=== PATIENT | female | born 1955 | race Caucasian/White ===

== ENCOUNTER 2020-08-26 09:50 | Outpatient (REF) | payer OTHER, SELFPAY ==
--- NOTE | 2020-08-26 | MM_ITS ---
EXAMINATION: BONE DENSITOMETRY CLINICAL INDICATION: Osteoporosis. COMPARISON: Previous BD dated 02/16/2018 and baseline BD dated 03/26/2010. TECHNIQUE: Using a [employer] mobile DXA System (software version: 13.1) manufactured by [employer], dual-energy x-ray absorptiometry was performed of the lumbar spine and left hip. The images are of good technical quality. Summary results are attached. FINDINGS: AP SPINE L1-L4: Current: BMD 0.904 g/cm2, Z-score -1.0, T-score -2.3, osteopenia, 0.9% increase from previous, 1.8% increase from baseline (<5% change is not significant). Prior: BMD 0.896 g/cm2. Baseline: BMD 0.888 g/cm2. LEFT FEMUR, NECK: Current: BMD 0.739 g/cm2, Z-score -0.8, T-score -2.1, osteopenia. Prior: BMD 0.643 g/cm2. Baseline: BMD 0.819 g/cm2. LEFT FEMUR, TOTAL: Current: BMD 0.932 g/cm2, Z-score 0.5, T-score -0.6, normal, 15.1% increase from previous, 1.5% decrease from baseline (<5% change is not significant). Prior: BMD 0.810 g/cm2. Baseline: BMD 0.946 g/cm2. IDENTIFIED RISK FACTORS: Menopause, rheumatoid arthritis, height loss, osteoporosis. HISTORY OF FRACTURE: None listed. MEDICATIONS: Calcium or multivitamin. Vitamin D. MM/XR DEXA axial skeleton IMPRESSION: 1. DIAGNOSIS: Osteopenia based on the lowest T-score value of -2.3 in the lumbar spine applying World Health Organization criteria. 2. 10-YEAR FRACTURE RISK PREDICTION, FRAX: Major osteoporotic fracture (clinical spine, forearm, hip or shoulder) 11.4%. Hip fracture 2.0%. 3. Treatment Recommendations: NOF guidelines recommend consideration for treatment in postmenopausal women and men age 50 and older presenting with the following: -A hip or vertebral (clinical or morphometric) fracture. -T-score less than or equal to -2.5 at the femoral neck or spine after appropriate evaluation to exclude secondary causes. -Low bone mass at the hip or spine and a 10-year fracture probability by FRAX of greater than or equal to 3% for hip fracture or greater than or equal to 20% for major osteoporotic fracture based on the [place] adapted WHO algorithm. 4. Other Recommendations: All treatment decisions require clinical judgment and consideration of individual patient factors, including patient preferences, comorbidities, previous drug use, risk factors not captured in the FRAX model (e.g. frailty, falls, vitamin D deficiency, increased bone turnover, interval significant decline in bone density) and possible under or overestimation of fracture risk by FRAX. Additional medical evaluation for secondary cause of low bone mineral density may be appropriate. FUTURE SCAN RECOMMENDATION: People with diagnosed cases of osteoporosis or at high risk for fracture should have regular bone mineral density tests. For patients eligible for Medicare, routine testing is allowed once every 2 years. The testing frequency can be increased to one year for patients who have rapidly progressing disease, those who are receiving or discontinuing medical therapy to restore bone mass, or have additional risk factors.
--- NOTE | 2020-08-26 | MM_ITS ---
EXAMINATION: MM SCREENING DIGITAL BREAST TOMOSYNTHESIS, BILATERAL CLINICAL INFORMATION: Screening. Asymptomatic. The lifetime risk of breast cancer based on the Tyrer-Cuzick Model is 9%. COMPARISON: Mammography: 08/23/2019, 07/18/2018, 07/11/2017, 06/25/2016 TECHNIQUE: Digital breast tomosynthesis is performed in both the craniocaudal and mediolateral oblique views along with computer-aided detection (CAD). Synthesized 2D images are generated from the tomosynthesis. FINDINGS: There are scattered areas of fibroglandular density (ACR BI-RADS breast composition Category b). Parenchymal pattern is similar to prior studies. There is no interval mass or architectural abnormality. No abnormal calcifications. Intramammary node again seen right breast mid upper outer quadrant. No significant changes. MM/MM tomosynthesis screening BI IMPRESSION: No mammographic evidence of malignancy. ASSESSMENT: BI-RADS 1: Negative RECOMMENDATION: Routine annual mammography screening. This patient's information was entered into a reminder system with a target due date for their next mammogram.
== END 2020-08-26 09:51 | disposition home or self-care (01) ==
LOC: HO.MAMMO 09:50
PROVIDERS: PCP Internal Medicine; Visit Provider Internal Medicine
DX: M81.0 Age-related osteoporosis without current pathological fracture (principal); Z12.31 Encounter for screening mammogram for malignant neoplasm of breast
CPT/HCPCS: 77063; 77067; 77080

== ENCOUNTER 2020-09-12 09:11 | Outpatient (REF) | payer OTHER, SELFPAY ==
[2020-09-12 11:58] LABS: Alanine Aminotransferase 16 U/L (0-31); Anion Gap 12 (12-20); Aspartate Amino Transferase 16 U/L (5-31); Blood Urea Nitrogen 17 mg/dL (9-16); Calcium 8.3 mg/dL (8.4-10.2); Carbon Dioxide 28 mmol/L (22-29); Chloride 106 mmol/L (96-108); Cholesterol 191 mg/dL; Estimated Glomerular Filt Rate > 60; Glucose Fasting 91 mg/dL (60-99); HDL Cholesterol 62 mg/dL; LDL Cholesterol Calculated 102 mg/dl; Potassium 4.1 mmol/l (3.3-5.1); Sodium 142 mmol/L (135-145); Triglycerides 136 mg/dL
[2020-09-12 12:05] LABS: Vitamin D 25-OH Total 51.9 ng/mL (>30)
== END 2020-09-12 09:12 | disposition home or self-care (01) ==
LOC: HO.HMGCLDS 09:11
PROVIDERS: PCP Internal Medicine; Visit Provider Internal Medicine
DX: E78.5 Hyperlipidemia, unspecified (principal); I10 Essential (primary) hypertension; I48.0 Paroxysmal atrial fibrillation; Z78.0 Asymptomatic menopausal state
CPT/HCPCS: 80048; 80061; 82306; 84450; 84460

== ENCOUNTER → 2020-12-12 08:41 | Outpatient (REF) | payer OTHER, SELFPAY ==
--- NOTE | 2020-12-12 08:30 | CA_ITS ---
Transthoracic Echocardiogram Patient (Last, First, Middle): Brooklyn Hawkins L Gender: Female Date of : 1955 Age: 65 Procedure Date: 12/12/2020 Procedure Type: Transthoracic Echocardiogram Location: OP Height: 154.94 cm Weight: 74.84 kg BSA: 1.74 m2 Heart Rate: bpm BP: 140 / 85 mmHg [employer] Driver: SMITHA Referring MD: Juan Laughlin MD Symptoms: I48.0 PAF I10 HTN Study Quality: Fair ECG Rhythm: Sinus Conclusions: - The left ventricular systolic function is normal. The visually estimated ejection fraction is between 55-60%. - There is mild mitral valve regurgitation. Findings Left Ventricle Normal left ventricular cavity size. There is mildly increased left ventricular wall thickness. The left ventricular systolic function is normal. The visually estimated ejection fraction is between 55-60%. There is no evidence of regional wall motion abnormalities. Diastolic function is normal for age. Right Ventricle Normal right ventricular cavity size and systolic function. Atria The left atrium is normal in size. The right atrium is normal in size. Aortic Valve There is a normal trileaflet aortic valve. There is no aortic valve stenosis. There is no aortic valve regurgitation. Mitral Valve The mitral valve appears normal. There is mild mitral valve regurgitation. There is no mitral valve stenosis. Pulmonic Valve The pulmonic valve was not well visualized. Tricuspid Valve Normal tricuspid valve structure. There is trace tricuspid valve regurgitation. The pulmonary artery systolic pressure is normal. Great Vessels The aortic annulus, sinuses of valsalva, and asc aorta are normal in size. Venous The inferior vena cava is normal in size and collapses greater than 50% with inspiration. Pericardium/Pleural There is no evidence of pericardial effusion. Prior Study Comparison No significant change compared to prior study dated: 12/24/2019. Measurements 2D Linear Measurements IVSd: 1.23 0.6-0.9/0.6-1.0 cm LVIDd: 4.82 3.9-5.3/4.2-5.9 cm LVIDd Index: 2.77 2.4-3.2/2.2-3.1 cm/m2 LVIDs: 3.69 2.0-3.6 cm LVPWd: 1.07 0.7-1.1 cm Ao Root: 2.60 2.1-3.5 cm LA Diam: 3.40 2.7-3.8/3.0-4.0 cm LAIDs Index: 1.95 1.5-2.3 cm/m2 LV Mass: 258.92 67-162/88-224 g LV Mass Index: 148.81 43-95/49-115 g/m2 LVOT Diam: 2.10 3.0+(-)1.3 cm 2D Systolic Function EF 4C: 55.20 >55% EF 2C: 62.20 >55% EF BiP: 59.60 >55% Mitral Valve MV Pk E: 0.92 MV PK A: 0.78 MV Decel Time: 127.00 E/A: 1.20 E'Lateral: 10.40 E'Medial: 7.72 E/E' Med: 11.90 E/E' Lat: 8.80 PHT: 37.00 MVA PHT: 5.95 Decel Richardson: 7.23 Aortic Valve AoV Pk Jeovanny: 1.38 AoV Pk Grad: 8.00 LVOT LVOT Pk Jeovanny: 0.81 LVOT Mn Jeovanny: 0.52 LVOT VTI: 0.19 LVOT Pk Grad: 3.00 LVOT Mn Grad: 1.00 LVOT Diam: 2.10 LVOT Area: 3.46 Diastolic Function MV Pk E: 0.92 MV Pk A: 0.78 E/A: 1.20 E'Medial: 7.72 E/E' Med: 11.90 E' Laterial: 10.40 E/E' Lat: 8.80 Tricuspid Valve TR Pk Jeovanny: 2.20 TR Pk Grad: 19.00 RA Press: 3.00 RVSP: 20.00 Great Vessels Aorta Ao Root-2D: 2.60 2.0-3.7 cm Ao Asc: 3.10 2.1-3.4 cm Updated in Other Vendor System with Status of Final Pankaj Nuñez MD electronically signed on 12/13/2020 1:09:32 PM with status of Final
== END ==
LOC: HO.CARD 08:41
PROVIDERS: Visit Provider Internal Medicine Cardiovascular Disease
DX: I48.0 Paroxysmal atrial fibrillation (principal); I10 Essential (primary) hypertension
CPT/HCPCS: 93306

== ENCOUNTER → 2020-12-30 08:30 | Outpatient (BNVA) | payer OTHER, MEDICARE, SELFPAY | PROVIDERS: PCP Internal Medicine; Visit Provider Internal Medicine Cardiovascular Disease | DX: I48.0 Paroxysmal atrial fibrillation (principal); I10 Essential (primary) hypertension | CPT/HCPCS: 93005 ==

== ENCOUNTER 2021-01-12 09:22 | Outpatient (REF) | payer OTHER, MEDICARE, SELFPAY ==
[2021-01-12 12:01] LABS: Alanine Aminotransferase 24 U/L (0-31); Anion Gap 13 (12-20); Aspartate Amino Transferase 24 U/L (5-31); Blood Urea Nitrogen 13 mg/dL (9-16); Calcium 8.4 mg/dL (8.4-10.2); Carbon Dioxide 28 mmol/L (22-29); Chloride 104 mmol/L (96-108); Cholesterol 168 mg/dL; Estimated Glomerular Filt Rate > 60; Glucose Fasting 97 mg/dL (60-99); HDL Cholesterol 48 mg/dL; LDL Cholesterol Calculated 96 mg/dl; Potassium 4.1 mmol/L (3.3-5.1); Sodium 141 mmol/L (135-145); Triglycerides 120 mg/dL
[2021-01-12 12:24] LABS: Vitamin D 25-OH Total 67.5 ng/mL (>30)
== END 2021-01-12 09:23 | disposition home or self-care (01) ==
LOC: HO.HMGCLDS 09:22
PROVIDERS: PCP Internal Medicine; Visit Provider Internal Medicine
DX: E78.5 Hyperlipidemia, unspecified (principal); I10 Essential (primary) hypertension; K58.0 Irritable bowel syndrome with diarrhea; M85.89 Other specified disorders of bone density and structure, multiple sites; Z78.0 Asymptomatic menopausal state
CPT/HCPCS: 36415; 80048; 80061; 82306; 84450; 84460

== ENCOUNTER 2021-03-16 11:07 | Emergency (ER) | payer OTHER, MEDICARE, SELFPAY ==
--- NOTE | ~2021-03-16 | XR_ITS ---
EXAMINATION: XR CHEST CLINICAL INFORMATION: Dyspnea. COMPARISON: None TECHNIQUE: Frontal view of the chest was obtained. FINDINGS: No significant abnormality is noted involving the heart, lungs, mediastinum, bony thorax or soft tissues. XR/XR chest 1V IMPRESSION: Unremarkable chest exam.
[2021-03-16 11:25] VITALS: BP 127/83; PULSE 100; RESP 16; TEMP 38; O2SAT 98; BMI 30.2
--- NOTE | 2021-03-16 11:55 | ED_ITS ---
HPI - URI/Sore Throat General Chief Complaint: Dyspnea <BHARAT Curry Last Filed: 03/16/21 16:52> Stated Complaint: DIFF BREATHING,100% DUONEB <BHARAT Curry Last Filed: 03/16/21 16:52> Time Seen by Provider: 03/16/21 11:32 <BHARAT Curry Last Filed: 03/16/21 16:52> Source: patient <BHARAT Curry Last Filed: 03/16/21 16:52> Mode of arrival: ambulatory <BHARAT Curry Last Filed: 03/16/21 16:52> Limitations: no limitations <BHARAT Curry Last Filed: 03/16/21 16:52> History of Present Illness HPI Narrative: 65 y/o female with history of COVID in December 2020, paroxysmal AFib on anticoaluation, HTN who presents to the ER from home via EMS with sore throat that started this morning. She reports a dry cough as well and some mild SOB. She relates her SOB to her throat pain and mask wearing. No chest pain. She states her throat is very painful and she is having difficulty eating and drinking. She tried warm salt water gargle without improvement. She denies any difficulty handling her own secretions. Her voice is hoarse. She denies fevers but reports chills. No sick contacts. She has not gotten her COVID vaccines yet in the setting of recent COVID. <BHARAT Curry Last Filed: 03/16/21 16:52> MD elicited complaint: sore throat <BHARAT Curry Last Filed: 03/16/21 16:52> Onset (ago): hour(s) (4) <BHARAT Curry Last Filed: 03/16/21 16:52> Consistency: constant <BHARAT Curry Last Filed: 03/16/21 16:52> Severity: severe <BHARAT Curry Last Filed: 03/16/21 16:52> Able to tolerate fluids by mouth: Yes <BHARAT Curry Last Filed: 03/16/21 16:52> Exacerbating factors: swallowing and speaking <BHARAT Curry - Last Filed: 03/16/21 16:52> Relieving factors: nothing <BHARAT Curry - Last Filed: 03/16/21 16:52> Associated symptoms: chills, voice changes, sore throat and cough <BHARAT Curry - Last Filed: 03/16/21 16:52> Treatments prior to arrival: none <BHARAT Curry - Last Filed: 03/16/21 16:52> Related Data Home Medications: Home Medications Medication Instructions Recorded Confirmed acetaminophen 650 mg 650 mg PO Q8H PRN 09/18/20 03/25/21 tablet,extended release cholecalciferol (vitamin D3) 50 50 mcg PO DAILY 09/18/20 03/25/21 mcg (2,000 unit) capsule flu vacc [id number](65yr up)-PF 240 ml IM 09/18/20 03/25/21 mcg/0.7 mL intramuscular syringe Previous Rx's Medication Instructions Recorded lisinopril 20 mg tablet 20 mg PO DAILY 90 Days #90 tab 09/10/20 metoprolol succinate 50 mg 50 mg PO DAILY 90 Days #90 tab 09/10/20 tablet,extended release 24 hr rivaroxaban 20 mg tablet 20 mg PO DAILY #30 tab 11/11/20 albuterol sulfate 90 mcg/actuation 2 puff PO Q6H PRN #8.5 g 02/27/21 aerosol inhaler flecainide 100 mg tablet 100 mg PO Q12H #180 tab 03/02/21 simvastatin 20 mg tablet 20 mg PO BEDTIME #90 tab 03/02/21 albuterol sulfate 1 inh INHALATION QID PRN #6.7 g 03/16/21 budesonide-formoterol HFA 160 2 puff INHALATION Q12H #10.2 g 03/25/21 mcg-4.5 mcg/actuation aerosol inhaler doxycycline hyclate 100 mg capsule 100 mg PO BID 10 Days #20 cap 03/25/21 inhalational spacing device #1 ea 03/25/21 ipratropium 0.5 mg-albuterol 3 mg 3 ml INHALATION Q6H PRN #90 ml 03/25/21 (2.5 mg base)/3 mL nebulization soln nebulizers #1 ea 03/25/21 raloxifene 60 mg tablet 60 mg PO DAILY #90 tab 04/22/21 <BHARAT Curry Last Filed: 03/16/21 16:52> Allergies/Adverse Reactions: Allergies Allergy/AdvReac Type Severity Reaction Status Date / Time Sulfa (Sulfonamide Allergy Intermediate FACIAL Verified 01/19/21 09:00 Antibiotics) SWELLING, [SULFA(SULFONAMIDE REDNESS, ANTIBIOTICS)] rash, face edema levofloxacin [From LEVAQUIN] Allergy Unknown itchy Verified 01/19/21 09:00 tongue penicillin V Allergy Unknown rash Verified 01/19/21 09:00 Penicillins [PENICILLINS] Allergy Unknown RASH Verified 01/19/21 09:00 Quinolones [QUINOLONES] Allergy Unknown MOUTH Verified 01/19/21 09:00 ITCHING <BHARAT Curry Last Filed: 03/16/21 16:52> Review of Systems Review of Systems: Constitutional: No Fever, + Chills ENT/Mouth: + sore throat, No Rhinorrhea, + Swallowing Difficulty Eyes: No Eye Pain, No Swelling, No Redness Cardiovascular: No Chest Pain, + SOB Respiratory: + Cough, No Sputum, + Wheezing, No dyspnea Gastrointestinal: No Nausea, No Vomiting, No Diarrhea, No abdominal Pain Genitourinary: No Dysuria, No Urinary Frequency, No Hematuria Musculoskeletal: No joint pain, No Myalgias Skin: No Skin Lesions, No rash Neuro: No Weakness, No Numbness, No Dizziness, + Headache Heme/Lymph: No Lymphadenopathy <BHARAT Curry Last Filed: 03/16/21 16:52> [facility] Past Medical History Attestation statement: The following information was validated with the patient. <BHARAT Curry Last Filed: 03/16/21 16:52> Medical History: Medical History Chronic anticoagulation Dyslipidemia Essential hypertension Hemochromatosis carrier Irritable bowel syndrome with diarrhea Mild intermittent asthma with (acute) exacerbation Osteopenia of multiple sites Paroxysmal atrial fibrillation <BHARAT Curry Last Filed: 03/16/21 16:52> Surgical History: Surgical History History of laparoscopic cholecystectomy <BHARAT Curry - Last Filed: 03/16/21 16:52> Family History Family History: Family History (Updated 03/25/21 @ 10:39 by Noemy Bryant [facility]) Father Emphysema, unspecified Mother Heart disease CVD (cardiovascular disease) Stroke Maternal Aunt Breast cancer Ovarian cancer Brother No problems noted. Brother No problems noted. Brother No problems noted. Sister No problems noted. Sister Mental health disorder Sister Mental health disorder Daughter No problems noted. Daughter No problems noted. Daughter No problems noted. <BHARAT Curry - Last Filed: 03/16/21 16:52> Social History Social History: Social History (Updated 03/25/21 @ 10:40 by Noemy Bryant [facility]) Housing: House Alcohol intake: former Patient Tobacco Use Status: Former Tobacco user Years Smoked: 40 yrs service: No Current occupational status: retired <BHARAT Curry - Last Filed: 03/16/21 16:52> Physical Exam Vital Signs: Vital Signs: Last Vital Signs Temp 100.5 F H 03/16/21 12:58 Pulse 98 03/16/21 14:06 Resp 20 03/16/21 12:58 BP 136/63 03/16/21 12:58 Pulse Ox 92 03/16/21 15:58 Body Mass Index 30.2 Appearance: Alert. Oriented X3. No acute distress. Eyes: Pupils equal, round and reactive to light. ENT: Pharynx with moderate generalized erythema, no tonsillar swelling or exudates, no visible peritonsillar mass Neck: Normal inspection. Neck supple. No LAD CVS: Normal heart rate and rhythm. Pulses normal. Respiratory: No respiratory distress. Breath sounds with mild end expiratory wheeze throughout. Abdomen: Soft and nontender. +BS x4 Skin: Skin warm and dry. Normal skin color. Normal skin turgor. No rashes. Extremities: No lower extremity edema. Negative Sumi's sign Neuro: Oriented X 3. No motor deficit. No sensory deficit. <BHARAT Curry - Last Filed: 03/16/21 16:52> Vital Signs: Last Vital Signs Temp 100.5 F H 03/16/21 12:58 Pulse 98 03/16/21 14:06 Resp 20 03/16/21 12:58 BP 136/63 03/16/21 12:58 Pulse Ox 92 03/16/21 15:58 Body Mass Index 30.2 <Christiano White MD - Last Filed: 04/23/21 13:27> Course Course Course Narrative: 65 y/o female presenting with sore throat and dry cough. Non-toxic appearing without any respiratory distress. No hypoxia. Will get CXR, COVID and Viral PCR. Will give dose of IV solumedrol and a neb and reassess. Anticipate d/c home. <BHARAT Curry - Last Filed: 03/16/21 16:52> I have reviewed the chart <Christiano White MD - Last Filed: 04/23/21 13:27> Reevaluation(s) Reevaluation #1: Troponin is negative. Viral PCR and Strep are negative. CXR is clear. Upon re-evaluation her SpO2 was 92%. She was ambulated on room air and her SpO2 remained 92%, did not drop. No respiratory distress. Breath sounds improved. She does not meet inpatient criteria. Will d/c home with abx and steroids for asthma and pharyngitis. She will follow up with her doctor this week. She is agreeable with plan and was given warning signs/symptoms to return to the ER. <BHARAT Curry - Last Filed: 03/16/21 16:52> MDM - URI/Sore Throat Lab Data Result diagrams: : 03/16/21 13:26 03/16/21 13:26 <BHARAT Curry - Last Filed: 03/16/21 16:52> Labs: Lab Results 03/16/21 03/16/21 03/16/21 Range/Units 11:47 11:47 13:26 WBC 11.9 H (4.8-10.8) X10*3/uL RBC 3.92 L (4.20-5.50) X10*6/uL Hgb 11.1 L (12.0-16.0) g/dl Hct 34.7 L (37-47) % MCV 88.5 (80-98) fL MCH 28.3 (27.0-33.0) pg MCHC 32.0 (31.0-35.0) g/dl RDW 12.9 (11.0-16.0) % Plt Count 228 (160-400) X10*3/uL MPV 11.0 (9.4-12.3) fL Immature Gran % (Auto) 0.4 (0.0-0.4) % Neut % (Auto) 89.5 H (45-73) % Lymph % (Auto) 4.7 L (20-40) % Peach % (Auto) 4.9 (2-11) % Eos % (Auto) 0.3 (0-4) % Baso % (Auto) 0.2 (0-2) % Lymph # (Auto) 0.6 L (1.2-4.9) X10*3/uL Peach # (Auto) 0.6 (0.1-1.2) X10*3/uL Eos # (Auto) 0.0 (0.0-0.4) X10*3/uL Baso # (Auto) 0.0 (0.0-0.2) X10*3/uL Abs Immat Gran (auto) 0.05 H (0.00-0.03) X10*3/uL Absolute Neuts (auto) 10.7 H (2.0-8.3) X10*3/uL Absolute Nucleated RBC 0.000 (0.0-0.012) X10*3/uL Nucleated RBC % (auto) 0.0 (0.0-0.2) /100WBC Sodium (135-145) mmol/L Potassium (3.3-5.1) mmol/L Chloride (96-108) mmol/L Carbon Dioxide (22-29) mmol/L Anion Gap (12-20) BUN (9-16) mg/dL Creatinine (0.5-1.4) mg/dL Estim Creat Clear Calc Estimated GFR Random Glucose (60-115) mg/dL Calcium (8.4-10.2) mg/dL Magnesium (1.6-2.6) mg/dL Troponin I High Sens (<3.5-17.0) ng/L Coronavirus (PCR) NEGATIVE (Negative) Influenza Type A (PCR) NEGATIVE (Negative) Influenza Type B (PCR) NEGATIVE (Negative) RSV RNA Qual (PCR) NEGATIVE (Negative) S. pyogenes GrpA RAYA Negative (Negative) 03/16/21 03/16/21 03/16/21 Range/Units 13:26 13:26 13:26 WBC (4.8-10.8) X10*3/uL RBC (4.20-5.50) X10*6/uL Hgb (12.0-16.0) g/dl Hct (37-47) % MCV (80-98) fL MCH (27.0-33.0) pg MCHC (31.0-35.0) g/dl RDW (11.0-16.0) % Plt Count (160-400) X10*3/uL MPV (9.4-12.3) fL Immature Gran % (Auto) (0.0-0.4) % Neut % (Auto) (45-73) % Lymph % (Auto) (20-40) % Peach % (Auto) (2-11) % Eos % (Auto) (0-4) % Baso % (Auto) (0-2) % Lymph # (Auto) (1.2-4.9) X10*3/uL Peach # (Auto) (0.1-1.2) X10*3/uL Eos # (Auto) (0.0-0.4) X10*3/uL Baso # (Auto) (0.0-0.2) X10*3/uL Abs Immat Gran (auto) (0.00-0.03) X10*3/uL Absolute Neuts (auto) (2.0-8.3) X10*3/uL Absolute Nucleated RBC (0.0-0.012) X10*3/uL Nucleated RBC % (auto) (0.0-0.2) /100WBC Sodium 140 (135-145) mmol/L Potassium 3.8 (3.3-5.1) mmol/L Chloride 108 (96-108) mmol/L Carbon Dioxide 25 (22-29) mmol/L Anion Gap 11 L (12-20) BUN 14 (9-16) mg/dL Creatinine 0.67 (0.5-1.4) mg/dL Estim Creat Clear Calc 74.2 Estimated GFR > 60 Random Glucose 90 (60-115) mg/dL Calcium 8.5 (8.4-10.2) mg/dL Magnesium 2.0 Cancelled (1.6-2.6) mg/dL Troponin I High Sens < 3.5 (<3.5-17.0) ng/L Coronavirus (PCR) (Negative) Influenza Type A (PCR) (Negative) Influenza Type B (PCR) (Negative) RSV RNA Qual (PCR) (Negative) S. pyogenes GrpA RAYA (Negative) <BHARAT Curry - Last Filed: 03/16/21 16:52> Lab Results 03/16/21 03/16/21 03/16/21 Range/Units 11:47 11:47 13:26 WBC 11.9 H (4.8-10.8) X10*3/uL RBC 3.92 L (4.20-5.50) X10*6/uL Hgb 11.1 L (12.0-16.0) g/dl Hct 34.7 L (37-47) % MCV 88.5 (80-98) fL MCH 28.3 (27.0-33.0) pg MCHC 32.0 (31.0-35.0) g/dl RDW 12.9 (11.0-16.0) % Plt Count 228 (160-400) X10*3/uL MPV 11.0 (9.4-12.3) fL Immature Gran % (Auto) 0.4 (0.0-0.4) % Neut % (Auto) 89.5 H (45-73) % Lymph % (Auto) 4.7 L (20-40) % Peach % (Auto) 4.9 (2-11) % Eos % (Auto) 0.3 (0-4) % Baso % (Auto) 0.2 (0-2) % Lymph # (Auto) 0.6 L (1.2-4.9) X10*3/uL Peach # (Auto) 0.6 (0.1-1.2) X10*3/uL Eos # (Auto) 0.0 (0.0-0.4) X10*3/uL Baso # (Auto) 0.0 (0.0-0.2) X10*3/uL Abs Immat Gran (auto) 0.05 H (0.00-0.03) X10*3/uL Absolute Neuts (auto) 10.7 H (2.0-8.3) X10*3/uL Absolute Nucleated RBC 0.000 (0.0-0.012) X10*3/uL Nucleated RBC % (auto) 0.0 (0.0-0.2) /100WBC Sodium (135-145) mmol/L Potassium (3.3-5.1) mmol/L Chloride (96-108) mmol/L Carbon Dioxide (22-29) mmol/L Anion Gap (12-20) BUN (9-16) mg/dL Creatinine (0.5-1.4) mg/dL Estim Creat Clear Calc Estimated GFR Random Glucose (60-115) mg/dL Calcium (8.4-10.2) mg/dL Magnesium (1.6-2.6) mg/dL Troponin I High Sens (<3.5-17.0) ng/L Coronavirus (PCR) NEGATIVE (Negative) Influenza Type A (PCR) NEGATIVE (Negative) Influenza Type B (PCR) NEGATIVE (Negative) RSV RNA Qual (PCR) NEGATIVE (Negative) S. pyogenes GrpA RAYA Negative (Negative) 03/16/21 03/16/21 03/16/21 Range/Units 13:26 13:26 13:26 WBC (4.8-10.8) X10*3/uL RBC (4.20-5.50) X10*6/uL Hgb (12.0-16.0) g/dl Hct (37-47) % MCV (80-98) fL MCH (27.0-33.0) pg MCHC (31.0-35.0) g/dl RDW (11.0-16.0) % Plt Count (160-400) X10*3/uL MPV (9.4-12.3) fL Immature Gran % (Auto) (0.0-0.4) % Neut % (Auto) (45-73) % Lymph % (Auto) (20-40) % Peach % (Auto) (2-11) % Eos % (Auto) (0-4) % Baso % (Auto) (0-2) % Lymph # (Auto) (1.2-4.9) X10*3/uL Peach # (Auto) (0.1-1.2) X10*3/uL Eos # (Auto) (0.0-0.4) X10*3/uL Baso # (Auto) (0.0-0.2) X10*3/uL Abs Immat Gran (auto) (0.00-0.03) X10*3/uL Absolute Neuts (auto) (2.0-8.3) X10*3/uL Absolute Nucleated RBC (0.0-0.012) X10*3/uL Nucleated RBC % (auto) (0.0-0.2) /100WBC Sodium 140 (135-145) mmol/L Potassium 3.8 (3.3-5.1) mmol/L Chloride 108 (96-108) mmol/L Carbon Dioxide 25 (22-29) mmol/L Anion Gap 11 L (12-20) BUN 14 (9-16) mg/dL Creatinine 0.67 (0.5-1.4) mg/dL Estim Creat Clear Calc 74.2 Estimated GFR > 60 Random Glucose 90 (60-115) mg/dL Calcium 8.5 (8.4-10.2) mg/dL Magnesium 2.0 Cancelled (1.6-2.6) mg/dL Troponin I High Sens < 3.5 (<3.5-17.0) ng/L Coronavirus (PCR) (Negative) Influenza Type A (PCR) (Negative) Influenza Type B (PCR) (Negative) RSV RNA Qual (PCR) (Negative) S. pyogenes GrpA RAYA (Negative) <Christiano White MD - Last Filed: 04/23/21 13:27> Discharge Plan Discharge Clinical Impression: Pharyngitis, Asthma exacerbation <BHARAT Curry - Last Filed: 03/16/21 16:52> Patient Disposition: Home, Self-Care <BHARAT Curry - Last Filed: 03/16/21 16:52> Instructions: Asthma (ED), Pharyngitis (ED) <BHARAT Curry - Last Filed: 03/16/21 16:52> Additional Instructions: Your lab workup was unremarkable. Your chest x-ray was normal. You were negative for Strep, COVID, the Flu and RSV. Take the prescribed medications as directed. Take Tylenol as needed for sore throat and headache. Use warm salt water gargles several times per day. Follow up with your doctor this week. If you have worsening symptoms come back to the ER for furhter evaluation. <BHARAT Curry - Last Filed: 03/16/21 16:52> Prescriptions: New albuterol sulfate 90 mcg/actuation HFA aerosol inhaler 1 inh inhalation QID PRN (Reason: shortness of breath or wheezing) Qty: 6.7 RF: 0 No Action metoprolol succinate 50 mg tablet extended release 24 hr 50 mg PO DAILY 90 Days Qty: 90 RF: 3 lisinopril 20 mg tablet 20 mg PO DAILY 90 Days Qty: 90 RF: 3 rivaroxaban [Xarelto] 20 mg tablet 20 mg PO DAILY Qty: 30 RF: 6 albuterol sulfate 90 mcg/actuation HFA aerosol inhaler 2 puff PO Q6H PRN (Reason: for wheezing) Qty: 8.5 RF: 0 flecainide 100 mg tablet 100 mg PO Q12H Qty: 180 RF: 1 simvastatin 20 mg tablet 20 mg PO BEDTIME Qty: 90 RF: 1 raloxifene 60 mg tablet 60 mg PO DAILY Qty: 90 RF: 1 Fluzone HighDose Quad 20-21 PF 240 mcg/0.7 mL syringe IM RF: 0 acetaminophen 650 mg tablet extended release 650 mg PO Q8H PRN (Reason: pain) RF: 0 cholecalciferol (vitamin D3) 50 mcg (2,000 unit) capsule 50 mcg PO DAILY RF: 0 ipratropium-albuterol 0.5 mg-3 mg(2.5 mg base)/3 mL solution for nebulization 3 ml inhalation ONCE Qty: 3 RF: 0 doxycycline hyclate 100 mg capsule 100 mg PO BID 10 Days Qty: 20 RF: 0 (DME) Aerochamber MV Spacer See Rx Instructions .ROUTE .MEDSUPPLY Qty: 1 RF: 0 budesonide-formoterol [Symbicort] 160-4.5 mcg/actuation HFA aerosol inhaler 2 puff inhalation Q12H Qty: 10.2 RF: 0 (DME) nebulizers Misc See Rx Instructions .ROUTE .MEDSUPPLY Qty: 1 RF: 0 ipratropium-albuterol 0.5 mg-3 mg(2.5 mg base)/3 mL solution for nebulization 3 ml inhalation Q6H PRN (Reason: wheezing) Qty: 90 RF: 0 <BHARAT Curry - Last Filed: 03/16/21 16:52> Referrals: Flores Osullivan MD [Primary Care Provider] - 2 days <BHARAT Curry - Last Filed: 03/16/21 16:52> Interventions: ED Discharge Assessment Last Done: 03/16/21 16:41 <BHARAT Curry - Last Filed: 03/16/21 16:52> Discharge Date/Time: 03/16/21 16:42 <BHARAT Curry - Last Filed: 03/16/21 16:52>
[2021-03-16 12:06] LABS: IDNOW Serial# 9DD0AD1C; Strep A Nucleic Acid Negative (Negative)
[2021-03-16] MEDS: Acetaminophen 325 MG TABLET 975 MG PO (12:09)
[2021-03-16 12:34] LABS: Influenza A PCR NEGATIVE (Negative); Influenza B PCR NEGATIVE (Negative); Resp Syncy Virus RNA Qual PCR NEGATIVE (Negative); SARS COV2 PCR INHOUSE NEGATIVE (Negative)
[2021-03-16 12:58] VITALS: BP 136/63; PULSE 92; RESP 20; TEMP 38.1; O2SAT 92
--- NOTE | 2021-03-16 13:11 | ECG_ITS ---
Test Reason : CHEST TIGHTNESS Blood Pressure : / mmHG Vent. Rate : 097 BPM Atrial Rate : 097 BPM P-R Int : 200 ms QRS Dur : 088 ms QT Int : 368 ms P-R-T Axes : 049 029 028 degrees QTc Int : 467 ms Normal sinus rhythm Nonspecific T wave abnormality Abnormal ECG When compared with ECG of 10-JUN-2020 14:07, Vent. rate has increased BY 36 BPM Nonspecific T wave abnormality now evident in Inferior leads Nonspecific T wave abnormality, worse in Anterolateral leads Referred By: Ronda Landon Electronically Signed By:TY MORENO MD
[2021-03-16 13:32] LABS: Basophils Percent Auto 0.2 % (0-2); Eosinophils Percent Auto 0.3 % (0-4); Hematocrit 34.7 % (37-47); Hemoglobin 11.1 g/dl (12.0-16.0); Imm Gran Abs Auto 0.05 X10*3/uL (0.00-0.03); Imm Gran Pct Auto 0.4 % (0.0-0.4); Lymphocytes Absolute Auto 0.6 X10*3/uL (1.2-4.9); Lymphocytes Percent Auto 4.7 % (20-40); MANUAL DIFF FLAG NO; Mean Corpuscular Hemoglobin 28.3 pg (27.0-33.0); Mean Corpuscular Volume 88.5 fL (80-98); Monocytes Absolute Auto 0.6 X10*3/uL (0.1-1.2); Monocytes Percent Auto 4.9 % (2-11); Neutrophils Absolute Auto 10.7 X10*3/uL (2.0-8.3); Neutrophils Percent Auto 89.5 % (45-73); Platelet Count 228 X10*3/uL (160-400); Red Blood Count 3.92 X10*6/uL (4.20-5.50); Red Cell Distribution Width 12.9 % (11.0-16.0); SCAN SMEAR FLAG 1; White Blood Count 11.9 X10*3/uL (4.8-10.8)
[2021-03-16] MEDS: methylPREDNISolone Sod Succ 125 MG/2 ML VIAL IVPUSH (13:39)
[2021-03-16 14:02] LABS: Troponin-I High Sensitivity < 3.5 ng/L (<3.5-17.0)
[2021-03-16] MEDS: Albuterol Sulfate (0.083%) 2.5 MG/3 ML VIAL.NEB 5 MG INHALE (14:05)
[2021-03-16 14:06] VITALS: PULSE 98; O2SAT 95
[2021-03-16 14:16] LABS: Anion Gap 11 (12-20); Blood Urea Nitrogen 14 mg/dL (9-16); Calcium 8.5 mg/dL (8.4-10.2); Carbon Dioxide 25 mmol/L (22-29); Chloride 108 mmol/L (96-108); Creatinine Clr Calc Pharmacy 74.2; Estimated Glomerular Filt Rate > 60; Glucose Random 90 mg/dL (60-115); Potassium 3.8 mmol/L (3.3-5.1); Sodium 140 mmol/L (135-145)
[2021-03-16 15:58] VITALS: O2SAT 92
--- NOTE | 2021-03-16 15:58 | PC.NURSE ---
Pt ambulated to bathroom with SPO2 monitoring, pt stayed steadily at 92% on room air for duration of ambulation.
== END 2021-03-16 16:42 | disposition home or self-care (01) ==
PROVIDERS: Physician Assistant; Emergency Provider Emergency Medicine; PCP Internal Medicine
DX: J45.21 Mild intermittent asthma with (acute) exacerbation (principal); J02.9 Acute pharyngitis, unspecified; I10 Essential (primary) hypertension; I48.0 Paroxysmal atrial fibrillation; Z79.01 Long term (current) use of anticoagulants; Z79.899 Other long term (current) drug therapy; Z20.822 Contact with and (suspected) exposure to COVID-19; Z86.16 Personal history of COVID-19
CPT/HCPCS: 0241U; 36415; 71045; 80048; 83735; 84484; 85025; 87651; 93005; 94640; 96374; 99285; J2930

== ENCOUNTER 2021-06-20 11:25 | Outpatient (REF) | payer MEDICARE, SELFPAY | END 2021-06-20 11:26 | disposition home or self-care (01) | LOC: HO.LNP 11:25 | PROVIDERS: Visit Provider Internal Medicine | DX: J06.9 Acute upper respiratory infection, unspecified (principal); Z20.822 Contact with and (suspected) exposure to COVID-19 | CPT/HCPCS: U0003; U0005 ==

== ENCOUNTER → 2021-07-07 08:14 | Outpatient (BNVA) | payer MEDICARE, SELFPAY | PROVIDERS: PCP Internal Medicine; Referring Provider Internal Medicine; Visit Provider Internal Medicine Cardiovascular Disease | DX: I48.0 Paroxysmal atrial fibrillation (principal); I10 Essential (primary) hypertension | CPT/HCPCS: 93005; 99212 ==

== ENCOUNTER 2021-08-24 08:44 | Outpatient (REF) | payer MEDICARE, SELFPAY ==
[2021-08-24 12:29] LABS: Alanine Aminotransferase 16 U/L (0-31); Anion Gap 11 (12-20); Aspartate Amino Transferase 15 U/L (5-31); Blood Urea Nitrogen 21 mg/dL (9-16); Calcium 8.6 mg/dL (8.4-10.2); Carbon Dioxide 26 mmol/L (22-29); Chloride 106 mmol/L (96-108); Cholesterol 200 mg/dL; Estimated Glomerular Filt Rate > 60; Glucose Fasting 93 mg/dL (60-99); HDL Cholesterol 62 mg/dL; LDL Cholesterol Calculated 108 mg/dl; Potassium 4.4 mmol/L (3.3-5.1); Sodium 139 mmol/L (135-145); Triglycerides 153 mg/dL
[2021-08-24 12:32] LABS: Vitamin D 25-OH Total 50.5 ng/mL (>30)
== END 2021-08-24 08:45 | disposition home or self-care (01) ==
LOC: HO.HMGCLDS 08:44
PROVIDERS: PCP Internal Medicine; Visit Provider Internal Medicine
DX: E78.5 Hyperlipidemia, unspecified (principal); I10 Essential (primary) hypertension; M85.89 Other specified disorders of bone density and structure, multiple sites; Z78.0 Asymptomatic menopausal state
CPT/HCPCS: 36415; 80048; 80061; 82306; 84450; 84460

== ENCOUNTER 2021-09-10 16:09 | Outpatient (REF) | payer MEDICARE, SELFPAY ==
--- NOTE | ~2021-09-10 | US_ITS ---
EXAMINATION: ULTRASOUND EXTREMITY NONVASCULAR CLINICAL INFORMATION: Swelling, mass and lump left anterior thigh. Positive tenderness. COMPARISON: None. TECHNIQUE: Limited imaging to the left anterior thigh is performed. FINDINGS: There is a well-defined superficial oval subcutaneous slightly hyperechoic area with thin-walled capsulation where patient points to tenderness and palpable area. It measures 3.2 x 3.2 x 1.0 cm. The central area is echogenic with the surrounding area slightly hypoechoic similar to surrounding fat. This may represent a lipoma. US/US extremity nonvascular IMPRESSION: Most likely well-defined lipoma left anterior thigh in the subcutaneous soft tissues. There is a central echogenic area which may represent a scar or granulation tissue. If clinically indicated, MRI with fat sequences would be a better test to confirm a lipoma.
== END 2021-09-10 16:10 | disposition home or self-care (01) ==
LOC: HO.US 16:09
PROVIDERS: PCP Internal Medicine; Visit Provider Internal Medicine
DX: R22.9 Localized swelling, mass and lump, unspecified (principal)
CPT/HCPCS: 76882

== ENCOUNTER 2021-09-28 08:34 | Outpatient (REF) | payer MEDICARE, SELFPAY ==
--- NOTE | ~2021-09-28 | MM_ITS ---
EXAMINATION: MM SCREENING DIGITAL BREAST TOMOSYNTHESIS, BILATERAL CLINICAL INFORMATION: Screening. Asymptomatic. The lifetime risk of breast cancer based on the Tyrer-Cuzick Model is 5%. COMPARISON: Mammography: 08/26/2020, 08/23/2019, 07/18/2018 TECHNIQUE: Digital breast tomosynthesis is performed in both the craniocaudal and mediolateral oblique views along with computer-aided detection (CAD). Synthesized 2D images are generated from the tomosynthesis. FINDINGS: There are scattered areas of fibroglandular density (ACR BI-RADS breast composition Category b). There are no significant masses, abnormal calcifications, or other abnormalities. Parenchymal pattern is similar to prior exams. No architectural abnormality. The axilla and skin contours are unremarkable. No significant changes. MM/MM tomosynthesis screening BI IMPRESSION: No mammographic evidence of malignancy. ASSESSMENT: BI-RADS 1: Negative RECOMMENDATION: Routine annual mammography screening. This patient's information was entered into a reminder system with a target due date for their next mammogram.
== END 2021-09-28 08:35 | disposition home or self-care (01) ==
LOC: HO.MAMMO 08:34
PROVIDERS: Visit Provider Internal Medicine
DX: Z12.31 Encounter for screening mammogram for malignant neoplasm of breast (principal)
CPT/HCPCS: 77063; 77067

== ENCOUNTER → 2021-12-01 14:43 | Outpatient (REF) | payer MEDICARE, SELFPAY ==
--- NOTE | 2021-12-01 14:47 | CA_ITS ---
Transthoracic Echocardiogram Patient (Last, First, Middle): Brooklyn Hawkins L Gender: Female Date of : 1955 Age: 66 Procedure Date: 12/01/2021 Procedure Type: Transthoracic Echocardiogram Location: OP Height: 154.94 cm Weight: 73.94 kg BSA: 1.73 m2 Heart Rate: bpm BP: 132 / 84 mmHg Gear Room Keeper: ALEXANDRA Referring MD: Juan Laughlin MD Symptoms: I48.0 - Paroxysmal atrial fibrillation Study Quality: Fair ECG Rhythm: Sinus Conclusions: - The left ventricular systolic function is normal. The calculated ejection fraction is 61% by biplane method. - There is mild mitral valve regurgitation. Findings Left Ventricle Normal left ventricular cavity size. There is mildly increased left ventricular wall thickness. The left ventricular systolic function is normal. The calculated ejection fraction is 61% by biplane method. There is no evidence of regional wall motion abnormalities. Diastolic function is normal for age. Right Ventricle Normal right ventricular cavity size and systolic function. Atria Both atria are normal in size. Aortic Valve There is a normal trileaflet aortic valve. There is no aortic valve stenosis. There is no aortic valve regurgitation. Mitral Valve The mitral valve appears normal. There is mild mitral valve regurgitation. There is no mitral valve stenosis. Pulmonic Valve The pulmonic valve was not well visualized. Tricuspid Valve Normal tricuspid valve structure. There is trace tricuspid valve regurgitation. There is no evidence of pulmonary hypertension. Great Vessels The aortic annulus, sinuses of valsalva, and asc aorta are normal in size. Venous The inferior vena cava is normal in size and collapses greater than 50% with inspiration. Pericardium/Pleural There is no evidence of pericardial effusion. Prior Study Comparison No significant change compared to prior study dated: 12/12/2020. Measurements 2D Linear Measurements IVSd: 1.21 0.6-0.9/0.6-1.0 cm LVIDd: 4.66 3.9-5.3/4.2-5.9 cm LVIDd Index: 2.69 2.4-3.2/2.2-3.1 cm/m2 LVIDs: 2.72 2.0-3.6 cm LVPWd: 1.08 0.7-1.1 cm Ao Root: 2.80 2.1-3.5 cm LA Diam: 3.50 2.7-3.8/3.0-4.0 cm LAIDs Index: 2.02 1.5-2.3 cm/m2 LV Mass: 243.89 67-162/88-224 g LV Mass Index: 140.98 43-95/49-115 g/m2 LVOT Diam: 2.10 3.0+(-)1.3 cm 2D Systolic Function EF 4C: 58.50 >55% EF 2C: 61.60 >55% EF BiP: 60.80 >55% Mitral Valve MV Pk E: 0.91 MV PK A: 0.89 MV Decel Time: 191.00 E/A: 1.00 E'Lateral: 10.80 E'Medial: 8.38 E/E' Med: 10.90 E/E' Lat: 8.50 PHT: 56.00 MVA PHT: 3.93 Decel Ada: 4.78 Aortic Valve AoV Pk Jeovanny: 1.46 AoV Mn Jeovanny: 1.06 AoV VTI: 0.31 AoV Pk Grad: 9.00 Aov Mn Grad: 5.00 BERNARDINO Cont.VTI: 2.80 LVOT LVOT Pk Jeovanny: 1.17 LVOT Mn Jeovanny: 0.82 LVOT VTI: 0.25 LVOT Pk Grad: 5.00 LVOT Mn Grad: 3.00 LVOT Diam: 2.10 LVOT Area: 3.46 Diastolic Function MV Pk E: 0.91 MV Pk A: 0.89 E/A: 1.00 E'Medial: 8.38 E/E' Med: 10.90 E' Laterial: 10.80 E/E' Lat: 8.50 Right Ventricle TAPSE (mm): 23.60 TVS' Jeovanny: 11.00 Tricuspid Valve TR Pk Jeovanny: 2.08 TR Pk Grad: 17.00 RA Press: 3.00 RVSP: 20.00 Great Vessels Aorta Ao Root-2D: 2.80 2.0-3.7 cm Ao Asc: 2.80 2.1-3.4 cm Ao Arch: 3.20 Updated in Other Vendor System with Status of Final Pankaj Nuñez MD electronically signed on 12/02/2021 11:07:01 AM with status of Final
== END ==
LOC: HO.CARD 14:43
PROVIDERS: PCP Internal Medicine; Visit Provider Internal Medicine Cardiovascular Disease
DX: I48.0 Paroxysmal atrial fibrillation (principal)
CPT/HCPCS: 93306

== ENCOUNTER → 2021-12-14 14:17 | Outpatient (BNVA) | payer MEDICARE, SELFPAY | PROVIDERS: PCP Internal Medicine; Referring Provider Internal Medicine; Visit Provider Surgery | DX: D17.9 Benign lipomatous neoplasm, unspecified (principal) | CPT/HCPCS: 99202 ==

== ENCOUNTER 2022-01-27 14:40 | Outpatient (REF) | payer MEDICARE, SELFPAY ==
[2022-01-27 15:40] LABS: MANUAL DIFF FLAG NO
[2022-01-27 15:59] LABS: Basophils Percent Auto 0.4 % (0-2); Eosinophils Absolute Auto 0.3 X10*3/uL (0.0-0.4); Eosinophils Percent Auto 3.4 % (0-4); Hematocrit 37.5 % (37.0-47.0); Hemoglobin 11.9 g/dl (12.0-16.0); Imm Gran Abs Auto 0.02 X10*3/uL (0.00-0.03); Imm Gran Pct Auto 0.3 % (0.0-0.4); Lymphocytes Absolute Auto 1.6 X10*3/uL (1.2-4.9); Lymphocytes Percent Auto 20.1 % (20-40); Mean Corpuscular HGB Conc 31.7 g/dl (31.0-35.0); Mean Corpuscular Hemoglobin 28.3 pg (27.0-33.0); Mean Corpuscular Volume 89.3 fL (80.0-98.0); Mean Platelet Volume 10.6 fL (9.4-12.3); Monocytes Absolute Auto 0.7 X10*3/uL (0.1-1.2); Monocytes Percent Auto 8.2 % (2-11); Neutrophils Absolute Auto 5.4 x10*3/uL (2.0-8.3); Neutrophils Percent Auto 67.6 % (45-73); Platelet Count 296 X10*3/uL (160-400); Red Cell Distribution Width 12.6 % (11.0-16.0); White Blood Count 7.9 X10*3/uL (4.8-10.8)
[2022-01-27 16:15] LABS: Alanine Aminotransferase 13 U/L (0-31); Anion Gap 11 (12-20); Aspartate Amino Transferase 17 U/L (5-31); Blood Urea Nitrogen 23 mg/dL (9-16); Carbon Dioxide 30 mmol/L (22-29); Chloride 104 mmol/L (96-108); Cholesterol 195 mg/dL; Estimated Glomerular Filt Rate > 60; Glucose Fasting 101 mg/dL (60-99); HDL Cholesterol 60 mg/dL; Iron 57 mcg/dL (30-160); LDL Cholesterol Calculated 89 mg/dl; Percent Iron Saturation 18 % (15-50); Potassium 4.4 mmol/L (3.3-5.1); Sodium 141 mmol/L (135-145); Total Iron Binding Capacity 309 mcg/dL (228-428); Triglycerides 232 mg/dL; Unsaturated Iron Binding 252 ug/dL
[2022-01-27 16:34] LABS: Vitamin D 25-OH Total 55.5 ng/mL (>30)
== END 2022-01-27 14:41 | disposition home or self-care (01) ==
LOC: HO.LAB 14:40
PROVIDERS: PCP Internal Medicine; Referring Provider Internal Medicine; Visit Provider Internal Medicine Cardiovascular Disease
DX: I48.0 Paroxysmal atrial fibrillation (principal); I10 Essential (primary) hypertension; R42 Dizziness and giddiness; E78.5 Hyperlipidemia, unspecified; M85.89 Other specified disorders of bone density and structure, multiple sites
CPT/HCPCS: 36415; 80048; 80061; 82306; 83540; 84450; 84460; 85025; 93005; 99212

== ENCOUNTER → 2022-07-09 08:50 | Outpatient (BNVA) | payer MEDICARE, SELFPAY | PROVIDERS: PCP Internal Medicine; Referring Provider Internal Medicine; Visit Provider Internal Medicine Cardiovascular Disease | DX: I48.0 Paroxysmal atrial fibrillation (principal); I10 Essential (primary) hypertension | CPT/HCPCS: 93005; 99212 ==

== ENCOUNTER 2022-09-30 14:54 | Outpatient (REF) | payer MEDICARE, SELFPAY | END 2022-09-30 14:55 | disposition home or self-care (01) | LOC: HO.MAMMO 14:54 | PROVIDERS: PCP Internal Medicine; Visit Provider Internal Medicine | DX: Z12.31 Encounter for screening mammogram for malignant neoplasm of breast (principal) | CPT/HCPCS: 77063; 77067 ==

== ENCOUNTER 2022-10-08 07:28 | Outpatient (REF) | payer MEDICARE, SELFPAY ==
[2022-10-08 11:12] LABS: MANUAL DIFF FLAG NO
[2022-10-08 11:25] LABS: Basophils Percent Auto 0.6 % (0-2); Eosinophils Absolute Auto 0.3 X10*3/uL (0.0-0.4); Eosinophils Percent Auto 4.1 % (0-4); Hematocrit 38.3 % (37.0-47.0); Imm Gran Abs Auto 0.02 X10*3/uL (0.00-0.03); Imm Gran Pct Auto 0.3 % (0.0-0.4); Lymphocytes Absolute Auto 1.9 X10*3/uL (1.2-4.9); Lymphocytes Percent Auto 29.6 % (20-40); Mean Corpuscular HGB Conc 31.3 g/dl (31.0-35.0); Mean Corpuscular Hemoglobin 28.2 pg (27.0-33.0); Mean Corpuscular Volume 90.1 fL (80.0-98.0); Monocytes Absolute Auto 0.5 X10*3/uL (0.1-1.2); Monocytes Percent Auto 7.6 % (2-11); Neutrophils Absolute Auto 3.8 x10*3/uL (2.0-8.3); Neutrophils Percent Auto 57.8 % (45-73); Platelet Count 277 X10*3/uL (160-400); Red Blood Count 4.25 X10*6/uL (4.20-5.50); Red Cell Distribution Width 12.6 % (11.0-16.0); White Blood Count 6.6 X10*3/uL (4.8-10.8)
[2022-10-08 12:25] LABS: Alanine Aminotransferase 19 U/L (0-31); Anion Gap 10 (12-20); Aspartate Amino Transferase 17 U/L (5-31); Blood Urea Nitrogen 14 mg/dL (9-16); Calcium 8.5 mg/dL (8.4-10.2); Carbon Dioxide 28 mmol/L (22-29); Chloride 108 mmol/L (96-108); Cholesterol 164 mg/dL; Estimated Glomerular Filt Rate > 60; Glucose Fasting 98 mg/dL (60-99); HDL Cholesterol 56 mg/dL; LDL Cholesterol Calculated 88 mg/dl; Sodium 142 mmol/L (135-145); Triglycerides 100 mg/dL
== END 2022-10-08 07:29 | disposition home or self-care (01) ==
LOC: HO.HMGCLDS 07:28
PROVIDERS: PCP Internal Medicine; Visit Provider Internal Medicine
DX: E78.5 Hyperlipidemia, unspecified (principal); I10 Essential (primary) hypertension; I48.0 Paroxysmal atrial fibrillation; M85.89 Other specified disorders of bone density and structure, multiple sites; Z14.8 Genetic carrier of other disease; Z78.0 Asymptomatic menopausal state
CPT/HCPCS: 36415; 80048; 80061; 82306; 84450; 84460; 85025

== ENCOUNTER 2022-10-19 16:58 | Outpatient (REF) | payer MEDICARE, SELFPAY ==
[2022-10-20 09:32] LABS: CT PCR NOT DETECTED (Not Detect.); NG PCR NOT DETECTED (Not Detect.)
[2022-10-20 10:01] LABS: BV Int Neg Control Negative (Negative); BV Int Pos Control Positive (Positive)
[2022-10-26 16:30] LABS: HPV mRNA E6/E7 Not Detected (Not Detected)
== END 2022-10-19 16:59 | disposition home or self-care (01) ==
LOC: HO.LNP 16:58
PROVIDERS: Visit Provider Internal Medicine
DX: Z12.4 Encounter for screening for malignant neoplasm of cervix (principal); Z11.3 Encounter for screening for infections with a predominantly sexual mode of transmission
CPT/HCPCS: 0353U; 87480; 87510; 87624; 87660; 88142

== ENCOUNTER → 2022-12-17 14:52 | Outpatient (REF) | payer MEDICARE, SELFPAY ==
--- NOTE | 2022-12-17 14:55 | CA_ITS ---
Transthoracic Echocardiogram Patient (Last, First, Middle): Brooklyn Hawkins L Gender: Female Date of : 1955 Age: 67 Procedure Date: 12/17/2022 Procedure Type: Transthoracic Echocardiogram Location: OP Height: 154.94 cm Weight: 70.31 kg BSA: 1.70 m2 Heart Rate: bpm BP: 132 / 80 mmHg Scrapper: TO Referring MD: Juan Laughlin MD Symptoms: I48.0 - Paroxysmal atrial fibrillation Study Quality: Fair ECG Rhythm: Sinus Conclusions: - The left ventricular systolic function is normal. The calculated ejection fraction is 57% by biplane method. - There is mild to moderate mitral valve regurgitation. Findings Left Ventricle Normal left ventricular cavity size. There is mildly increased left ventricular wall thickness. The left ventricular systolic function is normal. The calculated ejection fraction is 57% by biplane method. There is no evidence of regional wall motion abnormalities. Diastolic function is normal for age. There is moderate septal and moderate basal asymmetric hypertrophy. LV peak GLS -19.4%. Right Ventricle Normal right ventricular cavity size and systolic function. Atria Both atria are normal in size. Aortic Valve There is a normal trileaflet aortic valve. There is no aortic valve stenosis. There is no aortic valve regurgitation. Mitral Valve There is mild anterior mitral leaflet thickening. There is mild mitral annular calcification. There is mild to moderate mitral valve regurgitation. There is no mitral valve stenosis. Pulmonic Valve The pulmonic valve is likely normal. Tricuspid Valve Normal tricuspid valve structure. There is mild tricuspid valve regurgitation. There is no evidence of pulmonary hypertension. Great Vessels The asc aorta is normal in size. Venous The inferior vena cava is mildly dilated and collapses greater than 50% with inspiration. Pericardium/Pleural There is no evidence of pericardial effusion. Prior Study Comparison Changes noted compared to prior study dated: 12/01/2021. Slight progression of mitral regurgitation. Measurements 2D Linear Measurements IVSd: 1.30 0.6-0.9/0.6-1.0 cm LVIDd: 4.51 3.9-5.3/4.2-5.9 cm LVIDd Index: 2.65 2.4-3.2/2.2-3.1 cm/m2 LVIDs: 3.29 2.0-3.6 cm LVPWd: 1.08 0.7-1.1 cm LA Diam: 3.40 2.7-3.8/3.0-4.0 cm LAIDs Index: 2.00 1.5-2.3 cm/m2 LV Mass: 244.76 67-162/88-224 g LV Mass Index: 143.98 43-95/49-115 g/m2 LVOT Diam: 2.00 3.0+(-)1.3 cm 2D Systolic Function EF 4C: 56.50 >55% EF 2C: 58.10 >55% EF BiP: 56.50 >55% Mitral Valve MV Pk E: 0.87 MV PK A: 0.85 MV Decel Time: 172.00 E/A: 1.00 E'Lateral: 9.14 E'Medial: 8.70 E/E' Med: 10.00 E/E' Lat: 9.60 PHT: 50.00 MVA PHT: 4.40 Decel Webb: 5.10 MR Vol - PW Dopp: 36.80 MR VTI: 2.30 MR ERO: 16.00 MR Alias Jeovanny: 0.40 MR RAD: 0.60 Aortic Valve AoV Pk Jeovanny: 1.53 AoV Mn Jeovanny: 1.03 AoV VTI: 0.35 AoV Pk Grad: 9.00 Aov Mn Grad: 5.00 BERNARDINO Cont.VTI: 1.81 LVOT LVOT Pk Jeovanny: 0.93 LVOT Mn Jeovanny: 0.56 LVOT VTI: 0.20 LVOT Pk Grad: 3.00 LVOT Mn Grad: 2.00 LVOT Diam: 2.00 LVOT Area: 3.14 Diastolic Function MV Pk E: 0.87 MV Pk A: 0.85 E/A: 1.00 E'Medial: 8.70 E/E' Med: 10.00 E' Laterial: 9.14 E/E' Lat: 9.60 Right Ventricle TAPSE (mm): 25.40 TVS' Jeovanny: 11.20 Tricuspid Valve TR Pk Jeovanny: 2.37 TR Pk Grad: 22.00 RA Press: 8.00 RVSP: 30.00 Great Vessels Aorta Sinus of Valsalva: 2.86 2.0-3.[address] Ridge: 2.24 1.7-3.4 cm Ao Asc: 3.10 2.1-3.4 cm Updated in Other Vendor System with Status of Final Pankaj Nuñez MD electronically signed on 12/18/2022 12:54:06 PM with status of Final
== END ==
LOC: HO.CARD 14:52
PROVIDERS: PCP Internal Medicine; Visit Provider Internal Medicine Cardiovascular Disease
DX: I48.0 Paroxysmal atrial fibrillation (principal)
CPT/HCPCS: 93306; 93356

== ENCOUNTER → 2022-12-23 14:38 | Outpatient (BNVA) | payer MEDICARE, SELFPAY | PROVIDERS: PCP Internal Medicine; Referring Provider Internal Medicine; Visit Provider Internal Medicine Cardiovascular Disease | DX: R42 Dizziness and giddiness (principal); I48.0 Paroxysmal atrial fibrillation; Z79.01 Long term (current) use of anticoagulants; Z79.899 Other long term (current) drug therapy | CPT/HCPCS: 93005; 99212 ==

== ENCOUNTER → 2023-01-06 09:48 | Outpatient (BNVA) | payer MEDICARE, SELFPAY | PROVIDERS: PCP Internal Medicine; Visit Provider Internal Medicine Cardiovascular Disease | DX: Z01.30 Encounter for examination of blood pressure without abnormal findings (principal) | CPT/HCPCS: 99211 ==

== ENCOUNTER → 2023-03-10 14:38 | Outpatient (BNVA) | payer MEDICARE, SELFPAY | PROVIDERS: PCP Internal Medicine; Referring Provider Internal Medicine; Visit Provider Internal Medicine Cardiovascular Disease | DX: I48.0 Paroxysmal atrial fibrillation (principal); I10 Essential (primary) hypertension; R60.0 Localized edema | CPT/HCPCS: 93005; 99212 ==

== ENCOUNTER 2023-03-30 11:06 | Day surgery (SDC) | payer MEDICARE, SELFPAY ==
--- NOTE | 2023-03-29 12:16 | P.CONAN_ITS ---
HPI - Anesthesia Eval Consult details Narrative: 67yo F for Upper Endoscopy with Balloon Dilitation Xarelto for afib Cardiac eval 03/2023 - afib and htn stable and well controlled. Bilat LE edema with referral to vascular [facility] Active Problems Active Problems: All Active Problems (Updated 03/29/23 @ 12:03 by Pattie Fried RN) Vaginal discharge (Acute) Difficulty swallowing liquids (Acute) Multiple lipomas (Acute) Lipoma of left thigh (Acute) Mixed urinary incontinence due to female genital prolapse (Acute) Subcutaneous nodules (Acute) Mild intermittent asthma with (acute) exacerbation (Acute) Hemochromatosis carrier (Acute) Essential hypertension (Acute) Irritable bowel syndrome with diarrhea (Acute) Osteopenia of multiple sites (Acute) Paroxysmal atrial fibrillation (Acute) Dyslipidemia (Acute) Past Medical History Medical History (Updated 03/29/23 @ 12:03 by Pattie Fried RN) Arthritis Atrial fibrillation Chronic anticoagulation COVID-19 virus infection Difficulty swallowing liquids Dyslipidemia Essential hypertension GERD (gastroesophageal reflux disease) Hemochromatosis carrier Hepatic hemangioma Hyperlipidemia Irritable bowel syndrome with diarrhea Lipoma of left thigh Mild intermittent asthma with (acute) exacerbation Mixed urinary incontinence due to female genital prolapse Multiple lipomas Osteopenia Osteopenia of multiple sites Pancreatitis Paroxysmal atrial fibrillation Subcutaneous nodules Vaginal discharge Family History Family History Father Emphysema, unspecified Mother Heart disease CVD (cardiovascular disease) Stroke Maternal Aunt Breast cancer Ovarian cancer Brother No problems noted. Brother No problems noted. Brother No problems noted. Sister No problems noted. Sister Mental health disorder Sister Mental health disorder Daughter No problems noted. Daughter No problems noted. Daughter No problems noted. Surgical History Surgical History (Updated 03/29/23 @ 12:03 by Pattie Fried RN) H/O esophagogastroduodenoscopy History of laparoscopic cholecystectomy History of lumpectomy of left breast Social History Social History Housing: House Alcohol intake: former Patient Tobacco Use Status: Former Tobacco user Years Smoked: 40 yrs e-Cigarette/Vaping Use: Never Used Use of substances other than those prescribed or required for medical reasons: No Are you DNR?: No Advance Directives: No Advance Directives Information Provided: Yes service: No Current occupational status: retired Cognitive needs: No Hearing needs: No Vision needs: Yes Meds Allergies Allergy/AdvReac Type Severity Reaction Status Date / Time Sulfa (Sulfonamide Allergy Intermediate FACIAL Verified 10/19/22 12:36 Antibiotics) SWELLING, [SULFA(SULFONAMIDE REDNESS, ANTIBIOTICS)] rash, face edema levofloxacin [From LEVAQUIN] Allergy Unknown itchy Verified 10/19/22 12:36 tongue Penicillins [PENICILLINS] Allergy Unknown RASH Verified 10/19/22 12:36 Quinolones [QUINOLONES] Allergy Unknown MOUTH Verified 10/19/22 12:36 ITCHING cefuroxime Allergy Unknown Verified 03/29/23 12:04 doxycycline Allergy Unknown Verified 03/29/23 12:04 Home Medications Medication Instructions Recorded Confirmed Last Taken Type acetaminophen 650 mg 650 mg PO Q8H PRN pain 09/18/20 03/30/23 Unknown History tablet,extended release cholecalciferol (vitamin D3) 50 50 mcg PO DAILY 09/18/20 03/30/23 Unknown History mcg (2,000 unit) capsule Exam Exam Date and Time: March 29, 2023 1216 Pertinent Lab Results Pertinent Lab Results: Laboratory Tests 10/08/22 10/08/22 07:35 07:35 WBC 6.6 Hgb 12.0 Hct 38.3 Plt Count 277 Sodium 142 Potassium 4.0 Chloride 108 Carbon Dioxide 28 BUN 14 Creatinine 0.68 Narrative Narrative: EKG 03/2023 normal sinus rhythm with first-degree AV block otherwise normal EKG Assessment and Plan Assessment Anesthesia Assessment: Chart Reviewed
[2023-03-30 11:28] VITALS: BP 183/100; PULSE 63; RESP 18; TEMP 36.5; O2SAT 97
[2023-03-30 11:36] VITALS: BMI 31.2
[2023-03-30] MEDS: Lactated Ringers 1,000 ML 100 ML IVCONT (11:46)
[2023-03-30 12:16] VITALS: BP 94/49; PULSE 65; RESP 16; TEMP 36.1; O2SAT 99
--- NOTE | 2023-03-30 12:21 | PM.OP ---
Brief Operative Note Date of Service: 03/30/23 Pre-op diagnosis: Dysphagia Post-op diagnosis: other (GERD, Hiatal hernia) Procedure: EGD with Balloon dilation of EG Junction with 18 to 19mm balloon, and biopsies Surgeon: Mariano Landaverde Anesthesia: MAC Was an Storage Battery Inspector used for this Procedure?: No Estimated blood loss (mL): 2.0 Pathology: other (A. EG Junction at 35cm B. Esophagus at 20cm) Condition: stable Disposition: PACU
[2023-03-30 12:31] VITALS: BP 102/61; PULSE 65; RESP 16; O2SAT 97
[2023-03-30 12:46] VITALS: BP 131/75; PULSE 62; RESP 16; TEMP 36.2; O2SAT 97
--- NOTE | 2023-03-30 14:35 | OP_ITS ---
DATE OF SERVICE: 03/30/2023 SURGEON: Mariano Landaverde MD INDICATIONS: The patient presents for evaluation of dysphagia. Full consent has been obtained from her for this, including risks of bleeding and perforation. PREOPERATIVE DIAGNOSIS: POSTOPERATIVE DIAGNOSIS: PROCEDURE PERFORMED: Esophagogastroduodenoscopy with balloon dilation of gastroesophageal junction and biopsies. ESTIMATED BLOOD LOSS: COMPLICATIONS: ANESTHESIA: Monitored anesthesia care. ASSISTANTS: SPECIMENS: PREOPERATIVE DIAGNOSES: Dysphagia. POSTOPERATIVE DIAGNOSES: Dysphagia, hiatal hernia, gastroesophageal reflux, rule out eosinophilic esophagitis. DESCRIPTION OF PROCEDURE: The patient was placed in the left lateral decubitus position. The Olympus video gastroscope was passed in the posterior oropharynx and upper esophagus under direct vision. The scope was passed slowly into the distal esophagus. The gastroesophageal junction appeared at 35 cm. There was some slight irregularity consistent with reflux and perhaps small, less than 1 cm, areas of Castellano mucosa. There was no esophagitis. There was no evidence of any esophageal ring nor stricture. The scope entered the stomach easily. There was a small hiatal hernia. The scope was advanced to the pylorus and the duodenum was cannulated to the descending portion. The duodenum including the bulb appeared normal without mass or ulceration. The scope was withdrawn back in the stomach. The gastric antrum and body appeared normal with good peristalsis. The scope was retroflexed visualizing the proximal stomach carefully, which appeared normal, without any sign of mass or ulceration. The scope was straightened and withdrawn back to the esophagus. Given her symptomatology I did use a [employer] incremental balloon to dilate the gastroesophageal junction from 18 mm to 19 mm at the recommended pressure for between 30 and 60 seconds each. Post dilation there was some heme noted. I then obtained biopsies at the EG junction at 35 cm. Proximal to this, the esophageal mucosa appeared normal. I did not visualize any proximal esophageal rings nor webs. Biopsies were obtained in the esophagus at 20 cm. The scope was withdrawn from the patient. Of note, the upper esophageal sphincter appeared normal as did my inspection of the vocal cords. The scope was withdrawn from the patient, and she tolerated the procedure well. She was returned to the recovery area in stable condition. IMPRESSION: 1. Hiatal hernia, gastroesophageal reflux, status post balloon dilation. 2. Rule out eosinophilic esophagitis. PLAN: The results of biopsies will be checked. I shall start her on omeprazole 20 mg daily to see if acid suppression and today's dilation will give her some clinical relief of her symptoms. She was advised to resume her Xarelto in 48 hours. She was advised not to use any aspirin nor NSAIDs for least 1 week, but to stay off that long-term given that she is on Xarelto. If the omeprazole helps after a month or 2, she can stay on that long-term, but if there is no change on the omeprazole, she can then stop it. She will be scheduled for an outpatient screening colonoscopy as well. She was advised to call sooner as needed. MD SHAHEEN Sheth/JOHN / [phone]
== END 2023-03-30 13:52 | disposition home or self-care (01) ==
PROVIDERS: PCP Internal Medicine; Visit Provider Internal Medicine
PROC: (CPT 43249; principal; 2023-03-30 11:20)
DX: R13.14 Dysphagia, pharyngoesophageal phase (principal); K21.9 Gastro-esophageal reflux disease without esophagitis; K44.9 Diaphragmatic hernia without obstruction or gangrene; I10 Essential (primary) hypertension; I48.91 Unspecified atrial fibrillation; M85.879 Other specified disorders of bone density and structure, unspecified ankle and foot; M19.90 Unspecified osteoarthritis, unspecified site; Z14.8 Genetic carrier of other disease; Z79.01 Long term (current) use of anticoagulants; Z79.810 Long term (current) use of selective estrogen receptor modulators (SERMs); Z88.0 Allergy status to penicillin; Z88.1 Allergy status to other antibiotic agents; Z88.2 Allergy status to sulfonamides; Z87.891 Personal history of nicotine dependence; Z79.899 Other long term (current) drug therapy; E78.5 Hyperlipidemia, unspecified; Z90.49 Acquired absence of other specified parts of digestive tract
CPT/HCPCS: 43249; 43239; 88305; C1726; J2250

== ENCOUNTER 2023-04-19 14:08 | Outpatient (AMB) | payer MEDICARE, SELFPAY ==
--- NOTE | 2023-04-19 14:10 | A.OFFVIS_ITS ---
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 Patient has tried compression stalking and elevating, patient is not diabetic, patient is former smoker 13+ years, no hx blood clots Allergies Sulfa (Sulfonamide Antibiotics) [SULFA(SULFONAMIDE ANTIBIOTICS)] Allergy (Intermediate, Verified 04/19/23 14:14) FACIAL SWELLING, REDNESS, rash, face edema levofloxacin [From LEVAQUIN] Allergy (Unknown, Verified 04/19/23 14:14) itchy tongue Penicillins [PENICILLINS] Allergy (Unknown, Verified 04/19/23 14:14) RASH Quinolones [QUINOLONES] Allergy (Unknown, Verified 04/19/23 14:14) MOUTH ITCHING cefuroxime Allergy (Verified 04/19/23 14:14) Unknown doxycycline Allergy (Verified 04/19/23 14:14) Unknown HPI 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 Complaints include swelling of lower extremities, cramping, fatigue, and heaviness of the lower extremities. 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 It is noted more so in left leg. Also of note she quit smoking 13 years prior and at that time she was smoking nearly 2 packs per day. Patient denies any previous venous surgery or injections. Patient denies any history of DVT/ PE. Patient denies any history of phlebitis. Trial of compression includes - [id number] They now present for vascular evaluation regarding their varicose veins. [facility] Medical History Arthritis Atrial fibrillation Chronic anticoagulation COVID-19 virus infection Difficulty swallowing liquids Dyslipidemia Essential hypertension GERD (gastroesophageal reflux disease) Hemochromatosis carrier Hepatic hemangioma Hyperlipidemia Irritable bowel syndrome with diarrhea Lipoma of left thigh Mild intermittent asthma with (acute) exacerbation Mixed urinary incontinence due to female genital prolapse Multiple lipomas Osteopenia Osteopenia of multiple sites Pancreatitis Paroxysmal atrial fibrillation Subcutaneous nodules Vaginal discharge Surgical History H/O esophagogastroduodenoscopy History of laparoscopic cholecystectomy History of lumpectomy of left breast Family History Father Emphysema, unspecified Mother Heart disease CVD (cardiovascular disease) Stroke Maternal Aunt Breast cancer Ovarian cancer Brother No problems noted. Brother No problems noted. Brother No problems noted. Sister No problems noted. Sister Mental health disorder Sister Mental health disorder Daughter No problems noted. Daughter No problems noted. Daughter No problems noted. Social History Housing: House Alcohol intake: former Patient Tobacco Use Status: Former Tobacco user Years Smoked: 40 yrs e-Cigarette/Vaping Use: Never Used service: No Current occupational status: retired Cognitive needs: No Hearing needs: No Vision needs: Yes Review of Systems Const Reports as per HPI ENT Reports no additional complaints Card Denies chest pain, Denies chest pain at rest and Denies chest pain with activity Resp Denies chest congestion and Denies cough GI Reports no additional complaints Musc Details: pain over varicosities, aching of lower extremities, swelling, cramping, heaviness and tiredness, itching Denies abnormal gait Skin/Breast Reports pruritus and Denies wounds Neuro Reports no additional complaints and Denies abnormal gait Psych Denies no additional complaints Physical Exam Const General: cooperative, healthy appearing and comfortable Orientation/consciousness: oriented to person, oriented to place and oriented to time Neck Carotids: no bruits Chest Chest palpation & inspection: normal inspection of the chest and normal palpation of entire chest wall Resp Effort & Inspection: normal respiratory effort and able to speak in complete sentences Cardio Rate: regular rate Heart sounds: S1 normal heart sound present and S2 normal heart sound present Peripheral pulses: Peripheral pulses 2+ throughout GI Inspection: Yes normal to inspection Skin Other: +2 edema, posterior calf varicosities and spider telangiectasias CEAP Classification C4 - skin color changes Ep - Etiology Primary As - superficial veins P - reflux General skin exam: dry skin Neuro General: oriented to person, oriented to place and oriented to time Extrem Right lower extremity: full ROM, normal capillary refill and edema Left lower extremity: full ROM, normal capillary refill and edema Psych Mental Status: mental status grossly normal Assessment & Plan Assessment & Plan (1) Varicose veins of left lower extremity with inflammation: Code(s): I83.12 - Varicose veins of left lower extremity with inflammation Plan: In short, the patient has evidence of venous insufficiency. I have discussed the pathophysiology with the patient. In addition I have provided informational material regarding venous disease to the patient. We have discussed conservative measures including compression, elevation, and exercise. I have also provided a handout regarding appropriate use of compression stockings and where to purchase good compression stockings as well. I have taken the liberty of ordering venous insufficiency testing with the patient. They will follow up with me after testing. The patient had an opportunity to ask questions regarding the treatment plan. All questions were answered. Imaging studies, laboratory studies and physical exam results were discussed and reviewed in detail. No major barriers to understanding were identified. The patient expressed understanding and agreement with the above treatment plan. The patient is aware they should contact our office by phone for worsening of the current condition or the appearance of new symptoms. Thank you for allowing me to participate in the vascular care of this patient. If you have any questions or concerns regarding the treatment for the above condition please do not hesitate to contact me. The office telephone contact is [phone]. This note is constructed using voice recognition software. While every effort has been made to ensure accuracy, tellers supervisor errors may have been included. Thank you for allowing me to participate in the care of your patient. Yours sincerely, Abdifatah Cash MD, FACS, R.P.V.I. (2) Lymphedema: Code(s): I89.0 - Lymphedema, not elsewhere classified Plan: In addition clinically she appears to have an element of lymphedema. We will workup her venous disease 1st. Should that prove to be negative will discuss treatment options of lymphedema with her. Thank you for allowing us to assist in her care. Orders: Orders US venous duplex LE BI 1 Week I83.12 - Varicose veins of left lower extremity with inflammation Coding Level of Care Code Est Pt Level 4 (77685) Diagnoses Varicose veins of left lower extremity with inflammation I83.12 Lymphedema I89.0
== END 2023-04-19 14:32 | disposition home or self-care (01) ==
LOC: HO.HVS 14:08
PROVIDERS: PCP Internal Medicine; Visit Provider Surgery Vascular Surgery
DX: I83.12 Varicose veins of left lower extremity with inflammation (principal); I89.0 Lymphedema, not elsewhere classified
CPT/HCPCS: 99213

== ENCOUNTER → 2023-04-19 14:08 | Outpatient (BNVA) | payer MEDICARE, SELFPAY | PROVIDERS: PCP Internal Medicine; Visit Provider Surgery Vascular Surgery | DX: I83.12 Varicose veins of left lower extremity with inflammation (principal); I89.0 Lymphedema, not elsewhere classified | CPT/HCPCS: 99212 ==

== ENCOUNTER 2023-04-29 12:33 | Outpatient (REF) | payer MEDICARE, SELFPAY ==
--- NOTE | ~2023-04-29 | US_ITS ---
EXAMINATION: US LOWER EXTREMITY VENOUS (REFLUX EXAM), BILATERAL CLINICAL INDICATION: Chronic venous insufficiency with lower extremity varicose veins with inflammation COMPARISON: None. TECHNIQUE: Color flow triplex imaging and compression Doppler was performed to evaluate both the deep and the superficial systems bilaterally. To evaluate the superficial system, the examination was performed in the upright position. Color-flow Doppler ultrasound and compression ultrasound were utilized. In addition, maneuvers were utilized to demonstrate reflux. FINDINGS: 1. DEEP VENOUS ULTRASOUND OF THE RIGHT LOWER EXTREMITY: Common Femoral Vein: Compressible, normal respiratory variation and augmented flow. Femoral Vein: Compressible, normal color flow and augmentation. Popliteal Vein: Compressible, normal augmentation. Deep Reflux: There is no evidence of reflux in the deep system in either the common femoral vein or the popliteal vein. There is no evidence of a Keller's cyst. 2. SUPERFICIAL ULTRASOUND WITH DOPPLER OF RIGHT LOWER EXTREMITY: GREAT SAPHENOUS VEIN: Saphenofemoral Junction: 0.4 cm; Reflux: 0 ms Proximal Thigh: 0.4 cm; Reflux: 0 ms Mid Thigh: 0.4 cm; Reflux: 0 ms Above Knee: 0.4 cm; Reflux: 0 ms At Knee: 0.3 cm; Reflux: 0 ms Below Knee: 0.4 cm; Reflux: 0 ms Mid Calf: 0.2 cm; Reflux: 0 ms Ankle: 0.3 cm; Reflux: 0 ms DUPLICATED MEDIAL GREAT SAPHENOUS VEIN: Diameter: None imaged Reflux: NA DUPLICATED LATERAL GREAT SAPHENOUS VEIN: Diameter: None imaged Reflux: NA SMALL SAPHENOUS VEIN: Proximal: 0.4 cm; Reflux: 0 ms Distal: 0.2 cm; Reflux: 0 ms VEIN OF GIACOMINI: Size: NA Reflux: NA PERFORATORS: Location: None significant Size: NA Reflux: NA VARICOSITIES: Location: Knee Size: 0.3 cm Reflux: None 3. DEEP VENOUS ULTRASOUND OF THE LEFT LOWER EXTREMITY: Common Femoral Vein: Compressible, normal respiratory variation and augmented flow. Femoral Vein: Compressible, normal color flow and augmentation. Popliteal Vein: Compressible, normal augmentation. Deep Reflux: There is no evidence of reflux in the deep system in either the common femoral vein or the popliteal vein. There is no evidence of a Keller's cyst. 4. SUPERFICIAL ULTRASOUND WITH DOPPLER OF LEFT LOWER EXTREMITY: GREAT SAPHENOUS VEIN: Saphenofemoral Junction: 0.3 cm; Reflux: 0 ms Proximal Thigh: 0.5 cm; Reflux: 0 ms Mid Thigh: 0.4 cm; Reflux: 0 ms, superficial outside the fascia Above Knee: 0.4 cm; Reflux: 0 ms, superficial outside the fascia At Knee: 0.4 cm; Reflux: 0 ms, superficial outside the fascia Below Knee: 0.2 cm; Reflux: 904 ms, superficial outside the fascia Mid Calf: 0.3 cm; Reflux: 2084 ms, superficial outside the fascia Ankle: 0.2 cm; Reflux: 0 ms, superficial outside the fascia DUPLICATED MEDIAL GREAT SAPHENOUS VEIN: Diameter: None imaged Reflux: NA DUPLICATED LATERAL GREAT SAPHENOUS VEIN: Diameter: 0.3 cm Reflux: None SMALL SAPHENOUS VEIN: Proximal: 0.3 cm; Reflux: 0 ms Distal: 0.3 cm; Reflux: 2660 ms VEIN OF GIACOMINI: Size: 0.3 cm Reflux: None PERFORATORS: Location: None imaged Size: NA Reflux: NA VARICOSITIES: Location: Knee Size: 0.4 cm Reflux: 1312 ms US/US venous duplex LE BI IMPRESSION: Right: No significant reflux in the right great saphenous vein or small saphenous vein Left: Segmental areas of reflux in the left great saphenous vein within the calf as described above. The great saphenous vein from the mid to thigh to the ankle is very superficial. There is severe reflux in the distal small saphenous vein. Enlarged varicose veins seen at the knee with reflux as described above
== END 2023-04-29 12:34 | disposition home or self-care (01) ==
LOC: HO.US 12:33
PROVIDERS: Visit Provider Surgery Vascular Surgery
DX: I83.12 Varicose veins of left lower extremity with inflammation (principal)
CPT/HCPCS: 93970

== ENCOUNTER 2023-05-17 07:19 | Outpatient (REF) | payer MEDICARE, SELFPAY ==
[2023-05-17 11:47] LABS: Hematocrit 39.6 % (37.0-47.0); Hemoglobin 12.4 g/dl (12.0-16.0)
[2023-05-17 12:38] LABS: Alanine Aminotransferase 16 U/L (0-31); Anion Gap 11 (12-20); Aspartate Amino Transferase 16 U/L (5-31); Blood Urea Nitrogen 17 mg/dL (9-16); Carbon Dioxide 27 mmol/L (22-29); Chloride 108 mmol/L (96-108); Cholesterol 201 mg/dL; Estimated Glomerular Filt Rate > 60; Glucose Fasting 98 mg/dL (60-99); HDL Cholesterol 74 mg/dL; LDL Cholesterol Calculated 106 mg/dl; Potassium 3.8 mmol/L (3.3-5.1); Sodium 142 mmol/L (135-145); Triglycerides 108 mg/dL; Vitamin D 25-OH Total 63.5 ng/mL (>30)
== END 2023-05-17 07:20 | disposition home or self-care (01) ==
LOC: HO.HMGCLDS 07:19
PROVIDERS: PCP Internal Medicine; Visit Provider Internal Medicine
DX: E78.5 Hyperlipidemia, unspecified (principal); I10 Essential (primary) hypertension; M85.89 Other specified disorders of bone density and structure, multiple sites; I48.0 Paroxysmal atrial fibrillation; N95.1 Menopausal and female climacteric states; Z79.01 Long term (current) use of anticoagulants
CPT/HCPCS: 36415; 80048; 80061; 82306; 84450; 84460; 85014; 85018

== ENCOUNTER 2023-05-19 14:14 | Outpatient (AMB) | payer MEDICARE, SELFPAY ==
[2023-05-19 14:22] VITALS: BP 138/80; PULSE 69; O2SAT 97; BMI 31.2
--- NOTE | 2023-05-19 14:22 | A.OFFPC_ITS ---
Vital Signs 05/19/23 14:22 Height 5 ft Weight 160 lb BMI 31.2 BP 138/80 Blood Pressure Location Lt brachial Position Sitting Pulse 69 Pulse Source Pulse Oximeter Pulse Oximetry (%) 97 Oxygen Delivery Method Room Air Intake Visit Reasons: ffup lipids, htn Intake Note: Pt is here today to f/u lipids and HTN Allergies Sulfa (Sulfonamide Antibiotics) [SULFA(SULFONAMIDE ANTIBIOTICS)] Allergy (Intermediate, Verified 05/19/23 14:57) FACIAL SWELLING, REDNESS, rash, face edema levofloxacin [From LEVAQUIN] Allergy (Unknown, Verified 05/19/23 14:57) itchy tongue Penicillins [PENICILLINS] Allergy (Unknown, Verified 05/19/23 14:57) RASH Quinolones [QUINOLONES] Allergy (Unknown, Verified 05/19/23 14:57) MOUTH ITCHING cefuroxime Allergy (Verified 05/19/23 14:57) Unknown doxycycline Allergy (Verified 05/19/23 14:57) Unknown ketorolac Adverse Reaction (Uncoded 05/19/23 14:57) Facial Swelling latex Adverse Reaction (Uncoded 05/19/23 14:57) Facial Swelling Medication List - Last Reconciled 05/19/23 by Flores Osullivan MD acetaminophen ER 650 mg PO Q8H PRN albuterol sulfate 90 mcg/actuation 1 inh inhalation QID PRN bromfenac 0.07% (Prolensa) 1 drp ophthalmic (eye) DAILY budesonide-formoterol 160-4.5 mcg/actuation (Symbicort) 2 puffs inhalation Q12H cholecalciferol (vitamin D3) 50 mcg PO DAILY flecainide 100 mg PO Q12H inhalational spacing device (Aerochamber MV spacer) As directed lisinopril 20 mg PO DAILY 90 days metoprolol succinate ER 50 mg PO DAILY nebulizers As directed omeprazole 20 mg PO QAM raloxifene 60 mg PO DAILY rivaroxaban (Xarelto) 20 mg PO DAILY simvastatin 20 mg PO BEDTIME Tobacco use date assessed: 05/19/23 Fall risk assessment: No Falls in past year Last assessed Fall Risk: 05/19/23 Dental Screening Dental Screen Date: 05/19/23 Did you have a dental visit in the last 12 months?: No Was dental information given to patient?: Patient declined HPI ffup lipids, htn HPI Details 67-year-old lady with mild intermittent asthma, hypertension, paroxysmal atrial fibrillation dyslipidemia, here today for follow-up. She has been feeling well, with no complaints at present time. [facility] Medical History Arthritis Atrial fibrillation Chronic anticoagulation COVID-19 virus infection Difficulty swallowing liquids Dyslipidemia Essential hypertension GERD (gastroesophageal reflux disease) Hemochromatosis carrier Hepatic hemangioma Hiatal hernia with gastroesophageal reflux Hyperlipidemia Irritable bowel syndrome with diarrhea Lipoma of left thigh Mild intermittent asthma with (acute) exacerbation Mixed urinary incontinence due to female genital prolapse Multiple lipomas Osteopenia Osteopenia of multiple sites Pancreatitis Paroxysmal atrial fibrillation Subcutaneous nodules Vaginal discharge Surgical History H/O esophagogastroduodenoscopy History of laparoscopic cholecystectomy History of lumpectomy of left breast Family History Father Emphysema, unspecified Mother Heart disease CVD (cardiovascular disease) Stroke Maternal Aunt Breast cancer Ovarian cancer Brother No problems noted. Brother No problems noted. Brother No problems noted. Sister No problems noted. Sister Mental health disorder Sister Mental health disorder Daughter No problems noted. Daughter No problems noted. Daughter No problems noted. Social History Housing: House Alcohol intake: former Patient Tobacco Use Status: Former Tobacco user Years Smoked: 40 yrs e-Cigarette/Vaping Use: Never Used service: No Current occupational status: retired Cognitive needs: No Hearing needs: No Vision needs: Yes Questionnaire PHQ-9 Over the last 2 weeks, how often have you been bothered by any of the following problems? Depression Screening Interpretation: Negative Source: Developed by Drs. Mariano Wheeler, Emilee Avila, Serafin Rothman and colleagues, with an educational marco from [employer]. Thrive Questionnaire Date Thrive assessed: 10/19/22 RODY-7 AMB Questionnaire RODY-7 Date RODY - 7 assessed: 10/19/22 Source: Developed by Drs. Mariano Wheeler, Emilee Avila, Serafin Rothman and colleagues, with an educational marco from [employer]. Review of Systems Const Reports no additional complaints ENT Reports no additional complaints Card Denies chest pain, Denies chest pain at rest and Denies chest pain with activity Resp Denies chest congestion and Denies cough GI Reports no additional complaints Reports no additional complaints Musc Denies abnormal gait Neuro Reports no additional complaints and Denies abnormal gait Psych Denies no additional complaints Endo Reports no additional complaints Michael/Lymph Reports no additional complaints Physical exam (Primary Care) Vital Signs: Last Vital Signs Pulse 69 05/19/23 14:22 BP 138/80 05/19/23 14:22 Pulse Ox 97 05/19/23 14:22 Oxygen Delivery Method Room Air 05/19/23 14:22 BMI result Body Mass Index 31.2 Tobacco/Smoking Status: Tobacco use Status Tobacco use date assessed 05/19/23 05/19/23 14:23 Patient Tobacco Use Status Former Tobacco user 05/19/23 14:23 e-Cigarette/Vaping Use Never Used 05/19/23 14:23 Depression Screening Interpretation: Negative Thrive Assessment: Date of Thrive Assessment Date Thrive assessed 10/19/22 05/19/23 14:23 Const General: cooperative, comfortable and no acute distress Orientation/consciousness: patient oriented x3 HENMT General nose exam: Normal external nose present and No nasal discharge present Mouth: Normal oral and palatal mucosa present, oropharynx normal and moist mucous membranes Eyes General: appearance normal, both eyes and all related structures Conjunctivae: conjunctivae normal Pupils: Equal, round and reactive pupils present EOM: EOMs intact bilaterally Neck Neck: Yes full ROM, Yes no lymphadenopathy and Yes supple Resp Effort & Inspection: normal respiratory effort and able to speak in complete sentences Auscultation: clear to auscultation bilaterally Cardio Rate: regular rate Rhythm: regular rhythm Heart sounds: S1 normal heart sound present and S2 normal heart sound present GI Inspection: Yes normal to inspection Palpation (GI): Soft to palpation, nontender and no masses Auscultation: normal bowel sounds Neuro General: patient oriented x3, gait normal, tone normal, moves all extremities, Normal light touch and pain sensation and no focal motor deficits Cranial nerves: Yes Equal, round and reactive pupils present Cognition (Neuro): normal cognition Gait exam (Neuro): Normal gait present Motor exam (neuro): 5/5 motor strength present throughout Extrem General: Yes full ROM, Yes no joint enlargement, Yes no clubbing, cyanosis or edema, Yes no pedal edema, Yes no calf tenderness and Yes normal gait Results Reviewed Results Reviewed: ENTERED: 05/17/23 ISABELLA MEDINA: ORDERED: Met Prof Fast, AST, ALT, Lipid Panel, Vitamin D 25-OH Test Result Flag Reference Site Sodium 142 135-145 mmol/L Potassium 3.8 3.3-5.1 mmol/L CL 108 96-108 mmol/L CO2 27 22-29 mmol/L Gap 11 L 12-20 BUN 17 H 9-16 mg/dL Creat 0.67 0.5-1.4 mg/dL EGFR > 60 NOTE: For -[place] individuals, multiply the result by 1.210. Chronic Kidney Disease: Estimated GFR < 60 mL/min/1.73m2 Severe Kidney Disease: Estimated GFR < 15 mL/min/1.73m2 FBS 98 60-99 mg/dL CA 9.0 8.4-10.2 mg/dL AST (GOT) 16 5-31 U/L ALT (GPT) 16 0-31 U/L Triglyceride 108 mg/dL Desirable Triglyceride: less than 150 mg/dL Borderline High Triglyceride 150-199 mg/dL High Triglyceride: 200-499 mg/dL Very High Triglyceride: greater than or equal to 5OO mg/dL Chol 201 mg/dL Desirable Cholesterol: less than 200 mg/dL Borderline High Cholesterol: 200-239 mg/dL High Cholesterol: greater than 239 mg/dL LDL Calculated 106 mg/dl Desirable LDL: less than 100 mg/dL Near Optimal/Above Optimal LDL: 110-129 mg/dL Borderline High LDL: 130-159 mg/dL High LDL: 160-189 mg/dL Very High LDL: greater than or equal to 190 mg/dL HDL 74 mg/dL Desirable HDL: greater than 40 mg/dL Note: This HDL assay may give artificially low results in patients with liver disease. Vit D 25-OH Tot 63.5 >30 ng/mL Health Based Reference Values* < 20 ng/mL Deficient 20-30 ng/mL Insufficient > 30 ng/mL Sufficient Laboratory Tests 05/17/23 07:28 Hgb 12.4 Hct 39.6 Assessment and Plan Assessment & Plan (1) Essential hypertension: Code(s): I10 - Essential (primary) hypertension Plan: Blood pressure at goal of less than 130/80. Continue with current medication. Reinforced importance of following a low sodium diet, getting regular exercise, and lowering stress levels. (2) Dyslipidemia: Code(s): E78.5 - Hyperlipidemia, unspecified Plan: Reviewed recent fasting lipid profile with patient with levels with . Continue with simvastatin 20 mg at bedtime , in addition to adherence to low- cholesterol diet and regular exercise, at least 30 minutes 3 to 4 times a week. Advised patient to make healthy food choices, eat more fruits, vegetables, whole grains, wild caught fish and low-fat dairy. Limit amount of meat and fried or fatty food products, as well as processed foods and fast foods. Coding Level of Care Code Est Pt Level 3 (62145) Diagnoses Essential hypertension I10 Dyslipidemia E78.5
== END 2023-05-19 15:11 | disposition home or self-care (01) ==
PROVIDERS: PCP Internal Medicine; Visit Provider Internal Medicine
DX: I10 Essential (primary) hypertension (principal); E78.5 Hyperlipidemia, unspecified
CPT/HCPCS: 99213

== ENCOUNTER 2023-06-23 15:25 | Outpatient (AMB) | payer MEDICARE, SELFPAY ==
[2023-06-23 15:29] VITALS: BMI 31.2
--- NOTE | 2023-06-23 15:29 | MHC.OFFVIS ---
Intake Vital Signs 06/23/23 15:29 Height 5 ft Weight 160 lb BMI 31.2 Intake Visit Reasons: Follow Up 04/29 US Intake Note: follow up US bilateral LE 04/29/23, for le swelling. Pt states that over the past week she has developed a stabbing sensation in her feet. Accompanied by: Self / Same As Patient Allergies Sulfa (Sulfonamide Antibiotics) [SULFA(SULFONAMIDE ANTIBIOTICS)] Allergy (Intermediate, Verified 06/23/23 15:32) FACIAL SWELLING, REDNESS, rash, face edema levofloxacin [From LEVAQUIN] Allergy (Unknown, Verified 06/23/23 15:32) itchy tongue Penicillins [PENICILLINS] Allergy (Unknown, Verified 06/23/23 15:32) RASH Quinolones [QUINOLONES] Allergy (Unknown, Verified 06/23/23 15:32) MOUTH ITCHING cefuroxime Allergy (Verified 06/23/23 15:32) Unknown doxycycline Allergy (Verified 06/23/23 15:32) Unknown ketorolac Adverse Reaction (Uncoded 06/23/23 15:32) Facial Swelling latex Adverse Reaction (Uncoded 06/23/23 15:32) Facial Swelling HPI Follow Up 04/29 US HPI Details Very pleasant 67-year-old female presents for follow-up regarding venous insufficiency. She has complaints of swelling and discomfort on the left lower extremity. 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 She notes some superficial varicosities in particular the left leg. In addition she has had a trial of compression stockings that have provided minimal relief. [facility] Medical History Hiatal hernia with gastroesophageal reflux Atrial fibrillation Pancreatitis Hyperlipidemia Hepatic hemangioma Arthritis Osteopenia GERD (gastroesophageal reflux disease) Vaginal discharge Difficulty swallowing liquids Multiple lipomas Lipoma of left thigh Mixed urinary incontinence due to female genital prolapse Subcutaneous nodules Mild intermittent asthma with (acute) exacerbation COVID-19 virus infection Hemochromatosis carrier Essential hypertension Irritable bowel syndrome with diarrhea Osteopenia of multiple sites Chronic anticoagulation Paroxysmal atrial fibrillation Dyslipidemia Surgical History H/O esophagogastroduodenoscopy History of lumpectomy of left breast History of laparoscopic cholecystectomy Family History Father Emphysema, unspecified Mother Heart disease CVD (cardiovascular disease) Stroke Maternal Aunt Breast cancer Ovarian cancer Brother No problems noted. Brother No problems noted. Brother No problems noted. Sister No problems noted. Sister Mental health disorder Sister Mental health disorder Daughter No problems noted. Daughter No problems noted. Daughter No problems noted. Social History Housing: House Alcohol intake: former Patient Tobacco Use Status: Former Tobacco user Years Smoked: 40 yrs e-Cigarette/Vaping Use: Never Used service: No Current occupational status: retired Cognitive needs: No Hearing needs: No Vision needs: Yes Review of Systems Const Reports as per HPI ENT Reports no additional complaints Card Denies chest pain, Denies chest pain at rest and Denies chest pain with activity Resp Denies chest congestion and Denies cough GI Reports no additional complaints Musc Details: pain over varicosities, aching of lower extremities, swelling, cramping, heaviness and tiredness, itching Denies abnormal gait Skin/Breast Reports pruritus and Denies wounds Neuro Reports no additional complaints and Denies abnormal gait Psych Denies no additional complaints Physical Exam Vital Signs: BMI result Body Mass Index 31.2 Const General: cooperative, healthy appearing and comfortable Orientation/consciousness: oriented to person, oriented to place and oriented to time Neck Carotids: no bruits Chest Chest palpation & inspection: normal inspection of the chest and normal palpation of entire chest wall Resp Effort & Inspection: normal respiratory effort and able to speak in complete sentences Cardio Rate: regular rate Heart sounds: S1 normal heart sound present and S2 normal heart sound present Peripheral pulses: Peripheral pulses 2+ throughout GI Inspection: Yes normal to inspection Skin Other: +2 edema, large rope-like varicosities greater than 4 mm left thigh and calf CEAP Classification C4 - skin color changes Ep - Etiology Primary As - superficial veins P - reflux General skin exam: dry skin Neuro General: oriented to person, oriented to place and oriented to time Extrem Right lower extremity: full ROM, normal capillary refill and edema Left lower extremity: full ROM, normal capillary refill and edema Psych Mental Status: mental status grossly normal Results Reviewed Results Reviewed: Brief summary of venous insufficiency testing is as follows: right great saphenous vein: negative right small saphenous vein: negative right accessory vein: none present left great saphenous vein: Positive left small saphenous vein: negative left accessory vein: none present Please note there is no evidence of any venous aneurysms or significant tortuosity Assessment & Plan Assessment & Plan (1) Varicose veins of left lower extremity with inflammation: Code(s): I83.12 - Varicose veins of left lower extremity with inflammation Plan: This patient has varicose veins with inflammation. They continue to be a source of discomfort for the patient. The patient has tried conservative treatment with compression, leg elevation and exercise program for over 3 months time. They have been compliant with all treatment. This has provided minimal relief for the patient. I do not anticipate this course of treatment will alter the underlying etiology. The patient has been scheduled for lower extremity venous treatment inclusive of --- left great saphenous vein Cyanoacralate ablation. Risks, benefits, and complications of this procedure has been discussed in detail with the patient including but not limited to bleeding, infection, and the development of a DVT. The patient has demonstrated a clear understanding and has consented. We will schedule the patient as soon as possible. Thank you for allowing us to participate in this patient's care. If there are any questions or concerns please do not hesitate to contact us. Coding Level of Care Code Est Pt Level 4 (33505) Diagnoses Varicose veins of left lower extremity with inflammation I83.12
== END 2023-06-24 12:57 | disposition home or self-care (01) ==
PROVIDERS: PCP Internal Medicine; Visit Provider Surgery Vascular Surgery
DX: I83.12 Varicose veins of left lower extremity with inflammation (principal)
CPT/HCPCS: 99214

== ENCOUNTER → 2023-06-23 15:25 | Outpatient (BNVA) | payer MEDICARE, SELFPAY | PROVIDERS: PCP Internal Medicine; Visit Provider Surgery Vascular Surgery | DX: I83.12 Varicose veins of left lower extremity with inflammation (principal) | CPT/HCPCS: 99212 ==

== ENCOUNTER 2023-07-04 13:34 | Outpatient (AMB) | payer MEDICARE, SELFPAY ==
[2023-07-04 14:18] VITALS: BP 156/80; PULSE 77; TEMP 36.7; O2SAT 95; BMI 32.4
--- NOTE | 2023-07-04 14:18 | MHC.OFFWIV ---
Intake Vital Signs 07/04/23 14:18 Height 5 ft Weight 166 lb BMI 32.4 BP 156/80 H Blood Pressure Location Rt brachial Position Sitting Pulse 77 Pulse Source Pulse Oximeter Temp 98.0 F Temp Source Temporal Artery Scan Pulse Oximetry (%) 95 Intake Visit Reasons: EP Swollen Tonsils/Difficulty Breathing Intake Note: pt is here for c/o swollen tonsils, difficulty breathing, sore throat Patient Tobacco Use Status: Former Tobacco user Allergies Sulfa (Sulfonamide Antibiotics) [SULFA(SULFONAMIDE ANTIBIOTICS)] Allergy (Intermediate, Verified 07/04/23 14:42) FACIAL SWELLING, REDNESS, rash, face edema levofloxacin [From LEVAQUIN] Allergy (Unknown, Verified 07/04/23 14:42) itchy tongue Penicillins [PENICILLINS] Allergy (Unknown, Verified 07/04/23 14:42) RASH Quinolones [QUINOLONES] Allergy (Unknown, Verified 07/04/23 14:42) MOUTH ITCHING cefuroxime Allergy (Verified 07/04/23 14:42) Unknown doxycycline Allergy (Verified 07/04/23 14:42) Unknown ketorolac Adverse Reaction (Uncoded 07/04/23 14:42) Facial Swelling latex Adverse Reaction (Uncoded 07/04/23 14:42) Facial Swelling Medication List - Last Reconciled 07/04/23 by Joao Villatoro MD acetaminophen ER 650 mg PO Q8H PRN albuterol sulfate 90 mcg/actuation 1 inh inhalation QID PRN bromfenac 0.07% (Prolensa) 1 drp ophthalmic (eye) DAILY budesonide-formoterol 160-4.5 mcg/actuation (Symbicort) 2 puffs inhalation Q12H cholecalciferol (vitamin D3) 50 mcg PO DAILY flecainide 100 mg PO Q12H inhalational spacing device (Aerochamber MV spacer) As directed lisinopril 20 mg PO DAILY 90 days metoprolol succinate ER 50 mg PO DAILY nebulizers As directed omeprazole 20 mg PO QAM raloxifene 60 mg PO DAILY rivaroxaban (Xarelto) 20 mg PO DAILY simvastatin 20 mg PO BEDTIME Do you need a note to return to daycare/school/sports/work: Yes HPI EP Swollen Tonsils/Difficulty Breathing HPI Details Patient presents for a sick visit. Reporting symptoms of sinus congestion, sore throat and difficulty swallowing. Low-grade fever. No family member is sick. No recent travel. Patient reports symptoms of malaise and fatigue. [facility] Medical History Hiatal hernia with gastroesophageal reflux Atrial fibrillation Pancreatitis Hyperlipidemia Hepatic hemangioma Arthritis Osteopenia GERD (gastroesophageal reflux disease) Vaginal discharge Difficulty swallowing liquids Multiple lipomas Lipoma of left thigh Mixed urinary incontinence due to female genital prolapse Subcutaneous nodules Mild intermittent asthma with (acute) exacerbation COVID-19 virus infection Hemochromatosis carrier Essential hypertension Irritable bowel syndrome with diarrhea Osteopenia of multiple sites Chronic anticoagulation Paroxysmal atrial fibrillation Dyslipidemia Surgical History H/O esophagogastroduodenoscopy History of lumpectomy of left breast History of laparoscopic cholecystectomy Family History Father Emphysema, unspecified Mother Heart disease CVD (cardiovascular disease) Stroke Maternal Aunt Breast cancer Ovarian cancer Brother No problems noted. Brother No problems noted. Brother No problems noted. Sister No problems noted. Sister Mental health disorder Sister Mental health disorder Daughter No problems noted. Daughter No problems noted. Daughter No problems noted. Social History Housing: House Alcohol intake: former Patient Tobacco Use Status: Former Tobacco user Years Smoked: 40 yrs e-Cigarette/Vaping Use: Never Used service: No Current occupational status: retired Cognitive needs: No Hearing needs: No Vision needs: Yes Physical Exam Vital Signs: Last Vital Signs Temp 98.0 F 07/04/23 14:18 Pulse 77 07/04/23 14:18 BP 156/80 H 07/04/23 14:18 Pulse Ox 95 07/04/23 14:18 BMI result Body Mass Index 32.4 Const General: cooperative and healthy appearing Nutritional Appearance: well nourished Orientation/consciousness: patient oriented x3 Limitations: no limitations HEENT Head: Yes normal to inspection Eyes General: appearance normal, both eyes and all related structures Neck Neck: Yes normal visual inspection Chest Chest palpation & inspection: normal palpation of entire chest wall Resp Effort & Inspection: normal respiratory effort Neuro General: patient oriented x3 Results AMB Rapid Strep AMB Rapid Strep Negative Last Edit by Markus Lawson CMA on 07/04/23 14:41 Assessment & Plan Assessment & Plan (1) Upper respiratory tract infection: Code(s): J06.9 - Acute upper respiratory infection, unspecified Qualifiers: URI type: unspecified viral URI Qualified Code(s): J06.9 - Acute upper respiratory infection, unspecified Plan: Antibiotics ordered. Increase fluid intake. Tylenol for aches and pains. If symptoms worsen, follow-up here for a recheck. Orders: Orders AMB Rapid Strep Screen Today Z13.9 - Encounter for screening, unspecified Coding Level of Care Code Est Pt Level 3 (65039) Diagnoses Viral upper respiratory tract infection J06.9 URI type: unspecified viral URI
== END 2023-07-04 15:09 | disposition home or self-care (01) ==
PROVIDERS: PCP Internal Medicine; Visit Provider Internal Medicine
DX: J06.9 Acute upper respiratory infection, unspecified (principal); J02.9 Acute pharyngitis, unspecified
CPT/HCPCS: 87880; 99213

== ENCOUNTER 2023-07-13 07:22 | Day surgery (SDC) | payer MEDICARE, SELFPAY ==
--- NOTE | 2023-07-12 08:42 | HO.ANESPROP2 ---
Documented by User: Brianna Garcia NP 07/12/23 08:45 HPI - Anesthesia Eval Consult details Narrative: 67yo F for Colonoscopy Xarelto for afib Follows [facility] [place] cardiology. 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) Essential hypertension (Acute) Irritable bowel syndrome with diarrhea (Acute) Osteopenia of multiple sites (Acute) Paroxysmal atrial fibrillation (Acute) Dyslipidemia (Acute) Past Medical History Medical History Hiatal hernia with gastroesophageal reflux Atrial fibrillation Pancreatitis Hyperlipidemia Hepatic hemangioma Arthritis Osteopenia GERD (gastroesophageal reflux disease) Vaginal discharge Difficulty swallowing liquids Multiple lipomas Lipoma of left thigh Mixed urinary incontinence due to female genital prolapse Subcutaneous nodules Mild intermittent asthma with (acute) exacerbation COVID-19 virus infection Hemochromatosis carrier Essential hypertension Irritable bowel syndrome with diarrhea Osteopenia of multiple sites Chronic anticoagulation Paroxysmal atrial fibrillation Dyslipidemia Family History Family History Father Emphysema, unspecified Mother Heart disease CVD (cardiovascular disease) Stroke Maternal Aunt Breast cancer Ovarian cancer Brother No problems noted. Brother No problems noted. Brother No problems noted. Sister No problems noted. Sister Mental health disorder Sister Mental health disorder Daughter No problems noted. Daughter No problems noted. Daughter No problems noted. Surgical History Surgical History Hx of colonoscopy H/O esophagogastroduodenoscopy History of lumpectomy of left breast History of laparoscopic cholecystectomy Social History Social History Housing: House Alcohol intake: former Patient Tobacco Use Status: Former Tobacco user Years Smoked: 40 yrs e-Cigarette/Vaping Use: Never Used service: No Current occupational status: retired Cognitive needs: No Hearing needs: No Vision needs: Yes Meds Allergies Allergy/AdvReac Type Severity Reaction Status Date / Time Sulfa (Sulfonamide Allergy Intermediate FACIAL Verified 07/04/23 14:42 Antibiotics) SWELLING, [SULFA(SULFONAMIDE REDNESS, ANTIBIOTICS)] rash, face edema levofloxacin [From LEVAQUIN] Allergy Unknown itchy Verified 07/04/23 14:42 tongue Penicillins [PENICILLINS] Allergy Unknown RASH Verified 07/04/23 14:42 Quinolones [QUINOLONES] Allergy Unknown MOUTH Verified 07/04/23 14:42 ITCHING cefuroxime Allergy Unknown Verified 07/04/23 14:42 doxycycline Allergy Unknown Verified 07/04/23 14:42 ketorolac AdvReac Facial Uncoded 07/04/23 14:42 Swelling latex AdvReac Facial Uncoded 07/04/23 14:42 Swelling Home Medications Medication Instructions Recorded Confirmed Last Taken Type acetaminophen 650 mg 650 mg PO Q8H PRN pain 09/18/20 03/30/23 Unknown History tablet,extended release cholecalciferol (vitamin D3) 50 50 mcg PO DAILY 09/18/20 03/30/23 Unknown History mcg (2,000 unit) capsule bromfenac 0.07 % eye drops 1 drp ophthalmic (eye) DAILY 05/19/23 05/19/23 Unknown History (Prolensa) omeprazole 20 mg capsule,delayed 20 mg PO QAM 05/19/23 05/19/23 Unknown History release Exam Exam Date and Time: July 12, 2023 0842 Pertinent Lab Results Pertinent Lab Results: Laboratory Tests 10/08/22 10/08/22 05/17/23 07:35 07:35 07:28 WBC 6.6 Hgb Hct Plt Count 277 Sodium 142 Potassium 3.8 Chloride 108 Carbon Dioxide 27 BUN 17 H Creatinine 0.67 05/17/23 07:28 WBC Hgb 12.4 Hct 39.6 Plt Count Sodium Potassium Chloride Carbon Dioxide BUN Creatinine Narrative Narrative: EKG 03/2023 normal sinus rhythm with first-degree AV block otherwise normal EKG ECHO 12/2022 Conclusions: - The left ventricular systolic function is normal. The calculated ejection fraction is 57% by biplane method. - There is mild to moderate mitral valve regurgitation. Assessment and Plan Assessment Anesthesia Assessment: Chart Reviewed Documented by User: Hetal Mason MD 07/13/23 08:51 [facility] Past Medical History Medical History Hiatal hernia with gastroesophageal reflux Atrial fibrillation Pancreatitis Hyperlipidemia Hepatic hemangioma Arthritis Osteopenia GERD (gastroesophageal reflux disease) Vaginal discharge Difficulty swallowing liquids Multiple lipomas Lipoma of left thigh Mixed urinary incontinence due to female genital prolapse Subcutaneous nodules Mild intermittent asthma with (acute) exacerbation COVID-19 virus infection Hemochromatosis carrier Essential hypertension Irritable bowel syndrome with diarrhea Osteopenia of multiple sites Chronic anticoagulation Paroxysmal atrial fibrillation Dyslipidemia Family History Family History Father Emphysema, unspecified Mother Heart disease CVD (cardiovascular disease) Stroke Maternal Aunt Breast cancer Ovarian cancer Brother No problems noted. Brother No problems noted. Brother No problems noted. Sister No problems noted. Sister Mental health disorder Sister Mental health disorder Daughter No problems noted. Daughter No problems noted. Daughter No problems noted. Surgical History Surgical History Hx of colonoscopy H/O esophagogastroduodenoscopy History of lumpectomy of left breast History of laparoscopic cholecystectomy History of Problems with Anesthesia: No Social History Social History Housing: House Alcohol intake: former Patient Tobacco Use Status: Former Tobacco user Years Smoked: 40 yrs e-Cigarette/Vaping Use: Never Used service: No Current occupational status: retired Cognitive needs: No Hearing needs: No Vision needs: Yes Meds Allergies Allergy/AdvReac Type Severity Reaction Status Date / Time Sulfa (Sulfonamide Allergy Intermediate FACIAL Verified 07/04/23 14:42 Antibiotics) SWELLING, [SULFA(SULFONAMIDE REDNESS, ANTIBIOTICS)] rash, face edema levofloxacin [From LEVAQUIN] Allergy Unknown itchy Verified 07/04/23 14:42 tongue Penicillins [PENICILLINS] Allergy Unknown RASH Verified 07/04/23 14:42 Quinolones [QUINOLONES] Allergy Unknown MOUTH Verified 07/04/23 14:42 ITCHING cefuroxime Allergy Unknown Verified 07/04/23 14:42 doxycycline Allergy Unknown Verified 07/04/23 14:42 ketorolac AdvReac Facial Uncoded 07/04/23 14:42 Swelling latex AdvReac Facial Uncoded 07/04/23 14:42 Swelling Home Medications Medication Instructions Recorded Confirmed Last Taken Type acetaminophen 650 mg 650 mg PO Q8H PRN pain 09/18/20 03/30/23 Unknown History tablet,extended release cholecalciferol (vitamin D3) 50 50 mcg PO DAILY 09/18/20 03/30/23 Unknown History mcg (2,000 unit) capsule bromfenac 0.07 % eye drops 1 drp ophthalmic (eye) DAILY 05/19/23 05/19/23 Unknown History (Prolensa) omeprazole 20 mg capsule,delayed 20 mg PO QAM 05/19/23 05/19/23 Unknown History release Exam Airway Mallampati Class: II TM Dist: >3cm Neck ROM: Full Partial: Upper Loose/Missing/Broken Teeth: Yes and Upper Heart: RRR Lungs: CTA Assessment and Plan Assessment Anesthesia Assessment: Anesthesia Plan Discussed Final Anesthetic Review History of Problems with Anesthesia: No NPO: Yes ASA Class: III Final Preanesthetic Review: Meds/Allgs Chart Reviewed, Consent Obtained/Reviewed and Anes Risks/Benef Reviewed Patient Risk: Intermediate Procedure Risk: Low Anesthetic Plan Anesthetic Plan: MAC: Disposition: Standard PACU
[2023-07-13 06:22] VITALS: BMI 29.2
[2023-07-13 07:41] VITALS: BP 142/92; PULSE 74; RESP 20; TEMP 36.3; O2SAT 97
[2023-07-13] MEDS: Lactated Ringers 1,000 ML 100 ML IVCONT (08:05)
[2023-07-13 09:20] VITALS: BP 89/55; PULSE 63; RESP 18; TEMP 36.3; O2SAT 99
--- NOTE | 2023-07-13 09:22 | PM.OP ---
Brief Operative Note Date of Service: 07/13/23 Pre-op diagnosis: Screening Post-op diagnosis: other (Diverticulosis) Procedure: Colonoscopy to the cecum and TI Surgeon: Mariano Landaverde Anesthesia: MAC Was an Supervisor Data Processing used for this Procedure?: No Estimated blood loss (mL): 0 Pathology: none sent Condition: stable Disposition: PACU
--- NOTE | 2023-07-13 09:33 | OP_ITS ---
DATE OF SERVICE: 07/13/2023 SURGEON: Mariano Landaverde MD INDICATIONS: The patient presents for evaluation of colorectal cancer screening. Full consent obtained from her for this, including risks of bleeding and perforation. PREOPERATIVE DIAGNOSIS: Colorectal cancer screening. POSTOPERATIVE DIAGNOSIS: Colorectal cancer screening, sigmoid diverticulosis and internal hemorrhoids. PROCEDURE PERFORMED: Colonoscopy to the cecum and terminal ileum. ESTIMATED BLOOD LOSS: COMPLICATIONS: ANESTHESIA: Monitored anesthesia care. ASSISTANTS: SPECIMENS: DESCRIPTION OF PROCEDURE: The patient was placed in the left lateral decubitus position. The digital rectal exam revealed no abnormalities. The Olympus video pediatric colonoscope was entered into the rectum and advanced easily to the cecum. Once in the cecum, I did identify normal-appearing cecal pouch with appendiceal orifice and a normal-appearing ileocecal valve. The terminal ileum was cannulated and appeared normal. Scope was withdrawn back in the colon. The entire cecum and ileocecal valve appeared normal. The scope was slowly withdrawn assessing all mucosal surfaces carefully. Preparation was excellent. I did not visualize any sign of polyps, colitis, nor angiodysplasia. There was a mild amount of sigmoid diverticulosis. In the rectum, scope was retroflexed visualizing internal hemorrhoids, but no other pathology. The rectal mucosa appeared normal. The scope was straightened and withdrawn from the patient. She tolerated the procedure well and was returned to recovery area in stable condition. IMPRESSION: 1. Diverticulosis. 2. Internal hemorrhoids. PLAN: Given her age and today's negative colonoscopy, I do not think she would need any further screening colonoscopies given that she would be just about 78 years old at the 10-year rashida from today's colonoscopy. She does report that her swallowing has remained stable on omeprazole and I did advise her to continue that. She will see me as needed. She was advised to resume her Xarelto today. MD SHAHEEN Sheth/JOHN / [id number] MTDFrances
[2023-07-13 09:40] VITALS: BP 119/71; PULSE 61; RESP 18; TEMP 36.1; O2SAT 95
== END 2023-07-13 10:17 | disposition home or self-care (01) ==
PROVIDERS: PCP Internal Medicine; Visit Provider Internal Medicine
PROC: 0DJD8ZZ Inspection of Lower Intestinal Tract, Via Natural or Artificial Opening Endoscopic (ICD-10-PCS; CPT 45378; principal; 2023-07-13 08:30)
DX: Z12.11 Encounter for screening for malignant neoplasm of colon (principal); K57.30 Diverticulosis of large intestine without perforation or abscess without bleeding; K64.8 Other hemorrhoids; I10 Essential (primary) hypertension; E78.5 Hyperlipidemia, unspecified; I48.91 Unspecified atrial fibrillation; K21.9 Gastro-esophageal reflux disease without esophagitis; Z79.899 Other long term (current) drug therapy; Z79.01 Long term (current) use of anticoagulants
CPT/HCPCS: G0121

== ENCOUNTER 2023-09-12 12:26 | Outpatient (AMB) | payer MEDICARE, SELFPAY ==
--- NOTE | 2023-09-12 12:30 | A.OFFVIS_ITS ---
Intake Vital Signs 09/12/23 12:32 Height 5 ft 1.5 in Weight 158 lb 11.725 oz BMI 29.5 BP 130/82 Blood Pressure Location Lt brachial Position Sitting Pulse 81 Intake Visit Reasons: 6 mth f/up Intake Note: 6 month follow-up with ekg feeling good Headlight Adjuster Required: No Allergies Sulfa (Sulfonamide Antibiotics) [SULFA(SULFONAMIDE ANTIBIOTICS)] Allergy (Intermediate, Verified 07/04/23 14:42) FACIAL SWELLING, REDNESS, rash, face edema levofloxacin [From LEVAQUIN] Allergy (Unknown, Verified 07/04/23 14:42) itchy tongue Penicillins [PENICILLINS] Allergy (Unknown, Verified 07/04/23 14:42) RASH Quinolones [QUINOLONES] Allergy (Unknown, Verified 07/04/23 14:42) MOUTH ITCHING cefuroxime Allergy (Verified 07/04/23 14:42) Unknown doxycycline Allergy (Verified 07/04/23 14:42) Unknown ketorolac Adverse Reaction (Uncoded 07/04/23 14:42) Facial Swelling latex Adverse Reaction (Uncoded 07/04/23 14:42) Facial Swelling Medication List - Last Reconciled 09/12/23 by Juan Laughlin MD acetaminophen ER 650 mg PO Q8H PRN albuterol sulfate 90 mcg/actuation 1 inh inhalation QID PRN budesonide-formoterol 160-4.5 mcg/actuation (Symbicort) 2 puffs inhalation Q12H cholecalciferol (vitamin D3) 50 mcg PO DAILY flecainide 100 mg PO Q12H inhalational spacing device (Aerochamber MV spacer) As directed lisinopril 20 mg PO DAILY 90 days metoprolol succinate ER 50 mg PO DAILY nebulizers As directed omeprazole 20 mg PO QAM raloxifene 60 mg PO DAILY rivaroxaban (Xarelto) 20 mg PO DAILY simvastatin 20 mg PO BEDTIME HPI HPI Comments History of Present Illness Details For Jessenia comes for follow-up. Overall she has been doing well from cardiac perspective. Denies any prolonged palpitation irregular heartbeat. She says she has gained some weight in a result noticing some increased shortness of breath when she climbs a flight of stairs. No orthopnea, PND, leg edema. No exertional chest pain. Takes all her medications regularly. No bleeding issues or neurologic events PFSH Medical History Hiatal hernia with gastroesophageal reflux Atrial fibrillation Pancreatitis Hyperlipidemia Hepatic hemangioma Arthritis Osteopenia GERD (gastroesophageal reflux disease) Vaginal discharge Difficulty swallowing liquids Multiple lipomas Lipoma of left thigh Mixed urinary incontinence due to female genital prolapse Subcutaneous nodules Mild intermittent asthma with (acute) exacerbation COVID-19 virus infection Hemochromatosis carrier Essential hypertension Irritable bowel syndrome with diarrhea Osteopenia of multiple sites Chronic anticoagulation Paroxysmal atrial fibrillation Dyslipidemia Surgical History Hx of colonoscopy H/O esophagogastroduodenoscopy History of lumpectomy of left breast History of laparoscopic cholecystectomy Family History Father Emphysema, unspecified Mother Heart disease CVD (cardiovascular disease) Stroke Maternal Aunt Breast cancer Ovarian cancer Brother No problems noted. Brother No problems noted. Brother No problems noted. Sister No problems noted. Sister Mental health disorder Sister Mental health disorder Daughter No problems noted. Daughter No problems noted. Daughter No problems noted. Social History Housing: House Alcohol intake: former Patient Tobacco Use Status: Former Tobacco user Years Smoked: 40 yrs e-Cigarette/Vaping Use: Never Used service: No Current occupational status: retired Cognitive needs: No Hearing needs: No Vision needs: Yes Review of Systems Const Denies chills, Denies fatigue, Denies fever(s), Denies frequent falls, Denies weakness, Denies weight gain and Denies weight loss ENT Denies dizziness Card Denies chest pain, Denies leg edema, Denies lightheadedness, Denies palpitations, Denies dyspnea, Denies dyspnea on exertion, Denies orthopnea and Denies other (loss of consciousness) Resp Denies cough, Denies dyspnea and Denies dyspnea on exertion GI Denies hematochezia and Denies change in stool character Musc Denies abnormal gait, Denies muscle weakness, Denies numbness, Denies radiating pain into limb and Denies tingling Neuro Denies abnormal gait, Denies dizziness, Denies frequent falls, Denies numbness, Denies tingling and Denies weakness Endo Denies fatigue and Denies palpitations Physical Exam Vital Signs: Last Vital Signs Pulse 81 09/12/23 12:32 BP 130/82 09/12/23 12:32 BMI result Body Mass Index 29.5 Const General: cooperative, comfortable, no acute distress, alert and awake Nutritional Appearance: overweight Orientation/consciousness: patient oriented x3 Limitations: no limitations Neck Neck: Yes trachea midline, Yes supple and Yes no JVD Resp Effort & Inspection: normal respiratory effort Auscultation: clear to auscultation bilaterally Cardio Jugular venous distension: no JVD Palpation: normal PMI Rate: regular rate Rhythm: regular rhythm Heart sounds: S1 normal heart sound present and S2 normal heart sound present GI Auscultation: normal bowel sounds Skin General skin exam: no rashes or lesions noted Neuro General: patient oriented x3 and no focal motor deficits Extrem General: No clubbing, No cyanosis, Yes edema and Yes other (Bilateral varicose veins) Psych Appearance: grossly normal Office Procedures EKG Details: EKG shows normal sinus rhythm with first-degree AV block otherwise normal EKG [id number], Complete Assessment & Plan Assessment & Plan (1) Paroxysmal atrial fibrillation: Code(s): I48.0 - Paroxysmal atrial fibrillation Plan: Paroxysmal atrial fibrillation which has done well with rhythm control approach. She has derived significant benefit from them. Has tolerated medication flecainide. Continue concomitant metoprolol therapy. Continue full oral anticoagulation, currently on Xarelto 20 mg daily. Semi annual renal function test should be pursued. Avoidance of stimulants was discussed advised to call me with worsening symptoms. (2) Essential hypertension: Code(s): I10 - Essential (primary) hypertension Plan: Hypertension which is currently well optimized advised to monitor blood pressure at home maintain a log. Goal blood pressure less than 130/84. Importance of good blood pressure control was discussed low-salt diet was discussed. Continue participate in heart healthy lifestyle with participation weight loss program. Regular physical activity also recommended. (3) Mitral regurgitation: Code(s): I34.0 - Nonrheumatic mitral (valve) insufficiency Plan: Mitral regurgitation which is [id number]. No interventions required. Will continue monitor by echocardiogram in 6 months time. Symptoms associated severe mitral regurgitation with discussed Will follow up in the clinic in 6 months time, sooner p.r.n.. Thank you for allowing me to partake in her care Coding Level of Care Code Est Pt Level 4 (52968) Diagnoses Paroxysmal atrial fibrillation I48.0 Essential hypertension I10 Mitral regurgitation I34.0 CPT Codes EKG - CPT: 68302-[id number], Complete ([id number])
[2023-09-12 12:32] VITALS: BP 130/82; PULSE 81; BMI 29.5
== END 2023-09-12 12:55 | disposition home or self-care (01) ==
PROVIDERS: PCP Internal Medicine; Visit Provider Internal Medicine Cardiovascular Disease
DX: I48.0 Paroxysmal atrial fibrillation (principal); I10 Essential (primary) hypertension; I34.0 Nonrheumatic mitral (valve) insufficiency
CPT/HCPCS: 93010; 99214

== ENCOUNTER → 2023-09-12 12:26 | Outpatient (BNVA) | payer MEDICARE, SELFPAY | PROVIDERS: PCP Internal Medicine; Visit Provider Internal Medicine Cardiovascular Disease | DX: I48.0 Paroxysmal atrial fibrillation (principal); I34.0 Nonrheumatic mitral (valve) insufficiency; I10 Essential (primary) hypertension | CPT/HCPCS: 93005; 99212 ==

== ENCOUNTER 2023-09-21 22:51 | Emergency (ER) | payer MEDICARE, SELFPAY ==
--- NOTE | 2023-09-21 | ECG_ITS ---
Test Reason : CP Blood Pressure : / mmHG Vent. Rate : 063 BPM Atrial Rate : 063 BPM P-R Int : 248 ms QRS Dur : 086 ms QT Int : 440 ms P-R-T Axes : 042 -11 019 degrees QTc Int : 450 ms Sinus rhythm with 1st degree A-V block Low voltage QRS Borderline ECG When compared with ECG of 16-MAR-2021 13:34, [place] interval has increased Vent. rate has decreased BY 34 BPM Nonspecific T wave abnormality no longer evident in Anterolateral leads Referred By: Generic ED Physician Electronically Signed By:Epifanio Oconnor
--- NOTE | ~2023-09-21 | XR_ITS ---
EXAMINATION: XR CHEST CLINICAL INFORMATION: Shortness of breath and right chest pain COMPARISON: 03/16/2021 TECHNIQUE: Frontal view of the chest was obtained. FINDINGS: No significant abnormality is noted involving the heart, lungs, mediastinum, bony thorax or soft tissues. XR/XR chest 1V IMPRESSION: Unremarkable examination.
[2023-09-21 22:54] VITALS: BP 89/55; PULSE 66; RESP 18; TEMP 36.4; O2SAT 99; BMI 28.0
[2023-09-21 23:16] VITALS: BP 109/62; PULSE 68; RESP 20; TEMP 36.7; O2SAT 100
--- NOTE | 2023-09-21 23:17 | MHC.EDTECH ---
This pct just assumed care of patient ,Patient was change into hospital attire ,Patient was hooked up to micro lab analyst ,vitals taken ,Pt at bedside .
[2023-09-21 23:19] LABS: MANUAL DIFF FLAG NO
[2023-09-21 23:20] LABS: Basophils Percent Auto 0.5 % (0-2); Eosinophils Absolute Auto 0.2 X10*3/uL (0.0-0.4); Eosinophils Percent Auto 2.6 % (0-4); Hematocrit 37.4 % (37.0-47.0); Imm Gran Abs Auto 0.02 X10*3/uL (0.00-0.03); Imm Gran Pct Auto 0.3 % (0.0-0.4); Lymphocytes Absolute Auto 2.5 X10*3/uL (1.2-4.9); Mean Corpuscular HGB Conc 32.1 g/dl (31.0-35.0); Mean Corpuscular Hemoglobin 28.4 pg (27.0-33.0); Mean Corpuscular Volume 88.4 fL (80.0-98.0); Monocytes Absolute Auto 0.7 X10*3/uL (0.1-1.2); Monocytes Percent Auto 8.3 % (2-11); Neutrophils Absolute Auto 4.4 x10*3/uL (2.0-8.3); Neutrophils Percent Auto 56.3 % (45-73); Platelet Count 284 X10*3/uL (160-400); Red Blood Count 4.23 X10*6/uL (4.20-5.50); Red Cell Distribution Width 11.9 % (11.0-16.0); White Blood Count 7.8 X10*3/uL (4.8-10.8)
--- NOTE | 2023-09-21 23:25 | ED_ITS ---
HPI - Chest Pain General Chief Complaint: Chest Pain Stated Complaint: chest pain Time Seen by Provider: 09/21/23 23:24 Source: patient History of Present Illness HPI narrative: 67-year-old female with history of atrial fibrillation, pancreatitis, hyperlipidemia, GERD, hypertension, IBS, who presents emergency department for evaluation of right-sided chest pain. The patient went bowling earlier in the evening. When she left the bowling alley it was very cold outside and this caused her to have a exacerbation of her asthma and shortness of breath. She used her inhaler with some relief of her symptoms. When she got home she still felt short of breath and had to use her inhaler again. She states that she was drinking beer this evening and had at least 6 beers to drink. She states that at 22:30 hours she was sitting at the kitchen table listening to [employer] music when she had a sudden onset of right-sided chest pain. She points to her right anterior chest. She describes the pain is a sharp pain which is worse with breathing worse with movement. The pain lasted approximately 15 minutes and at the time of evaluation she states the pain is completely resolved. She states she has had similar pain in the past. She denied associated neck, jaw or arm pain. She denies any pain in her back. She denied diaphoresis. She states that she has had a nonproductive cough for 1 month. She denied fever, chills, rhinorrhea, nausea, vomiting or diarrhea. Related Data Home Medications Medication Instructions Recorded Confirmed acetaminophen 650 mg 650 mg PO Q8H PRN pain 09/18/20 09/12/23 tablet,extended release cholecalciferol (vitamin D3) 50 50 mcg PO DAILY 09/18/20 09/12/23 mcg (2,000 unit) capsule omeprazole 20 mg capsule,delayed 20 mg PO QAM 05/19/23 09/12/23 release Previous Rx's Medication Instructions Recorded albuterol sulfate 90 mcg/actuation 1 inh inhalation QID PRN shortness 03/16/21 aerosol inhaler of breath or wheezing #6.7 grams nebulizers #1 ea 03/25/21 budesonide-formoterol HFA 160 2 puff inhalation Q12H #10.2 grams 07/01/21 mcg-4.5 mcg/actuation aerosol inhaler (Symbicort) inhalational spacing device #1 ea 07/01/21 (Aerochamber MV spacer) lisinopril 20 mg tablet 20 mg PO DAILY 90 days #90 tabs 03/10/23 flecainide 100 mg tablet 100 mg PO Q12H #60 tabs 03/16/23 metoprolol succinate 50 mg 50 mg PO DAILY #90 tabs 04/15/23 tablet,extended release 24 hr rivaroxaban 20 mg tablet (Xarelto) 20 mg PO DAILY #90 tabs 05/16/23 raloxifene 60 mg tablet 60 mg PO DAILY #90 tabs 06/17/23 simvastatin 20 mg tablet 20 mg PO BEDTIME #90 tabs 09/14/23 Allergies Allergy/AdvReac Type Severity Reaction Status Date / Time Sulfa (Sulfonamide Allergy Intermediate FACIAL Verified 07/04/23 14:42 Antibiotics) SWELLING, [SULFA(SULFONAMIDE REDNESS, ANTIBIOTICS)] rash, face edema levofloxacin [From LEVAQUIN] Allergy Unknown itchy Verified 07/04/23 14:42 tongue Penicillins [PENICILLINS] Allergy Unknown RASH Verified 07/04/23 14:42 Quinolones [QUINOLONES] Allergy Unknown MOUTH Verified 07/04/23 14:42 ITCHING cefuroxime Allergy Unknown Verified 07/04/23 14:42 doxycycline Allergy Unknown Verified 07/04/23 14:42 ketorolac AdvReac Facial Uncoded 07/04/23 14:42 Swelling latex AdvReac Facial Uncoded 07/04/23 14:42 Swelling Review of Systems 2 Review of Systems: Yes all other systems are reviewed and are negative [facility] Past Medical History [facility] Narrative: Social history: The patient stop smoking 13 years ago. She has a greater than 40 pack-year history of smoking. She drinks alcohol daily and she does admit to drinking 6 beers this evening. She denies drug use. Medical History Hiatal hernia with gastroesophageal reflux Atrial fibrillation Pancreatitis Hyperlipidemia Hepatic hemangioma Arthritis Osteopenia GERD (gastroesophageal reflux disease) Vaginal discharge Difficulty swallowing liquids Multiple lipomas Lipoma of left thigh Mixed urinary incontinence due to female genital prolapse Subcutaneous nodules Mild intermittent asthma with (acute) exacerbation COVID-19 virus infection Hemochromatosis carrier Essential hypertension Irritable bowel syndrome with diarrhea Osteopenia of multiple sites Chronic anticoagulation Paroxysmal atrial fibrillation Dyslipidemia Surgical History Hx of colonoscopy H/O esophagogastroduodenoscopy History of lumpectomy of left breast History of laparoscopic cholecystectomy Family History Family History Father Emphysema, unspecified Mother Heart disease CVD (cardiovascular disease) Stroke Maternal Aunt Breast cancer Ovarian cancer Brother No problems noted. Brother No problems noted. Brother No problems noted. Sister No problems noted. Sister Mental health disorder Sister Mental health disorder Daughter No problems noted. Daughter No problems noted. Daughter No problems noted. Social History Social History Housing: House Alcohol intake: current Alcohol intake frequency: a few times a week Patient Tobacco Use Status: Former Tobacco user Years Smoked: 40 yrs Smoked in Last 30 Days: No e-Cigarette/Vaping Use: Never Used Use of substances other than those prescribed or required for medical reasons: No Advance Directives: No Advance Directives Information Provided: No service: No Current occupational status: retired Cognitive needs: No Hearing needs: No Vision needs: Yes Physical Exam 2 Vital Signs: Vital Signs: Last Vital Signs Temp 98.0 F 09/21/23 23:16 Pulse 68 09/21/23 23:16 Resp 20 09/21/23 23:16 BP 109/62 09/21/23 23:16 Pulse Ox 100 09/21/23 23:16 O2 Del Method Room Air 09/21/23 23:16 BMI result Body Mass Index 28.0 Vital signs were normal Exam: General: Awake, alert in no distress Head: Normocephalic, atraumatic EENT: PERRL, Lids normal, sclera normal, conjunctiva normal, nose normal , ears normal, throat without erythema or exudates Neck: Supple, no adenopathy, no trachea midline or C-spine tenderness Lung: breath sounds symmetric, no wheezing, rales or rhonchi Chest: symmetric movement, mild to moderate right and chest wall tenderness Heart: regular rate and rhythm, normal S1, S2 no murmurs or rubs Abdomen: soft, non-tender, nondistended, normal bowel sounds Back: no vertebral tenderness, no CVAT Extremities: no deformities, moves all extremities symmetrically Neuro: Awake, alert, oriented, normal speech, moves all extremities symmetrically Psych: Pleasant, cooperative Medical Decision Making Medical Decision Making MDM Narrative: 67-year-old female with history of atrial fibrillation, pancreatitis, hyperlipidemia, GERD, hypertension, IBS, who presents emergency department for evaluation of right-sided chest pain, started at 22:30 hours while she was sitting at the kitchen table, pain lasts approximately 15 minutes and is now resolved. Pain was worse with breathing and worse with movement. She has had similar pain in the past. Vital signs were normal. Exam did reveal tenderness palpation of her right anterior chest wall otherwise was unremarkable Following evaluation was ordered: CBC, CMP, PT/INR, troponin, ethanol, 12 EKG, chest x-ray one view 00:51 My interpretation patient's laboratory evaluation is as follows: CBC was normal. CMP was normal. Ethanol level was elevated to C7 consistent with acute intoxication. Patient's high sensitive troponin I was below detectable limits. Patient's EKG revealed no evidence for ischemia or infarction. At this time I believe the patient's pain is related to musculoskeletal pain may also be related to her alcohol consumption. Patient did have 1 episode of vomiting here in the emergency department she was treated with Zofran 4 mg IV. She was also given Tylenol 975 mg orally for her pain. Patient was discharged home in care of her given printed and verbal instructions. Differential Diagnosis Differential Diagnoses: The differential diagnosis associated with the presentation includes Differential diagnosis includes was not limited to myocardial ischemia, myocardial infarction, musculoskeletal pain, pneumonia, pneumothorax, pleurisy, anemia, electrolyte abnormality, alcohol intoxication Admission/Observation Consideration of admission/observation: Escalation of care including admission/observation considered Lab Data [facility] Lab Attestation statement: I reviewed the patient's lab results. 09/21/23 Unknown 09/21/23 Unknown Labs: Lab Results 09/21/23 Range/Units Unknown WBC 7.8 (4.8-10.8) X10*3/uL RBC 4.23 (4.20-5.50) X10*6/uL Hgb 12.0 (12.0-16.0) g/dl Hct 37.4 (37.0-47.0) % MCV 88.4 (80.0-98.0) fL MCH 28.4 (27.0-33.0) pg MCHC 32.1 (31.0-35.0) g/dl RDW 11.9 (11.0-16.0) % Plt Count 284 (160-400) X10*3/uL MPV 10.0 (9.4-12.3) fL Immature Gran % (Auto) 0.3 (0.0-0.4) % Neut % (Auto) 56.3 (45-73) % Lymph % (Auto) 32.0 (20-40) % [place] % (Auto) 8.3 (2-11) % Eos % (Auto) 2.6 (0-4) % Baso % (Auto) 0.5 (0-2) % Lymph # (Auto) 2.5 (1.2-4.9) X10*3/uL [place] # (Auto) 0.7 (0.1-1.2) X10*3/uL Eos # (Auto) 0.2 (0.0-0.4) X10*3/uL Baso # (Auto) 0.0 (0.0-0.2) X10*3/uL Abs Immat Gran (auto) 0.02 (0.00-0.03) X10*3/uL Absolute Neuts (auto) 4.4 (2.0-8.3) x10*3/uL Absolute Nucleated RBC 0.000 (0.0-0.012) X10*3/uL Nucleated RBC % (auto) 0.0 (0.0-0.2) /100WBC Sodium 139 (135-145) mmol/L Potassium 3.3 (3.3-5.1) mmol/L Chloride 105 (96-108) mmol/L Carbon Dioxide 24 (22-29) mmol/L Anion Gap 13 (12-20) BUN 18 H (9-16) mg/dL Creatinine 0.71 (0.5-1.4) mg/dL Estim Creat Clear Calc 73.6 Estimated GFR > 60 Random Glucose 116 H (60-115) mg/dL Calcium 8.7 (8.4-10.2) mg/dL Total Bilirubin 0.5 (0.0-1.0) mg/dL AST 21 (5-31) U/L ALT 14 (0-31) U/L Alkaline Phosphatase 62 (39-117) U/L Troponin I High Sens < 2.7 (<3.5-17.0) ng/L Total Protein 6.8 (6.5-8.0) g/dL Albumin 3.8 (3.5-5.0) g/dL Ethyl Alcohol 267 mg/dL Independent Interpretation I performed an independent interpretation of an: Plain X-Ray Interpretation: My interpretation patient's one-view chest x-ray is as follows: No pneumothorax, no pneumonia My independent interpretation patient's 12 EKG done at 22:58 hours is as follows: Sinus rhythm with a rate of 63, first-degree AV block with a WA interval 248 milliseconds, normal QRS duration, normal QTC duration, no ST segment elevation, no ST segment depression, no PACs, no PVCs, nonspecific T- wave flattening. Radiology Impression Discussion of test interpretation with radiology: I have reviewed the radiologist's reading. Radiologist Impression: XR chest 1V IMPRESSION: Unremarkable examination. Dictated By: Madhav Thomas MD Independent Historian Clinical information obtained from an independent historian. History obtained from or confirmed by: Spouse (Pepe) Chronic Conditions Patient?s care impacted by: Hypertension and Other (Hyperlipidemia, atrial fibrillation) Discharge Plan Discharge Clinical Impression: Acute chest wall pain Alcohol intoxication Qualifiers: Complication of substance-induced condition: uncomplicated Qualified Code(s): F 10.920 - Alcohol use, unspecified with intoxication, uncomplicated Vomiting Qualifiers: Migraine intractability: nonintractable Patient Disposition: Home, Self-Care Instructions: Chest Wall Pain (ED), Alcohol Intoxication (ED) Additional Instructions: Your blood work was normal. Your troponin (marker of heart damage) was below detectable limits which is reassuring suggesting that your pain was not secondary to heart injury/heart attack. Your chest x-ray was normal. Your blood alcohol level was elevated at 267. A blood alcohol level of greater than 80 is consistent with alcohol intoxication. Continue taking medications as prescribed by your providers. Follow-up with your doctor in 2 days. Please return to the emergency department if your symptoms get worse or if you develop any symptoms that are concerning to you. Prescriptions: No Action budesonide-formoterol [Symbicort] 160-4.5 mcg/actuation HFA aerosol inhaler 2 puff inhalation Q12H Qty: 10.2 1RF (DME) Aerochamber MV Spacer See Rx Instructions .ROUTE .MEDSUPPLY Qty: 1 0RF Rx Instructions: As directed flecainide 100 mg tablet 100 mg PO Q12H Qty: 60 10RF metoprolol succinate 50 mg tablet extended release 24 hr 50 mg PO DAILY Qty: 90 3RF Xarelto 20 mg tablet 20 mg PO DAILY Qty: 90 3RF raloxifene 60 mg tablet 60 mg PO DAILY Qty: 90 1RF simvastatin 20 mg tablet 20 mg PO BEDTIME Qty: 90 1RF albuterol sulfate 90 mcg/actuation HFA aerosol inhaler 1 inh inhalation QID PRN (Reason: shortness of breath or wheezing) Qty: 6.7 0RF acetaminophen 650 mg tablet extended release 650 mg PO Q8H PRN (Reason: pain) cholecalciferol (vitamin D3) 50 mcg (2,000 unit) capsule 50 mcg PO DAILY (DME) nebulizers Misc See Rx Instructions .ROUTE .MEDSUPPLY Qty: 1 0RF Rx Instructions: As directed omeprazole 20 mg capsule,delayed release(DR/EC) 20 mg PO QAM lisinopril 20 mg tablet 20 mg PO DAILY 90 Days Qty: 90 3RF
[2023-09-21 23:45] LABS: Alanine Aminotransferase 14 U/L (0-31); Albumin Level 3.8 g/dL (3.5-5.0); Alkaline Phosphatase 62 U/L (39-117); Anion Gap 13 (12-20); Aspartate Amino Transferase 21 U/L (5-31); Bilirubin Total 0.5 mg/dL (0.0-1.0); Blood Urea Nitrogen 18 mg/dL (9-16); Calcium 8.7 mg/dL (8.4-10.2); Carbon Dioxide 24 mmol/L (22-29); Chloride 105 mmol/L (96-108); Creatinine Clr Calc Pharmacy 73.6; Estimated Glomerular Filt Rate > 60; Ethanol 267 mg/dL; Glucose Random 116 mg/dL (60-115); Potassium 3.3 mmol/L (3.3-5.1); Sodium 139 mmol/L (135-145); Total Protein 6.8 g/dL (6.5-8.0)
--- NOTE | 2023-09-21 23:50 | PC.NURSE ---
pt from home reporting an episode of right sided chest pain after having a few alcoholic beverages. pt reports the chest pain was in the upper right side of the chest. pt reports upon arrival to the ED the chest pain subsided. pt reports se had nausea at the time of chest pain but that has now subsided. pt lung sounds clear bilaterally. pt normal sinus on tele [id number].
[2023-09-21 23:58] LABS: Troponin-I High Sensitivity < 2.7 ng/L (<3.5-17.0)
[2023-09-22 01:01] VITALS: BP 117/64; PULSE 73; RESP 16; TEMP 36.6; O2SAT 97
[2023-09-22] MEDS: ondansetron HCL 4 MG/2 ML VIAL IVPUSH (01:06)
[2023-09-22] MEDS: Acetaminophen 325 MG TABLET 975 MG PO (01:06)
== END 2023-09-22 01:11 | disposition home or self-care (01) ==
PROVIDERS: Emergency Provider Emergency Medicine Emergency Medical Services; PCP Internal Medicine
DX: R07.89 Other chest pain (principal); F10.920 Alcohol use, unspecified with intoxication, uncomplicated; Y90.8 Blood alcohol level of 240 mg/100 ml or more; G43.909 Migraine, unspecified, not intractable, without status migrainosus; R06.02 Shortness of breath; I10 Essential (primary) hypertension; E78.5 Hyperlipidemia, unspecified; I48.0 Paroxysmal atrial fibrillation; D17.9 Benign lipomatous neoplasm, unspecified; Z87.891 Personal history of nicotine dependence; Z79.01 Long term (current) use of anticoagulants; Z79.02 Long term (current) use of antithrombotics/antiplatelets; Z79.899 Other long term (current) drug therapy
CPT/HCPCS: 36415; 71045; 80053; 80307; 84484; 85025; 93005; 96374; 99284; 99285; J2405

== ENCOUNTER → 2023-09-21 22:58 | Outpatient (BNV) | payer MEDICARE, SELFPAY | PROVIDERS: Emergency Provider Emergency Medicine Emergency Medical Services; PCP Internal Medicine; Visit Provider Internal Medicine Cardiovascular Disease | DX: I44.0 Atrioventricular block, first degree (principal) | CPT/HCPCS: 93010 ==

== ENCOUNTER 2023-10-25 14:21 | Outpatient (REF) | payer MEDICARE, SELFPAY | END 2023-10-25 14:22 | disposition home or self-care (01) | LOC: HO.MAMMO 14:21 | PROVIDERS: PCP Internal Medicine; Visit Provider Internal Medicine | DX: Z12.31 Encounter for screening mammogram for malignant neoplasm of breast (principal) | CPT/HCPCS: 77063; 77067 ==

== ENCOUNTER → 2023-10-25 14:45 | Outpatient (BNV) | payer MEDICARE, SELFPAY | PROVIDERS: PCP Internal Medicine; Visit Provider Radiology Diagnostic Radiology | DX: Z12.31 Encounter for screening mammogram for malignant neoplasm of breast (principal) | CPT/HCPCS: 77063; 77067 ==

== ENCOUNTER 2023-12-21 20:51 | Emergency (ER) | payer MEDICARE, SELFPAY ==
--- NOTE | ~2023-12-21 | CT_ITS ---
EXAMINATION: CT head/brain wo IV con CLINICAL INFORMATION: Reason for Exam weakness, headache COMPARISON: CT head without contrast 10/29/2017 TECHNIQUE: Contiguous axial imaging was performed from the skull base to vertex without intravenous contrast. Sagittal and coronal reformatted images were obtained. This CT examination was performed using dose optimization techniques as appropriate, variously including the following: * Automated exposure control * Adjustment of mA and/or kV according to patient size (this includes techniques or standardized protocols for targeted exams where dose is matched to indication/reason for exam; i.e. extremities or head) Use of iterative reconstruction technique DLP: 586 mGy-cm FINDINGS: No acute osseous or soft tissue abnormality. The mastoid air cells and visualized portions of the paranasal sinuses are well aerated. There is no evidence of acute intracranial hemorrhage or territorial infarction. No abnormal mass effect or midline shift is seen. [place] to white matter differentiation is well preserved. No extra-axial fluid collections are identified. No hydrocephalus. No significant volume loss. Patchy periventricular and deep white matter hypoattenuation is consistent with mild small vessel ischemic changes. CT/CT head/brain wo IV con IMPRESSION: No acute intracranial abnormality including hemorrhage, mass effect, hydrocephalus, or acute territorial edematous infarction.
--- NOTE | ~2023-12-21 | XR_ITS ---
EXAMINATION: XR CHEST CLINICAL INFORMATION: Weakness. COMPARISON: Most recent chest radiograph dated 09/21/2023. TECHNIQUE: 2 views of the chest were obtained. FINDINGS: Minimal linear atelectasis within the left lung base. No large, confluent airspace consolidation. No pleural effusion or pneumothorax. Stable cardiomediastinal silhouette. Right upper quadrant surgical clips. XR/XR chest 2V IMPRESSION: Minimal linear atelectasis within the left lung base.
[2023-12-21 21:04] VITALS: BP 193/95; PULSE 81; TEMP 37.2; O2SAT 98; BMI 30.6
--- NOTE | 2023-12-21 21:05 | ECG_ITS ---
Test Reason : HEADACE Blood Pressure : / mmHG Vent. Rate : 078 BPM Atrial Rate : 078 BPM P-R Int : 186 ms QRS Dur : 092 ms QT Int : 396 ms P-R-T Axes : 046 027 043 degrees QTc Int : 451 ms Normal sinus rhythm Normal ECG When compared with ECG of 21-SEP-2023 22:58, [place] interval has decreased Referred By: Brielle Taveras Electronically Signed By:TY MORENO MD
--- NOTE | 2023-12-21 21:05 | ED.GENADULT ---
HPI - General Adult General Chief complaint: Headache Stated complaint: High BP and headache, referred by PCP Time Seen by Provider: 12/22/23 00:33 Source: patient Mode of arrival: ambulatory Limitations: no limitations History of Present Illness HPI narrative: Patient's history of hypertension dismal AFib on flecainide and Xarelto been coughing for last few days seen at urgent care prescribed doxycycline and Salmetrol comes here with headache coughing and wheezing for last 2 days no chest pain no nausea no vomiting Related Data Home Medications Medication Instructions Recorded Confirmed acetaminophen 650 mg 650 mg PO Q8H PRN pain 09/18/20 09/12/23 tablet,extended release cholecalciferol (vitamin D3) 50 50 mcg PO DAILY 09/18/20 09/12/23 mcg (2,000 unit) capsule omeprazole 20 mg capsule,delayed 20 mg PO QAM 05/19/23 09/12/23 release Previous Rx's Medication Instructions Recorded albuterol sulfate 90 mcg/actuation 1 inh inhalation QID PRN shortness 03/16/21 aerosol inhaler of breath or wheezing #6.7 grams nebulizers #1 ea 03/25/21 budesonide-formoterol HFA 160 2 puff inhalation Q12H #10.2 grams 07/01/21 mcg-4.5 mcg/actuation aerosol inhaler (Symbicort) inhalational spacing device #1 ea 07/01/21 (Aerochamber MV spacer) lisinopril 20 mg tablet 20 mg PO DAILY 90 days #90 tabs 03/10/23 flecainide 100 mg tablet 100 mg PO Q12H #60 tabs 03/16/23 metoprolol succinate 50 mg 50 mg PO DAILY #90 tabs 04/15/23 tablet,extended release 24 hr rivaroxaban 20 mg tablet (Xarelto) 20 mg PO DAILY #90 tabs 05/16/23 simvastatin 20 mg tablet 20 mg PO BEDTIME #90 tabs 09/14/23 raloxifene 60 mg tablet 60 mg PO DAILY #90 tabs 12/12/23 albuterol sulfate 90 mcg/actuation 2 puff inhalation Q4-6H PRN 12/22/23 aerosol inhaler (ProAir HFA) shortness of breath or wheezing #8.5 grams codeine 10 mg-guaifenesin 100 mg/5 10 ml PO Q6H PRN cough #237 mL 12/22/23 mL oral liquid prednisone 20 mg tablet 40 mg (2 x 20 mg) PO DAILY #10 tabs 12/22/23 Allergies Allergy/AdvReac Type Severity Reaction Status Date / Time Sulfa (Sulfonamide Allergy Intermediate FACIAL Verified 07/04/23 14:42 Antibiotics) SWELLING, [SULFA(SULFONAMIDE REDNESS, ANTIBIOTICS)] rash, face edema levofloxacin [From LEVAQUIN] Allergy Unknown itchy Verified 07/04/23 14:42 tongue Penicillins [PENICILLINS] Allergy Unknown RASH Verified 07/04/23 14:42 Quinolones [QUINOLONES] Allergy Unknown MOUTH Verified 07/04/23 14:42 ITCHING cefuroxime Allergy Unknown Verified 07/04/23 14:42 doxycycline Allergy Unknown Verified 07/04/23 14:42 ketorolac AdvReac Facial Uncoded 07/04/23 14:42 Swelling latex AdvReac Facial Uncoded 07/04/23 14:42 Swelling Review of Systems Review of Systems: Yes all other systems are reviewed and are negative PMFSH Past Medical History Medical History Hiatal hernia with gastroesophageal reflux Atrial fibrillation Pancreatitis Hyperlipidemia Hepatic hemangioma Arthritis Osteopenia GERD (gastroesophageal reflux disease) Vaginal discharge Difficulty swallowing liquids Multiple lipomas Lipoma of left thigh Mixed urinary incontinence due to female genital prolapse Subcutaneous nodules Mild intermittent asthma with (acute) exacerbation COVID-19 virus infection Hemochromatosis carrier Essential hypertension Irritable bowel syndrome with diarrhea Osteopenia of multiple sites Chronic anticoagulation Paroxysmal atrial fibrillation Dyslipidemia Surgical History Hx of colonoscopy H/O esophagogastroduodenoscopy History of lumpectomy of left breast History of laparoscopic cholecystectomy Family History Family History Father Emphysema, unspecified Mother Heart disease CVD (cardiovascular disease) Stroke Maternal Aunt Breast cancer Ovarian cancer Brother No problems noted. Brother No problems noted. Brother No problems noted. Sister No problems noted. Sister Mental health disorder Sister Mental health disorder Daughter No problems noted. Daughter No problems noted. Daughter No problems noted. Social History Social History Housing: House Alcohol intake: current Alcohol intake frequency: a few times a week Patient Tobacco Use Status: Former Tobacco user Years Smoked: 40 yrs e-Cigarette/Vaping Use: Never Used Advance Directives: No Advance Directives Information Provided: Yes service: No Current occupational status: retired Cognitive needs: No Hearing needs: No Vision needs: Yes Physical Exam ED Vital Signs: Vital Signs - 24 hr 12/21/23 21:04 12/22/23 00:48 12/22/23 00:49 Temperature 98.9 F Pulse Rate 81 79 80 Respiratory Rate 20 18 Blood Pressure 193/95 H 178/89 H Pulse Oximetry 98 95 Oxygen Delivery Method Room Air Room Air 12/22/23 02:04 12/22/23 04:08 12/22/23 06:07 Temperature 97.7 F Pulse Rate 75 95 100 Respiratory Rate 18 16 18 Blood Pressure 119/62 Pulse Oximetry 95 Oxygen Delivery Method Room Air 12/22/23 06:12 Temperature Pulse Rate 98 Respiratory Rate 18 Blood Pressure Pulse Oximetry Oxygen Delivery Method BMI result Body Mass Index 30.6 Appearance: Alert. Oriented X3. No acute distress. Eyes: No pallor or icterus ENT: Pharynx normal. Oral Mucosa moist Neck: Normal inspection. Neck supple. CVS: Normal heart rate and rhythm. Pulses normal. Respiratory: No respiratory distress. Equal air entry bilateral, bilateral wheezing no crackles Abdomen: Soft and nontender. Bowel sounds are present, no mass palpable, no CVA tenderness Skin: Skin warm and dry. Normal skin color. Normal skin turgor. Extremities: No lower extremity edema. No calf tenderness Neuro: Oriented X 3. No focal deficit Course Course Course Narrative: RME performed by Brielle Taveras PA-C. Patient is a 68 year old assigned female at presenting to the emergency department with a headache and high blood pressure. Patient on lisinopril. Detailed physical exam and review of systems are deferred to the director family. Labs, imaging, swabs ordered. Patient placed back in the waiting room pending room availability and results. Medications Administered Discontinued Medications Generic Name Dose Route Start Last Admin Trade Name Freq PRN Reason Stop Dose Admin Albuterol Sulfate 2.5 mg 12/22/23 04:05 12/22/23 04:08 Albuterol Sulfate (0.083%) 2.5 Mg/3 Ml Vial.Neb INHALE 12/22/23 04:06 2.5 mg ONCE ONE Administration Albuterol Sulfate 2.5 mg/ 0 mg 12/22/23 00:42 12/22/23 00:47 Albuterol/Ipratropium 3 ml INHALE 12/22/23 00:43 2.5 dose ONCE ONE Administration Albuterol Sulfate 5 mg/ 0 mg 12/22/23 01:59 12/22/23 02:02 Albuterol/Ipratropium 3 ml INHALE 12/22/23 02:00 2.5 each ONCE ONE Administration Dexamethasone 10 mg 12/22/23 00:42 12/22/23 00:50 Dexamethasone 2 Mg Tablet PO 12/22/23 00:43 10 mg ONCE ONE Administration Guaifenesin/Codeine Phosphate 10 ml 12/22/23 00:42 12/22/23 00:49 Guaifen/Codeine Sf 200/20/10ml 10 Ml Liquid PO 12/22/23 00:43 10 ml ONCE ONE Administration Levalbuterol HCl 2.5 mg 12/22/23 06:06 12/22/23 06:11 Levalbuterol Hcl 1.25 Mg/3 Ml Vial.Neb INHALE 12/22/23 06:07 2.5 mg ONCE ONE Administration Medical Decision Making Medical Decision Making [facility] Narrative: Patient with acute bronchitis responded to nebulizing treatment multiple times COVID flu RSV negative chest x-ray negative for infiltrate patient feeling much better now will discharge patient home on prednisone and albuterol inhaler saturating 95% at room air Differential Diagnosis Differential Diagnoses: The differential diagnosis associated with the presentation includes Acute bronchitis/bacteria pneumonia/viral pneumonia Admission/Observation Consideration of admission/observation: Escalation of care including admission/observation considered Lab Data [facility] Lab Attestation statement: I reviewed the patient's lab results. 12/21/23 21:43 12/21/23 21:43 Labs: Lab Results 12/21/23 12/22/23 Range/Units 21:43 00:56 WBC 7.9 (4.8-10.8) X10*3/uL RBC 3.97 L (4.20-5.50) X10*6/uL Hgb 11.2 L (12.0-16.0) g/dl Hct 33.9 L (37.0-47.0) % MCV 85.4 (80.0-98.0) fL MCH 28.2 (27.0-33.0) pg MCHC 33.0 (31.0-35.0) g/dl RDW 12.3 (11.0-16.0) % Plt Count 322 (160-400) X10*3/uL MPV 9.9 (9.4-12.3) fL Immature Gran % (Auto) 0.3 (0.0-0.4) % Neut % (Auto) 63.5 (45-73) % Lymph % (Auto) 23.8 (20-40) % [place] % (Auto) 9.2 (2-11) % Eos % (Auto) 2.9 (0-4) % Baso % (Auto) 0.3 (0-2) % Lymph # (Auto) 1.9 (1.2-4.9) X10*3/uL [place] # (Auto) 0.7 (0.1-1.2) X10*3/uL Eos # (Auto) 0.2 (0.0-0.4) X10*3/uL Baso # (Auto) 0.0 (0.0-0.2) X10*3/uL Abs Immat Gran (auto) 0.02 (0.00-0.03) X10*3/uL Absolute Neuts (auto) 5.0 (2.0-8.3) x10*3/uL Absolute Nucleated RBC 0.000 (0.0-0.012) X10*3/uL Nucleated RBC % (auto) 0.0 (0.0-0.2) /100WBC Sodium 145 (135-145) mmol/L Potassium 3.2 L (3.3-5.1) mmol/L Chloride 110 H (96-108) mmol/L Carbon Dioxide 27 (22-29) mmol/L Anion Gap 11 L (12-20) BUN 15 (9-16) mg/dL Creatinine 0.67 (0.5-1.4) mg/dL Estim Creat Clear Calc 71.6 Estimated GFR > 60 Random Glucose 97 (60-115) mg/dL Calcium 8.8 (8.4-10.2) mg/dL Magnesium 1.5 L (1.6-2.6) mg/dL Total Bilirubin 0.4 (0.0-1.0) mg/dL AST 15 (5-31) U/L ALT 14 (0-31) U/L Alkaline Phosphatase 69 (39-117) U/L Troponin I High Sens < 2.7 (<3.5-17.0) ng/L B-Natriuretic Peptide 142 H (<100) pg/mL Total Protein 6.6 (6.5-8.0) g/dL Albumin 3.7 (3.5-5.0) g/dL Influenza Type A (PCR) NEGATIVE (Negative) Influenza Type B (PCR) NEGATIVE (Negative) RSV RNA Qual (PCR) NEGATIVE (Negative) SARS-CoV-2 RNA (RT-PCR) NEGATIVE (Negative) Independent Interpretation I performed an independent interpretation of an: EKG and Plain X-Ray Interpretation: Normal sinus rhythm with heart rate 78 beats per minute normal interval normal axis no acute ST T wave changes impression normal EKG Radiology Impression Discussion of test interpretation with radiology: I have reviewed the radiologist's reading. Critical Care Time Critical Care Time Critical Care Time: Yes Total Critical Care Time: 55 Attestation: The patient was critically ill with a high probability of imminent or life threatening deterioration. I spent greater than ?60??minutes of discontinuous time evaluating the patient,delivering critical care at the bedside, discussing and evaluating pertinent data with consultants. Critical care time does not include time spent performing separately billable procedures or teaching. Total time spent performing critical care was 55???minutes. Discharge Plan Discharge Clinical Impression: Acute bronchitis Patient Disposition: Home, Self-Care Instructions: Acute Bronchitis (ED) Additional Instructions: Take albuterol inhaler 2 puffs every 4-6 hours as needed Prednisone as prescribed Cough drops as prescribed Continue your antibiotic as given by the prescriber Report to the ER if increased shortness of breath Prescriptions: New albuterol sulfate [ProAir HFA] 90 mcg/actuation HFA aerosol inhaler 2 puff inhalation Q4-6H PRN (Reason: shortness of breath or wheezing) Qty: 8.5 0RF prednisone 20 mg tablet 40 mg PO DAILY Qty: 10 0RF codeine-guaifenesin 10-100 mg/5 mL liquid 10 ml PO Q6H PRN (Reason: cough) Qty: 237 0RF No Action budesonide-formoterol [Symbicort] 160-4.5 mcg/actuation HFA aerosol inhaler 2 puff inhalation Q12H Qty: 10.2 1RF (DME) Aerochamber MV Spacer See Rx Instructions .ROUTE .MEDSUPPLY Qty: 1 0RF Rx Instructions: As directed flecainide 100 mg tablet 100 mg PO Q12H Qty: 60 10RF metoprolol succinate 50 mg tablet extended release 24 hr 50 mg PO DAILY Qty: 90 3RF Xarelto 20 mg tablet 20 mg PO DAILY Qty: 90 3RF simvastatin 20 mg tablet 20 mg PO BEDTIME Qty: 90 1RF raloxifene 60 mg tablet 60 mg PO DAILY Qty: 90 1RF albuterol sulfate 90 mcg/actuation HFA aerosol inhaler 1 inh inhalation QID PRN (Reason: shortness of breath or wheezing) Qty: 6.7 0RF acetaminophen 650 mg tablet extended release 650 mg PO Q8H PRN (Reason: pain) cholecalciferol (vitamin D3) 50 mcg (2,000 unit) capsule 50 mcg PO DAILY (DME) nebulizers Misc See Rx Instructions .ROUTE .MEDSUPPLY Qty: 1 0RF Rx Instructions: As directed omeprazole 20 mg capsule,delayed release(DR/EC) 20 mg PO QAM lisinopril 20 mg tablet 20 mg PO DAILY 90 Days Qty: 90 3RF
[2023-12-21 21:49] LABS: MANUAL DIFF FLAG NO
[2023-12-21 21:51] LABS: Basophils Percent Auto 0.3 % (0-2); Eosinophils Absolute Auto 0.2 X10*3/uL (0.0-0.4); Eosinophils Percent Auto 2.9 % (0-4); Hematocrit 33.9 % (37.0-47.0); Hemoglobin 11.2 g/dl (12.0-16.0); Imm Gran Abs Auto 0.02 X10*3/uL (0.00-0.03); Imm Gran Pct Auto 0.3 % (0.0-0.4); Lymphocytes Absolute Auto 1.9 X10*3/uL (1.2-4.9); Lymphocytes Percent Auto 23.8 % (20-40); Mean Corpuscular Hemoglobin 28.2 pg (27.0-33.0); Mean Corpuscular Volume 85.4 fL (80.0-98.0); Mean Platelet Volume 9.9 fL (9.4-12.3); Monocytes Absolute Auto 0.7 X10*3/uL (0.1-1.2); Monocytes Percent Auto 9.2 % (2-11); Neutrophils Percent Auto 63.5 % (45-73); Platelet Count 322 X10*3/uL (160-400); Red Blood Count 3.97 X10*6/uL (4.20-5.50); Red Cell Distribution Width 12.3 % (11.0-16.0); White Blood Count 7.9 X10*3/uL (4.8-10.8)
[2023-12-21 22:05] LABS: Alanine Aminotransferase 14 U/L (0-31); Albumin Level 3.7 g/dL (3.5-5.0); Alkaline Phosphatase 69 U/L (39-117); Anion Gap 11 (12-20); Aspartate Amino Transferase 15 U/L (5-31); Bilirubin Total 0.4 mg/dL (0.0-1.0); Blood Urea Nitrogen 15 mg/dL (9-16); Calcium 8.8 mg/dL (8.4-10.2); Carbon Dioxide 27 mmol/L (22-29); Chloride 110 mmol/L (96-108); Creatinine Clr Calc Pharmacy 71.6; Estimated Glomerular Filt Rate > 60; Glucose Random 97 mg/dL (60-115); Magnesium 1.5 mg/dL (1.6-2.6); Potassium 3.2 mmol/L (3.3-5.1); Sodium 145 mmol/L (135-145); Total Protein 6.6 g/dL (6.5-8.0)
[2023-12-21 22:16] LABS: Troponin-I High Sensitivity < 2.7 ng/L (<3.5-17.0)
[2023-12-21 22:35] LABS: Influenza A PCR NEGATIVE (Negative); Influenza B PCR NEGATIVE (Negative); Resp Syncy Virus RNA Qual PCR NEGATIVE (Negative); SARS COV2 PCR INHOUSE NEGATIVE (Negative)
[2023-12-22] MEDS: Albuterol Sulfate 2.5 MG, Albuterol/Iprat 2.5/0.5MG 3 ML 3 ML INHALE (00:47)
[2023-12-22 00:48] VITALS: PULSE 79; RESP 20; O2SAT 94
[2023-12-22 00:49] VITALS: BP 178/89; PULSE 80; RESP 18; O2SAT 95
[2023-12-22] MEDS: guaiFEN/Codeine SF 200/20/10ML 10 ML LIQUID PO (00:49)
[2023-12-22] MEDS: dexAMETHasone 2 MG TABLET 10 MG PO (00:50)
[2023-12-22 01:19] LABS: B Type Natriuretic Peptide 142 pg/mL (<100)
[2023-12-22] MEDS: Albuterol Sulfate 5 MG, Albuterol/Iprat 2.5/0.5MG 3 ML 3 ML INHALE (02:02)
[2023-12-22 02:04] VITALS: PULSE 75; RESP 18; O2SAT 97
[2023-12-22 04:08] VITALS: PULSE 95; RESP 16; O2SAT 95
[2023-12-22] MEDS: Albuterol Sulfate (0.083%) 2.5 MG/3 ML VIAL.NEB INHALE (04:08)
[2023-12-22 06:07] VITALS: BP 119/62; PULSE 100; RESP 18; TEMP 36.5; O2SAT 95
[2023-12-22] MEDS: levalbuterol HCL 1.25 MG/3 ML VIAL.NEB 2.5 MG INHALE (06:11)
[2023-12-22 06:12] VITALS: PULSE 98; RESP 18; O2SAT 94
== END 2023-12-22 08:03 | disposition home or self-care (01) ==
PROVIDERS: Physician Assistant Medical; Emergency Provider Internal Medicine; PCP Internal Medicine
DX: J40 Bronchitis, not specified as acute or chronic (principal); R51.9 Headache, unspecified; I48.91 Unspecified atrial fibrillation; R06.02 Shortness of breath; Z11.52 Encounter for screening for COVID-19; Z20.822 Contact with and (suspected) exposure to COVID-19; Z79.01 Long term (current) use of anticoagulants; Z79.899 Other long term (current) drug therapy
CPT/HCPCS: 0241U; 36415; 70450; 71046; 80053; 83735; 83880; 84484; 85025; 93005; 94640; 99285; J8540

== ENCOUNTER → 2023-12-21 21:05 | Outpatient (BNV) | payer MEDICARE, SELFPAY | PROVIDERS: Emergency Provider Internal Medicine; PCP Internal Medicine; Visit Provider Internal Medicine Cardiovascular Disease | DX: R51.9 Headache, unspecified (principal) | CPT/HCPCS: 93010 ==

== ENCOUNTER 2023-12-26 13:19 | Emergency (ER) | payer MEDICARE, SELFPAY ==
--- NOTE | ~2023-12-26 | XR_ITS ---
EXAMINATION: XR CHEST CLINICAL INFORMATION: Chest pain COMPARISON: Chest radiograph 12/21/2023, CTA chest 10/29/2017 TECHNIQUE: 2 views of the chest were obtained. FINDINGS: No significant abnormality is noted involving the heart, lungs, mediastinum, bony thorax or soft tissues. XR/XR chest 2V IMPRESSION: Unremarkable examination.
--- NOTE | 2023-12-26 13:20 | ECG_ITS ---
Test Reason : CHEST PAIN Blood Pressure : / mmHG Vent. Rate : 068 BPM Atrial Rate : 068 BPM P-R Int : 190 ms QRS Dur : 090 ms QT Int : 424 ms P-R-T Axes : -13 010 023 degrees QTc Int : 450 ms Normal sinus rhythm Nonspecific ST and T wave abnormality Borderline ECG When compared with ECG of 21-DEC-2023 21:54, No significant changes seen Referred By: Brielle Taveras Electronically Signed By:LIZA MARK
[2023-12-26 13:49] LABS: MANUAL DIFF FLAG NO
[2023-12-26 14:00] LABS: Basophils Percent Auto 0.2 % (0-2); Hematocrit 34.8 % (37.0-47.0); Hemoglobin 11.6 g/dl (12.0-16.0); Imm Gran Abs Auto 0.21 X10*3/uL (0.00-0.03); Imm Gran Pct Auto 1.6 % (0.0-0.4); Lymphocytes Absolute Auto 0.9 X10*3/uL (1.2-4.9); Lymphocytes Percent Auto 7.2 % (20-40); Mean Corpuscular HGB Conc 33.3 g/dl (31.0-35.0); Mean Corpuscular Hemoglobin 28.7 pg (27.0-33.0); Mean Corpuscular Volume 86.1 fL (80.0-98.0); Mean Platelet Volume 10.5 fL (9.4-12.3); Monocytes Absolute Auto 0.7 X10*3/uL (0.1-1.2); Monocytes Percent Auto 5.3 % (2-11); Neutrophils Absolute Auto 11.2 x10*3/uL (2.0-8.3); Neutrophils Percent Auto 85.7 % (45-73); Platelet Count 373 X10*3/uL (160-400); Red Blood Count 4.04 X10*6/uL (4.20-5.50); Red Cell Distribution Width 12.4 % (11.0-16.0); White Blood Count 13.1 X10*3/uL (4.8-10.8)
[2023-12-26 14:03] LABS: Alanine Aminotransferase 16 U/L (0-31); Albumin Level 3.8 g/dL (3.5-5.0); Alkaline Phosphatase 60 U/L (39-117); Anion Gap 13 (12-20); Aspartate Amino Transferase 11 U/L (5-31); Bilirubin Total 0.4 mg/dL (0.0-1.0); Blood Urea Nitrogen 21 mg/dL (9-16); Calcium 8.1 mg/dL (8.4-10.2); Carbon Dioxide 26 mmol/L (22-29); Chloride 104 mmol/L (96-108); Estimated Glomerular Filt Rate > 60; Glucose Random 112 mg/dL (60-115); Potassium 3.5 mmol/L (3.3-5.1); Sodium 139 mmol/L (135-145); Total Protein 6.4 g/dL (6.5-8.0)
[2023-12-26 14:11] LABS: Troponin-I High Sensitivity < 2.7 ng/L (<3.5-17.0)
[2023-12-26 14:18] VITALS: BP 203/105; PULSE 65; RESP 18; TEMP 36.4; O2SAT 96; BMI 30.2
--- NOTE | 2023-12-26 14:21 | ED_ITS ---
HPI - General Adult General Chief complaint: Chest Pain Stated complaint: chest pain Source: patient Mode of arrival: ambulatory Limitations: no limitations History of Present Illness HPI narrative: Patient is a 68 year old assigned female at with a history of asthma and HTN presenting to the emergency department today with chest pain. Patient states that at 1300 she was lyng down when she had a sharp episode of chest pain. Patient denies any dizziness, lightheadedness, abdominal pain, nausea, vomiting, fever, chills, blurry vision, double vision, loss of vision, difficulty breathing, shortness of breath, back pain, night sweats, pain with urination, increased urinary frequency, increased urinary urgency, blood in her urine or stool, syncope or a near syncopal episode, recent trauma or falls, bowel incontinence, bladder incontinence, bowel retention, bladder retention, or any other complaints at this time. Onset (ago): hour(s) Location: chest Relieving factors: none Exacerbating factors: none Associated symptoms: denies other symptoms Treatments prior to arrival: none Related Data Home Medications Medication Instructions Recorded Confirmed acetaminophen 650 mg 650 mg PO Q8H PRN pain 09/18/20 09/12/23 tablet,extended release cholecalciferol (vitamin D3) 50 50 mcg PO DAILY 09/18/20 09/12/23 mcg (2,000 unit) capsule omeprazole 20 mg capsule,delayed 20 mg PO QAM 05/19/23 09/12/23 release Previous Rx's Medication Instructions Recorded albuterol sulfate 90 mcg/actuation 1 inh inhalation QID PRN shortness 03/16/21 aerosol inhaler of breath or wheezing #6.7 grams nebulizers #1 ea 03/25/21 budesonide-formoterol HFA 160 2 puff inhalation Q12H #10.2 grams 07/01/21 mcg-4.5 mcg/actuation aerosol inhaler (Symbicort) inhalational spacing device #1 ea 07/01/21 (Aerochamber MV spacer) lisinopril 20 mg tablet 20 mg PO DAILY 90 days #90 tabs 03/10/23 flecainide 100 mg tablet 100 mg PO Q12H #60 tabs 03/16/23 metoprolol succinate 50 mg 50 mg PO DAILY #90 tabs 04/15/23 tablet,extended release 24 hr rivaroxaban 20 mg tablet (Xarelto) 20 mg PO DAILY #90 tabs 05/16/23 simvastatin 20 mg tablet 20 mg PO BEDTIME #90 tabs 09/14/23 raloxifene 60 mg tablet 60 mg PO DAILY #90 tabs 12/12/23 albuterol sulfate 2.5 mg/3 mL 2.5 mg (3 mL) inhalation Q4-6H PRN 12/22/23 (0.083 %) solution for nebulization shortness of breath or wheezing #90 mL albuterol sulfate 90 mcg/actuation 2 puff inhalation Q4-6H PRN 12/22/23 aerosol inhaler (ProAir HFA) shortness of breath or wheezing #8.5 grams nitrofurantoin macrocrystal 100 mg 100 mg PO BID #10 caps 12/27/23 capsule phenazopyridine 200 mg tablet 200 mg PO TID #6 tabs 12/27/23 Allergies Allergy/AdvReac Type Severity Reaction Status Date / Time Sulfa (Sulfonamide Allergy Intermediate FACIAL Verified 12/27/23 10:40 Antibiotics) SWELLING, [SULFA(SULFONAMIDE REDNESS, ANTIBIOTICS)] rash, face edema levofloxacin [From LEVAQUIN] Allergy Unknown itchy Verified 12/27/23 10:40 tongue Penicillins [PENICILLINS] Allergy Unknown RASH Verified 12/27/23 10:40 Quinolones [QUINOLONES] Allergy Unknown MOUTH Verified 12/27/23 10:40 ITCHING cefuroxime Allergy Unknown Verified 12/27/23 10:40 doxycycline Allergy Unknown Verified 12/27/23 10:40 ketorolac AdvReac Facial Uncoded 12/27/23 10:40 Swelling latex AdvReac Facial Uncoded 12/27/23 10:40 Swelling Review of Systems 2 Constitutional: Constitutional: Reports no additional constitutional complaints, Denies chills, Denies fever(s) and Denies night sweats Eyes: Eyes: Reports no additional eye complaints, Denies blurry vision, Denies change in vision, Denies diplopia, Denies eye discharge, Denies loss of vision and Denies eye pain ENT: Denies dizziness Cardiovascular: Cardiovascular: Reports no additional cardiovascular complaints, Reports chest pain, Denies lightheadedness, Denies Loss of Consciousness and Denies dyspnea Respiratory: Respiratory: Reports no additional respiratory complaints and Denies dyspnea Gastrointestinal: Gastrointestinal: Reports no additional gastrointestinal complaints, Denies abdominal pain, Denies melena, Denies hematochezia, Denies change in bowel habits and Denies change in stool character Genitourinary: Genitourinary: Denies hematuria, Denies urinary frequency, Denies dysuria, Denies urinary incontinence, Denies urinary hesitancy and Denies urinary urgency Musculoskeletal: Musculoskeletal: Reports no additional musculoskeletal complaints, Denies numbness and Denies tingling Neurologic: Denies dizziness, Denies loss of vision, Denies numbness and Denies tingling Psychiatric: Psychiatric: Reports no additional psychiatric complaints Endocrine: Endocrine: Reports no additional endocrine complaints Hematologic/Lymphatic: Hematologic/Lymphatic: Reports no additional hematologic/lymphatic complaints Allergic/Immunologic: Allergic/Immunologic: Reports no additional allergic/immunologic complaints [facility] Past Medical History Attestation statement: The following information was validated with the patient. Source: old records reviewed and nursing notes reviewed Medical History Hiatal hernia with gastroesophageal reflux Atrial fibrillation Pancreatitis Hyperlipidemia Hepatic hemangioma Arthritis Osteopenia GERD (gastroesophageal reflux disease) Vaginal discharge Difficulty swallowing liquids Multiple lipomas Lipoma of left thigh Mixed urinary incontinence due to female genital prolapse Subcutaneous nodules Mild intermittent asthma with (acute) exacerbation COVID-19 virus infection Hemochromatosis carrier Essential hypertension Irritable bowel syndrome with diarrhea Osteopenia of multiple sites Chronic anticoagulation Paroxysmal atrial fibrillation Dyslipidemia Surgical History Hx of colonoscopy H/O esophagogastroduodenoscopy History of lumpectomy of left breast History of laparoscopic cholecystectomy Family History Family History Father Emphysema, unspecified Mother Heart disease CVD (cardiovascular disease) Stroke Maternal Aunt Breast cancer Ovarian cancer Brother No problems noted. Brother No problems noted. Brother No problems noted. Sister No problems noted. Sister Mental health disorder Sister Mental health disorder Daughter No problems noted. Daughter No problems noted. Daughter No problems noted. Social History Social History Housing: House Alcohol intake: current Alcohol intake frequency: a few times a week Patient Tobacco Use Status: Former Tobacco user Years Smoked: 40 yrs e-Cigarette/Vaping Use: Never Used service: No Current occupational status: retired Cognitive needs: No Hearing needs: No Vision needs: Yes Physical Exam ED Vital Signs: BMI result Body Mass Index 30.2 Const General: cooperative, no acute distress, alert and awake Nutritional Appearance: well nourished Orientation/consciousness: patient oriented x3 Limitations: no limitations HENMT Head: Yes normal to inspection and Yes atraumatic Ears: hearing grossly normal bilaterally and external ears normal General nose exam: Normal external nose present, no nasal discharge noted and no epistaxis Face and sinus: Yes normal facial exam, No abrasion and No laceration Mouth: Normal oral and palatal mucosa present, no drooling and no muffled voice Eyes General: appearance normal, both eyes and all related structures Periorbital: periorbital findings normal Eyelids: Yes eyelids normal Conjunctivae: conjunctivae normal Pupils: Equal, round and reactive pupils present EOM: EOMs intact bilaterally Neck Neck: Yes normal visual inspection, Yes full ROM and Yes no lymphadenopathy Chest Chest palpation & inspection: normal inspection of the chest Resp Effort & Inspection: normal respiratory effort and able to speak in complete sentences GI Inspection: Yes normal to inspection Neuro General: patient oriented x3 and moves all extremities Cranial nerves: Yes Equal, round and reactive pupils present Cognition (Neuro): normal cognition Motor exam (neuro): 5/5 motor strength present throughout Sensory Exam: Normal double simultaneous stimulation for sensation Coordination: [id number]-[id number] test normal Extrem General: Yes normal to inspection, Yes full ROM and Yes capillary refill normal Psych Appearance: grossly normal Mental Status: mental status grossly normal Affect: normal affect Attitude: cooperative Thought process: Normal thought process present Thought content: Normal thought content present Insight: Good insight present (Psych) Course Course Course Narrative: RME performed by Brielle Taveras PA-C. Patient is a 68 year old assigned female at presenting to the emergency department with chest pain. Detailed physical exam and review of systems are deferred to the slat grader. Labs, imaging, and swabs ordered. Patient placed back in the waiting room pending room availability and results. Medical Decision Making Medical Decision Making MDM Narrative: Patient is a 68 year old assigned female at with a history of asthma and HTN presenting to the emergency department today with chest pain. Patient's limited physical exam performed in triage was unremarkable. Patient's blood work was showed a mild WBC elevation however, the rest of the patient's labs were unremarkable. Patient's EKG was unremarkable. Patient's chest x-ray showed no acute process. Patient was hypertensive however, this is chronic for the patient and she declined any dizziness, headache, blurry vision, double vision, or other hypertensive urgency/emergency symptoms. Patient left the department without completing treatment. Patient left the department before myself or any of the other emergency department clinicians could explain to or review with the patient; physical exam findings, test results, need or lack there of for additional testing, need or lack there of to perform a procedure, need or lack there of for hospital admission / transfer, need or lack there of for prescription medication, treatment options, or a treatment plan. Differential Diagnosis Differential Diagnoses: The differential diagnosis associated with the presentation includes Chest pain NSTEMI STEMI Admission/Observation Consideration of admission/observation: Escalation of care including admission/observation considered Patient would have been admitted to the hospital had her work up had any findings where hospital admission was appropriate, her clinical presentation warranted hospital admission, had myself or any other emergency harbor department manager had the ability to discuss need or lack there of for hospital admission, and the patient hadn't left the department without completing treatment. Lab Data [facility] Lab Attestation statement: I reviewed the patient's lab results. My interpretation of these results are in the [facility] Rationale portion of this note. 12/26/23 13:43 12/26/23 13:43 Labs: Lab Results 12/26/23 Range/Units 13:43 WBC 13.1 H (4.8-10.8) X10*3/uL RBC 4.04 L (4.20-5.50) X10*6/uL Hgb 11.6 L (12.0-16.0) g/dl Hct 34.8 L (37.0-47.0) % MCV 86.1 (80.0-98.0) fL MCH 28.7 (27.0-33.0) pg MCHC 33.3 (31.0-35.0) g/dl RDW 12.4 (11.0-16.0) % Plt Count 373 (160-400) X10*3/uL MPV 10.5 (9.4-12.3) fL Immature Gran % (Auto) 1.6 H (0.0-0.4) % Neut % (Auto) 85.7 H (45-73) % Lymph % (Auto) 7.2 L (20-40) % [place] % (Auto) 5.3 (2-11) % Eos % (Auto) 0.0 (0-4) % Baso % (Auto) 0.2 (0-2) % Lymph # (Auto) 0.9 L (1.2-4.9) X10*3/uL [place] # (Auto) 0.7 (0.1-1.2) X10*3/uL Eos # (Auto) 0.0 (0.0-0.4) X10*3/uL Baso # (Auto) 0.0 (0.0-0.2) X10*3/uL Abs Immat Gran (auto) 0.21 H (0.00-0.03) X10*3/uL Absolute Neuts (auto) 11.2 H (2.0-8.3) x10*3/uL Absolute Nucleated RBC 0.000 (0.0-0.012) X10*3/uL Nucleated RBC % (auto) 0.0 (0.0-0.2) /100WBC Sodium 139 (135-145) mmol/L Potassium 3.5 (3.3-5.1) mmol/L Chloride 104 (96-108) mmol/L Carbon Dioxide 26 (22-29) mmol/L Anion Gap 13 (12-20) BUN 21 H (9-16) mg/dL Creatinine 0.69 (0.5-1.4) mg/dL Estim Creat Clear Calc TNP Estimated GFR > 60 Random Glucose 112 (60-115) mg/dL Calcium 8.1 L D (8.4-10.2) mg/dL Total Bilirubin 0.4 (0.0-1.0) mg/dL AST 11 (5-31) U/L ALT 16 (0-31) U/L Alkaline Phosphatase 60 (39-117) U/L Troponin I High Sens < 2.7 (<3.5-17.0) ng/L Total Protein 6.4 L (6.5-8.0) g/dL Albumin 3.8 (3.5-5.0) g/dL Influenza Type A (PCR) NEGATIVE (Negative) Influenza Type B (PCR) NEGATIVE (Negative) RSV RNA Qual (PCR) NEGATIVE (Negative) SARS-CoV-2 RNA (RT-PCR) NEGATIVE (Negative) Independent Interpretation I performed an independent interpretation of an: EKG and Plain X-Ray Interpretation: My interpretation is in agreement with the radiologist's impression of this imaging study. - EXAMINATION: XR CHEST CLINICAL INFORMATION: Chest pain COMPARISON: Chest radiograph 12/21/2023, CTA chest 10/29/2017 TECHNIQUE: 2 views of the chest were obtained. FINDINGS: No significant abnormality is noted involving the heart, lungs, mediastinum, bony thorax or soft tissues. XR/XR chest 2V IMPRESSION: Unremarkable examination. Dictated By: Christiano Beckham MD Signed By: Electronically signed by Christiano Beckham MD 12/26/23 1528 - Vent. Rate: 068 BPM Atrial Rate: 068 BPM P-R Int: 190 ms QRS Dur: 090 ms QT Int: 424 ms P-R-T Axes: -13 010 023 degrees QTc Int: 450 ms Normal sinus rhythm Nonspecific ST and T wave abnormality Borderline ECG When compared with ECG of 21-DEC-2023 21:54, No significant changes seen Electronically Signed By:PANKAJ MARK Dictated By: Pankaj Mark MD Signed By: Electronically signed by Pankaj Mark MD 12/26/23 8799 Radiology Impression Discussion of test interpretation with radiology: I have reviewed the radiologist's reading. Discharge Plan Discharge Clinical Impression: Chest pain Patient Disposition: Left W/O Completing Treatment Prescriptions: No Action budesonide-formoterol [Symbicort] 160-4.5 mcg/actuation HFA aerosol inhaler 2 puff inhalation Q12H Qty: 10.2 1RF (DME) Aerochamber MV Spacer See Rx Instructions .ROUTE .MEDSUPPLY Qty: 1 0RF Rx Instructions: As directed flecainide 100 mg tablet 100 mg PO Q12H Qty: 60 10RF metoprolol succinate 50 mg tablet extended release 24 hr 50 mg PO DAILY Qty: 90 3RF Xarelto 20 mg tablet 20 mg PO DAILY Qty: 90 3RF simvastatin 20 mg tablet 20 mg PO BEDTIME Qty: 90 1RF raloxifene 60 mg tablet 60 mg PO DAILY Qty: 90 1RF albuterol sulfate 90 mcg/actuation HFA aerosol inhaler 1 inh inhalation QID PRN (Reason: shortness of breath or wheezing) Qty: 6.7 0RF albuterol sulfate [ProAir HFA] 90 mcg/actuation HFA aerosol inhaler 2 puff inhalation Q4-6H PRN (Reason: shortness of breath or wheezing) Qty: 8.5 0RF albuterol sulfate 2.5 mg /3 mL (0.083 %) solution for nebulization 2.5 mg inhalation Q4-6H PRN (Reason: shortness of breath or wheezing) Qty: 90 0RF acetaminophen 650 mg tablet extended release 650 mg PO Q8H PRN (Reason: pain) cholecalciferol (vitamin D3) 50 mcg (2,000 unit) capsule 50 mcg PO DAILY (DME) nebulizers Misc See Rx Instructions .ROUTE .MEDSUPPLY Qty: 1 0RF Rx Instructions: As directed phenazopyridine 200 mg tablet 200 mg PO TID Qty: 6 0RF Rx Instructions: TID daily after meals for 2 days nitrofurantoin macrocrystal 100 mg capsule 100 mg PO BID Qty: 10 0RF Rx Instructions: must administer with a meal/food omeprazole 20 mg capsule,delayed release(DR/EC) 20 mg PO QAM lisinopril 20 mg tablet 20 mg PO DAILY 90 Days Qty: 90 3RF Discharge Date/Time: 12/26/23 23:56
[2023-12-26 14:36] LABS: Influenza A PCR NEGATIVE (Negative); Influenza B PCR NEGATIVE (Negative); Resp Syncy Virus RNA Qual PCR NEGATIVE (Negative); SARS COV2 PCR INHOUSE NEGATIVE (Negative)
[2023-12-26 18:47] VITALS: BP 197/98; PULSE 65; RESP 20; TEMP 36.6; O2SAT 96
--- NOTE | 2023-12-27 15:53 | PC.NURSE ---
I called [place] she stated she left the ED before completing treatment because her pain was subsided. She followed up with her PCP today and they are treating her for her BP and UTI symptoms. She thanked me for the call and I apologized for the long wait.
== END 2023-12-26 23:56 | disposition left against medical advice (07) ==
PROVIDERS: Physician Assistant Medical; Emergency Provider Emergency Medicine; PCP Internal Medicine
DX: R07.9 Chest pain, unspecified (principal); I10 Essential (primary) hypertension; J45.20 Mild intermittent asthma, uncomplicated; Z11.52 Encounter for screening for COVID-19; Z20.828 Contact with and (suspected) exposure to other viral communicable diseases
CPT/HCPCS: 0241U; 36415; 71046; 80053; 84484; 85025; 93005; 99283

== ENCOUNTER → 2023-12-26 13:20 | Outpatient (BNV) | payer MEDICARE, SELFPAY | PROVIDERS: PCP Internal Medicine; Visit Provider Internal Medicine | DX: R07.9 Chest pain, unspecified (principal) | CPT/HCPCS: 93010 ==

== ENCOUNTER 2023-12-27 09:20 | Outpatient (AMB) | payer MEDICARE, SELFPAY ==
--- NOTE | 2023-12-27 10:09 | MHC.OFFWIV ---
Intake Vital Signs 12/27/23 10:10 Height 5 ft 1 in Weight 161 lb BMI 30.4 BP 140/100 H Blood Pressure Location Lt brachial Position Sitting Pulse 77 Pulse Source Pulse Oximeter Temp 97.6 F Temp Source Temporal Artery Scan Pulse Oximetry (%) 96 Oxygen Delivery Method Room Air Intake Visit Reasons: EP back pain (lobby) Intake Note: pt is here today for back pain started yesterday Patient Tobacco Use Status: Former Tobacco user Allergies Sulfa (Sulfonamide Antibiotics) [SULFA(SULFONAMIDE ANTIBIOTICS)] Allergy (Intermediate, Verified 12/27/23 10:40) FACIAL SWELLING, REDNESS, rash, face edema levofloxacin [From LEVAQUIN] Allergy (Unknown, Verified 12/27/23 10:40) itchy tongue Penicillins [PENICILLINS] Allergy (Unknown, Verified 12/27/23 10:40) RASH Quinolones [QUINOLONES] Allergy (Unknown, Verified 12/27/23 10:40) MOUTH ITCHING cefuroxime Allergy (Verified 12/27/23 10:40) Unknown doxycycline Allergy (Verified 12/27/23 10:40) Unknown ketorolac Adverse Reaction (Uncoded 12/27/23 10:40) Facial Swelling latex Adverse Reaction (Uncoded 12/27/23 10:40) Facial Swelling Medication List - Last Reconciled 12/27/23 by Joao Villatoro MD acetaminophen ER 650 mg PO Q8H PRN albuterol sulfate 90 mcg/actuation 1 inh inhalation QID PRN albuterol sulfate 90 mcg/actuation (ProAir HFA) 2 puffs inhalation Q4-6H PRN albuterol sulfate 2.5 mg (3 mL) inhalation Q4-6H PRN budesonide-formoterol 160-4.5 mcg/actuation (Symbicort) 2 puffs inhalation Q12H cholecalciferol (vitamin D3) 50 mcg PO DAILY flecainide 100 mg PO Q12H inhalational spacing device (Aerochamber MV spacer) As directed lisinopril 20 mg PO DAILY 90 days metoprolol succinate ER 50 mg PO DAILY nebulizers As directed nitrofurantoin macrocrystal 100 mg PO BID omeprazole 20 mg PO QAM phenazopyridine 200 mg PO TID raloxifene 60 mg PO DAILY rivaroxaban (Xarelto) 20 mg PO DAILY simvastatin 20 mg PO BEDTIME Do you need a note to return to daycare/school/sports/work: No HPI EP back pain (lobby) HPI Details [age] year female presents to the office for a sick visit. Patient is complaining lower back pain abdominal pain since yesterday. Into the emergency room and was not seen after a 9 hour wait. She had blood work, chest x-ray an EKG, she does not know the results. [facility] Medical History Hiatal hernia with gastroesophageal reflux Atrial fibrillation Pancreatitis Hyperlipidemia Hepatic hemangioma Arthritis Osteopenia GERD (gastroesophageal reflux disease) Vaginal discharge Difficulty swallowing liquids Multiple lipomas Lipoma of left thigh Mixed urinary incontinence due to female genital prolapse Subcutaneous nodules Mild intermittent asthma with (acute) exacerbation COVID-19 virus infection Hemochromatosis carrier Essential hypertension Irritable bowel syndrome with diarrhea Osteopenia of multiple sites Chronic anticoagulation Paroxysmal atrial fibrillation Dyslipidemia Surgical History Hx of colonoscopy H/O esophagogastroduodenoscopy History of lumpectomy of left breast History of laparoscopic cholecystectomy Family History Father Emphysema, unspecified Mother Heart disease CVD (cardiovascular disease) Stroke Maternal Aunt Breast cancer Ovarian cancer Brother No problems noted. Brother No problems noted. Brother No problems noted. Sister No problems noted. Sister Mental health disorder Sister Mental health disorder Daughter No problems noted. Daughter No problems noted. Daughter No problems noted. Social History Housing: House Alcohol intake: current Alcohol intake frequency: a few times a week Patient Tobacco Use Status: Former Tobacco user Years Smoked: 40 yrs e-Cigarette/Vaping Use: Never Used service: No Current occupational status: retired Cognitive needs: No Hearing needs: No Vision needs: Yes Physical Exam Vital Signs: Last Vital Signs Temp 97.6 F 12/27/23 10:10 Pulse 77 12/27/23 10:10 BP 140/100 H 12/27/23 10:10 Pulse Ox 96 12/27/23 10:10 Oxygen Delivery Method Room Air 12/27/23 10:10 BMI result Body Mass Index 30.4 Const General: cooperative and healthy appearing Nutritional Appearance: well nourished Orientation/consciousness: patient oriented x3 Limitations: no limitations HEENT Head: Yes normal to inspection Eyes General: appearance normal, both eyes and all related structures Neck Neck: Yes normal visual inspection Chest Chest palpation & inspection: normal palpation of entire chest wall Resp Effort & Inspection: normal respiratory effort Neuro General: patient oriented x3 Results AMB Urinalysis, Automated UA Leukoctes 15 Danelle/uL Last Edit by Bulmaro Nicole on 12/27/23 10:27 UA Nitrite Negative Last Edit by Bulmaro Nicole on 12/27/23 10:27 UA Urobilinogen 0.2 mg/dL Last Edit by Bulmaro Nicole on 12/27/23 10:27 UA Protein 30 mg/dL Last Edit by Bulmaro Nicole on 12/27/23 10:27 UA pH 6.0 Last Edit by Bulmaro Nicole on 12/27/23 10:27 UA Blood 10 Dorian/uL Last Edit by Bulmaro Nicole on 12/27/23 10:27 UA Specific [place] 1.015 Last Edit by Bulmaro Nicole on 12/27/23 10:27 UA Ketone Positive Last Edit by Bulmaro Nicole on 12/27/23 10:27 UA Bilirubin 1 mg/dL Last Edit by Bulmaro Nicole on 12/27/23 10:27 UA Glucose 0 mg/dL Last Edit by Bulmaro Nicole on 12/27/23 10:27 Results Reviewed Results Reviewed: Laboratory Last Values Urine pH (Auto) 6.0 12/27/23 10:26 Specific [place] (Auto) 1.015 12/27/23 10:26 Urine Protein (Auto) 30 mg/dL 12/27/23 10:26 Glucose (UA)(Auto) 0 mg/dL 12/27/23 10:26 Urine Ketones (Auto) Positive 12/27/23 10:26 Urine Blood (Auto) 10 Dorian/uL 12/27/23 10:26 Urine Nitrite (Auto) Negative 12/27/23 10:26 Urine Bilirubin (Auto) 1 mg/dL 12/27/23 10:26 Urine Urobilinogen (Auto) 0.2 mg/dL 12/27/23 10:26 Leukocyte Esterase (Auto) 15 Danelle/uL 12/27/23 10:26 Assessment & Plan Assessment & Plan (1) Urinary tract infection: Code(s): N39.0 - Urinary tract infection, site not specified Plan Nitrofurantoin and Pyridium prescribed. Urinalysis reviewed. Blood work and EKG done in the hospital reviewed. Medications: New phenazopyridine TID daily after meals for 2 days 200 mg PO TID 6 tabs 0RF nitrofurantoin macrocrystal must administer with a meal/food 100 mg PO BID 10 caps 0RF Coding Level of Care Code Est Pt Level 3 (08508) Diagnoses Urinary tract infection N39.0
[2023-12-27 10:10] VITALS: BP 140/100; PULSE 77; TEMP 36.4; O2SAT 96; BMI 30.4
== END 2023-12-27 11:41 | disposition home or self-care (01) ==
PROVIDERS: PCP Internal Medicine; Visit Provider Internal Medicine
DX: N39.0 Urinary tract infection, site not specified (principal)
CPT/HCPCS: 99213

== ENCOUNTER 2024-01-17 14:32 | Outpatient (AMB) | payer MEDICARE, SELFPAY ==
[2024-01-17 14:46] VITALS: BP 160/98; PULSE 85; TEMP 36.6; O2SAT 95
--- NOTE | 2024-01-17 14:46 | MHC.OFFWIV ---
Intake Vital Signs 01/17/24 14:46 Height 5 ft 1 in BP 160/98 H Blood Pressure Location Lt brachial Position Sitting Pulse 85 Pulse Source Pulse Oximeter Temp 97.8 F Temp Source Oral Pulse Oximetry (%) 95 Intake Visit Reasons: EP Cough, SOB Intake Note: pt is here for cough, SOB since december 16 and have been to multiples urgent clinics and ED and still experiencing wheezing cough, difficulty breathing Patient Tobacco Use Status: Former Tobacco user Allergies Sulfa (Sulfonamide Antibiotics) [SULFA(SULFONAMIDE ANTIBIOTICS)] Allergy (Intermediate, Verified 01/17/24 15:12) FACIAL SWELLING, REDNESS, rash, face edema levofloxacin [From LEVAQUIN] Allergy (Unknown, Verified 01/17/24 15:12) itchy tongue Penicillins [PENICILLINS] Allergy (Unknown, Verified 01/17/24 15:12) RASH Quinolones [QUINOLONES] Allergy (Unknown, Verified 01/17/24 15:12) MOUTH ITCHING cefuroxime Allergy (Verified 01/17/24 15:12) Unknown doxycycline Allergy (Verified 01/17/24 15:12) Unknown ketorolac Adverse Reaction (Uncoded 01/17/24 15:12) Facial Swelling latex Adverse Reaction (Uncoded 01/17/24 15:12) Facial Swelling Medication List - Last Reconciled 01/17/24 by MAGNO Cannon acetaminophen ER 650 mg PO Q8H PRN albuterol sulfate 90 mcg/actuation (ProAir HFA) 2 puffs inhalation Q4-6H PRN albuterol sulfate 2.5 mg (3 mL) inhalation Q4-6H PRN budesonide-formoterol 160-4.5 mcg/actuation (Symbicort) 2 puffs inhalation Q12H cholecalciferol (vitamin D3) 50 mcg PO DAILY flecainide 100 mg PO Q12H inhalational spacing device (Aerochamber MV spacer) As directed lisinopril 20 mg PO DAILY 90 days metoprolol succinate ER 50 mg PO DAILY nebulizers As directed omeprazole 20 mg PO QAM raloxifene 60 mg PO DAILY rivaroxaban (Xarelto) 20 mg PO DAILY simvastatin 20 mg PO BEDTIME Do you need a note to return to daycare/school/sports/work: Yes HPI HPI Comments History of Present Illness Details Patient is a 68-year-old female in today for a sick visit. Patient states that over the past several months she has been dealing with asthma exacerbations and has had several visits to urgent care and the emergency room. She reports today that the symptoms have returned, mostly a cough which gets worse at night. Patient denies RAMOS, shortness of breath, fever, chest pain, dizziness, numbness, nausea, vomiting, diarrhea, headache. Patient has an albuterol inhaler and nebulizer which she has been utilizing q.6. Patient used the albuterol nebulizer just prior to today's appointment. Patient is not currently utilizing a maintenance inhaler at this time. Will prescribe patient Symbicort, along with prednisone. Patient has been educated on the side effects of these medication, and to monitor her blood pressure at home. Patient has pulmonary appointment in 1 month. Patient has been educated on signs of worsening symptoms and when to present to the walk-in clinic or when to present to the emergency room. Patient states she understands [facility] Medical History Hiatal hernia with gastroesophageal reflux Atrial fibrillation Pancreatitis Hyperlipidemia Hepatic hemangioma Arthritis Osteopenia GERD (gastroesophageal reflux disease) Vaginal discharge Difficulty swallowing liquids Multiple lipomas Lipoma of left thigh Mixed urinary incontinence due to female genital prolapse Subcutaneous nodules Mild intermittent asthma with (acute) exacerbation COVID-19 virus infection Hemochromatosis carrier Essential hypertension Irritable bowel syndrome with diarrhea Osteopenia of multiple sites Chronic anticoagulation Paroxysmal atrial fibrillation Dyslipidemia Surgical History Hx of colonoscopy H/O esophagogastroduodenoscopy History of lumpectomy of left breast History of laparoscopic cholecystectomy Family History Father Emphysema, unspecified Mother Heart disease CVD (cardiovascular disease) Stroke Maternal Aunt Breast cancer Ovarian cancer Brother No problems noted. Brother No problems noted. Brother No problems noted. Sister No problems noted. Sister Mental health disorder Sister Mental health disorder Daughter No problems noted. Daughter No problems noted. Daughter No problems noted. Social History Housing: House Alcohol intake: current Alcohol intake frequency: a few times a week Patient Tobacco Use Status: Former Tobacco user Years Smoked: 40 yrs e-Cigarette/Vaping Use: Never Used service: No Current occupational status: retired Cognitive needs: No Hearing needs: No Vision needs: Yes Review of Systems Const All systems reviewed & are unremarkable except as noted in HPI and below Denies chills, Denies fever(s), Denies headache(s) and Denies malaise ENT Denies dizziness, Denies headache(s), Denies hoarseness, Denies nasal congestion, Denies nasal discharge and Denies sore throat Card Denies chest pain and Denies dyspnea Resp Reports cough, Denies dyspnea and Reports wheezing GI Denies diarrhea, Denies nausea and Denies vomiting Neuro Denies dizziness and Denies headache(s) Aller/Immun Reports wheezing Physical Exam Vital Signs: Last Vital Signs Temp 97.8 F 01/17/24 14:46 Pulse 85 01/17/24 14:46 BP 160/98 H 01/17/24 14:46 Pulse Ox 95 01/17/24 14:46 Const Other: Appearance: Alert.? Oriented X3.? No acute distress.? Head: Normocephalic, atraumatic. ENT: Pharynx normal.?TM intact and pearly escobar. Neck: Normal inspection.? Neck supple.? CVS: Normal heart rate and rhythm.? Pulses normal.? Respiratory: No respiratory distress.? Wheeze bilaterally, upper lobes. Abdomen: Soft and nontender.? Neuro: Oriented X 3.? No motor deficit.? No sensory deficit. CN 2-12 intact Assessment & Plan Assessment & Plan (1) Asthma exacerbation: Comment: Patient will be given prednisone to be taken as prescribed. Patient will also be started on a maintenance inhaler Symbicort. Patient has been educated on signs of worsening symptoms when to return back to the walk-in or when to present to the emergency room. Patient has upcoming appointment with Pulmonary. Patient has been educated to take blood pressure measurements at home. Code(s): J45.901 - Unspecified asthma with (acute) exacerbation Qualifiers: Asthma persistence: intermittent Asthma severity: mild Qualified Code(s): J45.21 - Mild intermittent asthma with (acute) exacerbation Plan: Take your medications as prescribed. If you were prescribed antibiotics today, it is important that you take your medication to their entirety, do not skip any doses, do not finish them early. Follow-up with your primary care provider this week. Return to the emergency department with new or worsening symptoms. Such as fevers, chills, chest pain, shortness of breath, nausea, vomiting, dizziness, headache, vision changes, lethargy In case of emergency call 911 Plan Follow-up with PCP Medications: New prednisone 20 mg PO BID 10 tabs 0RF budesonide-formoterol 160-4.5 mcg/actuation (Symbicort) 1 inh inhalation BID 10.2 grams 0RF Discontinued budesonide-formoterol 160-4.5 mcg/actuation (Symbicort) Discontinued Reason: Duplicate 2 puffs inhalation Q12H 10.2 grams 1RF J45.21 - Mild intermittent asthma with (acute) exacerbation Coding Level of Care Code Est Pt Level 3 (94809) Diagnoses Asthma exacerbation J45.21 Asthma persistence: intermittent Asthma severity: mild Time Spent (min) 24
== END 2024-01-17 15:50 | disposition home or self-care (01) ==
PROVIDERS: PCP Internal Medicine; Visit Provider Nurse Practitioner Primary Care
DX: J45.21 Mild intermittent asthma with (acute) exacerbation (principal)
CPT/HCPCS: 99213

== ENCOUNTER 2024-02-21 15:08 | Outpatient (AMB) | payer MEDICARE, SELFPAY ==
[2024-02-21 15:15] VITALS: BP 140/80; PULSE 73; O2SAT 97; BMI 30.2
--- NOTE | 2024-02-21 15:15 | A.OFFVIS_ITS ---
Vital Signs 02/21/24 15:15 Height 5 ft 1 in Weight 160 lb 0.94 oz BMI 30.2 BP 140/80 H Blood Pressure Location Lt brachial Position Sitting Pulse 73 Pulse Source Pulse Oximeter Pulse Oximetry (%) 97 Oxygen Delivery Method Room Air Intake Visit Reasons: Shortness of breath Intake Note: pt is here as a new patient for shortness of breath with walking or stairs, and sometimes talking a lot will cause short of breath. 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 Allergies Sulfa (Sulfonamide Antibiotics) [SULFA(SULFONAMIDE ANTIBIOTICS)] Allergy (Intermediate, Verified 02/21/24 15:44) FACIAL SWELLING, REDNESS, rash, face edema levofloxacin [From LEVAQUIN] Allergy (Unknown, Verified 02/21/24 15:44) itchy tongue Penicillins [PENICILLINS] Allergy (Unknown, Verified 02/21/24 15:44) RASH Quinolones [QUINOLONES] Allergy (Unknown, Verified 02/21/24 15:44) MOUTH ITCHING cefuroxime Allergy (Verified 02/21/24 15:44) Unknown doxycycline Allergy (Verified 02/21/24 15:44) Unknown ketorolac Adverse Reaction (Uncoded 02/21/24 15:44) Facial Swelling latex Adverse Reaction (Uncoded 02/21/24 15:44) Facial Swelling Medication List - Last Reconciled 02/21/24 by Marilia Cardenas MD acetaminophen ER 650 mg PO Q8H PRN albuterol sulfate 2.5 mg (3 mL) inhalation Q4-6H PRN budesonide-formoterol 160-4.5 mcg/actuation (Symbicort) 1 inh inhalation BID cholecalciferol (vitamin D3) 50 mcg PO DAILY flecainide 100 mg PO Q12H inhalational spacing device (Aerochamber MV spacer) As directed levalbuterol tartrate 45 mcg/actuation (Xopenex HFA) 2 inhalations inhalation Q6H lisinopril 20 mg PO DAILY 90 days metoprolol succinate ER 50 mg PO DAILY nebulizers As directed omeprazole 20 mg PO QAM raloxifene 60 mg PO DAILY rivaroxaban (Xarelto) 20 mg PO DAILY simvastatin 20 mg PO BEDTIME Do you need a note to return to daycare/school/sports/work: No HPI HPI Shortness of breath: Details: This 68 years old female is being seen for the 1st time for pulmonary evaluation and follow-up. She has had mild intermittent cough and dyspnea on exertion for the last few years. She used to be treated with short-acting bronchodilator like Ventolin but only p.r.n.. In the last few months she has had increased symptoms of bouts of cough and dyspnea with some wheezing. She has been seen a few times in urgent care clinic, and about twice in the emergency room. Was treated with a short course of prednisone and also advised to use the Ventolin p.r.n.. More recently after being treated in the emergency room she was also prescribed Symbicort 160-4.5 which she has been using 2 puffs twice a day. After this she feels much better and does not even need to use the rescue inhaler. She has past history of smoking 1 pack a day from age [age], but quit smoking 13 years ago. She has never been hospitalized when any prolonged respiratory issues. [facility] Medical History (Updated 02/21/24 @ 15:59 by Marilia Cardenas MD) COPD (chronic obstructive pulmonary disease) History of smoking at least 1 pack per day for at least 30 years Hiatal hernia with gastroesophageal reflux Atrial fibrillation Pancreatitis Hyperlipidemia Hepatic hemangioma Arthritis Osteopenia GERD (gastroesophageal reflux disease) Vaginal discharge Difficulty swallowing liquids Multiple lipomas Lipoma of left thigh Mixed urinary incontinence due to female genital prolapse Subcutaneous nodules Mild intermittent asthma with (acute) exacerbation COVID-19 virus infection Hemochromatosis carrier Essential hypertension Irritable bowel syndrome with diarrhea Osteopenia of multiple sites Chronic anticoagulation Paroxysmal atrial fibrillation Dyslipidemia Surgical History Hx of colonoscopy H/O esophagogastroduodenoscopy History of lumpectomy of left breast History of laparoscopic cholecystectomy Family History Father Emphysema, unspecified Mother Heart disease CVD (cardiovascular disease) Stroke Maternal Aunt Breast cancer Ovarian cancer Brother No problems noted. Brother No problems noted. Brother No problems noted. Sister No problems noted. Sister Mental health disorder Sister Mental health disorder Daughter No problems noted. Daughter No problems noted. Daughter No problems noted. Social History Housing: House Alcohol intake: current Alcohol intake frequency: a few times a week Patient Tobacco Use Status: Former Tobacco user Years Smoked: 40 yrs e-Cigarette/Vaping Use: Never Used service: No Current occupational status: retired Cognitive needs: No Hearing needs: No Vision needs: Yes Review of Systems Const All systems reviewed & are unremarkable except as noted in HPI and below Eyes Reports no additional complaints ENT Reports nasal congestion (Mild off and on) Card Reports no additional complaints, Denies chest pain and Reports irregular heart rhythm (Atrial fibrillation) Resp Reports as per HPI GI Reports heartburn (GERD symptoms being treated with omeprazole) Reports no additional complaints Musc Reports no additional complaints Skin/Breast Reports system reviewed and no additional complaints, except as documented Neuro Reports no additional complaints Psych Reports no additional complaints Endo Reports no additional complaints Physical Exam Vital Signs: Last Vital Signs Pulse 73 02/21/24 15:15 BP 140/80 H 02/21/24 15:15 Pulse Ox 97 02/21/24 15:15 Oxygen Delivery Method Room Air 02/21/24 15:15 BMI result Body Mass Index 30.2 Const General: healthy appearing, comfortable, no acute distress, alert and awake Orientation/consciousness: patient oriented x3 HEENT Head: Yes normal to inspection General nose exam: No nasal polyps present and No nasal discharge present Face and sinus: Yes sinuses nontender Mouth: oropharynx normal Throat: Yes posterior oropharynx normal Eyes General: appearance normal, both eyes and all related structures Neck Neck: Yes normal visual inspection, Yes no lymphadenopathy, Yes trachea midline and Yes no JVD Thyroid: Thyroid normal Chest Chest palpation & inspection: normal inspection of the chest, normal palpation of entire chest wall and no tenderness Resp Other: Percussion note resonant, breath sounds are equal on both sides slightly distant with prolonged expiratory phase. No audible wheezes rhonchi or crepitations are heard today Cardio Palpation: normal PMI Rate: regular rate Rhythm: regular rhythm Heart sounds: no gallops and no murmurs Peripheral pulses: Peripheral pulses 2+ throughout GI Palpation (GI): Soft to palpation, nontender, No hepatosplenomegaly present and no masses Auscultation: normal bowel sounds Back/Spine/Pelvis Thoracic/Lumbar Spine: thoracic and lumbar spine normal to inspection Skin General skin exam: no rashes or lesions noted Neuro General: patient oriented x3 and no focal motor deficits Cranial nerves: Yes CN's II-XII intact bilaterally Extrem General: Yes normal to inspection, Yes no clubbing, cyanosis or edema and Yes no calf tenderness Psych Speech and movement: Normal speech and movement present Assessment & Plan Assessment & Plan (1) History of smoking at least 1 pack per day for at least 30 years: Comment: She has history of smoking 1 pack a day for 37 years, quit smoking 13 years ago. Code(s): Z87.891 - Personal history of nicotine dependence Category: Social Hx Plan: Commended for quitting smoking long time ago. Because she smoked at least for 37 years, she should have low does CT scan of the lungs for a few years for screening. Will refer her for annual screening. (2) COPD (chronic obstructive pulmonary disease): Comment: I think she has features of chronic obstructive pulmonary disease. Recently treated for an acute exacerbation. Currently doing very well on regimen of maintenance inhaler. And rescue inhaler Code(s): J44.9 - Chronic obstructive pulmonary disease, unspecified Category: Medical Plan: She will be scheduled for complete pulmonary function test. TX: CONTINUE SYMBICORT 160-4.52 PUFFS B.I.D.. USE VENTOLIN 2 PUFFS Q 4-6 HOURS BUT ONLY SPARINGLY. EDUCATED ABOUT COPD AND TREATMENT PLANNING. Orders: Orders PFT pulmonary function test Today J44.9 - Chronic obstructive pulmonary disease, unspecified, Z87.891 - Personal history of nicotine dependence Referrals Thoracic/General Surgery Referral J44.9 - Chronic obstructive pulmonary disease, unspecified, Z87.891 - Personal history of nicotine dependence Coding Level of Care Code New Pt Level 3 (12945) Diagnoses History of smoking at least 1 pack per day for at least 30 years Z87.891 COPD (chronic obstructive pulmonary disease) J44.9
== END 2024-02-21 15:42 | disposition home or self-care (01) ==
PROVIDERS: PCP Internal Medicine; Referring Provider Internal Medicine Cardiovascular Disease; Visit Provider Internal Medicine
DX: Z87.891 Personal history of nicotine dependence (principal); J44.9 Chronic obstructive pulmonary disease, unspecified
CPT/HCPCS: 99203

== ENCOUNTER → 2024-02-21 15:08 | Outpatient (BNVA) | payer MEDICARE, SELFPAY | PROVIDERS: PCP Internal Medicine; Referring Provider Internal Medicine Cardiovascular Disease; Visit Provider Internal Medicine | DX: J44.9 Chronic obstructive pulmonary disease, unspecified (principal); Z79.899 Other long term (current) drug therapy; Z87.891 Personal history of nicotine dependence | CPT/HCPCS: 99202 ==

== ENCOUNTER 2024-02-22 09:19 | Outpatient (AMB) | payer MEDICARE, SELFPAY ==
--- NOTE | 2024-02-22 09:24 | MHC.PC.OV ---
Vital Signs 02/22/24 09:33 Height 5 ft 1 in Weight 159 lb BMI 30.0 BP 120/70 Blood Pressure Location Lt brachial Position Sitting Pulse 70 Pulse Source Pulse Oximeter Pulse Oximetry (%) 95 Oxygen Delivery Method Room Air Intake Visit Reasons: PE Intake Note: Pt is here today for her PE mammogram 10/25/23, bone density scan 08/26/20, colonoscopy 09/17/13 Allergies Sulfa (Sulfonamide Antibiotics) [SULFA(SULFONAMIDE ANTIBIOTICS)] Allergy (Intermediate, Verified 02/22/24 09:42) FACIAL SWELLING, REDNESS, rash, face edema levofloxacin [From LEVAQUIN] Allergy (Unknown, Verified 02/22/24 09:42) itchy tongue Penicillins [PENICILLINS] Allergy (Unknown, Verified 02/22/24 09:42) RASH Quinolones [QUINOLONES] Allergy (Unknown, Verified 02/22/24 09:42) MOUTH ITCHING cefuroxime Allergy (Verified 02/22/24 09:42) Unknown doxycycline Allergy (Verified 02/22/24 09:42) Unknown ketorolac Adverse Reaction (Uncoded 02/22/24 09:42) Facial Swelling latex Adverse Reaction (Uncoded 02/22/24 09:42) Facial Swelling Medication List - Last Reconciled 02/22/24 by Flores Osullivan MD acetaminophen ER 650 mg PO Q8H PRN albuterol sulfate 2.5 mg (3 mL) inhalation Q4-6H PRN budesonide-formoterol 160-4.5 mcg/actuation (Symbicort) 1 inh inhalation BID cholecalciferol (vitamin D3) 50 mcg PO DAILY flecainide 100 mg PO Q12H inhalational spacing device (Aerochamber MV spacer) As directed levalbuterol tartrate 45 mcg/actuation (Xopenex HFA) 2 inhalations inhalation Q6H lisinopril 20 mg PO DAILY 90 days metoprolol succinate ER 50 mg PO DAILY nebulizers As directed omeprazole 20 mg PO QAM raloxifene 60 mg PO DAILY rivaroxaban (Xarelto) 20 mg PO DAILY simvastatin 20 mg PO BEDTIME Tobacco use date assessed: 02/22/24 Fall risk assessment: No Falls in past year Last assessed Fall Risk: 02/22/24 Dental Screening Dental Screen Date: 02/22/24 Did you have a dental visit in the last 12 months?: Yes Did you have a dental problem in the last 6 months where you did not have access to dental care?: No Was dental information given to patient?: Patient has dentist TAVARES NUGENT HPI Details 68 year old lady with paroxysmal atrial fibrillation on chronic anticoagulation, has dyslipidemia, hypertension, COPD/mild intermittent asthma, and osteopenia , here today for a physical exam. She is up-to-date with her screening mammogram which was last done 10/25/23, had her bone density scan 08/26/20 which showed osteopenia in lumbar spine and left femoral neck normal in left femur, and had a screening, colonoscopy 07/13/23 . . Continues to smoke cigarettes, with no desire to quit at present time, gets annual lung cancer screening. 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 Brother No problems noted. Brother No problems noted. Sister No problems noted. Sister Mental health disorder Sister Mental health disorder Daughter No problems noted. Daughter No problems noted. Daughter No problems noted. Social History Housing: House Alcohol intake: current Alcohol intake frequency: a few times a week Patient Tobacco Use Status: Former Tobacco user Years Smoked: 40 yrs e-Cigarette/Vaping Use: Never Used service: No Current occupational status: retired Cognitive needs: No Hearing needs: No Vision needs: Yes Questionnaire PHQ-9 Over the last 2 weeks, how often have you been bothered by any of the following problems? 1. Little interest or pleasure in doing things: not at all 2. Feeling down, depressed, or hopeless: not at all 3. Trouble falling or staying asleep, or sleeping too much: not at all 4. Feeling tired or having little energy: not at all 5. Poor appetite or overeating: not at all 6. Feeling bad about yourself - or that you are a failure or have let yourself or your family down: not at all 7. Trouble concentrating on things, such as reading the newspaper or watching television: not at all 8. Moving or speaking so slowly that other people could have noticed. Or the opposite - being so fidgety or restless that you have been moving around a lot more than usual: not at all 9. Thoughts that you would be better off or of hurting yourself in some way: not at all Total score: 0 Depression Screening Interpretation: Negative Depression Screening Done: Yes 33212 - PHQ-9 Billing: Yes Source: Developed by Drs. Mariano Wheeler, Emilee Avila, Serafin Rothman and colleagues, with an educational marco from [employer]. Thrive Questionnaire Date Thrive assessed: 02/22/24 I am a: Patient What is your living situation today?: I have a steady place to live Within the past 12 months, did the food you bought not last and you didn't have the money to get more?: Never true Within the past 12 months, did you worry whether your food would run out before you got money to buy more?: Never true Do you have trouble paying for medicines?: No Do you have trouble getting transportation to medical appointments?: No Do you have trouble paying your heating and electricity bill?: No Do you have trouble taking care of your child, family member or friend?: No Do you have trouble with day-to-day activities such as bathing, preparing meals, shopping, managing finances, etc.?: No Are you currently unemployed and looking for a job?: No Are you interested in more education?: No THRIVE Score: 0 AUDIT C Alcohol Use Questionnaire (AUDIT-C) 1. How often do you have a drink containing alcohol?: Monthly or less 2. How many drinks containing alcohol do you have on a typical day when you are drinking?: 1 or 2 3. How often do you have six or more drinks on one occasion?: Never Total Score: 1 RODY-7 AMB Questionnaire RODY-7 Date RODY - 7 assessed: 02/22/24 Feeling nervous, anxious, or on edge: 0 = Not at all Not being able to stop or control worryin = Several days Worrying too much about different things: 1 = Several days Trouble relaxin = More than half the days Being so restless that it is hard to sit still: 0 = Not at all Becoming easily annoyed or irritable: 0 = Not at all Feeling afraid as if something awful might happen: 0 = Not at all Total RODY-7 score (0-4 normal; 5-9 mild; 10-14 moderate; 15-21 severe): 4 Source: Developed by Drs. Mariano Wheeler, Emilee Avila, Serafin Rothman and colleagues, with an educational marco from [employer]. RODY-7 Assessment Billing RODY-7 Assessment Tool: RODY-7 Assessment 64524 Review of Systems Const Denies chills, Denies frequent falls and Denies weakness Eyes Denies change in vision ENT Denies dizziness Card Denies chest pain, Denies leg edema, Denies lightheadedness, Denies palpitations, Denies dyspnea and Denies dyspnea on exertion Resp Denies cough, Denies dyspnea and Denies dyspnea on exertion GI Denies hematochezia and Denies change in stool character Reports no additional complaints Musc Denies abnormal gait, Denies muscle weakness, Denies numbness, Denies radiating pain into limb and Denies tingling Skin/Breast Denies breast pain, Denies breast mass and Denies rash Neuro Denies abnormal gait, Denies dizziness, Denies frequent falls, Denies numbness, Denies tingling and Denies weakness Psych Reports no additional complaints Endo Denies palpitations Michael/Lymph Reports no additional complaints Aller/Immun Reports no additional complaints Physical exam (Primary Care) Vital Signs: Last Vital Signs Pulse 70 02/22/24 09:33 BP 120/70 02/22/24 09:33 Pulse Ox 95 02/22/24 09:33 Oxygen Delivery Method Room Air 02/22/24 09:33 BMI result Body Mass Index 30.0 Tobacco/Smoking Status: Tobacco use Status Tobacco use date assessed 02/22/24 02/22/24 09:28 Patient Tobacco Use Status Former Tobacco user 02/22/24 09:28 e-Cigarette/Vaping Use Never Used 02/22/24 09:28 PHQ-9: PHQ-9 Score PHQ-9: Total score 0 02/22/24 10:31 Depression Screening Interpretation: Negative Thrive Assessment: Date of Thrive Assessment Date Thrive assessed 02/22/24 02/22/24 09:40 Advance Care Planning discussion: Completed/Scanned Date of discussion: 02/22/24 Who was present: Patient Forms completed: Health Care Proxy and MOLST Time spent: 16-45 minutes Actual minutes spent: 15 Const General: cooperative, comfortable and no acute distress Orientation/consciousness: patient oriented x3 HENMT General nose exam: Normal external nose present and No nasal discharge present Mouth: Normal oral and palatal mucosa present, oropharynx normal and moist mucous membranes Eyes General: appearance normal, both eyes and all related structures Conjunctivae: conjunctivae normal Pupils: Equal, round and reactive pupils present EOM: EOMs intact bilaterally Neck Neck: Yes full ROM, Yes no lymphadenopathy and Yes supple Resp Effort & Inspection: normal respiratory effort and able to speak in complete sentences Auscultation: clear to auscultation bilaterally Cardio Rate: regular rate Rhythm: regular rhythm Heart sounds: S1 normal heart sound present and S2 normal heart sound present GI Inspection: Yes normal to inspection Palpation (GI): Soft to palpation, nontender and no masses Auscultation: normal bowel sounds General: Yes no CVA tenderness External Female Exam: normal external appearance and normal appearance of the urethra Speculum Exam - Vagina: normal appearance of the vagina, normal palpation, normal vaginal discharge and vagina atrophic Speculum Exam - Cervix: normal appearance of the cervix and normal palpation Bimanual exam- vagina & uterus: normal palpation and normal palpation Bimanual Exam- Adnexa, other: normal adnexae, no masses, normal and No adnexal tenderness Back/Spine/Pelvis Back: no CVA tenderness and No back tenderness Skin General skin exam: no rashes or lesions noted Neuro General: patient oriented x3, gait normal, tone normal, moves all extremities, Normal light touch and pain sensation and no focal motor deficits Cranial nerves: Yes Equal, round and reactive pupils present Cognition (Neuro): normal cognition Gait exam (Neuro): Normal gait present Motor exam (neuro): 5/5 motor strength present throughout Extrem General: Yes full ROM, Yes no joint enlargement, Yes no clubbing, cyanosis or edema, Yes no pedal edema, Yes no calf tenderness and Yes normal gait Psych Appearance: grossly normal and well kempt Mental Status: mental status grossly normal Speech and movement: Normal speech and movement present Affect: normal affect Immunizations pneumoc 20-marquez conj-dip cr(PF) 0.5 mL IM syringe Performing Provider: Flores Osullivan MD Performing Location: [facility] Administered by: Noemy Bryant CMA on 02/22/24 10:30 Dose Route Admin Location Dispensed Lot Number Expiration Date NDC Continuous [employer] 0.5 mL IM Right Deltoid 0.5 mL [id number] 01/07/25 5060-2137-33 [employer] VIS Given Date VIS Provided VIS Publication Date 02/22/24 Single Vaccine 21 Eligibility Eligibility Date Funding Source Not VFC Eligible 02/22/24 Private Results Reviewed Results Reviewed: Name: Brooklyn Hawkins Age/Sex: 68/F : 1955 Unit#: [id number] Attend Dr: Christiano White MD Re12/26/23 Status: DEP ER Location: [facility] Disch: SPEC : [id number] MIGUEL ANGEL: 12/26/23 STATUS: COMP REQ : [id number] RECD: 12/26/23-[address]: Brielle Taveras COMP: 12/26/23-132 ENTERED: 12/26/23-[address]: Flores Osullivan MD ORDERED: CBC Auto Diff Test Result Flag Reference WBC 13.1 H 4.8-10.8 X10*3/uL RBC 4.04 L 4.20-5.50 X10*6/uL HGB 11.6 L 12.0-16.0 g/dl HCT 34.8 L 37.0-47.0 % MCV 86.1 80.0-98.0 fL MCH 28.7 27.0-33.0 pg MCHC 33.3 31.0-35.0 g/dl RDW 12.4 11.0-16.0 % PLT 373 160-400 X10*3/uL MPV 10.5 9.4-12.3 fL Neut Pct Auto 85.7 H 45-73 % ImGran Pct Auto 1.6 H 0.0-0.4 % Lymp Pct Auto 7.2 L 20-40 % [place] Pct Auto 5.3 2-11 % Eos Pct Auto 0.0 0-4 % Baso Pct Auto 0.2 0-2 % NRBC Pct Auto 0.0 0.0-0.2 /100WBC ANC Neut Abs # 11.2 H 2.0-8.3 x10*3/uL ImGran Abs Auto 0.21 H 0.00-0.03 X10*3/uL Lymph Abs Auto 0.9 L 1.2-4.9 X10*3/uL [place] Abs Auto 0.7 0.1-1.2 X10*3/uL Eos Abs Auto 0.0 0.0-0.4 X10*3/uL Baso Abs Auto 0.0 0.0-0.2 X10*3/uL NRBC Abs Auto 0.000 0.0-0.012 X10*3/uL Name: Brooklyn Hawkins Age/Sex: 68/F : 1955 Unit#: [id number] Attend Dr: Christiano White MD Re12/26/23 Status: DEP ER Location: [facility] Disch: SPEC : [id number] MIGUEL ANGEL: 12/26/23 STATUS: COMP REQ : [id number] RECD: 12/26/[address]: Brielle Taveras COMP: 12/26/23-1403 ENTERED: 12/26/23-[address]: Flores Osullivan MD ORDERED: CMP Test Result Flag Reference Sodium 139 135-145 mmol/L Potassium 3.5 3.3-5.1 mmol/L CL 104 96-108 mmol/L CO2 26 22-29 mmol/L Gap 13 12-20 BUN 21 H 9-16 mg/dL Creat 0.69 0.5-1.4 mg/dL Estimated CrCl Test not performed Unable to calculate eCrCL; all parameters not provided. EGFR > 60 NOTE: For -Iranian individuals, multiply the result by 1.210. Chronic Kidney Disease: Estimated GFR < 60 mL/min/1.73m2 Severe Kidney Disease: Estimated GFR < 15 mL/min/1.73m2 Glucose, Random 112 60-115 mg/dL CA 8.1 # L 8.4-10.2 mg/dL Total Bili 0.4 0.0-1.0 mg/dL AST (GOT) 11 5-31 U/L ALT (GPT) 16 0-31 U/L Protein, Total 6.4 L 6.5-8.0 g/dL Alb 3.8 3.5-5.0 g/dL Alk Phos 60 39-117 U/L Assessment and Plan Assessment & Plan (1) Annual visit for general adult medical examination with abnormal findings: Code(s): Z00.01 - Encounter for general adult medical examination with abnormal findings Plan: Will check appropriate labs. Continue with regular dental visit every 6 months and regular eye exams, at least every 2 years. Continue to do regular self-breast exam, and yearly mammogram. Up-to-date with her screening colonoscopy. Cervical cancer screening done today. Ordered a repeat bone density scan. Up-to-date with her vaccine (2) Mild intermittent asthma with (acute) exacerbation: Code(s): J45.21 - Mild intermittent asthma with (acute) exacerbation Plan: Currently followed by Dr. Salguero, has albuterol inhaler to use as needed for episodes of bronchospasm and Symbicort 1 inhalation twice a day (3) COPD (chronic obstructive pulmonary disease): Comment: I think she has features of chronic obstructive pulmonary disease. Recently treated for an acute exacerbation. Currently doing very well on regimen of maintenance inhaler. And rescue inhaler Code(s): J44.9 - Chronic obstructive pulmonary disease, unspecified Plan: Followed by Pulmonary, currently on Symbicort, Prevnar 20 given today (4) Screening for malignant neoplasm of cervix: Code(s): Z12.4 - Encounter for screening for malignant neoplasm of cervix Plan: Pap smear done today (5) Dyslipidemia: Code(s): E78.5 - Hyperlipidemia, unspecified Plan: Fasting lipid panel ordered, continue simvastatin 20 mg at bed (6) Paroxysmal atrial fibrillation: Code(s): I48.0 - Paroxysmal atrial fibrillation Plan: On flecainide and Xarelto (7) Osteopenia of multiple sites: Code(s): M85.89 - Other specified disorders of bone density and structure, multiple sites Plan: Ordered bone density scan, advised to continue taking vitamin-D 3 supplements, do regular weight-bearing exercise, take adequate calcium from dietary sources. Currently on raloxifene (8) Essential hypertension: Code(s): I10 - Essential (primary) hypertension Plan: Blood pressure at goal of less than 130/80. Continue with current medication. Reinforced importance of following a low sodium diet, getting regular exercise, and lowering stress levels. (9) Hiatal hernia with gastroesophageal reflux: Comment: As seen on EGD done March 2023 Code(s): K44.9 - Diaphragmatic hernia without obstruction or gangrene; K21.9 - Gastro-esophageal reflux disease without esophagitis Plan: Continue omeprazole 20 mg daily in a.m. Orders: Orders Aspartate Amino Transferase 02/22/24 I10 - Essential (primary) hypertension, M85.89 - Other specified disorders of bone density and structure, multiple sites, I48.0 - Paroxysmal atrial fibrillation, E78.5 - Hyperlipidemia, unspecified, Z86.2 - Personal history of diseases of the blood and blood-forming organs and certain disorders involving the immune mechanism, D64.9 - Anemia, unspecified, J45.21 - Mild intermittent asthma with (acute) exacerbation IRON PROFILE 02/22/24 I10 - Essential (primary) hypertension, M85.89 - Other specified disorders of bone density and structure, multiple sites, I48.0 - Paroxysmal atrial fibrillation, E78.5 - Hyperlipidemia, unspecified, Z86.2 - Personal history of diseases of the blood and blood-forming organs and certain disorders involving the immune mechanism, D64.9 - Anemia, unspecified, J45.21 - Mild intermittent asthma with (acute) exacerbation XR DEXA axial skeleton 02/22/24 M85.89 - Other specified disorders of bone density and structure, multiple sites Pneumococcal 20 Immunization 02/22/24 Z23 - Encounter for immunization Alanine Aminotransferase 02/22/24 I10 - Essential (primary) hypertension, M85.89 - Other specified disorders of bone density and structure, multiple sites, I48.0 - Paroxysmal atrial fibrillation, E78.5 - Hyperlipidemia, unspecified, Z86.2 - Personal history of diseases of the blood and blood-forming organs and certain disorders involving the immune mechanism, D64.9 - Anemia, unspecified, J45.21 - Mild intermittent asthma with (acute) exacerbation Basic Metabolic Panel Fasting 02/22/24 I10 - Essential (primary) hypertension, M85.89 - Other specified disorders of bone density and structure, multiple sites, I48.0 - Paroxysmal atrial fibrillation, E78.5 - Hyperlipidemia, unspecified, Z86.2 - Personal history of diseases of the blood and blood-forming organs and certain disorders involving the immune mechanism, D64.9 - Anemia, unspecified, J45.21 - Mild intermittent asthma with (acute) exacerbation Lipid Panel 02/22/24 I10 - Essential (primary) hypertension, M85.89 - Other specified disorders of bone density and structure, multiple sites, I48.0 - Paroxysmal atrial fibrillation, E78.5 - Hyperlipidemia, unspecified, Z86.2 - Personal history of diseases of the blood and blood-forming organs and certain disorders involving the immune mechanism, D64.9 - Anemia, unspecified, J45.21 - Mild intermittent asthma with (acute) exacerbation Complete Blood Count Auto Diff 02/22/24 I10 - Essential (primary) hypertension, M85.89 - Other specified disorders of bone density and structure, multiple sites, I48.0 - Paroxysmal atrial fibrillation, E78.5 - Hyperlipidemia, unspecified, Z86.2 - Personal history of diseases of the blood and blood-forming organs and certain disorders involving the immune mechanism, D64.9 - Anemia, unspecified, J45.21 - Mild intermittent asthma with (acute) exacerbation Vitamin D 25-OH Total 02/22/24 I10 - Essential (primary) hypertension, M85.89 - Other specified disorders of bone density and structure, multiple sites, I48.0 - Paroxysmal atrial fibrillation, E78.5 - Hyperlipidemia, unspecified, Z86.2 - Personal history of diseases of the blood and blood-forming organs and certain disorders involving the immune mechanism, D64.9 - Anemia, unspecified, J45.21 - Mild intermittent asthma with (acute) exacerbation Pap Smear 02/22/24 Z12.4 - Encounter for screening for malignant neoplasm of cervix, Z00.01 - Encounter for general adult medical examination with abnormal findings Coding Level of Care Code Est Pt Prev Care >65y(61124) Diagnoses Annual visit for general adult medical examination with abnormal findings Z00.01 Mild intermittent asthma with (acute) exacerbation J45.21 COPD (chronic obstructive pulmonary disease) J44.9 Screening for malignant neoplasm of cervix Z12.4 Dyslipidemia E78.5 Paroxysmal atrial fibrillation I48.0 Osteopenia of multiple sites M85.89 Essential hypertension I10 Hiatal hernia with gastroesophageal reflux K44.9; K21.9 Additional Codes RODY-7 Assessment Billing - RODY-7 Assessment Tool: RODY-7 Assessment 84040 ([id number]) Vital Signs *Quality* - Advance Care Planning discussion: Completed/Scanned ([id number]) Vital Signs *Quality* - Time spent: 16-45 minutes ([id number])
[2024-02-22 09:33] VITALS: BP 120/70; PULSE 70; O2SAT 95
== END 2024-02-22 10:28 | disposition home or self-care (01) ==
PROVIDERS: PCP Internal Medicine; Visit Provider Internal Medicine
DX: Z23 Encounter for immunization (principal)
CPT/HCPCS: 1123F; 90471; 90677; 99397; 99497

== ENCOUNTER 2024-02-22 10:29 | Outpatient (REF) | payer MEDICARE, SELFPAY ==
[2024-02-28 12:49] LABS: HPV mRNA E6/E7 rflx Not Detected (Not Detected)
== END 2024-02-22 10:30 | disposition home or self-care (01) ==
LOC: HO.LAB 10:29
PROVIDERS: Visit Provider Internal Medicine
DX: Z13.89 Encounter for screening for other disorder (principal)
CPT/HCPCS: 87624; 88142

== ENCOUNTER 2024-02-22 10:30 | Outpatient (REF) | payer MEDICARE, SELFPAY ==
[2024-02-22 13:24] LABS: MANUAL DIFF FLAG NO
[2024-02-22 13:26] LABS: Basophils Percent Auto 0.5 % (0-2); Eosinophils Absolute Auto 0.2 X10*3/uL (0.0-0.4); Eosinophils Percent Auto 2.9 % (0-4); Hematocrit 37.8 % (37.0-47.0); Hemoglobin 11.8 g/dl (12.0-16.0); Imm Gran Abs Auto 0.03 X10*3/uL (0.00-0.03); Imm Gran Pct Auto 0.5 % (0.0-0.4); Lymphocytes Absolute Auto 1.1 X10*3/uL (1.2-4.9); Mean Corpuscular HGB Conc 31.2 g/dl (31.0-35.0); Mean Corpuscular Hemoglobin 28.3 pg (27.0-33.0); Mean Corpuscular Volume 90.6 fL (80.0-98.0); Mean Platelet Volume 11.4 fL (9.4-12.3); Monocytes Absolute Auto 0.4 X10*3/uL (0.1-1.2); Monocytes Percent Auto 6.3 % (2-11); Neutrophils Absolute Auto 4.5 x10*3/uL (2.0-8.3); Neutrophils Percent Auto 72.8 % (45-73); Platelet Count 322 X10*3/uL (160-400); Red Blood Count 4.17 X10*6/uL (4.20-5.50); Red Cell Distribution Width 13.3 % (11.0-16.0); White Blood Count 6.2 X10*3/uL (4.8-10.8)
[2024-02-22 13:48] LABS: Alanine Aminotransferase 12 U/L (0-31); Anion Gap 12 (12-20); Aspartate Amino Transferase 16 U/L (5-31); Blood Urea Nitrogen 15 mg/dL (9-16); Calcium 9.1 mg/dL (8.4-10.2); Carbon Dioxide 27 mmol/L (22-29); Chloride 107 mmol/L (96-108); Cholesterol 216 mg/dL (<200); Estimated Glomerular Filt Rate > 60; Glucose Fasting 95 mg/dL (60-99); HDL Cholesterol 66 mg/dL (>40); Iron 84 mcg/dL (30-160); LDL Cholesterol Calculated 132 mg/dL (<100); Percent Iron Saturation 31 % (15-50); Potassium 3.6 mmol/L (3.3-5.1); Sodium 142 mmol/L (135-145); Total Iron Binding Capacity 270 mcg/dL (228-428); Triglycerides 91 mg/dL (<150); Unsaturated Iron Binding 186 ug/dL
[2024-02-22 14:04] LABS: Vitamin D 25-OH Total 62.3 ng/mL (>30)
== END 2024-02-22 10:31 | disposition home or self-care (01) ==
LOC: HO.HMGCLDS 10:30
PROVIDERS: PCP Internal Medicine; Visit Provider Internal Medicine
DX: I10 Essential (primary) hypertension (principal); M85.89 Other specified disorders of bone density and structure, multiple sites; I48.0 Paroxysmal atrial fibrillation; E78.5 Hyperlipidemia, unspecified; Z86.2 Personal history of diseases of the blood and blood-forming organs and certain disorders involving the immune mechanism; D64.9 Anemia, unspecified; J45.21 Mild intermittent asthma with (acute) exacerbation
CPT/HCPCS: 36415; 80048; 80061; 82306; 83540; 84450; 84460; 85025; 87624; 88142

== ENCOUNTER → 2024-02-27 12:39 | Outpatient (REF) | payer MEDICARE, SELFPAY ==
--- NOTE | 2024-02-27 12:41 | CA_ITS ---
Transthoracic Echocardiogram Patient (Last, First, Middle): Brooklyn Hawkins L Gender: Female Date of : 1955 Age: 68 Procedure Date: 02/27/2024 Procedure Type: Transthoracic Echocardiogram Location: OP Height: 154.94 cm Weight: 71.67 kg BSA: 1.71 m2 Heart Rate: bpm BP: 142 / 86 mmHg It Security Project Manager: ALEXANDRA Referring MD: Juan Laughlin MD Symptoms: I34.0 - Nonrheumatic mitral (valve) insufficiency Study Quality: Adequate ECG Rhythm: Sinus Conclusions: - The left ventricular systolic function is normal. The calculated ejection fraction is 57% by biplane method. - There is mild to moderate mitral valve regurgitation. Findings Left Ventricle Normal left ventricular cavity size. There is normal left ventricular wall thickness. The left ventricular systolic function is normal. The calculated ejection fraction is 57% by biplane method. There is no evidence of regional wall motion abnormalities. Diastolic function is normal for age. LV peak GLS -17.3%. Right Ventricle Normal right ventricular cavity size and systolic function. Atria Both atria are normal in size. Aortic Valve There is a normal trileaflet aortic valve. There is no aortic valve stenosis. There is no aortic valve regurgitation. Mitral Valve The mitral valve appears normal. There is mild to moderate mitral valve regurgitation. There is no mitral valve stenosis. Pulmonic Valve The pulmonic valve is likely normal. Tricuspid Valve Normal tricuspid valve structure. There is trace tricuspid valve regurgitation. There is no evidence of pulmonary hypertension. Great Vessels The asc aorta is normal in size. Venous The inferior vena cava is normal in size and collapses greater than 50% with inspiration. Pericardium/Pleural There is no evidence of pericardial effusion. Prior Study Comparison No significant change compared to prior study dated: 12/17/2022. Measurements 2D Linear Measurements IVSd: 1.01 0.6-0.9/0.6-1.0 cm LVIDd: 4.71 3.9-5.3/4.2-5.9 cm LVIDd Index: 2.75 2.4-3.2/2.2-3.1 cm/m2 LVIDs: 3.24 2.0-3.6 cm LVPWd: 0.98 0.7-1.1 cm LA Diam: 3.40 2.7-3.8/3.0-4.0 cm LAIDs Index: 1.99 1.5-2.3 cm/m2 LV Mass: 203.99 67-162/88-224 g LV Mass Index: 119.29 43-95/49-115 g/m2 LVOT Diam: 2.00 3.0+(-)1.3 cm 2D Systolic Function EF 4C: 53.70 >55% EF 2C: 60.30 >55% EF BiP: 57.00 >55% Mitral Valve MV Pk E: 0.86 MV PK A: 0.78 MV Decel Time: 228.00 E/A: 1.10 E'Lateral: 10.00 E'Medial: 6.09 E/E' Med: 14.10 E/E' Lat: 8.60 PHT: 67.00 MVA PHT: 3.28 Decel Nuckolls: 3.75 MR Vol - PW Dopp: 16.80 MR VTI: 2.10 MR ERO: 8.00 MR Alias Jeovanny: 0.40 MR RAD: 0.40 Aortic Valve AoV Pk Jeovanny: 1.56 AoV Mn Jeovanny: 1.06 AoV VTI: 0.34 AoV Pk Grad: 10.00 Aov Mn Grad: 5.00 BERNARDINO Cont.VTI: 2.17 LVOT LVOT Pk Jeovanny: 1.11 LVOT Mn Jeovanny: 0.68 LVOT VTI: 0.24 LVOT Pk Grad: 5.00 LVOT Mn Grad: 2.00 LVOT Diam: 2.00 LVOT Area: 3.14 Diastolic Function MV Pk E: 0.86 MV Pk A: 0.78 E/A: 1.10 E'Medial: 6.09 E/E' Med: 14.10 E' Laterial: 10.00 E/E' Lat: 8.60 Right Ventricle TAPSE (mm): 23.90 TVS' Jeovanny: 10.00 Tricuspid Valve TR Pk Jeovanny: 1.89 TR Pk Grad: 14.00 RA Press: 3.00 RVSP: 17.00 Great Vessels Aorta Sinus of Valsalva: 2.96 2.0-3.[address] Ridge: 2.37 1.7-3.4 cm Ao Asc: 3.20 2.1-3.4 cm Updated in Other Vendor System with Status of Final Pankaj Nuñez MD electronically signed on 02/27/2024 2:51:57 PM with status of Final
== END ==
LOC: HO.CARD 12:39
PROVIDERS: PCP Internal Medicine; Visit Provider Internal Medicine Cardiovascular Disease
DX: I34.0 Nonrheumatic mitral (valve) insufficiency (principal)
CPT/HCPCS: 93306; 93356

== ENCOUNTER → 2024-02-27 12:41 | Outpatient (BNV) | payer MEDICARE, SELFPAY | PROVIDERS: PCP Internal Medicine; Visit Provider Internal Medicine | DX: I34.0 Nonrheumatic mitral (valve) insufficiency (principal) | CPT/HCPCS: 93306; 93356 ==

== ENCOUNTER 2024-03-13 12:36 | Outpatient (AMB) | payer MEDICARE, SELFPAY ==
--- NOTE | 2024-03-13 12:41 | MHC.OFFVIS ---
Vital Signs 03/13/24 12:42 Height 5 ft 1 in Weight 163 lb 2.273 oz BMI 30.8 BP 130/82 Blood Pressure Location Lt brachial Position Sitting Pulse 70 Intake Visit Reasons: 6 mth f/up s/p echo/ w/ ekg Intake Note: 6 month follow-up after echo with ekg c/o leg swelling Bacteriologist Industrial Required: No Allergies Sulfa (Sulfonamide Antibiotics) [SULFA(SULFONAMIDE ANTIBIOTICS)] Allergy (Intermediate, Verified 02/22/24 09:42) FACIAL SWELLING, REDNESS, rash, face edema levofloxacin [From LEVAQUIN] Allergy (Unknown, Verified 02/22/24 09:42) itchy tongue Penicillins [PENICILLINS] Allergy (Unknown, Verified 02/22/24 09:42) RASH Quinolones [QUINOLONES] Allergy (Unknown, Verified 02/22/24 09:42) MOUTH ITCHING cefuroxime Allergy (Verified 02/22/24 09:42) Unknown doxycycline Allergy (Verified 02/22/24 09:42) Unknown ketorolac Adverse Reaction (Uncoded 02/22/24 09:42) Facial Swelling latex Adverse Reaction (Uncoded 02/22/24 09:42) Facial Swelling Medication List - Last Reconciled 03/13/24 by Juan Laughlin MD acetaminophen ER 650 mg PO Q8H PRN albuterol sulfate 2.5 mg (3 mL) inhalation Q4-6H PRN budesonide-formoterol 160-4.5 mcg/actuation (Symbicort) 1 inh inhalation BID cholecalciferol (vitamin D3) 50 mcg PO DAILY flecainide 100 mg PO Q12H inhalational spacing device (Aerochamber MV spacer) As directed levalbuterol tartrate 45 mcg/actuation (Xopenex HFA) 2 inhalations inhalation Q6H lisinopril 20 mg PO DAILY 90 days metoprolol succinate ER 50 mg PO DAILY nebulizers As directed omeprazole 20 mg PO QAM raloxifene 60 mg PO DAILY rivaroxaban (Xarelto) 20 mg PO DAILY simvastatin 20 mg PO BEDTIME HPI Comments Details: [place] comes for follow-up. Recently she had COPD exacerbation. Treated but continues to have dry cough. No atrial fibrillation episodes. No heart failure symptoms. Denies orthopnea, PND. Continues to have exertional shortness of breath. No exertional chest pain. Has leg edema since the onset of warm weather. Can not wear compression stockings. Denies any lightheadedness, syncope. Takes all her medications. No bleeding issues or neurologic events. [facility] Medical History Paroxysmal atrial fibrillation Chronic anticoagulation Essential hypertension Dyslipidemia COPD (chronic obstructive pulmonary disease) Mild intermittent asthma with (acute) exacerbation Personal history of nicotine dependence History of smoking at least 1 pack per day for at least 30 years Anemia Hiatal hernia with gastroesophageal reflux Irritable bowel syndrome with diarrhea Pancreatitis Hepatic hemangioma Mixed urinary 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 Brother No problems noted. Brother No problems noted. Sister No problems noted. Sister Mental health disorder Sister Mental health disorder Daughter No problems noted. Daughter No problems noted. Daughter No problems noted. Social History Housing: House Alcohol intake: current Alcohol intake frequency: a few times a week Patient Tobacco Use Status: Former Tobacco user Years Smoked: 40 yrs e-Cigarette/Vaping Use: Never Used service: No Current occupational status: retired Cognitive needs: No Hearing needs: No Vision needs: Yes Review of Systems Const Denies chills, Denies fatigue, Denies fever(s), Denies frequent falls, Denies weakness, Denies weight gain and Denies weight loss ENT Denies dizziness Card Denies chest pain, Denies leg edema, Denies lightheadedness, Denies palpitations, Denies dyspnea, Denies dyspnea on exertion, Denies orthopnea and Denies other (loss of consciousness) Resp Denies cough, Denies dyspnea and Denies dyspnea on exertion GI Denies hematochezia and Denies change in stool character Musc Denies abnormal gait, Denies muscle weakness, Denies numbness, Denies radiating pain into limb and Denies tingling Neuro Denies abnormal gait, Denies dizziness, Denies frequent falls, Denies numbness, Denies tingling and Denies weakness Endo Denies fatigue and Denies palpitations Physical Exam Vital Signs: Last Vital Signs Pulse 70 03/13/24 12:42 BP 130/82 03/13/24 12:42 BMI result Body Mass Index 30.8 Const General: cooperative, comfortable, no acute distress, alert and awake Nutritional Appearance: overweight Orientation/consciousness: patient oriented x3 Limitations: no limitations Neck Neck: Yes trachea midline, Yes supple and Yes no JVD Resp Effort & Inspection: normal respiratory effort Auscultation: clear to auscultation bilaterally Cardio Jugular venous distension: no JVD Palpation: normal PMI Rate: regular rate Rhythm: regular rhythm Heart sounds: S1 normal heart sound present and S2 normal heart sound present GI Auscultation: normal bowel sounds Skin General skin exam: no rashes or lesions noted Neuro General: patient oriented x3 and no focal motor deficits Extrem General: No clubbing, No cyanosis, Yes edema and Yes other (Bilateral varicose veins) Psych Appearance: grossly normal Office Procedures EKG Details: EKG shows normal sinus rhythm with first-degree AV block 48624-[id number], Complete Assessment & Plan Assessment & Plan (1) Paroxysmal atrial fibrillation: Code(s): I48.0 - Paroxysmal atrial fibrillation Category: Medical Plan: Highly symptomatic paroxysmal atrial fibrillation this elderly woman with family history of paroxysmal atrial fibrillation doing extremely well with rhythm control approach. Will continue pursue aggressively rhythm control approach. As tolerated flecainide therapy well. EKGs every 6 months. Will schedule for an office visit for the same. Continue full oral anticoagulation, currently on Xarelto 20 mg daily. Semi annual renal function test should be pursued. Avoidance of stimulants was discussed. Continue aggressive blood pressure control. (2) Mitral regurgitation: Code(s): I34.0 - Nonrheumatic mitral (valve) insufficiency Category: Medical Plan: Mitral regurgitation which appears to be [id number]. No significant worsening. Will continue to monitor by echocardiogram every 2-3 years. Symptoms associated with significant mitral regurgitation was discussed. Continue current medical therapy. (3) Essential hypertension: Code(s): I10 - Essential (primary) hypertension Category: Medical Plan: Hypertension which is currently well optimized on lisinopril as well as metoprolol therapy. Continue the same. Importance of good blood pressure control was discussed. Target goal blood pressure less than 130/84. Advised to monitor blood pressure at home maintain a log. Low-salt diet was discussed advised to maintain activity level as tolerated. Bilateral lower extremity edema appears to be related to venous insufficiency advise compression venous stockings. Will follow up in the clinic in 6 months time, sooner p.r.n.. Thank you for allowing me to partake in her care Coding Level of Care Code Est Pt Level 4 (17340) Diagnoses Paroxysmal atrial fibrillation I48.0 Mitral regurgitation I34.0 Essential hypertension I10 CPT Codes EKG - CPT: [id number], Complete ([id number])
[2024-03-13 12:42] VITALS: BP 130/82; PULSE 70; BMI 30.8
== END 2024-03-13 13:02 | disposition home or self-care (01) ==
PROVIDERS: PCP Internal Medicine; Visit Provider Internal Medicine Cardiovascular Disease
DX: I48.0 Paroxysmal atrial fibrillation (principal); I34.0 Nonrheumatic mitral (valve) insufficiency; I10 Essential (primary) hypertension
CPT/HCPCS: 93010; 99214

== ENCOUNTER → 2024-03-13 12:36 | Outpatient (BNVA) | payer MEDICARE, SELFPAY | PROVIDERS: PCP Internal Medicine; Visit Provider Internal Medicine Cardiovascular Disease | DX: I48.0 Paroxysmal atrial fibrillation (principal); I34.0 Nonrheumatic mitral (valve) insufficiency; I10 Essential (primary) hypertension; Z79.01 Long term (current) use of anticoagulants; Z79.899 Other long term (current) drug therapy | CPT/HCPCS: 93005; 99212 ==

== ENCOUNTER 2024-03-23 09:37 | Outpatient (AMB) | payer MEDICARE, SELFPAY ==
--- NOTE | 2024-03-23 07:51 | A.OFFVIS_ITS ---
Intake Visit Reasons: Former Smoker Allergies Sulfa (Sulfonamide Antibiotics) [SULFA(SULFONAMIDE ANTIBIOTICS)] Allergy (Inter mediate, Verified 02/22/24 09:42) FACIAL SWELLING, REDNESS, rash, face edema levofloxacin [From LEVAQUIN] Allergy (Unknown, Verified 02/22/24 09:42) itchy tongue Penicillins [PENICILLINS] Allergy (Unknown, Verified 02/22/24 09:42) RASH Quinolones [QUINOLONES] Allergy (Unknown, Verified 02/22/24 09:42) MOUTH ITCHING cefuroxime Allergy (Verified 02/22/24 09:42) Unknown doxycycline Allergy (Verified 02/22/24 09:42) Unknown ketorolac Adverse Reaction (Uncoded 02/22/24 09:42) Facial Swelling latex Adverse Reaction (Uncoded 02/22/24 09:42) Facial Swelling HPI HPI Former Smoker: Details: Initial visit for this 68yo former smoker with a 80PYH. Patient started smoking at age 16 for 38 years at 2-2.5 ppd. Quit 14 years ago in 04/2010. . Denies marijuana use. Denies second hand smoke exposure. Denies exposure to chemicals or substances like asbestos. . Denies known family history of lung cancer. Paternal granmother had lung cancer - second hand smoke exposure. Denies personal history of cancers. Denies chest CT in last year. . Denies recent travel outside the [place]. Denies recent respiratory illness or recent hospitalization for respiratory issues. Reports testing positive for COVID. Admits receiving COVID Vaccine. . Cough for past year - can be dry and wet. GERD on EGD 2022. Denies fever, chills, hemoptysis, hoarseness or dysphagia. Denies significant chest pain, significant dyspnea or unintentional weight loss. Patient Lung Cancer Screening Questionnaire reviewed with patient by provider. . Shared Decision Making Completed. Patient meets criteria. Discussed in detail with patient, the risk vs benefit of LDCT screening. Patient consents to proceed with scan. Discussed and encouraged continued smoking cessation. [facility] Medical History (Updated 03/23/24 @ 10:00 by Ines Sweeney PA-C) Paroxysmal atrial fibrillation Chronic anticoagulation Essential hypertension Dyslipidemia COPD (chronic obstructive pulmonary disease) Mild intermittent asthma with (acute) exacerbation Personal history of nicotine dependence Anemia Hiatal hernia with gastroesophageal reflux Irritable bowel syndrome with diarrhea Pancreatitis Hepatic hemangioma Mixed urinary 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 Brother No problems noted. Brother No problems noted. Sister No problems noted. Sister Mental health disorder Sister Mental health disorder Daughter No problems noted. Daughter No problems noted. Daughter No problems noted. Social History Housing: House Alcohol intake: current Alcohol intake frequency: a few times a week Patient Tobacco Use Status: Former Tobacco user Years Smoked: 40 yrs e-Cigarette/Vaping Use: Never Used service: No Current occupational status: retired Cognitive needs: No Hearing needs: No Vision needs: Yes Assessment & Plan Assessment & Plan (1) Personal history of nicotine dependence: Comment: (former smoker, onset 16yo, 2-2.5ppd x 38yrs, 80pyh, quit 04/2010) Code(s): Z87.891 - Personal history of nicotine dependence Category: Medical Plan: - SDM visit completed today in office. - Patient meets criteria for LDCT for lung cancer screening purposes and is asymptomatic. - Smoking cessation counseling offered. Patients can always call [phone]. - Will arrange for a LDCT scan of the chest for screening purposes at [facility]. - Risks, benefits, and alternatives were discussed in detail and the patient agrees to proceed. - Risks discussed include but are not limited to: radiation exposure, anxiety during testing and while awaiting results, false negatives, false positives and possibility of additional intervention such as further imaging or surgical procedures for benign disease. - Benefits are obviously detection of lung cancer at an early stage which can lead to improved outcomes. - Discussed the importance of screening program compliance with adherence to yearly LDCT scan as scheduled - or sooner interval scans for personalized screening regimen. - Discussed follow up plan. Our office will send a letter discussing results and if needed set up phone call and office visit based on CT findings. - Patient educated on results categorization and the management decisions for suspicious findings potentially found on the screening LDCT scan. Any patient with a Lung RADS score of 3 or 4 will be reviewed by a multidisciplinary team at [facility] to form a plan of action in regards to scan findings. - If further work up is warranted for a suspicious lung finding this will be followed by the Lung Cancer Screening program in conjunction with the Thoracic Surgery Department at [facility]. - A copy of the office note and LDCT will be sent to the patient's PCP - as well as documentation on any associated further plans of care. - Incidental findings on LDCT are the PCP's responsibility. These findings are indicated with an S finding on the LDCT Assessment. A note discussing the findings will be sent to the PCP who is then responsible for further management. - All questions answered.? Coding Level of Care Code Lung Cancer Screening G0296 Diagnoses Personal history of nicotine dependence Z87.891
== END 2024-03-23 10:02 | disposition home or self-care (01) ==
PROVIDERS: PCP Internal Medicine; Referring Provider Internal Medicine; Visit Provider Physician Assistant Medical
DX: Z87.891 Personal history of nicotine dependence (principal)
CPT/HCPCS: G0296

== ENCOUNTER 2024-03-23 10:06 | Outpatient (REF) | payer MEDICARE, SELFPAY ==
--- NOTE | ~2024-03-23 | CT_ITS ---
EXAMINATION: CT LOW-DOSE SCREENING CHEST WITHOUT CONTRAST CLINICAL INFORMATION: Personal history of nicotine dependence. The patient has a 39 pack-year history of smoking, having quit 13 years ago. COMPARISON: X-ray chest 12/26/2023. CTA chest 10/29/2017. TECHNIQUE: Multidetector volumetric CT imaging of the chest is performed on a Siemens SOMATOM Definition scanner without contrast using low dose technique. Additional 2D coronal and sagittal reformatted images and axial 3D maximum intensity projection (MIP) images are generated on the CT workstation. This CT examination was performed using dose optimization techniques as appropriate, variously including the following: *Automated exposure control *Adjustment of mA and/or kV according to patient size (this includes techniques or standardized protocols for targeted exams where dose is matched to indication/reason for exam; i.e. extremities or head) *Use of iterative reconstruction technique TOTAL EXAM DLP: 34 mGy-cm. CTDIvol: 1.12 mGy. FINDINGS: PULMONARY NODULES: Some small pulmonary nodules are present none larger than 3 mm that were more difficult to see at the time of the prior study when there was diffuse pneumonia and hypoinflation. No concerning or worrisome lung nodule is seen. José images of all have been saved. LUNGS: Lungs bilaterally symmetrically expanded. There is moderate emphysema and bronchial thickening. Previously seen extensive right lower lobe and right middle lobe infiltrates present at the time of the 10/29/2017 study have all resolved. No effusion or pneumothorax. Central airways patent. MEDIASTINUM: No mediastinal, hilar or axillary adenopathy or free fluid collection. CORONARY ARTERY CALCIFICATION: None visualized on this study. THYROID GLAND: Unremarkable to the extent seen. CARDIOVASCULAR STRUCTURES: Aortic and heart size normal. No pericardial effusion. CHEST WALL/AXILLA: Unremarkable. UPPER ABDOMEN: Included portions of the solid organs in the upper abdomen unremarkable on noncontrast imaging. OSSEOUS STRUCTURES: No suspicious focal findings. CT/CT lung screening IMPRESSION: 1. No evidence of pulmonary malignancy. 2. Complete clearing of previously seen extensive right middle and right lower lobe pneumonia. 3. Moderate emphysema and bronchial thickening. 4. Incidental findings (s category): No incidental findings. ASSESSMENT: 1. Lung-RADS Category 2: Benign appearance or behavior of nodules. N/A RECOMMENDATION: Continued routine annual low-dose CT lung screening in 1 year is recommended. An order for CT CHEST LOW DOSE CANCER SCREENING ([id number]) can be placed.
== END 2024-03-23 10:07 | disposition home or self-care (01) ==
LOC: HO.CT 10:06
PROVIDERS: PCP Internal Medicine; Visit Provider Physician Assistant Medical
DX: Z12.2 Encounter for screening for malignant neoplasm of respiratory organs (principal); Z87.891 Personal history of nicotine dependence
CPT/HCPCS: 71271; G0296

== ENCOUNTER 2024-04-04 14:21 | Outpatient (REF) | payer MEDICARE, SELFPAY ==
--- NOTE | ~2024-04-04 | MM_ITS ---
EXAMINATION: BONE DENSITOMETRY CLINICAL INDICATION: Osteopenia. COMPARISON: Previous BD dated 08/26/2020 and baseline BD dated 03/26/2010. TECHNIQUE: Using a Modular Patterns DXA System (software version: 13.1) manufactured by [employer], dual-energy x-ray absorptiometry was performed of the lumbar spine and left hip. The images are of good technical quality. Summary results are attached. FINDINGS: LEFT FEMUR, NECK: Current: BMD 0.621 g/cm2, Z-score -1.5, T-score -3.0, osteoporosis. Prior: BMD 0.739 g/cm2. Baseline: BMD 0.819 g/cm2. LEFT FEMUR, TOTAL: Current: BMD 0.764 g/cm2, Z-score -0.6, T-score -1.9, osteopenia, 18.0% decrease from previous, 19.2% decrease from baseline (<5% change is not significant). Prior: BMD 0.932 g/cm2. Baseline: BMD 0.946 g/cm2. AP SPINE L1-L4: Current: BMD 0.915 g/cm2, Z-score -0.8, T-score -2.2, osteopenia, 1.2% increase from previous, 3.0% increase from baseline (<5% change is not significant). Prior: BMD 0.904 g/cm2. Baseline: BMD 0.888 g/cm2. IDENTIFIED RISK FACTORS: Menopause, osteoporosis, low calcium intake, height loss, family history (parent hip fracture). HISTORY OF FRACTURE: None listed. MEDICATIONS: Vitamin D, ERT/SERMS. MM/XR DEXA axial skeleton IMPRESSION: 1. DIAGNOSIS: Osteoporosis based on the lowest T-score value of -3.0 in the femoral neck applying World Health Organization criteria. 2. 10-YEAR FRACTURE RISK PREDICTION, FRAX: According to the guidelines, FRAX calculation should only be performed on patients in the osteopenia bone density category. Therefore, FRAX was not performed on this patient. 3. Treatment Recommendations: NOF guidelines recommend consideration for treatment in postmenopausal women and men age 50 and older presenting with the following: -A hip or vertebral (clinical or morphometric) fracture. -T-score less than or equal to -2.5 at the femoral neck or spine after appropriate evaluation to exclude secondary causes. -Low bone mass at the hip or spine and a 10-year fracture probability by FRAX of greater than or equal to 3% for hip fracture or greater than or equal to 20% for major osteoporotic fracture based on the [place] adapted WHO algorithm. 4. Other Recommendations: All treatment decisions require clinical judgment and consideration of individual patient factors, including patient preferences, comorbidities, previous drug use, risk factors not captured in the FRAX model (e.g. frailty, falls, vitamin D deficiency, increased bone turnover, interval significant decline in bone density) and possible under or overestimation of fracture risk by FRAX. Additional medical evaluation for secondary cause of low bone mineral density may be appropriate. FUTURE SCAN RECOMMENDATION: People with diagnosed cases of osteoporosis or at high risk for fracture should have regular bone mineral density tests. For patients eligible for Medicare, routine testing is allowed once every 2 years. The testing frequency can be increased to one year for patients who have rapidly progressing disease, those who are receiving or discontinuing medical therapy to restore bone mass, or have additional risk factors.
== END 2024-04-04 14:22 | disposition home or self-care (01) ==
LOC: HO.MAMMO 14:21
PROVIDERS: PCP Internal Medicine; Visit Provider Internal Medicine
DX: Z13.820 Encounter for screening for osteoporosis (principal); M85.89 Other specified disorders of bone density and structure, multiple sites
CPT/HCPCS: 77080

== ENCOUNTER 2024-05-12 07:38 | Outpatient (REF) | payer MEDICARE, SELFPAY ==
--- NOTE | 2024-05-12 08:00 | PFT_ITS ---
Flows: FEV1: 70 % of predicted at 1.33 L FVC: 86 % of predicted at 2.11 L FEV1/FVC: 63 % Bronchodilator response: Present Volumes: Total lung capacity: 97 % of predicted at 4.20 L Residual volume: 140 % of predicted at 2.38 L Slow vital capacity: 70 % of predicted at 1.82 L Expiratory reserve volume: 35 % of predicted at 0.21 L Diffusion capacity: Normal Impression: Moderate obstructive ventilatory defect with positive bronchodilator response. Increased residual volume suggests air trapping. Decreased expiratory reserve volume suggests extrathoracic restriction likely secondary to abdominal obesity. MTDD
[2024-05-12 10:41] VITALS: PULSE 89; RESP 16; O2SAT 93
== END 2024-05-12 07:39 | disposition home or self-care (01) ==
LOC: HO.RESP 07:38
PROVIDERS: PCP Internal Medicine; Visit Provider Internal Medicine
DX: J44.9 Chronic obstructive pulmonary disease, unspecified (principal); Z87.891 Personal history of nicotine dependence
CPT/HCPCS: 94010; 94640; 94727; 94729

== ENCOUNTER 2024-05-15 15:05 | Outpatient (AMB) | payer MEDICARE, SELFPAY ==
[2024-05-15 15:33] VITALS: BP 120/80; PULSE 68; O2SAT 95; BMI 30.8
--- NOTE | 2024-05-15 15:33 | MHC.OFFVIS ---
Vital Signs 05/15/24 15:33 Height 5 ft 1 in Weight 163 lb 2.273 oz BMI 30.8 BP 120/80 Blood Pressure Location Lt brachial Position Sitting Pulse 68 Pulse Source Pulse Oximeter Pulse Oximetry (%) 95 Oxygen Delivery Method Room Air Intake Visit Reasons: copd Intake Note: pt is here for follow up and states she is here for pft and she is feeling fine today. [employer] Service Technician Required: No Allergies Sulfa (Sulfonamide Antibiotics) [SULFA(SULFONAMIDE ANTIBIOTICS)] Allergy (Intermediate, Verified 05/15/24 15:39) FACIAL SWELLING, REDNESS, rash, face edema levofloxacin [From LEVAQUIN] Allergy (Unknown, Verified 05/15/24 15:39) itchy tongue Penicillins [PENICILLINS] Allergy (Unknown, Verified 05/15/24 15:39) RASH Quinolones [QUINOLONES] Allergy (Unknown, Verified 05/15/24 15:39) MOUTH ITCHING cefuroxime Allergy (Verified 05/15/24 15:39) Unknown doxycycline Allergy (Verified 05/15/24 15:39) Unknown ketorolac Adverse Reaction (Uncoded 05/15/24 15:39) Facial Swelling latex Adverse Reaction (Uncoded 05/15/24 15:39) Facial Swelling [facility] Medical History (Updated 03/23/24 @ 10:04 by Ines Sweeney PA-C) Paroxysmal atrial fibrillation Chronic anticoagulation Essential hypertension Dyslipidemia COPD (chronic obstructive pulmonary disease) Mild intermittent asthma with (acute) exacerbation Personal history of nicotine dependence Anemia Hiatal hernia with gastroesophageal reflux Irritable bowel syndrome with diarrhea Pancreatitis Hepatic hemangioma Mixed urinary 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 Brother No problems noted. Brother No problems noted. Sister No problems noted. Sister Mental health disorder Sister Mental health disorder Daughter No problems noted. Daughter No problems noted. Daughter No problems noted. 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
--- NOTE | 2024-05-15 15:34 | A.OFFVIS_ITS ---
Vital Signs 05/15/24 15:33 Height 5 ft 1 in Weight 163 lb 2.273 oz BMI 30.8 BP 120/80 Blood Pressure Location Lt brachial Position Sitting Pulse 68 Pulse Source Pulse Oximeter Pulse Oximetry (%) 95 Oxygen Delivery Method Room Air Intake Visit Reasons: copd Allergies Sulfa (Sulfonamide Antibiotics) [SULFA(SULFONAMIDE ANTIBIOTICS)] Allergy (Intermediate, Verified 05/15/24 15:47) FACIAL SWELLING, REDNESS, rash, face edema levofloxacin [From LEVAQUIN] Allergy (Unknown, Verified 05/15/24 15:47) itchy tongue Penicillins [PENICILLINS] Allergy (Unknown, Verified 05/15/24 15:47) RASH Quinolones [QUINOLONES] Allergy (Unknown, Verified 05/15/24 15:47) MOUTH ITCHING cefuroxime Allergy (Verified 05/15/24 15:47) Unknown doxycycline Allergy (Verified 05/15/24 15:47) Unknown ketorolac Adverse Reaction (Uncoded 05/15/24 15:47) Facial Swelling latex Adverse Reaction (Uncoded 05/15/24 15:47) Facial Swelling Medication List - Last Reconciled 05/15/24 by Marilia Cardenas MD acetaminophen ER 650 mg PO Q8H PRN albuterol sulfate 2.5 mg (3 mL) inhalation Q4-6H PRN budesonide-formoterol 160-4.5 mcg/actuation (Symbicort) 1 inh inhalation BID cholecalciferol (vitamin D3) 50 mcg PO DAILY flecainide 100 mg PO Q12H inhalational spacing device (Aerochamber MV spacer) As directed levalbuterol tartrate 45 mcg/actuation (Xopenex HFA) 2 inhalations inhalation Q6H lisinopril 20 mg PO DAILY 90 days metoprolol succinate ER 50 mg PO DAILY nebulizers As directed omeprazole 20 mg PO QAM raloxifene 60 mg PO DAILY rivaroxaban (Xarelto) 20 mg PO DAILY simvastatin 20 mg PO BEDTIME Do you need a note to return to daycare/school/sports/work: No HPI HPI copd: Details: 68 YEARS OLD FEMALE PAST SMOKER, WHO HAS DEFINITELY QUIT, HAS COPD WITH ELEMENT OF ASTHMA. SHE IS DOING VERY WELL WITH USE OF SYMBICORT INHALER, HOWEVER SHE USES ONLY 1 PUFF AT A TIME. FOR RESCUE INHALER SHE HAS LEVALBUTEROL BUT USES IT ONLY ONCE IN A WHILE. SHE CLAIMS THAT HER BREATHING HAS BEEN VERY STABLE, SHE HAS ONLY MILD COUGH ONCE IN A WHILE, SHE DOES GET SHORT OF BREATH IF SHE WALKS FAST OR CLIMBS STAIRS. SHE HAS HAD LOW-DOSE CT SCAN OF THE LUNGS WHICH IS BENIGN SHE ALSO HAS PULMONARY FUNCTION TEST WHICH SHOWS MODERATE DEGREE OF OBSTRUCTIVE AIRWAY DISORDER. [facility] Medical History Paroxysmal atrial fibrillation Chronic anticoagulation Essential hypertension Dyslipidemia COPD (chronic obstructive pulmonary disease) Mild intermittent asthma with (acute) exacerbation Personal history of nicotine dependence Anemia Hiatal hernia with gastroesophageal reflux Irritable bowel syndrome with diarrhea Pancreatitis Hepatic hemangioma Mixed urinary 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 Brother No problems noted. Brother No problems noted. Sister No problems noted. Sister Mental health disorder Sister Mental health disorder Daughter No problems noted. Daughter No problems noted. Daughter No problems noted. Social History Housing: House Alcohol intake: current Alcohol intake frequency: a few times a week Patient Tobacco Use Status: Former Tobacco user Years Smoked: 40 yrs e-Cigarette/Vaping Use: Never Used service: No Current occupational status: retired Cognitive needs: No Hearing needs: No Vision needs: Yes Review of Systems Const All systems reviewed & are unremarkable except as noted in HPI and below Eyes Reports no additional complaints ENT Reports nasal congestion (Mild off and on) Card Reports no additional complaints, Denies chest pain and Reports irregular heart rhythm (Atrial fibrillation) Resp Reports as per HPI GI Reports heartburn (GERD symptoms being treated with omeprazole) Reports no additional complaints Musc Reports no additional complaints Skin/Breast Reports system reviewed and no additional complaints, except as documented Neuro Reports no additional complaints Psych Reports no additional complaints Endo Reports no additional complaints Physical Exam Vital Signs: Last Vital Signs Pulse 68 05/15/24 15:33 BP 120/80 05/15/24 15:33 Pulse Ox 95 05/15/24 15:33 Oxygen Delivery Method Room Air 05/15/24 15:33 BMI result Body Mass Index 30.8 Const General: healthy appearing, comfortable, no acute distress, alert and awake Orientation/consciousness: patient oriented x3 HEENT Head: Yes normal to inspection General nose exam: No nasal polyps present and No nasal discharge present Face and sinus: Yes sinuses nontender Mouth: oropharynx normal Throat: Yes posterior oropharynx normal Eyes General: appearance normal, both eyes and all related structures Neck Neck: Yes normal visual inspection, Yes no lymphadenopathy, Yes trachea midline and Yes no JVD Thyroid: Thyroid normal Chest Chest palpation & inspection: normal inspection of the chest, normal palpation of entire chest wall and no tenderness Resp Other: Percussion note resonant, breath sounds are equal on both sides slightly distant with prolonged expiratory phase. No audible wheezes rhonchi or crepitations are heard today Cardio Palpation: normal PMI Rate: regular rate Rhythm: regular rhythm Heart sounds: no gallops and no murmurs Peripheral pulses: Peripheral pulses 2+ throughout GI Palpation (GI): Soft to palpation, nontender, No hepatosplenomegaly present and no masses Auscultation: normal bowel sounds Back/Spine/Pelvis Thoracic/Lumbar Spine: thoracic and lumbar spine normal to inspection Skin General skin exam: no rashes or lesions noted Neuro General: patient oriented x3 and no focal motor deficits Cranial nerves: Yes CN's II-XII intact bilaterally Extrem General: Yes normal to inspection, Yes no clubbing, cyanosis or edema and Yes no calf tenderness Psych Speech and movement: Normal speech and movement present Results Reviewed Results Reviewed: LOW-DOSE CT SCAN OF THE LUNGS, BENIGN CATEGORY 2 PULMONARY FUNCTION TEST MODERATELY SEVERE OBSTRUCTIVE AIRWAY DISORDER WITH POSITIVE RESPONSE TO BRONCHODILATOR THERAPY Assessment & Plan Assessment & Plan (1) COPD (chronic obstructive pulmonary disease): Comment: SHE DOES HAVE MODERATELY SEVERE OBSTRUCTIVE AIRWAY DISORDER DUE TO HER PAST SMOKING. CURRENTLY WELL CONTROLLED AND STABLE. Code(s): J44.9 - Chronic obstructive pulmonary disease, unspecified Category: Medical Plan: SYMBICORT 160-4.5 MAY USE ONLY 1 PUFF B.I.D. LEVALBUTEROL MDI 2 PUFFS Q 4-6 HOURS P.R.N. (2) Personal history of nicotine dependence: Comment: (former smoker, onset 16yo, 2-2.5ppd x 38yrs, 80pyh, quit 04/2010) Code(s): Z87.891 - Personal history of nicotine dependence Category: Medical Plan: PATIENT IS IN ANNUAL LUNG SCREENING PROGRAM, DEFINITELY NO GOING BACK TO SMOKING . Coding Level of Care Code Est Pt Level 3 (76668) Diagnoses COPD (chronic obstructive pulmonary disease) J44.9 Personal history of nicotine dependence Z87.891
--- NOTE | 2024-05-15 16:20 | MHC.OFFVIS ---
Vital Signs 05/15/24 15:33 Height 5 ft 1 in Weight 163 lb 2.273 oz BMI 30.8 BP 120/80 Blood Pressure Location Lt brachial Position Sitting Pulse 68 Pulse Source Pulse Oximeter Pulse Oximetry (%) 95 Oxygen Delivery Method Room Air Intake Visit Reasons: copd Allergies Sulfa (Sulfonamide Antibiotics) [SULFA(SULFONAMIDE ANTIBIOTICS)] Allergy (Intermediate, Verified 05/15/24 15:47) FACIAL SWELLING, REDNESS, rash, face edema levofloxacin [From LEVAQUIN] Allergy (Unknown, Verified 05/15/24 15:47) itchy tongue Penicillins [PENICILLINS] Allergy (Unknown, Verified 05/15/24 15:47) RASH Quinolones [QUINOLONES] Allergy (Unknown, Verified 05/15/24 15:47) MOUTH ITCHING cefuroxime Allergy (Verified 05/15/24 15:47) Unknown doxycycline Allergy (Verified 05/15/24 15:47) Unknown ketorolac Adverse Reaction (Uncoded 05/15/24 15:47) Facial Swelling latex Adverse Reaction (Uncoded 05/15/24 15:47) Facial Swelling Medication List - Last Reconciled 05/15/24 by Marilia Cardenas MD acetaminophen ER 650 mg PO Q8H PRN albuterol sulfate 2.5 mg (3 mL) inhalation Q4-6H PRN budesonide-formoterol 160-4.5 mcg/actuation (Symbicort) 1 inh inhalation BID cholecalciferol (vitamin D3) 50 mcg PO DAILY flecainide 100 mg PO Q12H inhalational spacing device (Aerochamber MV spacer) As directed levalbuterol tartrate 45 mcg/actuation (Xopenex HFA) 2 inhalations inhalation Q6H lisinopril 20 mg PO DAILY 90 days metoprolol succinate ER 50 mg PO DAILY nebulizers As directed omeprazole 20 mg PO QAM raloxifene 60 mg PO DAILY rivaroxaban (Xarelto) 20 mg PO DAILY simvastatin 20 mg PO BEDTIME HPI HPI copd: Details: This patient is here for follow-up after. 3 months She is feeling much better. She is using Symbicort only 1 puff at a time, because with 2 puffs she has tachycardia. Cough is minimal. She has shortness of breath on walking up hill or climbing stairs but not on level ground . She did have CT scan of the lung which was benign. Category 2 She also had pulmonary function test showing moderate degree of obstructive airway disorder. [facility] Medical History Paroxysmal atrial fibrillation Chronic anticoagulation Essential hypertension Dyslipidemia COPD (chronic obstructive pulmonary disease) Mild intermittent asthma with (acute) exacerbation Personal history of nicotine dependence Anemia Hiatal hernia with gastroesophageal reflux Irritable bowel syndrome with diarrhea Pancreatitis Hepatic hemangioma Mixed urinary 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 Brother No problems noted. Brother No problems noted. Sister No problems noted. Sister Mental health disorder Sister Mental health disorder Daughter No problems noted. Daughter No problems noted. Daughter No problems noted. Social History Housing: House Alcohol intake: current Alcohol intake frequency: a few times a week Patient Tobacco Use Status: Former Tobacco user Years Smoked: 40 yrs e-Cigarette/Vaping Use: Never Used service: No Current occupational status: retired Cognitive needs: No Hearing needs: No Vision needs: Yes Review of Systems Const All systems reviewed & are unremarkable except as noted in HPI and below Eyes Reports no additional complaints ENT Reports nasal congestion (Mild off and on) Card Reports no additional complaints, Denies chest pain and Reports irregular heart rhythm (Atrial fibrillation) Resp Reports as per HPI GI Reports heartburn (GERD symptoms being treated with omeprazole) Reports no additional complaints Musc Reports no additional complaints Skin/Breast Reports system reviewed and no additional complaints, except as documented Neuro Reports no additional complaints Psych Reports no additional complaints Endo Reports no additional complaints Physical Exam Vital Signs: Last Vital Signs Pulse 68 05/15/24 15:33 BP 120/80 05/15/24 15:33 Pulse Ox 95 05/15/24 15:33 Oxygen Delivery Method Room Air 05/15/24 15:33 BMI result Body Mass Index 30.8 Const General: healthy appearing, comfortable, no acute distress, alert and awake Orientation/consciousness: patient oriented x3 HEENT Head: Yes normal to inspection General nose exam: No nasal polyps present and No nasal discharge present Face and sinus: Yes sinuses nontender Mouth: oropharynx normal Throat: Yes posterior oropharynx normal Eyes General: appearance normal, both eyes and all related structures Neck Neck: Yes normal visual inspection, Yes no lymphadenopathy, Yes trachea midline and Yes no JVD Thyroid: Thyroid normal Chest Chest palpation & inspection: normal inspection of the chest, normal palpation of entire chest wall and no tenderness Resp Other: Percussion note resonant, breath sounds are equal on both sides slightly distant with prolonged expiratory phase. No audible wheezes rhonchi or crepitations are heard today Cardio Palpation: normal PMI Rate: regular rate Rhythm: regular rhythm Heart sounds: no gallops and no murmurs Peripheral pulses: Peripheral pulses 2+ throughout GI Palpation (GI): Soft to palpation, nontender, No hepatosplenomegaly present and no masses Auscultation: normal bowel sounds Back/Spine/Pelvis Thoracic/Lumbar Spine: thoracic and lumbar spine normal to inspection Skin General skin exam: no rashes or lesions noted Neuro General: patient oriented x3 and no focal motor deficits Cranial nerves: Yes CN's II-XII intact bilaterally Extrem General: Yes normal to inspection, Yes no clubbing, cyanosis or edema and Yes no calf tenderness Psych Speech and movement: Normal speech and movement present Quality Reporting (2019) Adult ([facility] 138/12/01/68) Body Mass Index: 30.8 Results Reviewed Results Reviewed: Pulmonary function test, moderately severe obstructive airway disorder with some positive response to bronchodilator therapy . Low-dose CT scan of the lungs one 3 mm pulmonary nodule, benign category 2 Assessment & Plan Assessment & Plan (1) COPD (chronic obstructive pulmonary disease): Comment: SHE DOES HAVE MODERATELY SEVERE OBSTRUCTIVE AIRWAY DISORDER DUE TO HER PAST SMOKING. CURRENTLY WELL CONTROLLED AND STABLE. Code(s): J44.9 - Chronic obstructive pulmonary disease, unspecified Category: Medical Plan: Continue Symbicort 160-4.5 1 puff b.i.d. Use levalbuterol 2 puffs Q 6 hours p.r.n. (2) Personal history of nicotine dependence: Comment: (former smoker, onset 16yo, 2-2.5ppd x 38yrs, 80pyh, quit 04/2010) Code(s): Z87.891 - Personal history of nicotine dependence Category: Medical Plan: Commended for not going back to smoking. Continue to have annual lung CT scan for screening Coding Level of Care Code Est Pt Level 3 (59010) Diagnoses COPD (chronic obstructive pulmonary disease) J44.9 Personal history of nicotine dependence Z87.891
[2024-05-15 16:26] VITALS: BMI 30.8
== END 2024-05-15 15:48 | disposition home or self-care (01) ==
PROVIDERS: PCP Internal Medicine; Visit Provider Internal Medicine
DX: J44.9 Chronic obstructive pulmonary disease, unspecified (principal); Z87.891 Personal history of nicotine dependence
CPT/HCPCS: 99213

== ENCOUNTER → 2024-05-15 15:05 | Outpatient (BNVA) | payer MEDICARE, SELFPAY | PROVIDERS: PCP Internal Medicine; Visit Provider Internal Medicine | DX: J44.9 Chronic obstructive pulmonary disease, unspecified (principal); Z87.891 Personal history of nicotine dependence | CPT/HCPCS: 99212 ==

== ENCOUNTER 2024-05-17 09:13 | Outpatient (AMB) | payer MEDICARE, SELFPAY ==
--- NOTE | 2024-05-17 09:59 | MHC.OFFWIV ---
Intake Vital Signs 05/17/24 10:05 Height 5 ft 1 in Weight 164 lb BMI 31.0 BP 180/104 H Blood Pressure Location Lt brachial Position Sitting Pulse 78 Pulse Source Pulse Oximeter Temp 98.0 F Temp Source Oral Pulse Oximetry (%) 98 Oxygen Delivery Method Room Air Intake Visit Reasons: EP LT leg pain Intake Note: pt c/o LT leg pain. Started 3-4 weeks ago Patient Tobacco Use Status: Former Tobacco user Allergies Sulfa (Sulfonamide Antibiotics) [SULFA(SULFONAMIDE ANTIBIOTICS)] Allergy (Intermediate, Verified 05/17/24 10:05) FACIAL SWELLING, REDNESS, rash, face edema levofloxacin [From LEVAQUIN] Allergy (Unknown, Verified 05/17/24 10:05) itchy tongue Penicillins [PENICILLINS] Allergy (Unknown, Verified 05/17/24 10:05) RASH Quinolones [QUINOLONES] Allergy (Unknown, Verified 05/17/24 10:05) MOUTH ITCHING cefuroxime Allergy (Verified 05/17/24 10:05) Unknown doxycycline Allergy (Verified 05/17/24 10:05) Unknown ketorolac Adverse Reaction (Uncoded 05/17/24 10:05) Facial Swelling latex Adverse Reaction (Uncoded 05/17/24 10:05) Facial Swelling Do you need a note to return to daycare/school/sports/work: No HPI EP LT leg pain HPI Details This note is constructed using voice recognition software. 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 The patient is a 68 year old female who presents to the clinic today with several weeks of left leg pain described as a dull throbbing ache throughout the entire lower leg stopping at about the height of her varicose veins. She reports that she was supposed to get a ?vein procedure? but she has been waiting to hear from her insurance on if this is approved. She wears compression socks a couple of days a week but not consistently. She does report some swelling in the leg, not more than her normal. No areas of redness or warmth noted. She reports that she is able to walk as she normally would. She has been taking Tylenol and ibuprofen, she is on Xarelto. [facility] Medical History Paroxysmal atrial fibrillation Chronic anticoagulation Essential hypertension Dyslipidemia COPD (chronic obstructive pulmonary disease) Mild intermittent asthma with (acute) exacerbation Personal history of nicotine dependence Anemia Hiatal hernia with gastroesophageal reflux Irritable bowel syndrome with diarrhea Pancreatitis Hepatic hemangioma Mixed urinary 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 Brother No problems noted. Brother No problems noted. Sister No problems noted. Sister Mental health disorder Sister Mental health disorder Daughter No problems noted. Daughter No problems noted. Daughter No problems noted. Social History Housing: House Alcohol intake: current Alcohol intake frequency: a few times a week Patient Tobacco Use Status: Former Tobacco user Years Smoked: 40 yrs e-Cigarette/Vaping Use: Never Used service: No Current occupational status: retired Cognitive needs: No Hearing needs: No Vision needs: Yes Review of Systems Const All systems reviewed & are unremarkable except as noted in HPI and below Physical Exam Vital Signs: Last Vital Signs Temp 98.0 F 05/17/24 10:05 Pulse 78 05/17/24 10:05 BP 180/104 H 05/17/24 10:05 Pulse Ox 98 05/17/24 10:05 Oxygen Delivery Method Room Air 05/17/24 10:05 BMI result Body Mass Index 31.0 Const General: cooperative, healthy appearing, comfortable, no acute distress and alert Orientation/consciousness: patient oriented x3 Limitations: no limitations Skin General skin exam: no rashes or lesions noted, elasticity normal and turgor normal Neuro General: patient oriented x3 Extrem Other: Negative Homans, nonpitting bilateral lower extremity edema. No erythema or warmth. Full range of motion all joints. Varicose veins present to bilateral legs with pain corresponding to location of varicose veins on left. General: Yes normal to inspection, Yes full ROM, Yes capillary refill normal and Yes normal exam except as noted Psych Appearance: grossly normal Mental Status: mental status grossly normal Speech and movement: Normal speech and movement present Affect: normal affect Assessment & Plan Assessment & Plan (1) Leg pain, left: Code(s): M79.605 - Pain in left leg Plan: Likely related to varicose veins. CV varicose vein discussion. X-ray ordered to rule out any additional etiology. Given reassuring examination advised on appropriate use of [id number] pain medication including avoidance of NSAIDs in setting of using blood thinner medication. Advised patient to follow up with primary care provider with worsening or failure to resolve. (2) Varicose vein of leg: Code(s): I83.90 - Asymptomatic varicose veins of unspecified lower extremity Qualifiers: Varicose vein complication: pain Laterality: left Qualified Code(s): I83.812 - Varicose veins of left lower extremity with pain Plan: Advised patient to use compression socks every day of the week for symptom management while anticipating procedure for resolution of her varicose veins. This is likely the source of the pain that she is experiencing in her left leg given corresponding location. Advised patient to follow up with primary care provider and vascular specialist. Plan See above for full details and plan. Orders: Orders XR tibia fibula LT 2V Today M79.605 - Pain in left leg Coding Level of Care Code Est Pt Level 4 (44839) Diagnoses Leg pain, left M79.605 Varicose veins of left lower extremity with pain I83.812 Varicose vein complication: pain Laterality: left
[2024-05-17 10:05] VITALS: BP 180/104; PULSE 78; TEMP 36.7; O2SAT 98; BMI 31.0
== END 2024-05-17 11:06 | disposition home or self-care (01) ==
PROVIDERS: PCP Internal Medicine; Visit Provider Registered Nurse
DX: M79.605 Pain in left leg (principal); I83.812 Varicose veins of left lower extremity with pain
CPT/HCPCS: 99214

== ENCOUNTER 2024-05-17 10:42 | Outpatient (REF) | payer MEDICARE, SELFPAY ==
--- NOTE | ~2024-05-17 | XR_ITS ---
EXAMINATION: XR TIBIA AND FIBULA, LEFT CLINICAL INFORMATION: Pain in left leg. COMPARISON: None available. TECHNIQUE: AP and lateral views of the left tibia and fibula were obtained. FINDINGS: No acute fracture or dislocation. Knee joint and ankle joint intact. Mild spurring in all 3 compartments of the knee. Some cystic changes are seen in the articular surface of the distal fibula, consistent with degenerative changes. Ankle mortise is symmetric and intact. No significant ankle joint effusion. No knee joint effusion. Prepatellar soft tissue swelling noted. There is also diffuse soft tissue swelling over the anterior and lateral soft tissues of the ankle and lower leg. No radiopaque foreign body. XR/XR tibia fibula LT 2V IMPRESSION: 1. No acute fracture or dislocation. 2. Diffuse soft tissue swelling over the anterior and lateral soft tissues of the ankle and lower leg. 3. Prepatellar soft tissue swelling.
== END 2024-05-17 10:43 | disposition home or self-care (01) ==
LOC: HO.HMGCX 10:42
PROVIDERS: PCP Internal Medicine; Visit Provider Registered Nurse
DX: M79.605 Pain in left leg (principal)
CPT/HCPCS: 73590

== ENCOUNTER 2024-05-31 16:02 | Outpatient (AMB) | payer MEDICARE, SELFPAY ==
[2024-05-31 16:04] VITALS: BP 178/94; PULSE 78; TEMP 36.7; O2SAT 98; BMI 31.0
--- NOTE | 2024-05-31 16:04 | AM.OFFWIN_ITS ---
Intake Vital Signs 05/31/24 16:04 Height 5 ft 1 in Weight 164 lb BMI 31.0 BP 178/94 H Blood Pressure Location Lt brachial Position Sitting Pulse 78 Pulse Source Pulse Oximeter Temp 98.1 F Temp Source Oral Pulse Oximetry (%) 98 Oxygen Delivery Method Room Air Intake Visit Reasons: EP- LT leg shooting pain Intake Note: pt c/o LT leg pain. Ongoing Patient Tobacco Use Status: Former Tobacco user Allergies Sulfa (Sulfonamide Antibiotics) [SULFA(SULFONAMIDE ANTIBIOTICS)] Allergy (Intermediate, Verified 05/31/24 16:04) FACIAL SWELLING, REDNESS, rash, face edema levofloxacin [From LEVAQUIN] Allergy (Unknown, Verified 05/31/24 16:04) itchy tongue Penicillins [PENICILLINS] Allergy (Unknown, Verified 05/31/24 16:04) RASH Quinolones [QUINOLONES] Allergy (Unknown, Verified 05/31/24 16:04) MOUTH ITCHING cefuroxime Allergy (Verified 05/31/24 16:04) Unknown doxycycline Allergy (Verified 05/31/24 16:04) Unknown ketorolac Adverse Reaction (Uncoded 05/31/24 16:04) Facial Swelling latex Adverse Reaction (Uncoded 05/31/24 16:04) Facial Swelling Do you need a note to return to daycare/school/sports/work: No HPI HPI Comments History of Present Illness Details 68 y/o female patient who presents to [facility] with c/o left leg pain. Pt was seen at our [facility] clinic back in 05/17/24 for similar concerns. Pt was suppose to have Vein Stripping procedure by Vascular surgery but Insurance declined coverage and she has to pay lots of money out of pocket. She wears Compression stockings sometimes. H/o Varicose Veins. Extensive Cardiac history - AFib and HTN. She is followed by Cardiology. [facility] Medical History Paroxysmal atrial fibrillation Chronic anticoagulation Essential hypertension Dyslipidemia COPD (chronic obstructive pulmonary disease) Mild intermittent asthma with (acute) exacerbation Personal history of nicotine dependence Anemia Hiatal hernia with gastroesophageal reflux Irritable bowel syndrome with diarrhea Pancreatitis Hepatic hemangioma Mixed urinary 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 Brother No problems noted. Brother No problems noted. Sister No problems noted. Sister Mental health disorder Sister Mental health disorder Daughter No problems noted. Daughter No problems noted. Daughter No problems noted. Social History Housing: House Alcohol intake: current Alcohol intake frequency: a few times a week Patient Tobacco Use Status: Former Tobacco user Years Smoked: 40 yrs e-Cigarette/Vaping Use: Never Used service: No Current occupational status: retired Cognitive needs: No Hearing needs: No Vision needs: Yes Review of Systems Const All systems reviewed & are unremarkable except as noted in HPI and below Physical Exam Vital Signs: Last Vital Signs Temp 98.1 F 05/31/24 16:04 Pulse 78 05/31/24 16:04 BP 178/94 H 05/31/24 16:04 Pulse Ox 98 05/31/24 16:04 Oxygen Delivery Method Room Air 05/31/24 16:04 BMI result Body Mass Index 31.0 Const General: cooperative and no acute distress Nutritional Appearance: obese Orientation/consciousness: patient oriented x3 Skin Other: Varicose veins lower extremities noted. General skin exam: no rashes or lesions noted Neuro General: patient oriented x3, gait normal and moves all extremities Extrem Right lower extremity: lower leg Details: tenderness and pitting edema Details: 2+; no erythema, no localized swelling, no palpable cords and no crepitus Left lower extremity: lower leg Details: tenderness and pitting edema Details: 2+; no erythema, no palpable cords and no crepitus Psych Speech and movement: Normal speech and movement present Assessment & Plan Assessment & Plan (1) Leg pain, left: Code(s): M79.605 - Pain in left leg Plan: Probably due to Varicose Veins. Acetaminophen for pain relief F/U with PCP. (2) Varicose vein of leg: Code(s): I83.90 - Asymptomatic varicose veins of unspecified lower extremity Qualifiers: Varicose vein complication: pain Laterality: left Qualified Code(s): I83.812 - Varicose veins of left lower extremity with pain Plan: Continue to wear compression stockings as directed F/U with Vascular surgery F/U with Cardiology regarding HTN management. Coding Level of Care Code Est Pt Level 3 (56200) Diagnoses Leg pain, left M79.605 Varicose veins of left lower extremity with pain I83.812 Varicose vein complication: pain Laterality: left Time Spent (min) 15
== END 2024-05-31 16:50 | disposition home or self-care (01) ==
PROVIDERS: PCP Internal Medicine; Visit Provider Nurse Practitioner Family
DX: M79.605 Pain in left leg (principal); I83.812 Varicose veins of left lower extremity with pain
CPT/HCPCS: 99213

== ENCOUNTER 2024-06-04 14:29 | Outpatient (REF) | payer MEDICARE, SELFPAY ==
--- NOTE | ~2024-06-04 | US_ITS ---
EXAMINATION: US TRIPLEX LOWER EXTREMITY, LEFT CLINICAL INFORMATION: Left leg pain. COMPARISON: Venous insufficiency study 04/29/2023. TECHNIQUE: Color-flow triplex imaging with spectral analysis and compression Doppler were performed on the left lower extremity. FINDINGS: Respiratory variation, normal compression and augmented flow are noted throughout the left lower extremity. The visualized common femoral vein, superficial femoral vein, profunda femoral vein, popliteal vein and midcalf peroneal and posterior tibial venous segments show no evidence of deep venous thrombosis. Small Keller's cyst. US/US venous duplex LE LT IMPRESSION: No evidence of deep venous thrombosis involving the left lower extremity. Small Keller cyst. Electronically signed by: Donta Flanagan MD 06/04/2024 03:32 PM EDT
== END 2024-06-04 14:30 | disposition home or self-care (01) ==
LOC: HO.US 14:29
PROVIDERS: PCP Internal Medicine; Visit Provider Nurse Practitioner Family
DX: M79.662 Pain in left lower leg (principal)
CPT/HCPCS: 93971

== ENCOUNTER 2024-06-14 14:05 | Outpatient (AMB) | payer MEDICARE, SELFPAY ==
--- NOTE | 2024-06-14 14:23 | MHC.OFFVIS ---
Vital Signs 06/14/24 14:27 Height 5 ft 1.44 in Weight 166 lb 10.711 oz BMI 31.0 BP 164/92 H Blood Pressure Location Lt brachial Position Sitting Pulse 79 Pulse Source Pulse Oximeter Intake Visit Reasons: Osteoporosis-confirmed Intake Note: New patient present today for Osteoporosis. Inventory Assistant Required: No Accompanied by: Self / Same As Patient Allergies Sulfa (Sulfonamide Antibiotics) [SULFA(SULFONAMIDE ANTIBIOTICS)] Allergy (Intermediate, Verified 06/14/24 14:28) FACIAL SWELLING, REDNESS, rash, face edema levofloxacin [From LEVAQUIN] Allergy (Unknown, Verified 06/14/24 14:28) itchy tongue Penicillins [PENICILLINS] Allergy (Unknown, Verified 06/14/24 14:28) RASH Quinolones [QUINOLONES] Allergy (Unknown, Verified 06/14/24 14:28) MOUTH ITCHING cefuroxime Allergy (Verified 06/14/24 14:28) Unknown doxycycline Allergy (Verified 06/14/24 14:28) Unknown ketorolac Adverse Reaction (Uncoded 06/14/24 14:28) Facial Swelling latex Adverse Reaction (Uncoded 06/14/24 14:28) Facial Swelling HPI Comments Details: 68 YO F is seen in consultation at the request of PCP for Osteoporosis. First diagnosed in 5 yrs ago.Never saw another specialist Received treatment in the past with Reloxivine , for 3 yrs . Tolerated treatment well without complication.Has hot flashes No history of pathologic fracture or ONJ. Has few servings of dietary calcium per day in the form of cheese . Took Calcium supplement citrate ? mg daily in divided doses. Stopped calcium a yr ago Takes 1000 IU of Vitamin D daily. Takes PPI, anticoagulant, no antiepileptic no glucocorticoid medication. 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 Aunt has breast cancer Denies history of Kidney stones: Sister - family history of Osteoporosis vertebral but no hip fracture. UTD on dental cleanings and sees dentist every 6 months. No planned upcoming dental work or extractions.Planned root canal DXA dated :04/04/24 FINDINGS: LEFT FEMUR, NECK: Current: BMD 0.621 g/cm2, Z-score -1.5, T-score -3.0, osteoporosis. Prior: BMD 0.739 g/cm2. Baseline: BMD 0.819 g/cm2. LEFT FEMUR, TOTAL: Current: BMD 0.764 g/cm2, Z-score -0.6, T-score -1.9, osteopenia, 18.0% decrease from previous, 19.2% decrease from baseline (<5% change is not significant). Prior: BMD 0.932 g/cm2. Baseline: BMD 0.946 g/cm2. AP SPINE L1-L4: Current: BMD 0.915 g/cm2, Z-score -0.8, T-score -2.2, osteopenia, 1.2% increase from previous, 3.0% increase from baseline (<5% change is not significant). Prior: BMD 0.904 g/cm2. Baseline: BMD 0.888 g/cm2. Labs: [facility] Medical History (Updated 06/12/24 @ 02:47 by Flores Osullivan MD) Osteoporosis Paroxysmal atrial fibrillation Chronic anticoagulation Essential hypertension Dyslipidemia COPD (chronic obstructive pulmonary disease) Mild intermittent asthma with (acute) exacerbation Personal history of nicotine dependence Anemia Hiatal hernia with gastroesophageal reflux Irritable bowel syndrome with diarrhea Pancreatitis Hepatic hemangioma Mixed urinary 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 Brother No problems noted. Brother No problems noted. Sister No problems noted. Sister Mental health disorder Sister Mental health disorder Daughter No problems noted. Daughter No problems noted. Daughter No problems noted. Social History Housing: House Alcohol intake: current Alcohol intake frequency: a few times a week Patient Tobacco Use Status: Former Tobacco user Years Smoked: 40 yrs e-Cigarette/Vaping Use: Never Used service: No Current occupational status: retired Cognitive needs: No Hearing needs: No Vision needs: Yes Physical Exam There are no Cushingoid features. Absence of blue sclera. Absence of kyphosis. Thyroid gland is of nl size and weighs 15 gms. There are no thyroid nodules palpated. Lungs CTA. Heart S1 S2 Reg R/R Abdominal exam benign. Muscle strength 5/5 . Examination of spine reveals absence of tenderness on palpation Assessment & Plan Assessment & Plan (1) Osteoporosis: Code(s): M81.0 - Age-related osteoporosis without current pathological fracture Category: Medical Plan: This 68-year-old white female with a history of osteoporosis with partial secondary workup Plan is complete the secondary workup by checking 24 hour urine for calcium and creatinine, serum phosphorus, TSH, free T4. Will ensure 1200 mg of calcium continue vitamin-D supplementation. Assuming secondary workup is negative could consider either use Prolia or initial anabolic agent. Would stop the raloxifene in light of the hot flashes and increased risk for thrombosis because of AFib Orders: Orders Calcium, 24 Hr Ur Today M81.0 - Age-related osteoporosis without current pathological fracture Phosphorus Today M81.0 - Age-related osteoporosis without current pathological fracture Thyroid Stimulating Hormone Today M81.0 - Age-related osteoporosis without current pathological fracture Creatinine, 24 Hr Group Today M81.0 - Age-related osteoporosis without current pathological fracture Free T4 (Free Thyroxine) Today M81.0 - Age-related osteoporosis without current pathological fracture Medications: Discontinued raloxifene Discontinued Reason: Doctor's Order 60 mg PO DAILY 90 tabs 1RF Coding Level of Care Code New Pt Level 4 (42875) Diagnoses Osteoporosis M81.0
[2024-06-14 14:27] VITALS: BP 164/92; PULSE 79; BMI 31.0
== END 2024-06-14 15:07 | disposition home or self-care (01) ==
PROVIDERS: PCP Internal Medicine; Visit Provider Internal Medicine Endocrinology, Diabetes & Metabolism
DX: M81.0 Age-related osteoporosis without current pathological fracture (principal)
CPT/HCPCS: 99204

== ENCOUNTER → 2024-06-14 14:05 | Outpatient (BNVA) | payer MEDICARE, SELFPAY | PROVIDERS: PCP Internal Medicine; Visit Provider Internal Medicine Endocrinology, Diabetes & Metabolism | DX: M81.0 Age-related osteoporosis without current pathological fracture (principal) | CPT/HCPCS: 99202 ==

== ENCOUNTER 2024-07-02 15:45 | Inpatient (IN) | payer MEDICARE, SELFPAY ==
[2024-07-02] VITALS (16 sets, daily range): BP systolic 82–143; BP diastolic 35–77; PULSE 97–127; RESP 15–24; TEMP 37.2; O2SAT 92–98; BMI 30.8
--- NOTE | ~2024-07-02 | CT_ITS ---
EXAMINATION: CT CHEST WITHOUT CONTRAST CLINICAL INFORMATION: Pneumonia. COMPARISON: Chest radiograph from 07/02/2024. CT lung screening from 03/23/2024. TECHNIQUE: Multidetector volumetric CT imaging of the chest was done. Axial MIP volume rendering provided. Sagittal and coronal reformatted images were obtained. This CT examination was performed using dose optimization techniques as appropriate, variously including the following: *Automated exposure control. *Adjustment of mA and/or kV according to patient size (this includes techniques or standardized protocols for targeted exams where dose is matched to indication/reason for exam; i.e. extremities or head). *Use of iterative reconstruction technique. DLP: 219 mGy-cm FINDINGS: LUNGS: Mild bilateral dependent atelectasis. There is a 0.3 cm calcified granuloma in the right lower lobe. Mild central peribronchial wall thickening. Otherwise, no diffuse or focal lung parenchymal abnormalities. No pleural effusion or pneumothorax. The airways remain patent. MEDIASTINUM: The cardiac structures are without significant demonstrated abnormality. No pericardial effusion. No mediastinal free fluid or gas. No hilar or mediastinal lymphadenopathy. Coronary artery calcifications: Present - mild to moderate. PLEURA: There is no pleural effusion or pneumothorax. No pleural mass or thickening. AXILLA: No lymphadenopathy. UPPER ABDOMEN: Limited evaluation of the upper abdomen without significant soft tissue abnormalities. VASCULATURE: The thoracic aorta is of normal contour and caliber with mild calcific atherosclerotic disease. OSSEOUS STRUCTURES: Mild multilevel degenerative changes of the spine. No suspicious lytic or sclerotic osseous lesions demonstrated. No soft tissue masses demonstrated. CT/CT chest wo IV con IMPRESSION: 1. Mild central peribronchial wall thickening as may be seen with small airways inflammation. 2. No focal consolidative process. No additional acute pulmonary abnormalities. Electronically signed by: Rd Garcia DO 07/03/2024 01:41 AM EDT
--- NOTE | ~2024-07-02 | XR_ITS ---
EXAMINATION: XR CHEST CLINICAL INFORMATION: Cough, shortness of breath COMPARISON: Chest x-ray December 26, 2023 TECHNIQUE: 2 views of the chest were obtained. FINDINGS: No significant abnormality is noted involving the heart, lungs, mediastinum, bony thorax or soft tissues. XR/XR chest 2V IMPRESSION: Unremarkable examination. Electronically signed by: Joao Bermudez MD 07/02/2024 06:25 PM EDT RP
--- NOTE | 2024-07-02 16:16 | ED_ITS ---
HPI - General Adult General Chief complaint: Upper Respiratory Symptoms Stated complaint: nausea sore throat Time Seen by Provider: 07/02/24 16:15 Source: patient Mode of arrival: ambulatory Limitations: no limitations History of Present Illness ED Provider: THEO CHAPIN narrative: 68 yo female with PMH of afib on xarelto and fleicanide, COPD, HTN, HLD, IBS, GERD, hiatal hernia, anemia, IBS here with c/o not feeling well x 24 hours with body aches, cough, sore throat, nausea, loose stools and chills. She has difficulty breathing and yellow sputum. No travel, sick contacts. She did take all of her medications today. She notes she has only used her INH and not taken tylenol today. MD complaint: URI symptoms Onset (ago): hour(s) (24) Radiation: non-radiation Severity: moderate Relieving factors: none Exacerbating factors: movement Associated symptoms: cough, fever/chills, headaches, loss of appetite, malaise, nausea/vomiting, shortness of breath and weakness Treatments prior to arrival: none Related Data Home Medications ?Medication ?Instructions ?Recorded ?Confirmed acetaminophen 650 mg 650 mg PO Q8H PRN pain 09/18/20 07/02/24 tablet,extended release omeprazole 20 mg capsule,delayed 20 mg PO DAILY 05/19/23 07/02/24 release ascorbic acid (vitamin C) 1,000 mg 1,000 mg PO DAILY 07/02/24 07/02/24 tablet (Vitamin C) calcium carbonate 600 mg-vitamin 1 tab PO DAILY 07/02/24 07/02/24 D3 20 mcg (800 unit) tablet (Caltrate with Vitamin D3) cholecalciferol (vitamin D3) 25 25 mcg PO DAILY 07/02/24 07/02/24 mcg (1,000 unit) tablet (Vitamin D3) flecainide 100 mg tablet 100 mg PO BID 07/02/24 07/02/24 lisinopril 20 mg tablet 30 mg PO DAILY 07/02/24 07/02/24 multivitamin-ferrous 1 tab PO DAILY 07/02/24 07/02/24 fumarate-folic acid 18 mg-400 mcg tablet (Centrum Women) raloxifene 60 mg tablet 60 mg PO DAILY 07/02/24 07/02/24 Previous Rx's ?Medication ?Instructions ?Recorded nebulizers #1 ea 03/25/21 inhalational spacing device #1 ea 07/01/21 (Aerochamber MV spacer) albuterol sulfate 2.5 mg/3 mL 2.5 mg (3 mL) inhalation Q4-6H PRN 12/22/23 (0.083 %) solution for nebulization shortness of breath or wheezing #90 mL levalbuterol tartrate 45 2 inh inhalation Q6H #15 grams 01/19/24 mcg/actuation aerosol inhaler (Xopenex HFA) budesonide-formoterol HFA 160 1 inh inhalation BID #10.2 grams 02/16/24 mcg-4.5 mcg/actuation aerosol inhaler (Symbicort) simvastatin 20 mg tablet 20 mg PO BEDTIME #90 tabs 03/11/24 metoprolol succinate 50 mg 50 mg PO DAILY #90 tabs 04/19/24 tablet,extended release 24 hr rivaroxaban 20 mg tablet (Xarelto) 20 mg PO DAILY #90 tabs 05/10/24 Allergies Allergy/AdvReac Type Severity Reaction Status Date / Time Sulfa (Sulfonamide Allergy Intermediate FACIAL Verified 07/02/24 16:15 Antibiotics) SWELLING, [SULFA(SULFONAMIDE REDNESS, ANTIBIOTICS)] rash, face edema levofloxacin [From LEVAQUIN] Allergy Unknown itchy Verified 07/02/24 16:15 tongue Penicillins [PENICILLINS] Allergy Unknown RASH Verified 07/02/24 16:15 Quinolones [QUINOLONES] Allergy Unknown MOUTH Verified 07/02/24 16:15 ITCHING cefuroxime Allergy Unknown Verified 07/02/24 16:15 doxycycline Allergy Unknown Verified 07/02/24 16:15 ketorolac AdvReac Facial Uncoded 07/02/24 16:15 Swelling latex AdvReac Facial Uncoded 07/02/24 16:15 Swelling Review of Systems 2 Review of Systems: Constitutional : pos Fever, pos Chills ENT/Mouth : No Hoarseness, No sore throat, No Rhinorrhea Eyes: No Redness, No Discharge, No Vision Changes Cardiovascular : No Chest Pain, positive SOB, positive Dyspnea on Exertion, No Edema Respiratory : positive Cough, pos Sputum, positive Wheezing, Gastrointestinal : pos Nausea, No Vomiting, pos Diarrhea, No abdominal Pain Genitourinary : No Dysuria, No Hematuria Musculoskeletal : No joint pain, No Myalgias Skin : No rash Neuro : No Weakness, No Numbness, No Headache All other systems reviewed and are negative [facility] Past Medical History Attestation statement: The following information was validated with the patient. Source: old records reviewed Medical History Osteoporosis Paroxysmal atrial fibrillation Chronic anticoagulation Essential hypertension Dyslipidemia COPD (chronic obstructive pulmonary disease) Mild intermittent asthma with (acute) exacerbation Personal history of nicotine dependence Anemia Hiatal hernia with gastroesophageal reflux Irritable bowel syndrome with diarrhea Pancreatitis Hepatic hemangioma 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 Brother No problems noted. Brother No problems noted. Sister No problems noted. Sister Mental health disorder Sister Mental health disorder Daughter No problems noted. Daughter No problems noted. Daughter No problems noted. Social History Social History Housing: House Alcohol intake: current Alcohol intake frequency: a few times a week Patient Tobacco Use Status: Former Tobacco user Years Smoked: 40 yrs e-Cigarette/Vaping Use: Never Used Advance Directives: No Advance Directives Information Provided: No service: No Current occupational status: retired Cognitive needs: No Hearing needs: No Vision needs: Yes Physical Exam ED Vital Signs: Vital Signs - 24 hr 07/02/24 16:12 07/02/24 18:23 07/02/24 18:36 Temperature 98.9 F Pulse Rate 109 H 97 99 Respiratory Rate 20 16 24 H Blood Pressure 143/77 H 137/74 Pulse Oximetry 96 98 Oxygen Delivery Method Room Air Room Air 07/02/24 19:58 07/02/24 20:06 07/02/24 20:20 Temperature Pulse Rate 124 H 120 H 121 H Respiratory Rate 22 H 22 H 20 Blood Pressure 82/51 L 97/50 L Pulse Oximetry 92 95 Oxygen Delivery Method Room Air 07/02/24 20:20 07/02/24 20:35 07/02/24 20:50 Temperature Pulse Rate 117 H 126 H 124 H Respiratory Rate 18 18 18 Blood Pressure 94/53 L 101/51 L 106/53 L Pulse Oximetry 96 96 97 Oxygen Delivery Method Room Air Room Air 07/02/24 21:16 07/02/24 21:19 07/02/24 22:09 Temperature Pulse Rate 127 H 124 H 120 H Respiratory Rate 16 18 18 Blood Pressure 110/52 L 91/44 L 86/39 L Pulse Oximetry 93 94 Oxygen Delivery Method Room Air Room Air 07/02/24 22:10 07/02/24 22:15 07/02/24 22:15 Temperature Pulse Rate 117 H 119 H Respiratory Rate 15 Blood Pressure 86/39 L 83/35 L 86/43 L Pulse Oximetry 94 Oxygen Delivery Method 07/02/24 22:19 07/02/24 22:46 Temperature Pulse Rate 116 H Respiratory Rate 18 Blood Pressure 95/48 L 114/54 L Pulse Oximetry 94 Oxygen Delivery Method Room Air BMI result Body Mass Index 30.8 Appearance: Alert. Oriented X3. No acute distress. Eyes: Pupils equal, round and reactive to light. ENT: Pharynx normal. Neck: Normal inspection. Neck supple. CVS: tachyardic heart rate and rhythm. Pulses normal. Respiratory: No respiratory distress. Breath sounds diminished with anterior rhonchi heard throughout Abdomen: Soft and nontender. Skin: Skin warm and dry. Normal skin color. Normal skin turgor. Extremities: No lower extremity edema. No calf ttp Neuro: Oriented X 3. No motor deficit. No sensory deficit. Course Course Course Narrative: RME performed by Brielle Taveras PA-C. Patient is a 68 year old assigned female at presenting to the emergency department with 2 days of body aches, chills, cough, nausea, and sore throat. Detailed physical exam and review of systems are deferred to the primary care physician. Labs, imaging, and swabs ordered. Patient placed back in the waiting room pending room availability and results. Reevaluation(s) Reevaluation #1: 715pm patient now tachycardic, tachypneic and with WBC count infection suspected 715pm cultures and lactic acid ordered, hx of PCN rash and states ceftin she thinks made her throat scratchy but no swelling and no rash. IV ceftriaxone ordered. night time fleicanide and EKG ordered Reevaluation #2: drop in BP 758pm 30cc/kg bolus ordered Reevaluation #3: BP responding to fluids, IV albumin ordered Additional Reevaluation(s): lactic acid high likely due to nebs Medications Administered Generic Name Dose Route Start Last Admin Trade Name Freq PRN Reason Stop Dose Admin Albuterol/Ipratropium 3 ml 07/02/24 20:00 07/02/24 20:20 Albuterol/Iprat 2.5/0.5mg 3 Ml Ampul.Neb INHALE 3 ml RQ4H WHILE AWAKE CLAUDINE Administration Azithromycin 500 mg/ Sodium 250 mls @ 125 mls/hr 07/02/24 20:00 07/02/24 22:58 Chloride IV Infused Q24H CLAUDINE Infusion Albumin Human 100 mls @ 133.333 mls/hr 07/02/24 22:00 07/02/24 22:49 Kedbumin 25 % IV 07/02/24 23:44 133.33 mls/hr Q1H CLAUDINE Administration Discontinued Medications Generic Name Dose Route Start Last Admin Trade Name Freq PRN Reason Stop Dose Admin Acetaminophen 650 mg 07/02/24 18:19 07/02/24 18:57 Acetaminophen 325 Mg Tablet PO 07/02/24 18:20 650 mg ONCE ONE Administration Albuterol Sulfate 5 mg/ 0 mg 07/02/24 18:29 07/02/24 18:36 Albuterol/Ipratropium 3 ml INHALE 07/02/24 18:30 7.5 each ONCE ONE Administration Flecainide Acetate 100 mg 07/02/24 19:12 07/02/24 19:56 Flecainide Acetate 50 Mg Tablet PO 07/02/24 19:13 100 mg ONCE ONE Administration Ceftriaxone Sodium 1 gm/ 50 mls @ 100 mls/hr 07/02/24 19:14 07/02/24 19:59 Sodium Chloride IV 07/02/24 19:43 Infused ONCE ONE Infusion Magnesium Sulfate 2 gm in 50 mls @ 25 mls/hr 07/02/24 19:32 07/02/24 20:14 Magnesium Sulfate/H2o IV 07/02/24 21:31 Infused ONCE ONE Infusion Sodium Chloride 2,220 mls @ 2,220 mls/hr 07/02/24 19:58 07/02/24 20:59 Ns 30 ml/kg infuse over 1 hr (2220 ml) 07/02/24 20:57 Infused IV Infusion .Q1H STA Lactated Ringer's 500 mls @ 999 mls/hr 07/02/24 22:18 07/02/24 23:29 Lr IV 07/02/24 22:48 Infused .Q31M ONE Infusion Pantoprazole Sodium 40 mg 07/02/24 20:50 07/02/24 21:09 Pantoprazole Sodium 40 Mg/10 Ml Vial IVPUSH 07/02/24 20:51 40 mg ONCE ONE Administration Prednisone 40 mg 07/02/24 18:19 07/02/24 18:58 Prednisone 20 Mg Tablet PO 07/02/24 18:20 40 mg ONCE ONE Administration Medical Decision Making Medical Decision Making MDM Narrative: 68 yo female with PMH of afib on xarelto and fleicanide, COPD, HTN, HLD, IBS, GERD, hiatal hernia, anemia, IBS here with c/o viral like illness, cough, sputum fevers, chills and not feeling well at this time will obtain labs, CXR, viral panel - neb and oral prednisone ordered. She has multiple antibiotic allergies but given fleicainide she would be limited to doxy in her case since she has PCN allergies and qtc is a concern with her anti-arrhythmic. Suspect more bronchitis/viral syndrome. Differential Diagnosis Differential Diagnoses: The differential diagnosis associated with the presentation includes viral syndrome, pneumonia, bronchitis Admission/Observation Consideration of admission/observation: Escalation of care including admission/observation considered no improvement at this time admit for further management and work up sinus tachycardia post neb therapy Consult Healthcare Provider Management of the patient was discussed with: Hospitalist (will admit) Lab Data [facility] Lab Attestation statement: I reviewed the patient's lab results. 07/02/24 16:55 07/02/24 16:55 Labs: Lab Results 07/02/24 07/02/24 07/02/24 Range/Units 16:55 19:29 23:07 WBC 15.1 H (4.8-10.8) X10*3/uL RBC 4.57 (4.20-5.50) X10*6/uL Hgb 13.1 (12.0-16.0) g/dl Hct 40.2 (37.0-47.0) % MCV 88.0 (80.0-98.0) fL MCH 28.7 (27.0-33.0) pg MCHC 32.6 (31.0-35.0) g/dl RDW 12.7 (11.0-16.0) % Plt Count 307 (160-400) X10*3/uL MPV 10.2 (9.4-12.3) fL Immature Gran % (Auto) 0.6 H (0.0-0.4) % Neut % (Auto) 85.3 H (45-73) % Lymph % (Auto) 7.2 L (20-40) % [place] % (Auto) 6.0 (2-11) % Eos % (Auto) 0.6 (0-4) % Baso % (Auto) 0.3 (0-2) % Lymph # (Auto) 1.1 L (1.2-4.9) X10*3/uL [place] # (Auto) 0.9 (0.1-1.2) X10*3/uL Eos # (Auto) 0.1 (0.0-0.4) X10*3/uL Baso # (Auto) 0.0 (0.0-0.2) X10*3/uL Abs Immat Gran (auto) 0.09 H (0.00-0.03) X10*3/uL Absolute Neuts (auto) 12.9 H (2.0-8.3) x10*3/uL Absolute Nucleated RBC 0.000 (0.0-0.012) X10*3/uL Nucleated RBC % (auto) 0.0 (0.0-0.2) /100WBC VBG pH (7.32-7.43) VBG pCO2 mmHg VBG pO2 mmHg VBG HCO3 (22-26) mmol/L VBG O2 Saturation % VBG Base Excess mmol/L Sodium 144 (135-145) mmol/L Potassium 3.7 (3.3-5.1) mmol/L Chloride 107 (96-108) mmol/L Carbon Dioxide 27 (22-29) mmol/L Anion Gap 14 (12-20) BUN 15 (9-16) mg/dL Creatinine 0.77 (0.5-1.4) mg/dL Estim Creat Clear Calc 62.5 Estimated GFR > 60 Random Glucose 123 H (60-115) mg/dL Lactic Acid 2.5 H* (0.5-2.0) mmol/L Lactic Acid F/U @ 2Hr 4.3 H* (0.5-2.0) mmol/L Calcium 9.2 (8.4-10.2) mg/dL Magnesium 1.8 (1.6-2.6) mg/dL Total Bilirubin 0.7 (0.0-1.0) mg/dL AST 17 (5-31) U/L ALT 16 (0-31) U/L Alkaline Phosphatase 90 (39-117) U/L Troponin I High Sens < 2.7 (<3.5-17.0) ng/L Total Protein 7.8 (6.5-8.0) g/dL Albumin 4.4 (3.5-5.0) g/dL Influenza Type A (PCR) NEGATIVE (Negative) Influenza Type B (PCR) NEGATIVE (Negative) RSV RNA Qual (PCR) NEGATIVE (Negative) SARS-CoV-2 RNA (RT-PCR) NEGATIVE (Negative) S. pyogenes GrpA RAYA Negative (Negative) 07/02/24 Range/Units 23:12 WBC (4.8-10.8) X10*3/uL RBC (4.20-5.50) X10*6/uL Hgb (12.0-16.0) g/dl Hct (37.0-47.0) % MCV (80.0-98.0) fL MCH (27.0-33.0) pg MCHC (31.0-35.0) g/dl RDW (11.0-16.0) % Plt Count (160-400) X10*3/uL MPV (9.4-12.3) fL Immature Gran % (Auto) (0.0-0.4) % Neut % (Auto) (45-73) % Lymph % (Auto) (20-40) % [place] % (Auto) (2-11) % Eos % (Auto) (0-4) % Baso % (Auto) (0-2) % Lymph # (Auto) (1.2-4.9) X10*3/uL [place] # (Auto) (0.1-1.2) X10*3/uL Eos # (Auto) (0.0-0.4) X10*3/uL Baso # (Auto) (0.0-0.2) X10*3/uL Abs Immat Gran (auto) (0.00-0.03) X10*3/uL Absolute Neuts (auto) (2.0-8.3) x10*3/uL Absolute Nucleated RBC (0.0-0.012) X10*3/uL Nucleated RBC % (auto) (0.0-0.2) /100WBC VBG pH 7.37 (7.32-7.43) VBG pCO2 32 mmHg VBG pO2 65 mmHg VBG HCO3 19 L (22-26) mmol/L VBG O2 Saturation 93.0 % VBG Base Excess -5.3 mmol/L Sodium (135-145) mmol/L Potassium (3.3-5.1) mmol/L Chloride (96-108) mmol/L Carbon Dioxide (22-29) mmol/L Anion Gap (12-20) BUN (9-16) mg/dL Creatinine (0.5-1.4) mg/dL Estim Creat Clear Calc Estimated GFR Random Glucose (60-115) mg/dL Lactic Acid (0.5-2.0) mmol/L Lactic Acid F/U @ 2Hr (0.5-2.0) mmol/L Calcium (8.4-10.2) mg/dL Magnesium (1.6-2.6) mg/dL Total Bilirubin (0.0-1.0) mg/dL AST (5-31) U/L ALT (0-31) U/L Alkaline Phosphatase (39-117) U/L Troponin I High Sens (<3.5-17.0) ng/L Total Protein (6.5-8.0) g/dL Albumin (3.5-5.0) g/dL Influenza Type A (PCR) (Negative) Influenza Type B (PCR) (Negative) RSV RNA Qual (PCR) (Negative) SARS-CoV-2 RNA (RT-PCR) (Negative) S. pyogenes GrpA RAYA (Negative) Independent Interpretation I performed an independent interpretation of an: EKG and Plain X-Ray (no pneumonia) Interpretation: Rate: 128 Rhythm: sinus tachycardia [place]: left Normal P waves. Normal CANDIE. Normal QRS complex. ST T wave : slight ST depressions V4-V6, no BILLY qTC: 481 prior studies: likely rate induced but slight depressions V4-V6. NO STEMI The study has been interpreted contemporaneously by me. . Radiology Impression Discussion of test interpretation with radiology: I have reviewed the radiologist's reading. External Record Review External record reviewed: Inpatient record Prescription Management I considered prescription management with: Antibiotic and Other Critical Care Time Critical Care Time Critical Care Time: Yes Total Critical Care Time: 60 Attestation: repeat IVF, albumin, sepsis protocol I attest to this time spent taking care of the patient Discharge Plan Discharge Clinical Impression: Bronchitis, Acute exacerbation of chronic obstructive pulmonary disease Patient Disposition: Admitted As Inpatient Print Language: Mexican
[2024-07-02 17:04] LABS: MANUAL DIFF FLAG NO
[2024-07-02 17:11] LABS: Basophils Percent Auto 0.3 % (0-2); Eosinophils Absolute Auto 0.1 X10*3/uL (0.0-0.4); Eosinophils Percent Auto 0.6 % (0-4); Hematocrit 40.2 % (37.0-47.0); Hemoglobin 13.1 g/dl (12.0-16.0); Imm Gran Abs Auto 0.09 X10*3/uL (0.00-0.03); Imm Gran Pct Auto 0.6 % (0.0-0.4); Lymphocytes Absolute Auto 1.1 X10*3/uL (1.2-4.9); Lymphocytes Percent Auto 7.2 % (20-40); Mean Corpuscular HGB Conc 32.6 g/dl (31.0-35.0); Mean Corpuscular Hemoglobin 28.7 pg (27.0-33.0); Mean Platelet Volume 10.2 fL (9.4-12.3); Monocytes Absolute Auto 0.9 X10*3/uL (0.1-1.2); Neutrophils Absolute Auto 12.9 x10*3/uL (2.0-8.3); Neutrophils Percent Auto 85.3 % (45-73); Platelet Count 307 X10*3/uL (160-400); Red Blood Count 4.57 X10*6/uL (4.20-5.50); Red Cell Distribution Width 12.7 % (11.0-16.0); White Blood Count 15.1 X10*3/uL (4.8-10.8)
[2024-07-02 17:15] LABS: IDNOW Serial# 58CA691E; Strep A Nucleic Acid Negative (Negative)
[2024-07-02 17:21] LABS: Alanine Aminotransferase 16 U/L (0-31); Albumin Level 4.4 g/dL (3.5-5.0); Alkaline Phosphatase 90 U/L (39-117); Anion Gap 14 (12-20); Aspartate Amino Transferase 17 U/L (5-31); Bilirubin Total 0.7 mg/dL (0.0-1.0); Blood Urea Nitrogen 15 mg/dL (9-16); Calcium 9.2 mg/dL (8.4-10.2); Carbon Dioxide 27 mmol/L (22-29); Chloride 107 mmol/L (96-108); Creatinine Clr Calc Pharmacy 62.5; Estimated Glomerular Filt Rate > 60; Glucose Random 123 mg/dL (60-115); Magnesium 1.8 mg/dL (1.6-2.6); Potassium 3.7 mmol/L (3.3-5.1); Sodium 144 mmol/L (135-145); Total Protein 7.8 g/dL (6.5-8.0)
[2024-07-02 17:45] LABS: Influenza A PCR NEGATIVE (Negative); Influenza B PCR NEGATIVE (Negative); Resp Syncy Virus RNA Qual PCR NEGATIVE (Negative); SARS COV2 PCR INHOUSE NEGATIVE (Negative)
[2024-07-02] MEDS: Albuterol Sulfate 5 MG, Albuterol/Iprat 2.5/0.5MG 3 ML 3 ML INHALE (18:36)
[2024-07-02] MEDS: Acetaminophen 325 MG TABLET 650 MG PO (18:57)
[2024-07-02] MEDS: predniSONE 20 MG TABLET 40 MG PO (18:58)
--- NOTE | 2024-07-02 19:14 | ECG_ITS ---
Test Reason : UPPER RES Blood Pressure : / mmHG Vent. Rate : 128 BPM Atrial Rate : 128 BPM P-R Int : 160 ms QRS Dur : 086 ms QT Int : 330 ms P-R-T Axes : 028 -14 061 degrees QTc Int : 481 ms Sinus tachycardia Cannot rule out Anterior infarct , age undetermined Abnormal ECG When compared with ECG of 26-DEC-2023 13:37, Vent. rate has increased BY 60 BPM Minimal criteria for Anterior infarct are now Present ST now depressed in Lateral leads Nonspecific T wave abnormality no longer evident in Anterior leads Referred By: Sultana Tyler Electronically Signed By:STEF CARBALLO
[2024-07-02] MEDS: cefTRIAXone sodium 1 GM in 0.9 % Sodium Chloride 50 ML IV (19:29)
--- NOTE | 2024-07-02 19:46 | PC.NURSE ---
called pharmacy spoke with Jono, will send flecanide to dept
[2024-07-02] MEDS: Flecainide Acetate 50 MG TABLET 100 MG PO (19:56)
[2024-07-02] MEDS: Magnesium Sulfate/H2O 2 GM/50 ML PIGGYBACK IV (19:58)
[2024-07-02 20:06] LABS: Lactic Acid 2.5 mmol/L (0.5-2.0)
[2024-07-02] MEDS: Albuterol/Iprat 2.5/0.5MG 3 ML AMPUL.NEB INHALE (20:20)
--- NOTE | 2024-07-02 20:49 | PC.NURSE ---
kit text sent to MD ORTIZ RE: 05/19 epigastric pain
[2024-07-02] MEDS: Azithromycin 500 MG in 0.9 % Sodium Chloride 250 ML 125 MG IV (20:58)
[2024-07-02] MEDS: Pantoprazole Sodium 40 MG/10 ML VIAL IVPUSH (21:09)
--- NOTE | 2024-07-02 21:23 | PHA.MEDREC ---
Addendum entered by Jono Ivey [facility] 07/02/24 21:46: MED REC CHECKED BY [facility] Original Note: Pharmacy Consult ? Medication Reconciliation Pharmacy has completed the medication reconciliation. Confirmed medications with patient and list brought home by her. 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 She confirmed she is taking Budesonide-Formoterol 1 puff BID, Levelalbuterol Tartrate 2 puffs Q6H and Omeprazole 20mg it just was not added on the list yet. The patient states she last took her medications this morning around 9am.
[2024-07-02 21:33] LABS: Reflex Lactate? Lactic Acid Added
[2024-07-02 22:41] LABS: Troponin-I High Sensitivity < 2.7 ng/L (<3.5-17.0)
[2024-07-02] MEDS: Albumin Human 25 % 100 ML 133.33 ML IV ×2 (22:49→23:56)
[2024-07-02] MEDS: Lactated Ringers 500 ML 999 ML IV (22:52)
[2024-07-02 23:17] LABS: VBG Base Excess -5.3 mmol/L; VBG HCO3 19 mmol/L (22-26); VBG pCO2 32 mmHg; VBG pH 7.37 (7.32-7.43); VBG pO2 65 mmHg
[2024-07-02 23:17] LABS: Venous Blood Gas Refer to POC result
[2024-07-02 23:31] LABS: ~Lactic Acid-LAB USE ONLY 4.3 mmol/L (0.5-2.0)
[2024-07-02 23:38] LABS: B Type Natriuretic Peptide 61 pg/mL (<100)
[2024-07-03] VITALS (12 sets, daily range): BP systolic 109–130; BP diastolic 48–63; PULSE 84–114; RESP 12–18; TEMP 36.4–37; O2SAT 94–97
[2024-07-03 01:12] LABS: Reflex Lactate? 2 Y
[2024-07-03 02:19] LABS: ~Lactic Acid-LAB USE ONLY 4.3 mmol/L (0.5-2.0)
[2024-07-03 04:17] LABS: Appearance Urine Clear; Color Urine Yellow; Glucose Urine UA Negative (Negative); Leukocyte Esterase Urine Moderate (2+) (Negative); Nitrite Urine Negative (Negative); PH 5.5 (5.0-9.0); Specific Gravity - Urine 1.015 (1.005-1.025); UMIC TRIGGER UACC YES; Urine Blood Moderate (2+) (Negative); Urine Ketones Negative (Negative); Urine Protein Negative (Neg-Trace)
[2024-07-03 04:31] LABS: Bacteria Urine None Seen (None Seen); Hyaline Casts Urine 0-2 /LPF (0-2); UACC Culture Trigger YES
--- NOTE | 2024-07-03 05:04 | P.HPHOSP_ITS ---
History of Present Illness Date of Service: 07/03/24 Chief Complaint: Dyspnea This is a 68-year-old female with pertinent history of COPD not on home oxygen, hypertension, mixed hyperlipidemia, atrial fibrillation on anticoagulation, gastroesophageal reflux disease who presents to the emergency department for evaluation of dyspnea. Patient states symptoms started 2 days prior to presentation. She has been having generalized body ache with easy fatigability. Also has been having sore throat, shortness of breath which is worse when she walks up stairs. This is associated with wheezing and cough with yellowish sputum production. Patient tried her home inhaler without any relief. No fever, chills, chest discomfort, palpitations, abdominal pain, changes in urinary or bowel habits. In the emergency department, patient with expiratory wheezing despite multiple DuoNeb treatments. Also found to be hypotensive which responded to IV crystalloids. Review of Systems 2 Constitutional: Constitutional: Reports fatigue, Reports malaise, Reports poor appetite and Reports weakness Cardiovascular: Cardiovascular: Reports dyspnea on exertion Respiratory: Respiratory: Reports cough, Reports dyspnea on exertion and Reports wheezing Gastrointestinal: Gastrointestinal: Reports no additional gastrointestinal complaints Genitourinary: Genitourinary: Reports no additional female genitourinary complaints Neurologic: Reports weakness Endocrine: Endocrine: Reports fatigue Allergic/Immunologic: Allergic/Immunologic: Reports wheezing [facility] Medical History Osteoporosis Paroxysmal atrial fibrillation Chronic anticoagulation Essential hypertension Dyslipidemia COPD (chronic obstructive pulmonary disease) Mild intermittent asthma with (acute) exacerbation Personal history of nicotine dependence Anemia Hiatal hernia with gastroesophageal reflux Irritable bowel syndrome with diarrhea Pancreatitis Hepatic hemangioma 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 Brother No problems noted. Brother No problems noted. Sister No problems noted. Sister Mental health disorder Sister Mental health disorder Daughter No problems noted. Daughter No problems noted. Daughter No problems noted. Surgical History History of cardioversion History of laparoscopic cholecystectomy History of colonoscopy History of esophagogastroduodenoscopy (EGD) History of lumpectomy of left breast History of hysteroscopy Social History Housing: House Alcohol intake: current Alcohol intake frequency: a few times a week Patient Tobacco Use Status: Former Tobacco user Years Smoked: 40 yrs Smoked in Last 30 Days: No e-Cigarette/Vaping Use: Never Used Advance Directives: No Advance Directives Information Provided: No Do you have a plan to hurt others: No Plan service: No Current occupational status: retired Cognitive needs: No Hearing needs: No Vision needs: Yes Meds Allergies Allergy/AdvReac Type Severity Reaction Status Date / Time Sulfa (Sulfonamide Allergy Intermediate FACIAL Verified 07/02/24 16:15 Antibiotics) SWELLING, [SULFA(SULFONAMIDE REDNESS, ANTIBIOTICS)] rash, face edema levofloxacin [From LEVAQUIN] Allergy Unknown itchy Verified 07/02/24 16:15 tongue Penicillins [PENICILLINS] Allergy Unknown RASH Verified 07/02/24 16:15 Quinolones [QUINOLONES] Allergy Unknown MOUTH Verified 07/02/24 16:15 ITCHING cefuroxime Allergy Unknown Verified 07/02/24 16:15 doxycycline Allergy Unknown Verified 07/02/24 16:15 ketorolac AdvReac Facial Uncoded 07/02/24 16:15 Swelling latex AdvReac Facial Uncoded 07/02/24 16:15 Swelling Active Medications: Current Medications Albuterol/Ipratropium (Albuterol/Iprat 2.5/0.5mg 3 Ml Ampul.Neb) 3 ml INHALE RQ4H WHILE AWAKE [facility] Last Admin: 07/02/24 20:20 Dose: 3 ml Albuterol/Ipratropium (Albuterol/Iprat 2.5/0.5mg 3 Ml Ampul.Neb) 3 ml INHALE Q4H PRN PRN Reason: Wheezing Azithromycin 500 mg/ Sodium (Chloride) 250 mls @ 125 mls/hr IV Q24H [facility] Last Infusion: 07/02/24 22:58 Dose: Infused Ceftriaxone Sodium 1 gm/ (Sodium Chloride) 50 mls @ 100 mls/hr IV Q24H [facility] Prednisone (Prednisone 20 Mg Tablet) 40 mg PO DAILY [facility] Home Medications ?Medication ?Instructions ?Recorded ?Confirmed ?Last Taken ?Type acetaminophen 650 mg 650 mg PO Q8H PRN pain 09/18/20 07/02/24 Unknown History tablet,extended release omeprazole 20 mg capsule,delayed 20 mg PO DAILY 05/19/23 07/02/24 07/02/24 09:00 History release ascorbic acid (vitamin C) 1,000 mg 1,000 mg PO DAILY 07/02/24 07/02/24 07/02/24 09:00 History tablet (Vitamin C) calcium carbonate 600 mg-vitamin 1 tab PO DAILY 07/02/24 07/02/24 07/02/24 09:00 History D3 20 mcg (800 unit) tablet (Caltrate with Vitamin D3) cholecalciferol (vitamin D3) 25 25 mcg PO DAILY 07/02/24 07/02/24 07/02/24 09:00 History mcg (1,000 unit) tablet (Vitamin D3) flecainide 100 mg tablet 100 mg PO BID 07/02/24 07/02/24 07/02/24 09:00 History lisinopril 20 mg tablet 30 mg PO DAILY 07/02/24 07/02/24 07/02/24 09:00 History multivitamin-ferrous 1 tab PO DAILY 07/02/24 07/02/24 07/02/24 09:00 History fumarate-folic acid 18 mg-400 mcg tablet (Centrum Women) raloxifene 60 mg tablet 60 mg PO DAILY 07/02/24 07/02/24 07/02/24 09:00 History Physical Exam 2 Vital Signs and Narrative: Vital Signs: Last Vital Signs Temp 98.6 F 07/03/24 04:02 Pulse 97 07/03/24 04:02 Resp 12 07/03/24 04:02 BP 121/62 07/03/24 04:02 Pulse Ox 97 07/03/24 04:02 O2 Del Method Room Air 07/03/24 04:02 BMI result Body Mass Index 30.8 Middle-aged female lying in bed in no distress Neck supple, no JVD Irregularly irregular, S1-S2 heard Bilateral wheezing appreciated Abdomen soft nontender, no guarding, no rigidity Patient is awake, alert and oriented to self, place, time and person ; no focal motor deficit Psych: Normal mood No pedal edema Results Labs 07/02/24 16:55 07/02/24 16:55 Labs: Laboratory Results - last 24 hr 07/02/24 07/02/24 07/02/24 16:55 19:29 23:07 MCV 88.0 MCH 28.7 MCHC 32.6 RDW 12.7 Plt Count 307 MPV 10.2 Immature Gran % (Auto) 0.6 H Neut % (Auto) 85.3 H Lymph % (Auto) 7.2 L [place] % (Auto) 6.0 Eos % (Auto) 0.6 Baso % (Auto) 0.3 Lymph # (Auto) 1.1 L [place] # (Auto) 0.9 Eos # (Auto) 0.1 Baso # (Auto) 0.0 Abs Immat Gran (auto) 0.09 H Absolute Neuts (auto) 12.9 H Absolute Nucleated RBC 0.000 Nucleated RBC % (auto) 0.0 VBG pH VBG pCO2 VBG pO2 VBG HCO3 VBG O2 Saturation VBG Base Excess Anion Gap 14 Estim Creat Clear Calc 62.5 Estimated GFR > 60 Random Glucose 123 H Lactic Acid 2.5 H* Lactic Acid F/U @ 2Hr 4.3 H* Lactic Acid F/U @ 4Hr Calcium 9.2 Magnesium 1.8 Total Bilirubin 0.7 AST 17 ALT 16 Alkaline Phosphatase 90 Troponin I High Sens < 2.7 B-Natriuretic Peptide 61 Total Protein 7.8 Albumin 4.4 Urine Color Urine Appearance Urine pH Ur Specific [place] Urine Protein Urine Glucose (UA) Urine Ketones Urine Blood Urine Nitrite Ur Leukocyte Esterase Urine RBC Urine WBC Ur Squamous Epith Cells Urine Bacteria Hyaline Casts Influenza Type A (PCR) NEGATIVE Influenza Type B (PCR) NEGATIVE RSV RNA Qual (PCR) NEGATIVE SARS-CoV-2 RNA (RT-PCR) NEGATIVE S. pyogenes GrpA RAYA Negative 07/02/24 07/03/24 07/03/24 23:12 01:26 04:12 MCV MCH MCHC RDW Plt Count MPV Immature Gran % (Auto) Neut % (Auto) Lymph % (Auto) [place] % (Auto) Eos % (Auto) Baso % (Auto) Lymph # (Auto) [place] # (Auto) Eos # (Auto) Baso # (Auto) Abs Immat Gran (auto) Absolute Neuts (auto) Absolute Nucleated RBC Nucleated RBC % (auto) VBG pH 7.37 VBG pCO2 32 VBG pO2 65 VBG HCO3 19 L VBG O2 Saturation 93.0 VBG Base Excess -5.3 Anion Gap Estim Creat Clear Calc Estimated GFR Random Glucose Lactic Acid Lactic Acid F/U @ 2Hr Lactic Acid F/U @ 4Hr 4.3 H* Calcium Magnesium Total Bilirubin AST ALT Alkaline Phosphatase Troponin I High Sens B-Natriuretic Peptide Total Protein Albumin Urine Color Yellow Urine Appearance Clear Urine pH 5.5 Ur Specific [place] 1.015 Urine Protein Negative Urine Glucose (UA) Negative Urine Ketones Negative Urine Blood Moderate (2+) H Urine Nitrite Negative Ur Leukocyte Esterase Moderate (2+) H Urine RBC 3-5 H Urine WBC 6-10 Ur Squamous Epith Cells 3-5 Urine Bacteria None Seen Hyaline Casts 0-2 Influenza Type A (PCR) Influenza Type B (PCR) RSV RNA Qual (PCR) SARS-CoV-2 RNA (RT-PCR) S. pyogenes GrpA RAYA Imaging Radiologist's Impressions: Impressions Chest X-Ray 07/02/24 16:16 IMPRESSION: Unremarkable examination. Electronically signed by: Joao Bermudez MD 07/02/2024 06:25 PM EDT RP Chest CT 07/02/24 21:27 IMPRESSION: 1. Mild central peribronchial wall thickening as may be seen with small airways inflammation. 2. No focal consolidative process. No additional acute pulmonary abnormalities. Electronically signed by: Rd Garcia DO 07/03/2024 01:41 AM EDT RP Assessment and Plan (1) Acute exacerbation of chronic obstructive pulmonary disease: Status: Acute Plan This is a 68-year-old female with pertinent history of COPD not on home oxygen, hypertension, mixed hyperlipidemia, paroxysmal atrial fibrillation on anticoagulation, gastroesophageal reflux disease who presents to the emergency department for evaluation of dyspnea. #. Acute exacerbation of COPD with severe sepsis: Will admit patient and initiate systemic steroids. Scheduled and p.r.n. DuoNebs. Continue home inhaler. Initiating azithromycin for pleiotropic effect #. Acute lactic acidosis in the setting of sepsis and albuterol use #. Paroxysmal atrial fibrillation: Continue flecainide, beta-emelina and Xarelto #. Mixed hyperlipidemia: On statin #. Gastroesophageal reflux disease: On PPI Med rec pending DVT prophylaxis: Xarelto Full code Quality Stroke Does the patient have a stroke diagnosis?: No VTE Prior VTE?: No VTE Risk Level:: Medical - moderate - high VTE Device Contraindication: Treatment Not Indicated VTE Drug Contraindication: N/A - Med Ordered
[2024-07-03] MEDS: Albuterol/Iprat 2.5/0.5MG 3 ML AMPUL.NEB INHALE ×4 (07:38→20:23)
[2024-07-03] MEDS: predniSONE 20 MG TABLET 40 MG PO (08:07)
[2024-07-03] MEDS: Acetaminophen 325 MG TABLET 650 MG PO (08:07)
[2024-07-03] MEDS: 0.9 % Sodium Chloride Flush 3 ML SYRINGE IVFLUSH ×2 (08:07→15:51)
--- NOTE | 2024-07-03 08:14 | PC.NURSE ---
Care of Pt assumed at change of shift. Pt is A&OX3, VSS, and denies pain. Pt eat breakfast without complication. Seen by RT for treatment. PRN Tylenol given for c/o KHAN. 20g to bilat AC flushed--both sites patent, intact, and asymptomatic.
[2024-07-03 09:32] LABS: MANUAL DIFF FLAG NO
[2024-07-03 09:34] LABS: Basophils Percent Auto 0.1 % (0-2); Hematocrit 28.5 % (37.0-47.0); Hemoglobin 9.5 g/dl (12.0-16.0); Imm Gran Abs Auto 0.13 X10*3/uL (0.00-0.03); Imm Gran Pct Auto 0.9 % (0.0-0.4); Lymphocytes Absolute Auto 0.8 X10*3/uL (1.2-4.9); Lymphocytes Percent Auto 6.1 % (20-40); Mean Corpuscular HGB Conc 33.3 g/dl (31.0-35.0); Mean Corpuscular Hemoglobin 29.3 pg (27.0-33.0); Mean Platelet Volume 9.9 fL (9.4-12.3); Monocytes Absolute Auto 0.7 X10*3/uL (0.1-1.2); Monocytes Percent Auto 4.9 % (2-11); Neutrophils Absolute Auto 12.1 x10*3/uL (2.0-8.3); Platelet Count 204 X10*3/uL (160-400); Red Blood Count 3.24 X10*6/uL (4.20-5.50); Red Cell Distribution Width 13.2 % (11.0-16.0); White Blood Count 13.8 X10*3/uL (4.8-10.8)
[2024-07-03 09:47] LABS: Anion Gap 11 (12-20); Blood Urea Nitrogen 11 mg/dL (9-16); Calcium 8.3 mg/dL (8.4-10.2); Carbon Dioxide 23 mmol/L (22-29); Chloride 114 mmol/L (96-108); Estimated Glomerular Filt Rate > 60; Glucose Random 144 mg/dL (60-115); Potassium 3.5 mmol/L (3.3-5.1); Sodium 144 mmol/L (135-145)
[2024-07-03] MEDS: Azithromycin 500 MG in 0.9 % Sodium Chloride 250 ML 125 MG IV (21:54)
[2024-07-03] MEDS: Atorvastatin Calcium 10 MG TABLET PO (21:54)
[2024-07-03] MEDS: Rivaroxaban 20 MG TABLET PO (22:20)
[2024-07-03] MEDS: Flecainide Acetate 50 MG TABLET 100 MG PO (22:20)
[2024-07-04] VITALS (13 sets, daily range): BP systolic 120–171; BP diastolic 65–89; PULSE 80–108; RESP 12–21; TEMP 36–37.1; O2SAT 95–98; BMI 30.9
[2024-07-04 05:26] LABS: Hematocrit 29.5 % (37.0-47.0); Hemoglobin 9.5 g/dl (12.0-16.0); Mean Corpuscular HGB Conc 32.2 g/dl (31.0-35.0); Mean Corpuscular Volume 89.9 fL (80.0-98.0); Mean Platelet Volume 10.3 fL (9.4-12.3); Platelet Count 227 X10*3/uL (160-400); Red Blood Count 3.28 X10*6/uL (4.20-5.50); Red Cell Distribution Width 13.4 % (11.0-16.0); White Blood Count 14.6 X10*3/uL (4.8-10.8)
[2024-07-04 05:35] LABS: Anion Gap 10 (12-20); Blood Urea Nitrogen 12 mg/dL (9-16); Calcium 8.3 mg/dL (8.4-10.2); Carbon Dioxide 23 mmol/L (22-29); Chloride 113 mmol/L (96-108); Creatinine Clr Calc Pharmacy 71.8; Estimated Glomerular Filt Rate > 60; Glucose Fasting 100 mg/dL (60-99); Potassium 3.4 mmol/L (3.3-5.1); Sodium 143 mmol/L (135-145)
[2024-07-04] MEDS: Omeprazole 20 MG CAPSULE.DR PO (06:37)
[2024-07-04] MEDS: Albuterol/Iprat 2.5/0.5MG 3 ML AMPUL.NEB INHALE ×4 (07:00→20:21)
[2024-07-04] MEDS: Calcium + Vitamin D 250 MG TABLET PO (08:39)
[2024-07-04] MEDS: Metoprolol Succinate ER 50 MG TAB.ER.24H PO (08:40)
[2024-07-04] MEDS: Multivitamin TABLET 1 TAB PO (08:40)
[2024-07-04] MEDS: predniSONE 20 MG TABLET 40 MG PO (08:40)
[2024-07-04] MEDS: Ascorbic Acid 500 MG TABLET 1000 MG PO (08:40)
[2024-07-04] MEDS: Cholecalciferol (Vitamin D3) 25 MCG TABLET PO (08:41)
[2024-07-04] MEDS: 0.9 % Sodium Chloride Flush 3 ML SYRINGE IVFLUSH ×3 (08:42→22:32)
[2024-07-04] MEDS: Fluticasone/Vilanterol 200/25 BLST.W.DEV 1 PUFF INHALE (09:17)
--- NOTE | 2024-07-04 09:34 | HO.PM.IMPN ---
Subjective Subjective Date of Service: 07/04/24 Interval History: Still short of breath Physical Exam Vital Signs: Vital Signs: Last Vital Signs Temp 98.3 F 07/04/24 06:31 Pulse 92 07/04/24 09:17 Resp 17 07/04/24 09:17 BP 171/89 H 07/04/24 08:40 Pulse Ox 98 07/04/24 06:31 O2 Del Method Room Air 07/04/24 06:31 BMI result Body Mass Index 30.8 General: AO X 3, no acute distress Resp: Poor air entry, wheezing bilateral, no accessory muscles used CVS: S1,S2,RRR GI: soft, non tender, non distended Neuro: motor grossly intact, alert Psych: appropriate affect, appropriate insight Objective Data Active Medications Acetaminophen (Acetaminophen 325 Mg Tablet) 650 mg PO Q6H PRN PRN Reason: Pain, Mild (Pain Scale 1-3), fever or headache Last Admin: 07/03/24 08:07 Dose: 650 mg Documented By: DAGOBERTO Albuterol/Ipratropium (Albuterol/Iprat 2.5/0.5mg 3 Ml Ampul.Neb) 3 ml INHALE RQ4H WHILE AWAKE [facility] Last Admin: 07/04/24 07:00 Dose: 3 ml Documented By: LUCIUS Albuterol/Ipratropium (Albuterol/Iprat 2.5/0.5mg 3 Ml Ampul.Neb) 3 ml INHALE Q4H PRN PRN Reason: Wheezing Ascorbic Acid (Ascorbic Acid 500 Mg Tablet) 1,000 mg PO DAILY [facility] Last Admin: 07/04/24 08:40 Dose: 1,000 mg Documented By: ALICIA Atorvastatin Calcium (Atorvastatin Calcium 10 Mg Tablet) 10 mg PO BEDTIME [facility] Last Admin: 07/03/24 21:54 Dose: 10 mg Documented By: YANICK Calcium Carbonate (Calcium Carbonate 750 Mg Tab.Chew) 750 mg PO Q4H PRN PRN Reason: Heartburn Calcium Carbonate/Cholecalciferol (Calcium + Vitamin D 250 Mg Tablet) 250 mg PO DAILY [facility] Last Admin: 07/04/24 08:39 Dose: 250 mg Documented By: ALICIA Flecainide Acetate (Flecainide Acetate 50 Mg Tablet) 100 mg PO BID [facility] Last Admin: 07/03/24 22:20 Dose: 100 mg Documented By: YANICK Fluticasone/Vilanterol (Fluticasone/Vilanterol 200/25 Blst.W.Dev) 1 puff INHALE RDAILY [facility] Last Admin: 07/04/24 09:17 Dose: 1 puff Documented By: LUCIUS Azithromycin 500 mg/ Sodium (Chloride) 250 mls @ 125 mls/hr IV Q24H [facility] Last Infusion: 07/03/24 23:55 Dose: Infused Documented By: YANICK Lisinopril (Lisinopril 10 Mg Tablet) 30 mg PO DAILY [facility]; Protocol Magnesium Hydroxide (Milk Of Magnesia 30 Ml Oral.Susp) 30 ml PO DAILY PRN PRN Reason: Constipation Melatonin (Melatonin 3 Mg Tablet) 6 mg PO BEDTIME PRN PRN Reason: Insomnia Metoprolol Succinate (Metoprolol Succinate Er 50 Mg Tab.Er.24h) 50 mg PO DAILY [facility]; Protocol Last Admin: 07/04/24 08:40 Dose: 50 mg Documented By: ALICIA Multivitamins/Vitamin C (Multivitamin Tablet) 1 tab PO DAILY [facility] Last Admin: 07/04/24 08:40 Dose: 1 tab Documented By: ALICIA Omeprazole (Omeprazole 20 Mg Capsule.Dr) 20 mg PO DAILY@0630 [facility] Last Admin: 07/04/24 06:37 Dose: 20 mg Documented By: YANICK Ondansetron HCl (Ondansetron Hcl 4 Mg/2 Ml Vial) 4 mg IVPUSH Q8H PRN PRN Reason: Nausea and Vomiting Prednisone (Prednisone 20 Mg Tablet) 40 mg PO DAILY [facility] Last Admin: 07/04/24 08:40 Dose: 40 mg Documented By: ALICIA Rivaroxaban (Rivaroxaban 20 Mg Tablet) 20 mg PO DAILY@1700 [facility] Sodium Chloride (0.9 % Sodium Chloride Flush 3 Ml Syringe) 3 ml IVFLUSH QSHIFT [facility] Last Admin: 07/04/24 08:42 Dose: 3 ml Documented By: ALICIA Vitamin D (Cholecalciferol (Vitamin D3) 25 Mcg Tablet) 25 mcg PO DAILY [facility] Last Admin: 07/04/24 08:41 Dose: 25 mcg Documented By: ALICIA Labs 07/04/24 05:12 07/04/24 05:12 Labs: Laboratory Results - last 24 hr 07/03/24 07/04/24 09:28 05:12 MCV 88.0 89.9 MCH 29.3 29.0 MCHC 33.3 32.2 RDW 13.2 13.4 Plt Count 204 D 227 MPV 9.9 10.3 Immature Gran % (Auto) 0.9 H Neut % (Auto) 88.0 H Lymph % (Auto) 6.1 L [place] % (Auto) 4.9 Eos % (Auto) 0.0 Baso % (Auto) 0.1 Lymph # (Auto) 0.8 L [place] # (Auto) 0.7 Eos # (Auto) 0.0 Baso # (Auto) 0.0 Abs Immat Gran (auto) 0.13 H Absolute Neuts (auto) 12.1 H Absolute Nucleated RBC 0.000 0.000 Nucleated RBC % (auto) 0.0 0.0 Anion Gap 11 L 10 L Estim Creat Clear Calc 74.0 71.8 Estimated GFR > 60 > 60 Random Glucose 144 H Fasting Glucose 100 H Calcium 8.3 L D 8.3 L Microbiology Microbiology Results: Microbiology 07/02/24 19:29 Blood Culture - Preliminary Blood - Venous No growth after 24 hours. 07/02/24 19:29 Blood Culture - Preliminary Blood - Venous No growth after 24 hours. Assessment and Plan (1) Acute exacerbation of chronic obstructive pulmonary disease: Status: Acute Plan 68F PMH COPD, hypertension, hyperlipidemia, paroxysmal atrial fibrillation, GERD presented with shortness of breath Sepsis due to COPD with acute decompensation Continue steroids and bronchodilators Paroxysmal atrial fibrillation with rapid ventricular response Flecainide, Xarelto, Toprol Hyperlipidemia Statin GERD Continue PPI DVT prophylaxis on Xarelto Full code reason for continued hospitalization: Ongoing wheezing and shortness of breath Quality Stroke Does the patient have a stroke diagnosis?: No VTE Prior VTE?: No VTE Risk Level:: Medical - moderate - high VTE Device Contraindication: Treatment Not Indicated VTE Drug Contraindication: N/A - Med Ordered
[2024-07-04] MEDS: lisinopriL 10 MG TABLET 30 MG PO (09:52)
[2024-07-04] MEDS: Flecainide Acetate 50 MG TABLET 100 MG PO ×2 (09:52→19:41)
--- NOTE | 2024-07-04 12:33 | MHC.CM.PN ---
PT REPORTS SHE LIVES WITH HER AND IS INDEPENDENT WITH CARE SHE HAS A NEBULIZER SHE USES PRN SHE HAS A HCP ON FILE PCP: DARLENE MINAYA IMM DELIVERED DCP: HOME NO SERVICES VIA PRIVATE TRANSPORT
[2024-07-04] MEDS: Acetaminophen 325 MG TABLET 650 MG PO (13:51)
[2024-07-04] MEDS: guaiFENesin DM 200/20/10 ML 10 ML SYRUP PO ×2 (13:52→23:33)
[2024-07-04] MEDS: Flu Vacc TS2024-25(6mos up)/PF 0.5 ML SYRINGE IM (17:36)
[2024-07-04] MEDS: Rivaroxaban 20 MG TABLET PO (17:50)
--- NOTE | 2024-07-04 18:30 | PC.NURSE ---
Flu vaccine was given today, patient consented and information including flu vaccine sheet were given to the patient. Pt. stated after the flu vaccine was administered that, 2 years her whole arm was swollen after the flu vaccine was given. Daughter at bedside, both laughing stated that it just happened once.
[2024-07-04] MEDS: Atorvastatin Calcium 10 MG TABLET PO (19:42)
[2024-07-04] MEDS: Azithromycin 500 MG in 0.9 % Sodium Chloride 250 ML 125 MG IV (19:46)
[2024-07-05] VITALS (8 sets, daily range): BP systolic 142–166; BP diastolic 70–81; PULSE 71–85; RESP 15–18; TEMP 36.3–36.5; O2SAT 95–99
[2024-07-05] MEDS: Omeprazole 20 MG CAPSULE.DR PO (06:04)
[2024-07-05 06:47] LABS: Anion Gap 9 (12-20); Blood Urea Nitrogen 15 mg/dL (9-16); Calcium 8.5 mg/dL (8.4-10.2); Carbon Dioxide 24 mmol/L (22-29); Chloride 111 mmol/L (96-108); Creatinine Clr Calc Pharmacy 70.9; Estimated Glomerular Filt Rate > 60; Glucose Fasting 89 mg/dL (60-99); Magnesium 2.3 mg/dL (1.6-2.6); Potassium 3.4 mmol/L (3.3-5.1); Sodium 141 mmol/L (135-145)
[2024-07-05 07:09] LABS: Hematocrit 30.4 % (37.0-47.0); Hemoglobin 9.8 g/dl (12.0-16.0); Mean Corpuscular HGB Conc 32.2 g/dl (31.0-35.0); Mean Corpuscular Hemoglobin 28.8 pg (27.0-33.0); Mean Corpuscular Volume 89.4 fL (80.0-98.0); Mean Platelet Volume 10.8 fL (9.4-12.3); Platelet Count 227 X10*3/uL (160-400); Red Cell Distribution Width 13.5 % (11.0-16.0); White Blood Count 12.2 X10*3/uL (4.8-10.8)
[2024-07-05] MEDS: Flecainide Acetate 50 MG TABLET 100 MG PO ×2 (08:19→21:45)
[2024-07-05] MEDS: Cholecalciferol (Vitamin D3) 25 MCG TABLET PO (08:19)
[2024-07-05] MEDS: predniSONE 20 MG TABLET 40 MG PO (08:19)
[2024-07-05] MEDS: Calcium + Vitamin D 250 MG TABLET PO (08:20)
[2024-07-05] MEDS: lisinopriL 10 MG TABLET 30 MG PO (08:20)
[2024-07-05] MEDS: Metoprolol Succinate ER 50 MG TAB.ER.24H PO (08:23)
[2024-07-05] MEDS: Ascorbic Acid 500 MG TABLET 1000 MG PO (08:23)
[2024-07-05] MEDS: Multivitamin TABLET 1 TAB PO (08:23)
[2024-07-05] MEDS: 0.9 % Sodium Chloride Flush 3 ML SYRINGE IVFLUSH ×3 (08:24→23:52)
[2024-07-05] MEDS: guaiFENesin DM 200/20/10 ML 10 ML SYRUP PO ×3 (08:35→23:44)
[2024-07-05] MEDS: Acetaminophen 325 MG TABLET 650 MG PO ×2 (08:35→15:40)
[2024-07-05] MEDS: Albuterol/Iprat 2.5/0.5MG 3 ML AMPUL.NEB INHALE ×3 (08:37→19:36)
--- NOTE | 2024-07-05 09:24 | HO.PM.IMPN ---
Subjective Subjective Date of Service: 07/05/24 Interval History: sob, wheezing Physical Exam Vital Signs: Vital Signs: Last Vital Signs Temp 97.3 F 07/05/24 08:09 Pulse 84 07/05/24 08:39 Resp 15 07/05/24 08:39 BP 163/81 H 07/05/24 08:20 Pulse Ox 97 07/05/24 08:09 O2 Del Method Room Air 07/05/24 08:09 BMI result Body Mass Index 30.9 General: AO X 3, no acute distress Resp: Poor air entry, wheezing bilateral, no accessory muscles used CVS: S1,S2,RRR GI: soft, non tender, non distended Neuro: motor grossly intact, alert Psych: appropriate affect, appropriate insight Objective Data Active Medications Acetaminophen (Acetaminophen 325 Mg Tablet) 650 mg PO Q6H PRN PRN Reason: Pain, Mild (Pain Scale 1-3), fever or headache Last Admin: 07/05/24 08:35 Dose: 650 mg Documented By: SANDRITA Albuterol/Ipratropium (Albuterol/Iprat 2.5/0.5mg 3 Ml Ampul.Neb) 3 ml INHALE RQ4H WHILE AWAKE [facility] Last Admin: 07/05/24 08:37 Dose: 3 ml Documented By: ALEX Albuterol/Ipratropium (Albuterol/Iprat 2.5/0.5mg 3 Ml Ampul.Neb) 3 ml INHALE Q4H PRN PRN Reason: Wheezing Ascorbic Acid (Ascorbic Acid 500 Mg Tablet) 1,000 mg PO DAILY [facility] Last Admin: 07/05/24 08:23 Dose: 1,000 mg Documented By: SANDRITA Atorvastatin Calcium (Atorvastatin Calcium 10 Mg Tablet) 10 mg PO BEDTIME [facility] Last Admin: 07/04/24 19:42 Dose: 10 mg Documented By: NEGRA Calcium Carbonate (Calcium Carbonate 750 Mg Tab.Chew) 750 mg PO Q4H PRN PRN Reason: Heartburn Calcium Carbonate/Cholecalciferol (Calcium + Vitamin D 250 Mg Tablet) 250 mg PO DAILY [facility] Last Admin: 07/05/24 08:20 Dose: 250 mg Documented By: SANDRITA Flecainide Acetate (Flecainide Acetate 50 Mg Tablet) 100 mg PO BID [facility] Last Admin: 09/26/24 08:19 Dose: 100 mg Documented By: SANDRITA Fluticasone/Vilanterol (Fluticasone/Vilanterol 200/25 Blst.W.Dev) 1 puff INHALE RDAILY [facility] Last Admin: 07/04/24 09:17 Dose: 1 puff Documented By: LUCIUS Guaifenesin/Dextromethorphan (Guaifenesin Dm 200/20/10 Ml 10 Ml Syrup) 10 ml PO Q4H PRN PRN Reason: Cough Last Admin: 07/05/24 08:35 Dose: 10 ml Documented By: SANDRITA Azithromycin 500 mg/ Sodium (Chloride) 250 mls @ 125 mls/hr IV Q24H [facility] Last Infusion: 07/04/24 22:01 Dose: Infused Documented By: NEGRA Lisinopril (Lisinopril 10 Mg Tablet) 30 mg PO DAILY [facility]; Protocol Last Admin: 07/05/24 08:20 Dose: 30 mg Documented By: SANDRITA Magnesium Hydroxide (Milk Of Magnesia 30 Ml Oral.Susp) 30 ml PO DAILY PRN PRN Reason: Constipation Melatonin (Melatonin 3 Mg Tablet) 6 mg PO BEDTIME PRN PRN Reason: Insomnia Metoprolol Succinate (Metoprolol Succinate Er 50 Mg Tab.Er.24h) 50 mg PO DAILY [facility]; Protocol Last Admin: 07/05/24 08:23 Dose: 50 mg Documented By: SANDRITA Multivitamins/Vitamin C (Multivitamin Tablet) 1 tab PO DAILY [facility] Last Admin: 07/05/24 08:23 Dose: 1 tab Documented By: SANDRITA Omeprazole (Omeprazole 20 Mg Capsule.Dr) 20 mg PO DAILY@0630 [facility] Last Admin: 07/05/24 06:04 Dose: 20 mg Documented By: NEGRA Ondansetron HCl (Ondansetron Hcl 4 Mg/2 Ml Vial) 4 mg IVPUSH Q8H PRN PRN Reason: Nausea and Vomiting Prednisone (Prednisone 20 Mg Tablet) 40 mg PO DAILY [facility] Last Admin: 07/05/24 08:19 Dose: 40 mg Documented By: SANDRITA Rivaroxaban (Rivaroxaban 20 Mg Tablet) 20 mg PO DAILY@1700 [facility] Last Admin: 07/04/24 17:50 Dose: 20 mg Documented By: HO.MOHAMER Sodium Chloride (0.9 % Sodium Chloride Flush 3 Ml Syringe) 3 ml IVFLUSH QSHIFT [facility] Last Admin: 07/05/24 08:24 Dose: 3 ml Documented By: SANDRITA Vitamin D (Cholecalciferol (Vitamin D3) 25 Mcg Tablet) 25 mcg PO DAILY [facility] Last Admin: 07/05/24 08:19 Dose: 25 mcg Documented By: SANDRITA Labs 07/05/24 05:18 07/05/24 05:18 Labs: Laboratory Results - last 24 hr 07/05/24 05:18 MCV 89.4 MCH 28.8 MCHC 32.2 RDW 13.5 Plt Count 227 MPV 10.8 Absolute Nucleated RBC 0.000 Nucleated RBC % (auto) 0.0 Anion Gap 9 L Estim Creat Clear Calc 70.9 Estimated GFR > 60 Fasting Glucose 89 Calcium 8.5 Magnesium 2.3 Microbiology Microbiology Results: Microbiology 07/02/24 19:29 Blood Culture - Preliminary Blood - Venous No growth after 48 hours. 07/02/24 19:29 Blood Culture - Preliminary Blood - Venous No growth after 48 hours. 07/03/24 Unknown Urine Culture - Final Urine clean catch - Clean Catch Midstream Assessment and Plan (1) Acute exacerbation of chronic obstructive pulmonary disease: Status: Acute Plan 68F PMH COPD, hypertension, hyperlipidemia, paroxysmal atrial fibrillation, GERD presented with shortness of breath Sepsis due to COPD with acute decompensation Continue steroids and bronchodilators Paroxysmal atrial fibrillation with rapid ventricular response Flecainide, Xarelto, Toprol now controlled Hyperlipidemia Statin GERD Continue PPI DVT prophylaxis on Xarelto Full code reason for continued hospitalization: Ongoing wheezing and shortness of breath Quality Stroke Does the patient have a stroke diagnosis?: No VTE Prior VTE?: No VTE Risk Level:: Medical - moderate - high VTE Device Contraindication: Treatment Not Indicated VTE Drug Contraindication: N/A - Med Ordered
[2024-07-05] MEDS: Fluticasone/Vilanterol 200/25 BLST.W.DEV 1 PUFF INHALE (16:17)
[2024-07-05] MEDS: Rivaroxaban 20 MG TABLET PO (16:50)
[2024-07-05] MEDS: Azithromycin 500 MG in 0.9 % Sodium Chloride 250 ML 125 MG IV (19:22)
[2024-07-05] MEDS: Atorvastatin Calcium 10 MG TABLET PO (21:45)
[2024-07-05] MEDS: Melatonin 3 MG TABLET 6 MG PO (23:44)
[2024-07-06 03:06] VITALS: BP 160/80; PULSE 77; RESP 16; TEMP 36.7; O2SAT 97
[2024-07-06 05:57] LABS: Hemoglobin 9.9 g/dl (12.0-16.0); Mean Corpuscular Hemoglobin 29.2 pg (27.0-33.0); Mean Corpuscular Volume 88.5 fL (80.0-98.0); Mean Platelet Volume 10.2 fL (9.4-12.3); Platelet Count 232 X10*3/uL (160-400); Red Blood Count 3.39 X10*6/uL (4.20-5.50); Red Cell Distribution Width 13.2 % (11.0-16.0); White Blood Count 10.5 X10*3/uL (4.8-10.8)
[2024-07-06 05:58] LABS: Anion Gap 13 (12-20); Blood Urea Nitrogen 13 mg/dL (9-16); Calcium 8.6 mg/dL (8.4-10.2); Carbon Dioxide 25 mmol/L (22-29); Chloride 108 mmol/L (96-108); Creatinine Clr Calc Pharmacy 73.1; Estimated Glomerular Filt Rate > 60; Glucose Fasting 92 mg/dL (60-99); Potassium 3.7 mmol/L (3.3-5.1); Sodium 142 mmol/L (135-145)
[2024-07-06] MEDS: Metoprolol Succinate ER 50 MG TAB.ER.24H PO (07:29)
[2024-07-06] MEDS: predniSONE 20 MG TABLET 40 MG PO (07:30)
[2024-07-06] MEDS: lisinopriL 10 MG TABLET 30 MG PO (07:30)
[2024-07-06] MEDS: Omeprazole 20 MG CAPSULE.DR PO (07:31)
[2024-07-06] MEDS: 0.9 % Sodium Chloride Flush 3 ML SYRINGE IVFLUSH (07:31)
[2024-07-06] MEDS: Multivitamin TABLET 1 TAB PO (07:31)
[2024-07-06] MEDS: Ascorbic Acid 500 MG TABLET 1000 MG PO (07:31)
[2024-07-06] MEDS: Calcium + Vitamin D 250 MG TABLET PO (07:31)
[2024-07-06] MEDS: Flecainide Acetate 50 MG TABLET 100 MG PO (07:31)
[2024-07-06] MEDS: Cholecalciferol (Vitamin D3) 25 MCG TABLET PO (07:31)
[2024-07-06 07:47] VITALS: BP 217/92; PULSE 64; RESP 18; TEMP 36.8; O2SAT 96
[2024-07-06 08:24] VITALS: PULSE 81; RESP 15; O2SAT 96
[2024-07-06] MEDS: Albuterol/Iprat 2.5/0.5MG 3 ML AMPUL.NEB INHALE (08:24)
[2024-07-06] MEDS: Fluticasone/Vilanterol 200/25 BLST.W.DEV 1 PUFF INHALE (08:24)
[2024-07-06 08:51] VITALS: BP 170/84; PULSE 79
--- NOTE | 2024-07-06 09:41 | PM.DS ---
DS: Providers Provider Date of Service: 07/06/24 Date of admission: 07/03/24 11:20 Date of discharge: 07/06/24 Primary care physician: Flores Osullivan MD DS: Diagnosis Discharge Diagnosis (1) Acute exacerbation of chronic obstructive pulmonary disease: Status: Acute DS: Summary Hospital Course Hospital Course: from initial hpi: 68-year-old female with pertinent history of COPD not on home oxygen, hypertension, mixed hyperlipidemia, atrial fibrillation on anticoagulation, gastroesophageal reflux disease who presents to the emergency department for evaluation of dyspnea. Patient states symptoms started 2 days prior to presentation. She has been having generalized body ache with easy fatigability. Also has been having sore throat, shortness of breath which is worse when she walks up stairs. This is associated with wheezing and cough with yellowish sputum production. Patient tried her home inhaler without any relief. No fever, chills, chest discomfort, palpitations, abdominal pain, changes in urinary or bowel habits. In the emergency department, patient with expiratory wheezing despite multiple DuoNeb treatments. Also found to be hypotensive which responded to IV crystalloids. hospital course: Patient was admitted for sepsis due to COPD with acute decompensation. She was treated with steroids, azithromycin, and bronchodilators and shortness of breath and wheezing improved. She will be discharged home on 5 more days of prednisone. For paroxysmal atrial fibrillation with rapid ventricular response she was continued on flecainide, Xarelto, metoprolol and is now better controlled. For hyperlipidemia was continue statin. For GERD was continued on PPI. Time Attestation Discharge Coordination Time (in mins): 35 Quality: Safe Use of Opioids Does Pt have an Active Cancer Diagnosis on the Problem List?: No Quality: Stroke Does the patient have a stroke diagnosis?: No Physical Exam Vital Signs: Vital Signs: Last Vital Signs Temp 98.2 F 07/06/24 07:47 Pulse 79 07/06/24 08:51 Resp 15 07/06/24 08:24 BP 170/84 H 07/06/24 08:51 Pulse Ox 96 07/06/24 07:47 O2 Del Method Room Air 07/06/24 07:47 BMI result Body Mass Index 30.9 General: AO X 3, no acute distress Resp: CTA bilateral, no accessory muscles used CVS: S1,S2,RRR GI: soft, non tender, non distended Neuro: motor grossly intact, alert Psych: appropriate affect, appropriate insight DS: Data Data Completed and Pending Labs on day of discharge: Laboratory Results - last 24 hr 07/06/24 05:34 WBC 10.5 RBC 3.39 L Hgb 9.9 L Hct 30.0 L MCV 88.5 MCH 29.2 MCHC 33.0 RDW 13.2 Plt Count 232 MPV 10.2 Absolute Nucleated RBC 0.000 Nucleated RBC % (auto) 0.0 Sodium 142 Potassium 3.7 Chloride 108 Carbon Dioxide 25 Anion Gap 13 BUN 13 Creatinine 0.66 Estim Creat Clear Calc 73.1 Estimated GFR > 60 Fasting Glucose 92 Calcium 8.6 Preliminary micro results at discharge 07/02/24 19:29 Blood Culture - Preliminary Blood - Venous No growth after 48 hours. 07/02/24 19:29 Blood Culture - Preliminary Blood - Venous No growth after 48 hours. Discharge Plan Discharge Anticipated Discharge Date/Time: 07/06/24 09:39 Patient Disposition: Home, Self-Care Discharge Diagnosis: copd Referrals: Flores Osullivan MD [Primary Care Provider] - 1 Week Discharge Medications: New prednisone 20 mg tablet 40 mg PO DAILY Qty: 10 0RF Continued (DME) Aerochamber MV Spacer See Rx Instructions .ROUTE .MEDSUPPLY Qty: 1 0RF Rx Instructions: As directed budesonide-formoterol [Symbicort] 160-4.5 mcg/actuation HFA aerosol inhaler 1 inh inhalation BID Qty: 10.2 0RF simvastatin 20 mg tablet 20 mg PO BEDTIME Qty: 90 10RF metoprolol succinate 50 mg tablet extended release 24 hr 50 mg PO DAILY Qty: 90 10RF Xarelto 20 mg tablet 20 mg PO DAILY Qty: 90 3RF raloxifene 60 mg tablet 60 mg PO DAILY ascorbic acid (vitamin C) [Vitamin C] 1,000 mg Tablet 1,000 mg PO DAILY cholecalciferol (vitamin D3) [Vitamin D3] 25 mcg (1,000 unit) Tablet 25 mcg PO DAILY Centrum Women 18-400 mg-mcg Tablet 1 tab PO DAILY calcium carbonate-vitamin D3 [Caltrate with Vitamin D3] 600 mg-20 mcg (800 unit) Tablet 1 tab PO DAILY lisinopril 20 mg tablet 30 mg PO DAILY flecainide 100 mg tablet 100 mg PO BID albuterol sulfate 2.5 mg /3 mL (0.083 %) solution for nebulization 2.5 mg inhalation Q4-6H PRN (Reason: shortness of breath or wheezing) Qty: 90 0RF acetaminophen 650 mg tablet extended release 650 mg PO Q8H PRN (Reason: pain) (DME) nebulizers Misc See Rx Instructions .ROUTE .MEDSUPPLY Qty: 1 0RF Rx Instructions: As directed omeprazole 20 mg capsule,delayed release(DR/EC) 20 mg PO DAILY levalbuterol tartrate [Xopenex HFA] 45 mcg/actuation HFA aerosol inhaler 2 inh inhalation Q6H Qty: 15 0RF Discharge Orders: Discharge Order (Routine); Ordered 07/06/24 Ordered By: Bj Gifford Diet: Advance to usual diet Activity on Discharge: As tolerated Stand Alone Forms: Patient Portal Discharge page Print Language: Bel[place]an Care Plan Goals: Recovery Health Concerns: COPD Plan of Treatment: 5 more days of prednisone Assessment: See above
--- NOTE | 2024-07-06 09:47 | MHC.CM.PN ---
PT WILL DC HOME TODAY WITH NO SERVICES VIA PRIVATE TRANSPORT
== END 2024-07-06 11:30 | disposition home or self-care (01) | DRG 872 ==
LOC: HO.ED 22:13 → HO.EDOVER 07-03 05:09 → HO.S3 07-04 11:42
PROVIDERS: Physician Assistant Medical; Admitting Provider Student in an Organized Health Care Education/Training Program; Emergency Provider Emergency Medicine; PCP Internal Medicine; Visit Provider Internal Medicine
DX: A41.9 Sepsis, unspecified organism (principal); J44.1 Chronic obstructive pulmonary disease with (acute) exacerbation; E87.21 Acute metabolic acidosis; I10 Essential (primary) hypertension; E78.2 Mixed hyperlipidemia; T48.6X5A Adverse effect of antiasthmatics, initial encounter; K21.9 Gastro-esophageal reflux disease without esophagitis; I48.0 Paroxysmal atrial fibrillation; Z20.822 Contact with and (suspected) exposure to COVID-19; Z79.01 Long term (current) use of anticoagulants; Z79.899 Other long term (current) drug therapy
CPT/HCPCS: 0241U; 36415; 71046; 71250; 80048; 80053; 81001; 82803; 83605; 83735; 83880; 84484; 85025; 85027; 87040; 87086; 87651; 90656; 93005; 94640; 99285; J0456; J0696; J2470; J3475; J7120; P9047

== ENCOUNTER → 2024-07-03 05:03 | Outpatient (BNV) | payer MEDICARE, SELFPAY | PROVIDERS: Admitting Provider Student in an Organized Health Care Education/Training Program; Emergency Provider Emergency Medicine; PCP Internal Medicine; Visit Provider Student in an Organized Health Care Education/Training Program | DX: J44.1 Chronic obstructive pulmonary disease with (acute) exacerbation (principal) | CPT/HCPCS: 99222; 99232; 99239 ==

== ENCOUNTER 2024-07-12 10:19 | Outpatient (AMB) | payer MEDICARE, SELFPAY ==
--- NOTE | 2024-07-12 11:08 | MHC.PC.OV ---
Vital Signs 07/12/24 11:09 Height 5 ft 1 in Weight 166 lb BMI 31.4 BP 140/70 H Blood Pressure Location Rt brachial Position Sitting Pulse 69 Pulse Source Pulse Oximeter Pulse Oximetry (%) 99 Oxygen Delivery Method Room Air Intake Visit Reasons: SOB C f/u Intake Note: Pt is here today for her [facility] [place] f/u SOB Allergies Sulfa (Sulfonamide Antibiotics) [SULFA(SULFONAMIDE ANTIBIOTICS)] Allergy (Intermediate, Verified 07/12/24 11:25) FACIAL SWELLING, REDNESS, rash, face edema levofloxacin [From LEVAQUIN] Allergy (Unknown, Verified 07/12/24 11:25) itchy tongue Penicillins [PENICILLINS] Allergy (Unknown, Verified 07/12/24 11:25) RASH Quinolones [QUINOLONES] Allergy (Unknown, Verified 07/12/24 11:25) MOUTH ITCHING cefuroxime Allergy (Verified 07/12/24 11:25) Unknown doxycycline Allergy (Verified 07/12/24 11:25) Unknown ketorolac Adverse Reaction (Uncoded 07/12/24 11:25) Facial Swelling latex Adverse Reaction (Uncoded 07/12/24 11:25) Facial Swelling Medication List - Last Reconciled 07/12/24 by Flores Osullivan MD acetaminophen ER 650 mg PO Q8H PRN albuterol sulfate 2.5 mg (3 mL) inhalation Q4-6H PRN ascorbic acid (vitamin C) (Vitamin C) 1,000 mg PO DAILY budesonide-formoterol 160-4.5 mcg/actuation (Symbicort) 1 inh inhalation BID calcium carbonate-vitamin D3 600 mg-20 mcg (800 unit) (Caltrate with Vitamin D3) 1 tab PO DAILY cholecalciferol (vitamin D3) (Vitamin D3) 25 mcg PO DAILY flecainide 100 mg PO BID inhalational spacing device (Aerochamber MV spacer) As directed levalbuterol tartrate 45 mcg/actuation (Xopenex HFA) 2 inhalations inhalation Q6H lisinopril 30 mg PO DAILY metoprolol succinate ER 50 mg PO DAILY wcctrzcxozui-tapc-zyeze acid 18-400 mg-mcg (Centrum Women) 1 tab PO DAILY nebulizers As directed omeprazole 20 mg PO DAILY rivaroxaban (Xarelto) 20 mg PO DAILY simvastatin 20 mg PO BEDTIME Tobacco use date assessed: 07/12/24 Fall risk assessment: No Falls in past year Last assessed Fall Risk: 07/12/24 Dental Screening Dental Screen Date: 07/12/24 Did you have a dental visit in the last 12 months?: Yes Did you have a dental problem in the last 6 months where you did not have access to dental care?: No Was dental information given to patient?: Patient has dentist HPI SOB [facility] [place] f/u HPI Details 68-year-old female with pertinent history of COPD not on home oxygen, hypertension, mixed hyperlipidemia, atrial fibrillation on anticoagulation, gastroesophageal reflux disease here today for follow-up after recent ER visit where she came in for shortness of breath , which started 2 days prior to presentation , associated with wheezing and cough with yellowish sputum production. In the emergency department, patient with expiratory wheezing despite multiple DuoNeb treatments. Also found to be hypotensive which responded to IV crystalloids. She was admitted for sepsis due to COPD with acute decompensation. She was treated with steroids, azithromycin, and bronchodilators and shortness of breath and wheezing improved. She was discharged home on 5 more days of prednisone. For paroxysmal atrial fibrillation with rapid ventricular response she was continued on flecainide, Xarelto, metoprolol and is now better controlled. For hyperlipidemia was continue statin. For GERD was continued on PPI. Patient noticed to have normocytic normochromic anemia on recent admission, her CBC was normal prior to admission. Denies any abnormal bleeding, but is on chronic anticoagulation with Xarelto [facility] Medical History Osteoporosis Paroxysmal atrial fibrillation Chronic anticoagulation Essential hypertension Dyslipidemia COPD (chronic obstructive pulmonary disease) Mild intermittent asthma with (acute) exacerbation Personal history of nicotine dependence Anemia Hiatal hernia with gastroesophageal reflux Irritable bowel syndrome with diarrhea Pancreatitis Hepatic hemangioma Mixed urinary 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 Brother No problems noted. Brother No problems noted. Sister No problems noted. Sister Mental health disorder Sister Mental health disorder Daughter No problems noted. Daughter No problems noted. Daughter No problems noted. Social History Household Members: Spouse Housing: House Do you presently have visiting nurse or other home services: No Alcohol intake: current Alcohol intake frequency: a few times a week Patient Tobacco Use Status: Former Tobacco user Years Smoked: 40 yrs e-Cigarette/Vaping Use: Never Used service: No Current occupational status: retired Cognitive needs: No Hearing needs: No Vision needs: Yes Questionnaire PHQ-9 Over the last 2 weeks, how often have you been bothered by any of the following problems? 1. Little interest or pleasure in doing things: not at all 2. Feeling down, depressed, or hopeless: not at all 3. Trouble falling or staying asleep, or sleeping too much: nearly every day 4. Feeling tired or having little energy: more than half the days 5. Poor appetite or overeating: several days 6. Feeling bad about yourself - or that you are a failure or have let yourself or your family down: not at all 7. Trouble concentrating on things, such as reading the newspaper or watching television: not at all 8. Moving or speaking so slowly that other people could have noticed. Or the opposite - being so fidgety or restless that you have been moving around a lot more than usual: not at all 9. Thoughts that you would be better off or of hurting yourself in some way: not at all Total score: 6 Depression Screening Interpretation: Negative Depression Screening Done: Yes 33959 - PHQ-9 Billing: Yes Source: Developed by Drs. Mariano Wheeler, Emilee Avila, Serafin Rothman and colleagues, with an educational marco from [employer]. Thrive Questionnaire Date Thrive assessed: 07/04/24 I am a: Patient What is your living situation today?: I have a steady place to live Within the past 12 months, did the food you bought not last and you didn't have the money to get more?: Never true Within the past 12 months, did you worry whether your food would run out before you got money to buy more?: Never true Do you have trouble paying for medicines?: Yes Do you have trouble getting transportation to medical appointments?: No Do you have trouble paying your heating and electricity bill?: No Do you have trouble taking care of your child, family member or friend?: No Do you have trouble with day-to-day activities such as bathing, preparing meals, shopping, managing finances, etc.?: No Are you interested in more education?: No Please select the resources that you would like help with: Paying for medicine Currently or been in a relationship where the following occur: No concerns reported THRIVE Score: 0 AUDIT C Alcohol Use Questionnaire (AUDIT-C) 1. How often do you have a drink containing alcohol?: Monthly or less 2. How many drinks containing alcohol do you have on a typical day when you are drinking?: 1 or 2 3. How often do you have six or more drinks on one occasion?: Never Total Score: 1 RODY-7 AMB Questionnaire RODY-7 Date RODY - 7 assessed: 02/22/24 Feeling nervous, anxious, or on edge: 0 = Not at all Not being able to stop or control worryin = Not at all Worrying too much about different things: 0 = Not at all Trouble relaxin = More than half the days Being so restless that it is hard to sit still: 0 = Not at all Becoming easily annoyed or irritable: 0 = Not at all Feeling afraid as if something awful might happen: 0 = Not at all Total RODY-7 score (0-4 normal; 5-9 mild; 10-14 moderate; 15-21 severe): 2 Source: Developed by Drs. Mariano Wheeler, Emilee Avila, Serafin Rothman and colleagues, with an educational marco from [employer]. RODY-7 Assessment Billing RODY-7 Assessment Tool: RODY-7 Assessment 52853 Review of Systems Const All systems reviewed & are unremarkable except as noted in HPI and below Card Denies chest pain and Reports rapid heart rate (Whenever she uses her Symbicort inhaler) GI Denies abdominal pain, Denies melena and Denies hematochezia Reports no additional complaints and Denies hematuria Physical exam (Primary Care) Vital Signs: Last Vital Signs Pulse 69 07/12/24 11:09 BP 140/70 H 07/12/24 11:09 Pulse Ox 99 07/12/24 11:09 Oxygen Delivery Method Room Air 07/12/24 11:09 BMI result Body Mass Index 31.4 Tobacco/Smoking Status: Tobacco use Status Tobacco use date assessed 07/12/24 07/12/24 11:14 Patient Tobacco Use Status Former Tobacco user 07/12/24 11:14 e-Cigarette/Vaping Use Never Used 07/12/24 11:14 PHQ-9: PHQ-9 Score PHQ-9: Total score 6 07/12/24 11:28 Depression Screening Interpretation: Negative Thrive Assessment: Date of Thrive Assessment Date Thrive assessed 07/04/24 07/12/24 11:14 Currently or been in a relationship where the following occur: No concerns reported Const Other: Alert oriented x3, no acute cardiorespiratory distress noted ambulatory normal Orientation/consciousness: patient oriented x3 HENMT Mouth: Normal oral and palatal mucosa present, oropharynx normal and moist mucous membranes Neck Neck: Yes full ROM, Yes no lymphadenopathy and Yes supple Resp Auscultation: crackles bilateral and wheezes scattered wheezes Cardio Other: S1-S2 present regular rate and rhythm GI Palpation (GI): Soft to palpation, nontender, no guarding and no masses Neuro General: patient oriented x3, gait normal, tone normal, moves all extremities, no focal motor deficits and CN's II-XI intact bilaterally Extrem General: Yes full ROM, Yes no joint enlargement, Yes no pedal edema and Yes normal gait Coding Level of Care Code Est Pt Level 4 (25979) Complex EM visit Add On G2211 Diagnoses Acute exacerbation of chronic obstructive pulmonary disease J44.1 Anemia D64.9 Dyslipidemia E78.5 Additional Codes RODY-7 Assessment Billing - RODY-7 Assessment Tool: RODY-7 Assessment [id number] ([id number]) Assessment & Plan Assessment & Plan (1) Acute exacerbation of chronic obstructive pulmonary disease: Code(s): J44.1 - Chronic obstructive pulmonary disease with (acute) exacerbation Category: Medical Plan: Recently discharged from the hospital already received liquid ers erythromycin, per patient why she was admitted. Still having lot of crackles and wheezing on auscultation, despite using Symbicort 1 inhalation twice a day and doing her nebulizer treatments. Prescription was also sent for azithromycin 5 day Dosepak to take as directed advised to call her pulmonary doctor and schedule a sooner appointment to be seen patient states that she already received her flu shot during this recent admission. (2) Anemia: Code(s): D64.9 - Anemia, unspecified Category: Medical Plan: Advised to start taking anxf-irc-wkecwey iron supplements 325 mg 1 daily, take it with orange juice for better absorption, and takes 2 softener as medication can cause constipation . Will check again another CBC, ferritin iron profile in 1 month (3) Dyslipidemia: Code(s): E78.5 - Hyperlipidemia, unspecified Category: Medical Plan: Continue with simvastatin 20 mg at bedtime, ordered another fasting lipid panel, liver enzymes to be done in a month Orders: Orders Complete Blood Count Auto Diff 1 Month Flores Osullivan MD D64.9 - Anemia, unspecified, E78.5 - Hyperlipidemia, unspecified Ferritin 1 Month Flores Osullivan MD D64.9 - Anemia, unspecified, E78.5 - Hyperlipidemia, unspecified Lipid Panel 1 Month Flores Osullivan MD D64.9 - Anemia, unspecified, E78.5 - Hyperlipidemia, unspecified IRON PROFILE 1 Month Flores Osullivan MD D64.9 - Anemia, unspecified, E78.5 - Hyperlipidemia, unspecified Vitamin D 25-OH Total 1 Month Flores Osullivan MD D64.9 - Anemia, unspecified, E78.5 - Hyperlipidemia, unspecified Alanine Aminotransferase 1 Month Flores Osullivan MD D64.9 - Anemia, unspecified, E78.5 - Hyperlipidemia, unspecified Aspartate Amino Transferase 1 Month Flores Osullivan MD D64.9 - Anemia, unspecified, E78.5 - Hyperlipidemia, unspecified Medications: New azithromycin For 250 mg dose pack: take 500 mg today (day 1), then 250 mg for 4 days (days 2-5) PO 6 tabs 0RF Flores Osullivan MD Changed From lisinopril 20 mg PO DAILY 90 tabs 3RF To lisinopril 30 mg PO DAILY Juan Laughlin MD Refilled budesonide-formoterol 160-4.5 mcg/actuation (Symbicort) 1 inh inhalation BID 10.2 grams 3RF Flores Osullivan MD
[2024-07-12 11:09] VITALS: BP 140/70; PULSE 69; O2SAT 99; BMI 31.4
== END 2024-07-12 11:55 | disposition home or self-care (01) ==
PROVIDERS: PCP Internal Medicine; Visit Provider Internal Medicine
DX: J44.1 Chronic obstructive pulmonary disease with (acute) exacerbation (principal); D64.9 Anemia, unspecified; E78.5 Hyperlipidemia, unspecified

== ENCOUNTER → 2024-07-12 10:19 | Outpatient (BNVA) | payer MEDICARE, SELFPAY | PROVIDERS: PCP Internal Medicine; Visit Provider Internal Medicine | DX: J44.1 Chronic obstructive pulmonary disease with (acute) exacerbation (principal); D64.9 Anemia, unspecified; E78.5 Hyperlipidemia, unspecified | CPT/HCPCS: 96127; 99212 ==

== ENCOUNTER 2024-08-20 09:24 | Outpatient (REF) | payer MEDICARE, SELFPAY ==
[2024-08-20 10:08] LABS: MANUAL DIFF FLAG NO
[2024-08-20 10:18] LABS: Basophils Percent Auto 0.7 % (0-2); Eosinophils Absolute Auto 0.2 X10*3/uL (0.0-0.4); Eosinophils Percent Auto 3.4 % (0-4); Hematocrit 35.6 % (37.0-47.0); Hemoglobin 11.5 g/dl (12.0-16.0); Imm Gran Abs Auto 0.03 X10*3/uL (0.00-0.03); Imm Gran Pct Auto 0.5 % (0.0-0.4); Lymphocytes Absolute Auto 1.6 X10*3/uL (1.2-4.9); Lymphocytes Percent Auto 27.5 % (20-40); Mean Corpuscular HGB Conc 32.3 g/dl (31.0-35.0); Mean Corpuscular Hemoglobin 28.8 pg (27.0-33.0); Mean Corpuscular Volume 89.2 fL (80.0-98.0); Mean Platelet Volume 10.8 fL (9.4-12.3); Monocytes Absolute Auto 0.4 X10*3/uL (0.1-1.2); Neutrophils Absolute Auto 3.6 x10*3/uL (2.0-8.3); Neutrophils Percent Auto 60.9 % (45-73); Platelet Count 258 X10*3/uL (160-400); Red Blood Count 3.99 X10*6/uL (4.20-5.50); Red Cell Distribution Width 12.4 % (11.0-16.0); White Blood Count 5.9 X10*3/uL (4.8-10.8)
[2024-08-20 11:04] LABS: Alanine Aminotransferase 21 U/L (0-31); Aspartate Amino Transferase 26 U/L (5-31); Cholesterol 157 mg/dL (<200); HDL Cholesterol 53 mg/dL (>40); Iron 65 mcg/dL (30-160); LDL Cholesterol Calculated 85 mg/dL (<100); Percent Iron Saturation 26 % (15-50); Total Iron Binding Capacity 251 mcg/dL (228-428); Triglycerides 97 mg/dL (<150); Unsaturated Iron Binding 186 ug/dL
[2024-08-20 11:27] LABS: Ferritin 134 ng/mL (10-250); Vitamin D 25-OH Total 63.8 ng/mL (>30)
== END 2024-08-20 09:25 | disposition home or self-care (01) ==
LOC: HO.HMGCLDS 09:24
PROVIDERS: PCP Internal Medicine; Visit Provider Internal Medicine
DX: D64.9 Anemia, unspecified (principal); E78.5 Hyperlipidemia, unspecified
CPT/HCPCS: 36415; 80061; 82306; 82728; 83540; 84450; 84460; 85025

== ENCOUNTER 2024-08-27 11:19 | Outpatient (AMB) | payer MEDICARE, SELFPAY ==
[2024-08-27 12:22] VITALS: BP 140/80; PULSE 68; O2SAT 97; BMI 31.6
--- NOTE | 2024-08-27 12:22 | A.OFFPC_ITS ---
Vital Signs 08/27/24 12:22 Height 5 ft 1 in Weight 167 lb 4 oz BMI 31.6 BP 140/80 H Blood Pressure Location Lt brachial Position Sitting Pulse 68 Pulse Source Pulse Oximeter Pulse Oximetry (%) 97 Oxygen Delivery Method Room Air Intake Visit Reasons: 6 month follow up Intake Note: Pt is here today for 6 month follow up Allergies Sulfa (Sulfonamide Antibiotics) [SULFA(SULFONAMIDE ANTIBIOTICS)] Allergy (Intermediate, Verified 08/27/24 12:39) FACIAL SWELLING, REDNESS, rash, face edema levofloxacin [From LEVAQUIN] Allergy (Unknown, Verified 08/27/24 12:39) itchy tongue Penicillins [PENICILLINS] Allergy (Unknown, Verified 08/27/24 12:39) RASH Quinolones [QUINOLONES] Allergy (Unknown, Verified 08/27/24 12:39) MOUTH ITCHING cefuroxime Allergy (Verified 08/27/24 12:39) Unknown doxycycline Allergy (Verified 08/27/24 12:39) Unknown ketorolac Adverse Reaction (Uncoded 08/27/24 12:39) Facial Swelling latex Adverse Reaction (Uncoded 08/27/24 12:39) Facial Swelling Medication List - Last Reconciled 08/27/24 by Flores Osullivan MD acetaminophen ER 650 mg PO Q8H PRN albuterol sulfate 2.5 mg (3 mL) inhalation Q4-6H PRN ascorbic acid (vitamin C) (Vitamin C) 1,000 mg PO DAILY budesonide-formoterol 160-4.5 mcg/actuation (Symbicort) 1 inh inhalation BID calcium carbonate-vitamin D3 600 mg-20 mcg (800 unit) (Caltrate with Vitamin D3) 1 tab PO DAILY cholecalciferol (vitamin D3) (Vitamin D3) 25 mcg PO DAILY flecainide 100 mg PO BID inhalational spacing device (Aerochamber MV spacer) As directed levalbuterol tartrate 45 mcg/actuation (Xopenex HFA) 2 inhalations inhalation Q6H lisinopril 30 mg PO DAILY metoprolol succinate ER 50 mg PO DAILY whjspniruvaq-abap-lkeaq acid 18-400 mg-mcg (Centrum Women) 1 tab PO DAILY nebulizers As directed omeprazole 20 mg PO DAILY rivaroxaban (Xarelto) 20 mg PO DAILY simvastatin 20 mg PO BEDTIME Tobacco use date assessed: 08/27/24 Fall risk assessment: No Falls in past year Last assessed Fall Risk: 08/27/24 Dental Screening Dental Screen Date: 08/27/24 Did you have a dental visit in the last 12 months?: No Did you have a dental problem in the last 6 months where you did not have access to dental care?: No Was dental information given to patient?: No HPI 6 month follow up HPI Details 68-year-old female with pertinent medica l history of COPD not on home oxygen,atrial fibrillation on anticoagulation, gastroesophageal reflux disease, here for a follow uo of her hypertension and mixed hyperlipidemia, she has been compliant with taking her medications, and tries to follow a low-salt diet. Latest fasting labs done showed fasting lipids, iron levels, are all within normal limits. She is also complaining of pain in her left temporomandibular joint area, which has been present now for the last several days. Denies any history of trauma. 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 Brother No problems noted. Brother No problems noted. Sister No problems noted. Sister Mental health disorder Sister Mental health disorder Daughter No problems noted. Daughter No problems noted. Daughter No problems noted. Social History Household Members: Spouse Housing: House Do you presently have visiting nurse or other home services: No Alcohol intake: current Alcohol intake frequency: a few times a week Patient Tobacco Use Status: Former Tobacco user Years Smoked: 40 yrs e-Cigarette/Vaping Use: Never Used service: No Current occupational status: retired Cognitive needs: No Hearing needs: No Vision needs: Yes Questionnaire Thrive Questionnaire Date Thrive assessed: 08/27/24 I am a: Patient What is your living situation today?: I have a steady place to live Within the past 12 months, did the food you bought not last and you didn't have the money to get more?: Never true Within the past 12 months, did you worry whether your food would run out before you got money to buy more?: Never true Do you have trouble paying for medicines?: Yes Do you have trouble getting transportation to medical appointments?: No Do you have trouble paying your heating and electricity bill?: No Do you have trouble taking care of your child, family member or friend?: No Do you have trouble with day-to-day activities such as bathing, preparing meals, shopping, managing finances, etc.?: No Are you currently unemployed and looking for a job?: No Are you interested in more education?: No Please select the resources that you would like help with: Paying for medicine Currently or been in a relationship where the following occur: No concerns reported THRIVE Score: 0 AUDIT C Alcohol Use Questionnaire (AUDIT-C) 1. How often do you have a drink containing alcohol?: Monthly or less 2. How many drinks containing alcohol do you have on a typical day when you are drinking?: 1 or 2 3. How often do you have six or more drinks on one occasion?: Never Total Score: 1 Score Reviewed/Action Taken: Yes RODY-7 AMB Questionnaire RODY-7 Date RODY - 7 assessed: 02/22/24 Source: Developed by Drs. Mariano Wheeler, Emilee Avila, Serafin Rothman and colleagues, with an educational marco from [employer]. Review of Systems Const All systems reviewed & are unremarkable except as noted in HPI and below ENT Reports as per HPI Card Denies chest pain and Denies dyspnea Resp Denies cough and Denies dyspnea GI Denies abdominal pain, Denies melena and Denies hematochezia Reports no additional complaints Musc Reports as per HPI Skin/Breast Denies new lesions and Denies rash Neuro Reports no additional complaints Endo Reports no additional complaints Michael/Lymph Reports no additional complaints Physical exam (Primary Care) Vital Signs: Last Vital Signs Pulse 68 08/27/24 12:22 BP 140/80 H 08/27/24 12:22 Pulse Ox 97 08/27/24 12:22 Oxygen Delivery Method Room Air 08/27/24 12:22 BMI result Body Mass Index 31.6 Tobacco/Smoking Status: Tobacco use Status Tobacco use date assessed 08/27/24 08/27/24 12:28 Patient Tobacco Use Status Former Tobacco user 08/27/24 12:28 e-Cigarette/Vaping Use Never Used 08/27/24 12:28 Thrive Assessment: Date of Thrive Assessment Date Thrive assessed 08/27/24 08/27/24 12:28 Currently or been in a relationship where the following occur: No concerns reported Const Other: Alert oriented x3, no acute cardiorespiratory distress noted ambulatory normal HENMT Other: Tenderness on palpation over left temporo- mandibular joint area, with no gross bone deformity or joint swelling seen. Mouth: Normal oral and palatal mucosa present, oropharynx normal and moist mucous membranes Neck Neck: Yes full ROM, Yes no lymphadenopathy and Yes supple Cardio Other: S1-S2 present regular rate and rhythm GI Palpation (GI): Soft to palpation, nontender, no guarding and no masses Neuro General: gait normal, tone normal, moves all extremities, no focal motor deficits and CN's II-XI intact bilaterally Extrem General: Yes full ROM, Yes no joint enlargement, Yes no pedal edema and Yes normal gait Results Reviewed Results Reviewed: carina: Brooklyn Hawkins Age/Sex: 68/F : 1955 Unit#: [id number] Attend Dr: Flores Osullivan MD Re08/20/24 Status: DEP REF Location: [facility] Disch: SPEC : [id number] MIGUEL ANGEL: 08/20/24 STATUS: COMP REQ : [id number] RECD: 08/20/[address]: Flores Osullivan MD COMP: 08/20/24 ENTERED: 08/20/[address]: ORDERED: CBC Auto Diff Test Result Flag Reference WBC 5.9 4.8-10.8 X10*3/uL RBC 3.99 L 4.20-5.50 X10*6/uL HGB 11.5 L 12.0-16.0 g/dl HCT 35.6 L 37.0-47.0 % MCV 89.2 80.0-98.0 fL MCH 28.8 27.0-33.0 pg MCHC 32.3 31.0-35.0 g/dl RDW 12.4 11.0-16.0 % PLT 258 160-400 X10*3/uL MPV 10.8 9.4-12.3 fL Neut Pct Auto 60.9 45-73 % ImGran Pct Auto 0.5 H 0.0-0.4 % Lymp Pct Auto 27.5 20-40 % [place] Pct Auto 7.0 2-11 % Eos Pct Auto 3.4 0-4 % Baso Pct Auto 0.7 0-2 % NRBC Pct Auto 0.0 0.0-0.2 /100WBC ANC Neut Abs # 3.6 2.0-8.3 x10*3/uL ImGran Abs Auto 0.03 0.00-0.03 X10*3/uL Lymph Abs Auto 1.6 1.2-4.9 X10*3/uL [place] Abs Auto 0.4 0.1-1.2 X10*3/uL Eos Abs Auto 0.2 0.0-0.4 X10*3/uL Baso Abs Auto 0.0 0.0-0.2 X10*3/uL NRBC Abs Auto 0.000 0.0-0.012 X10*3/uL Name: Brooklyn Hawkins Age/Sex: 68/F : 1955 Unit#: [id number] Attend Dr: Flores Osullivan MD Re08/20/24 Status: DEP REF Location: [facility] Disch: SPEC : [id number] MIGUEL ANGEL: 08/20/24 STATUS: COMP REQ : [id number] RECD: 08/20/24-[address]: Flores Osullivan MD COMP: 08/20/24 ENTERED: 08/20/[address] [facility] [address]: ORDERED: IRON PROF, Ferritin, AST, ALT, Lipid Panel, Vitamin D 25-OH Test Result Flag Reference Iron 65 30-160 mcg/dL TIBC 251 228-428 mcg/dL Saturation 26 15-50 % UIBC 186 ug/dL Ferritin 134 10-250 ng/mL AST (GOT) 26 5-31 U/L ALT (GPT) 21 0-31 U/L Triglyceride 97 <150 mg/dL Desirable Triglyceride: less than 150 mg/dL Borderline High Triglyceride 150-199 mg/dL High Triglyceride: 200-499 mg/dL Very High Triglyceride: greater than or equal to 5OO mg/dL Cholesterol 157 <200 mg/dL Desirable Cholesterol: less than 200 mg/dL Borderline High Cholesterol: 200-239 mg/dL High Cholesterol: greater than 239 mg/dL LDL Calculated 85 <100 mg/dL Desirable LDL: less than 100 mg/dL Near Optimal/Above Optimal LDL: 110-129 mg/dL Borderline High LDL: 130-159 mg/dL High LDL: 160-189 mg/dL Very High LDL: greater than or equal to 190 mg/dL HDL 53 >40 mg/dL Desirable HDL: greater than 40 mg/dL Note: This HDL assay may give artificially low results in patients with liver disease. Vit D 25-OH Tot 63.8 >30 ng/mL Health Based Reference Values* < 20 ng/mL Deficient 20-30 ng/mL Insufficient > 30 ng/mL Sufficient Coding Level of Care Code Est Pt Level 4 (91875) Complex EM visit Add On G2211 Diagnoses Dyslipidemia E78.5 Essential hypertension I10 Anemia D64.9 Temporomandibular joint (TMJ) pain M26.629 Assessment & Plan Assessment & Plan (1) Dyslipidemia: Code(s): E78.5 - Hyperlipidemia, unspecified Category: Medical Plan: Latest fasting lipids are within normal limits, continued on simvastatin 20 mg at bedtime (2) Essential hypertension: Code(s): I10 - Essential (primary) hypertension Category: Medical Plan: Blood pressure slightly elevated today as she is currently in pain from her left TMJ dysfunction . Will have her come back for recheck of her blood pressure in a week. In the meantime continue with taking lisinopril 30 mg once daily and metoprolol succinate ER 50 mg once a day. Reminded about following a low-salt diet, (3) Anemia: Code(s): D64.9 - Anemia, unspecified Category: Medical Plan: Noted to be slightly anemic on this visit. Will recheck again another CBC in 3 months.. Advised to eat a healthy diet that is rich in iron, magnesium. (4) Temporomandibular joint (TMJ) pain: Code(s): M26.629 - Arthralgia of temporomandibular joint, unspecified side Plan: Avoid overuse of jaw muscles. Eat soft foods. ... * Stretching and massage. Your doctor, dentist or physical therapist may show you how to do exercises that stretch and strengthen your jaw muscles and how to massage the muscles yourself. * Heat or cold. Compress applied to affected area. Call if no improvement of symptoms after 3 days Orders: Orders Lipid Panel 11/10/24 D64.9 - Anemia, unspecified, E78.5 - Hyperlipidemia, unspecified, I10 - Essential (primary) hypertension, M81.0 - Age-related osteoporosis without current pathological fracture Aspartate Amino Transferase 11/10/24 D64.9 - Anemia, unspecified, E78.5 - Hyperlipidemia, unspecified, I10 - Essential (primary) hypertension, M81.0 - Age-related osteoporosis without current pathological fracture Basic Metabolic Panel Fasting 11/10/24 D64.9 - Anemia, unspecified, E78.5 - Hyperlipidemia, unspecified, I10 - Essential (primary) hypertension, M81.0 - Age-related osteoporosis without current pathological fracture Alanine Aminotransferase 11/10/24 D64.9 - Anemia, unspecified, E78.5 - Hyperlipidemia, unspecified, I10 - Essential (primary) hypertension, M81.0 - Age-related osteoporosis without current pathological fracture Vitamin D 25-OH Total 11/10/24 D64.9 - Anemia, unspecified, E78.5 - Hyperlipidemia, unspecified, I10 - Essential (primary) hypertension, M81.0 - Age-related osteoporosis without current pathological fracture Complete Blood Count Auto Diff 11/10/24 D64.9 - Anemia, unspecified, E78.5 - Hyperlipidemia, unspecified, I10 - Essential (primary) hypertension, M81.0 - Age-related osteoporosis without current pathological fracture
== END 2024-08-27 12:48 | disposition home or self-care (01) ==
PROVIDERS: PCP Internal Medicine; Visit Provider Internal Medicine
DX: E78.5 Hyperlipidemia, unspecified (principal); I10 Essential (primary) hypertension; D64.9 Anemia, unspecified; M26.629 Arthralgia of temporomandibular joint, unspecified side

== ENCOUNTER → 2024-08-27 11:19 | Outpatient (BNVA) | payer MEDICARE, SELFPAY | PROVIDERS: PCP Internal Medicine; Visit Provider Internal Medicine | DX: E78.5 Hyperlipidemia, unspecified (principal); D64.9 Anemia, unspecified; I10 Essential (primary) hypertension; M26.629 Arthralgia of temporomandibular joint, unspecified side | CPT/HCPCS: 99212 ==

== ENCOUNTER 2024-09-29 07:30 | Outpatient (REF) | payer MEDICARE, SELFPAY ==
--- OUTSIDE RECORDS SUMMARY | 2024-09-29 08:13 | XMS_ITS | Patient Health Record ---
Author Organization [facility] Address [address] [place] [address] Care Team Providers Care Medical Assistant Instructor Name Role Phone Abran AGUAYO, Flores Primary Care Provider Mariano Card Unavailable [phone] ALLERGIES Allergen (clinical drug ingredient) Drug/Non Drug Allergy documented on EMR Reaction Allergy Type Onset Date Status Sulfa Unknown Drug Allergy Active Penicillin Unknown Drug Allergy Active Levaquin Unknown Drug Allergy Active cefuroxime Cefuroxime Sodium Unknown Drug Allergy Active Medicinal quinolone and acting as antibacterial agent (FN) quinolones (uncoded) Unknown Allergy Active doxycycline Doxycycline Unknown Drug Allergy Act saurav REASON FOR REFERRAL No Information MEDICATIONS Medication SIG (Take, Route, Frequency, Duration) Notes Start Date End Date Status Omeprazole 20 MG TAKE 1 CAPSULE BY MO UT EVERY MORNING for 90 Active Flecainide Acetate 100 MG 1 tablet Orall y every 12 hrs Active Calcium 600 + D 600-200 MG-UNIT 1 tablet with a meal Orally Once a day Active ProAir HFA 108 (90 Base) MCG/ACT 2 puffs as needed Inhalation every 6 hrs/as needed Active Multi Vitamin - 1 tablet Orally Once a day for 30 day(s) Active Metoprolol Succinate 50 MG 1 capsule Orally Once a day Active Vitamin C 500 MG as directed Orally Active Zantac 150 MG 1 tablet Orally prn GERD Not-Taking Vitamin D-3 125 MCG (5000 UT) as directed Orally Active Zantac 150 MG 1 tablet Orally BID for 30 day(s) 11/22/2018 Not-Taking Xarelto 20 MG 1 tablet with food Orally Once a day for 30 day(s) Active Raloxifene HCl 60 MG 1 tablet Orally Onc e a day for 30 day(s) Active Lisinopril 20 MG 1 tablet Orally Once a day Active Simvastatin 20mg 1 tablet in the even ing Orally Once a day Active Pradaxa 150 MG 1 capsule Orally Twi ce a day Not-Taking IMMUNIZATIONS Vaccine Route Administration Date Status Comme nts Influenza Unknown 07/20/2018 Administered Influenza Unknown 08/31/2022 Administered SOCIAL HISTORY Tobacco Use: Social History Observation Description Date Details (start date - stop date) Former Smoker NA - NA Sex Assigned At : Social History Observation Description Sex Assigned At Unknown Tobacco Use/Smoking Question Answer Notes Patient is a former smoker How long has it been since you last smoked? 5-10 years Alcohol Screen Question Answer Notes Did you have a drink contain ing alcohol in the past year? Yes How often did you have a dri nk containing alcohol in the past year? 2 to 4 times a month (2 points) How many drinks did you have on a typical day when you were drinking in the past year? 3 or 4 drinks (1 point) How often did you have 6 or more drinks on one occasion in the past year? Never (0 point) Points 3 Interpretation Positive PROBLEMS Problem Type ICD Code Onset Dates Problem Status W/U Status Risk SNOMED Code Notes Problem Colon cancer screening (Z12.11) Active confirmed 886708541 Problem Diverticulosis of large intestine without perforation or abscess without bleeding (K57.30) Active confirmed Diverticul ar disease of colon (746115223) Problem Dysphagia (R13.10) Active confirmed Dys phagia (33475777) Problem Gastroesophageal reflux disease (K21.9) Active confirmed Gastroesophagea l reflux disease (238112746) Problem Gastroesophageal reflux disease without esophagitis (K21.9) Active confirmed 989046847 Problem Pharyngoesophageal dysphagia (R13.14) Active confirmed 37021660 Problem 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) Active confirmed 573453709 Problem Gastroesophageal reflux disease, unspecified whether esophagitis present (K21.9) Active confirmed 159904980 PLAN OF TREATMENT Future Test Test Name Order Date COLONOSCOPY 07/19/2013 UPPER GI ENDOSCOPY [place] DILATION OF ESOPH 03/23/2023 COLONOSCOPY 04/12/2023 Insurance Providers Payer Name Payer Address Payer Phone Subscriber Number Group Number Insured Name Patient Relationship to Insured Coverage Start Date Coverage End Date [employer] [address] [place], [place] [id number] [place] Self - patient is the insured MEDICAL (GENERAL) HISTORY Medical History History ICD Code Gastroesophageal reflux dise ase (GERD)-EGD in 2002-[facility], no esophagitis, no Castellano's esophagus Hypertension Osteopenia Arthritis Denies DC,DM,CVA,renal disease Hemochromatosis gene carrier -06/2006--she describes that her sister has hemochromatosis and undergoes phlebotomy therapy--Brokolyn's genetic testing in 2005 revealed negative testing for C282Y and only a carrier state for H63D Colonoscopy 11/2004-hyperplastic polyp an d internal hemorrhoids Hepatic hemangioma on U/S in 2009 and Nu c med Blood pool scan in 2005 Hyperlipidemia Pancreatitis in June of 2013 based on her laboratories at [facility]--? Etiology; hospitalized for pancreatitis in 2014 and 07/2018 at [facility] for pancreatitis--neg w/u, probably EtOH related Atrial fibrillation Hospitalized in 07/2014 for chest pain--neg ETT and R/O for DC---? esophageal spasm Negative colonoscopy in 09/10 013 except for diverticulosis and internal hemorrhoids Surgical History Surgery Date(Month/Year) Lumpectomy- left breast-benign Cholecystectomy 2004
--- OUTSIDE RECORDS SUMMARY | 2024-09-29 08:13 | XMS_ITS ---
Author Organization [facility] Address [address] [place] [address] Care Team Providers Care Vamp Seamer Name Role Phone Abran AGUAYO, Flores Primary Care Provider UnaMariano Parnell Unavailable [phone] REASON FOR VISIT pharyngoesophageal dysphagia PROBLEMS Problem Type ICD Code Onset Dates Problem Status W/U Status Risk SNOMED Code Notes Problem Dysphagia (R13.10) Active confirmed Dys phagia (21929588) Problem Gastroesophageal reflux disease (K21.9) Active confirmed Gastroesophagea l reflux disease (319342064) Encounters Encounter Location Date Provider Diagnosis [facility] [place] [place] Outpatient [address] [place] [id number] 03/30/2023 Mariano Landaverde Dysphagia R13.10 ; Gastroesophageal reflux disease K21.9 and Hiatal hernia K44.9 ASSESSMENTS Encounter Date Diagnosis Assessment Notes Treatment Notes Treatment Clinical Notes 03/30/2023 Dysphagia (ICD-10 - R13.10) 03/30/2023 Gastroesophageal ref lux disease (ICD-10 - K21.9) 03/30/2023 Hiatal hernia (ICD-1 0 - K44.9) PLAN OF TREATMENT No Information
--- OUTSIDE RECORDS SUMMARY | 2024-09-29 08:13 | XMS_ITS ---
Author Organization [facility] Address [address] [place] [address] Care Team Providers Care Appeals Assistant Name Role Phone Abran AGUAYO, Flores Primary Care Provider Mariano Card [facility] [phone] REASON FOR VISIT Needs a screening colon Encounters Encounter Location Date Provider Diagnosis [facility] [address] [place] [phone] 04/03/2023 Mariano Landaverde Colon cancer screening Z12.11 ASSESSMENTS Encounter Date Diagnosis Assessment Notes Treatment Notes Treatment Clinical Notes 04/03/2023 Colon cancer screening (ICD-10 - Z12.11) PLAN OF TREATMENT Future Test Test Name Order Date COLONOSCOPY 04/12/2023
[2024-09-29 12:05] LABS: Creatinine, mg/dL 101.28
[2024-09-29 12:16] LABS: Creatinine, 24Hr Urine 1.2 G/Day (1.0-2.0); Total Volume 24 Hour Urine 1150 mL
[2024-10-01 16:49] LABS: Calcium, 24 Hr Urine 105 mg/24 h; Calcium/Creatinine Ratio 91 mg/g creat (30-275); Creatinine 24Hr Urine 1.15 g/24 h (0.50-2.15)
== END 2024-09-29 07:31 | disposition home or self-care (01) ==
LOC: HO.HMGCLNP 07:30
PROVIDERS: PCP Internal Medicine; Visit Provider Internal Medicine Endocrinology, Diabetes & Metabolism
DX: M81.0 Age-related osteoporosis without current pathological fracture (principal)
CPT/HCPCS: 82340; 82570

== ENCOUNTER 2024-10-29 09:06 | Outpatient (AMB) | payer MEDICARE, SELFPAY ==
--- NOTE | 2024-10-29 09:10 | A.OFFVIS_ITS ---
Vital Signs 10/29/24 09:11 Height 5 ft 1 in Weight 165 lb 5.547 oz BMI 31.2 BP 148/88 H Blood Pressure Location Rt brachial Position Sitting Pulse 71 Pulse Source Pulse Oximeter Intake Visit Reasons: Osteoporosis Intake Note: Patient present today for a follow-up on Osteoporosis. 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 Accompanied by: Self / Same As Patient Allergies Sulfa (Sulfonamide Antibiotics) [SULFA(SULFONAMIDE ANTIBIOTICS)] Allergy (Intermediate, Verified 08/27/24 12:39) FACIAL SWELLING, REDNESS, rash, face edema levofloxacin [From LEVAQUIN] Allergy (Unknown, Verified 08/27/24 12:39) itchy tongue Penicillins [PENICILLINS] Allergy (Unknown, Verified 08/27/24 12:39) RASH Quinolones [QUINOLONES] Allergy (Unknown, Verified 08/27/24 12:39) MOUTH ITCHING cefuroxime Allergy (Verified 08/27/24 12:39) Unknown doxycycline Allergy (Verified 08/27/24 12:39) Unknown ketorolac Adverse Reaction (Uncoded 08/27/24 12:39) Facial Swelling latex Adverse Reaction (Uncoded 08/27/24 12:39) Facial Swelling Medication List - Last Reconciled 10/29/24 by Mariano Morillo MD acetaminophen ER 650 mg PO Q8H PRN albuterol sulfate 2.5 mg (3 mL) inhalation Q4-6H PRN ascorbic acid (vitamin C) (Vitamin C) 1,000 mg PO DAILY budesonide-formoterol 160-4.5 mcg/actuation (Symbicort) 1 inh inhalation BID calcium carbonate-vitamin D3 600 mg-20 mcg (800 unit) (Caltrate with Vitamin D3) 1 tab PO DAILY cholecalciferol (vitamin D3) (Vitamin D3) 25 mcg PO DAILY flecainide 100 mg PO BID inhalational spacing device (Aerochamber MV spacer) As directed levalbuterol tartrate 45 mcg/actuation (Xopenex HFA) 2 inhalations inhalation Q6H lisinopril 30 mg PO DAILY metoprolol succinate ER 50 mg PO DAILY hgwbvczqwwtg-jjqu-tmufy acid 18-400 mg-mcg (Centrum Women) 1 tab PO DAILY nebulizers As directed omeprazole 20 mg PO DAILY rivaroxaban (Xarelto) 20 mg PO DAILY simvastatin 20 mg PO BEDTIME HPI Comments Details: 68 YO F is seen in consultation at the request of PCP for Osteoporosis. First diagnosed in 5 yrs ago.Never saw another specialist Received treatment in the past with Reloxivine , for 3 yrs . Tolerated treatment well without complication.Has hot flashes No history of pathologic fracture or ONJ. Has few servings of dietary calcium per day in the form of cheese . Took Calcium supplement citrate ? mg daily in divided doses. Stopped calcium a yr ago Takes 1000 IU of Vitamin D daily. Takes PPI, anticoagulant, no antiepileptic no glucocorticoid medication. 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 Aunt has breast cancer Denies history of Kidney stones: Sister - family history of Osteoporosis vertebral but no hip fracture. UTD on dental cleanings and sees dentist every 6 months. No planned upcoming dental work or extractions.Planned root canal DXA dated :04/04/24 FINDINGS: LEFT FEMUR, NECK: Current: BMD 0.621 g/cm2, Z-score -1.5, T-score -3.0, osteoporosis. Prior: BMD 0.739 g/cm2. Baseline: BMD 0.819 g/cm2. LEFT FEMUR, TOTAL: Current: BMD 0.764 g/cm2, Z-score -0.6, T-score -1.9, osteopenia, 18.0% decrease from previous, 19.2% decrease from baseline (<5% change is not significant). Prior: BMD 0.932 g/cm2. Baseline: BMD 0.946 g/cm2. AP SPINE L1-L4: Current: BMD 0.915 g/cm2, Z-score -0.8, T-score -2.2, osteopenia, 1.2% increase from previous, 3.0% increase from baseline (<5% change is not significant). Prior: BMD 0.904 g/cm2. Baseline: BMD 0.888 g/cm2. Labs: Secondary workup was negative PFSH Medical History Osteoporosis Paroxysmal atrial fibrillation Chronic anticoagulation Essential hypertension Dyslipidemia COPD (chronic obstructive pulmonary disease) Mild intermittent asthma with (acute) exacerbation Personal history of nicotine dependence Anemia Hiatal hernia with gastroesophageal reflux Irritable bowel syndrome with diarrhea Pancreatitis Hepatic hemangioma Mixed urinary 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 Brother No problems noted. Brother No problems noted. Sister No problems noted. Sister Mental health disorder Sister Mental health disorder Daughter No problems noted. Daughter No problems noted. Daughter No problems noted. Social History Household Members: Spouse Housing: House Do you presently have visiting nurse or other home services: No Alcohol intake: current Alcohol intake frequency: a few times a week Patient Tobacco Use Status: Former Tobacco user Years Smoked: 40 yrs e-Cigarette/Vaping Use: Never Used service: No Current occupational status: retired Cognitive needs: No Hearing needs: No Vision needs: Yes Physical Exam Vital Signs: Last Vital Signs Pulse 71 10/29/24 09:11 BP 148/88 H 10/29/24 09:11 BMI result Body Mass Index 31.2 Assessment & Plan Assessment & Plan (1) Osteoporosis: Code(s): M81.0 - Age-related osteoporosis without current pathological fracture Category: Medical Plan: This 68-year-old white female with a history of osteoporosis with negative partial secondary workup. She completed the 24 hour urine collection but did not complete the blood work for secondary workup Plan is have patient complete the blood work for secondary workup . Once this returns, she will get back to me about choice of osteoporosis medication. Would favor the use of anabolic therapy like Tymlos, Forteo or Evenity followed by anti resorptive therapy like Prolia or bisphosphonate. She is going to check coverage on her insurance plan to see and would favor Evenity as 1st choice but will get back to me after her blood work is completed Coding Level of Care Code Est Pt Level 3 (83309) Diagnoses Osteoporosis M81.0
[2024-10-29 09:11] VITALS: BP 148/88; PULSE 71; BMI 31.2
== END 2024-10-29 09:30 | disposition home or self-care (01) ==
PROVIDERS: PCP Internal Medicine; Visit Provider Internal Medicine Endocrinology, Diabetes & Metabolism
DX: M81.0 Age-related osteoporosis without current pathological fracture (principal)
CPT/HCPCS: 99213

== ENCOUNTER 2024-10-29 09:06 | Outpatient (REF) | payer MEDICARE, SELFPAY | END 2024-10-29 09:07 | disposition home or self-care (01) | LOC: HO.LAB 09:06 | PROVIDERS: PCP Internal Medicine; Visit Provider Internal Medicine Endocrinology, Diabetes & Metabolism | DX: J44.9 Chronic obstructive pulmonary disease, unspecified (principal); J40 Bronchitis, not specified as acute or chronic; R05.9 Cough, unspecified | CPT/HCPCS: 99212 ==

== ENCOUNTER 2024-10-29 10:03 | Outpatient (AMB) | payer MEDICARE, SELFPAY ==
[2024-10-29 10:12] VITALS: BP 140/80; PULSE 65; O2SAT 99; BMI 31.2
--- NOTE | 2024-10-29 10:12 | A.OFFVIS_ITS ---
Vital Signs 10/29/24 10:12 Height 5 ft 1 in Weight 165 lb 5.547 oz BMI 31.2 BP 140/80 H Blood Pressure Location Lt brachial Position Sitting Pulse 65 Pulse Source Pulse Oximeter Pulse Oximetry (%) 99 Oxygen Delivery Method Room Air Intake Visit Reasons: persistent cough Intake Note: pt is here for a persistent cough, every time dark yellow phelgm in am and during the day changes to light yellow, it has been going on for over a month. 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 Allergies Sulfa (Sulfonamide Antibiotics) [SULFA(SULFONAMIDE ANTIBIOTICS)] Allergy (Intermediate, Verified 10/29/24 10:47) FACIAL SWELLING, REDNESS, rash, face edema levofloxacin [From LEVAQUIN] Allergy (Unknown, Verified 10/29/24 10:47) itchy tongue Penicillins [PENICILLINS] Allergy (Unknown, Verified 10/29/24 10:47) RASH Quinolones [QUINOLONES] Allergy (Unknown, Verified 10/29/24 10:47) MOUTH ITCHING cefuroxime Allergy (Verified 10/29/24 10:47) Unknown doxycycline Allergy (Verified 10/29/24 10:47) Unknown ketorolac Adverse Reaction (Uncoded 10/29/24 10:47) Facial Swelling latex Adverse Reaction (Uncoded 10/29/24 10:47) Facial Swelling Medication List - Last Reconciled 10/29/24 by Marilia Cardenas MD acetaminophen ER 650 mg PO Q8H PRN albuterol sulfate 2.5 mg (3 mL) inhalation Q4-6H PRN ascorbic acid (vitamin C) (Vitamin C) 1,000 mg PO DAILY budesonide-formoterol 160-4.5 mcg/actuation (Symbicort) 1 inh inhalation BID calcium carbonate-vitamin D3 600 mg-20 mcg (800 unit) (Caltrate with Vitamin D3) 1 tab PO DAILY cholecalciferol (vitamin D3) (Vitamin D3) 25 mcg PO DAILY flecainide 100 mg PO BID inhalational spacing device (Aerochamber MV spacer) As directed levalbuterol tartrate 45 mcg/actuation (Xopenex HFA) 2 inhalations inhalation Q6H lisinopril 20 mg PO BID metoprolol succinate ER 50 mg PO DAILY itirfbubjhlo-hkbw-nabyb acid 18-400 mg-mcg (Centrum Women) 1 tab PO DAILY nebulizers As directed omeprazole 20 mg PO DAILY rivaroxaban (Xarelto) 20 mg PO DAILY simvastatin 20 mg PO BEDTIME Do you need a note to return to daycare/school/sports/work: No HPI HPI persistent cough: Details: THIS 68 YEARS OLD FEMALE IS HERE FOR AN URGENT VISIT. SHE HAD SYMPTOMS OF THE UPPER RESPIRATORY INFECTION/COMMON COLD, ABOUT A MONTH AGO AND WAS SEEN AT AN URGENT CARE. HAD A CHEST X-RAY AND WAS TOLD THAT THERE MAY BE A TOUCH OF PNEUMONIA IN THE BASILAR AREA. SHE WAS TREATED WITH THIS COURSE OF Z-MARK AND ALSO A SHORT COURSE OF PREDNISONE. SHE HAS HAD NO FEVER OR CHILLS. BUT COUGH IS LINGERING ON, WITH YELLOWISH EXPECTORATION, ESPECIALLY IN THE MORNINGS AND AT NIGHT. SHE IS STARTING TO GET SOME DISCOMFORT IN THE CHEST BECAUSE OF COUGH. SHE IS ON SYMBICORT 160-4.52 PUFFS B.I.D. AND ALBUTEROL VIA NEBULIZER P.R.N.. THE PATIENT HAS A LONG LIST OF ALLERGIES TO ANTIBIOTIC, [facility] Medical History (Updated 10/29/24 @ 11:22 by Marilia Cardenas MD) Cough Bronchitis Osteoporosis Paroxysmal atrial fibrillation Chronic anticoagulation Essential hypertension Dyslipidemia COPD (chronic obstructive pulmonary disease) Mild intermittent asthma with (acute) exacerbation Personal history of nicotine dependence Anemia Hiatal hernia with gastroesophageal reflux Irritable bowel syndrome with diarrhea Pancreatitis Hepatic hemangioma Mixed urinary 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 Brother No problems noted. Brother No problems noted. Sister No problems noted. Sister Mental health disorder Sister Mental health disorder Daughter No problems noted. Daughter No problems noted. Daughter No problems noted. Social History Household Members: Spouse Housing: House Do you presently have visiting nurse or other home services: No Alcohol intake: current Alcohol intake frequency: a few times a week Patient Tobacco Use Status: Former Tobacco user Years Smoked: 40 yrs e-Cigarette/Vaping Use: Never Used service: No Current occupational status: retired Cognitive needs: No Hearing needs: No Vision needs: Yes Review of Systems Const All systems reviewed & are unremarkable except as noted in HPI and below Eyes Reports no additional complaints ENT Reports nasal congestion (Mild off and on) Card Reports no additional complaints, Denies chest pain and Reports irregular heart rhythm (Atrial fibrillation) Resp Reports as per HPI GI Reports heartburn (GERD symptoms being treated with omeprazole) Reports no additional complaints Musc Reports no additional complaints Skin/Breast Reports system reviewed and no additional complaints, except as documented Neuro Reports no additional complaints Psych Reports no additional complaints Endo Reports no additional complaints Physical Exam Vital Signs: Last Vital Signs Pulse 65 10/29/24 10:12 BP 140/80 H 10/29/24 10:12 Pulse Ox 99 10/29/24 10:12 Oxygen Delivery Method Room Air 10/29/24 10:12 BMI result Body Mass Index 31.2 Const General: healthy appearing, comfortable, no acute distress, alert and awake Orientation/consciousness: patient oriented x3 HEENT Head: Yes normal to inspection General nose exam: No nasal polyps present and No nasal discharge present Face and sinus: Yes sinuses nontender Mouth: oropharynx normal Throat: Yes posterior oropharynx normal Eyes General: appearance normal, both eyes and all related structures Neck Neck: Yes normal visual inspection, Yes no lymphadenopathy, Yes trachea midline and Yes no JVD Thyroid: Thyroid normal Chest Chest palpation & inspection: normal inspection of the chest, normal palpation of entire chest wall and no tenderness Resp Other: Percussion note resonant, breath sounds are equal on both sides slightly distant with prolonged expiratory phase. No audible wheezes rhonchi or crepitations are heard today Cardio Palpation: normal PMI Rate: regular rate Rhythm: regular rhythm Heart sounds: no gallops and no murmurs Peripheral pulses: Peripheral pulses 2+ throughout GI Palpation (GI): Soft to palpation, nontender, No hepatosplenomegaly present and no masses Auscultation: normal bowel sounds Back/Spine/Pelvis Thoracic/Lumbar Spine: thoracic and lumbar spine normal to inspection Skin General skin exam: no rashes or lesions noted Neuro General: patient oriented x3 and no focal motor deficits Cranial nerves: Yes CN's II-XII intact bilaterally Extrem General: Yes normal to inspection, Yes no clubbing, cyanosis or edema and Yes no calf tenderness Psych Speech and movement: Normal speech and movement present Assessment & Plan Assessment & Plan (1) COPD (chronic obstructive pulmonary disease): Comment: SHE DOES HAVE MODERATELY SEVERE OBSTRUCTIVE AIRWAY DISORDER DUE TO HER PAST SMOK ING. CURRENTLY WELL CONTROLLED AND STABLE except for the recent upper respiratory infection and ongoing cough. Code(s): J44.9 - Chronic obstructive pulmonary disease, unspecified Category: Medical Plan: CONTINUE TO USE SYMBICORT 160-4.5 1 INHALATION B.I.D. BUT IF SYMPTOMS ARE ANY WORSE THEN GO UP TO 2 PUFFS B.I.D.. CONTINUE ALBUTEROL SOLUTION IN THE NEBULIZER Q 4-6 HOURS P.R.N. (2) Bronchitis: Comment: THIS ONGOING COUGH FOR THE LAST 4 WEEKS IS PROBABLY POST INFECTIOUS COUGH ON TOP OF COPD. Code(s): J40 - Bronchitis, not specified as acute or chronic Category: Medical Plan: PREDNISONE, AND TAPER SLOWLY. REPEAT 1 MORE COURSE OF Z-MARK . * I WAS GOING TO PRESCRIBED DOXYCYCLINE BUT SHE HAS ALLERGY TO THE CENTER BED (3) Cough: Comment: LINGERING COUGH IS PROBABLY POSTINFECTIOUS AFTER AN ACUTE VIRAL UPPER RESPIRATORY INFECTION. Code(s): R05.9 - Cough, unspecified Category: Medical Plan: ABOVE UNDER ACUTE BRONCHITIS. Medications: New azithromycin For 250 mg dose pack: take 500 mg today (day 1), then 250 mg for 4 days (days 2-5) PO 5 days 6 tabs 0RF BRONCHITIS prednisone PREDNISONE 5 MG 2 TABS A DAY FOR ONE WEEK THEN 1 TAB A DAY FOR ONE WEEK 5 mg PO DAILY 2 weeks 21 tabs 0RF COPD EXCERBATION Coding Level of Care Code Est Pt Level 3 (39963) Diagnoses COPD (chronic obstructive pulmonary disease) J44.9 Bronchitis J40 Cough R05.9
== END 2024-10-29 10:36 | disposition home or self-care (01) ==
PROVIDERS: PCP Internal Medicine; Visit Provider Internal Medicine
DX: J44.9 Chronic obstructive pulmonary disease, unspecified (principal); J40 Bronchitis, not specified as acute or chronic; R05.9 Cough, unspecified
CPT/HCPCS: 99213

== ENCOUNTER 2024-11-02 08:25 | Outpatient (REF) | payer MEDICARE, SELFPAY ==
[2024-11-02 08:43] LABS: MANUAL DIFF FLAG NO
[2024-11-02 09:45] LABS: Basophils Percent Auto 0.4 % (0-2); Eosinophils Absolute Auto 0.1 X10*3/uL (0.0-0.4); Eosinophils Percent Auto 0.8 % (0-4); Hematocrit 38.3 % (37.0-47.0); Hemoglobin 12.2 g/dl (12.0-16.0); Imm Gran Abs Auto 0.04 X10*3/uL (0.00-0.03); Imm Gran Pct Auto 0.5 % (0.0-0.4); Lymphocytes Absolute Auto 1.6 X10*3/uL (1.2-4.9); Lymphocytes Percent Auto 18.9 % (20-40); Mean Corpuscular HGB Conc 31.9 g/dl (31.0-35.0); Mean Corpuscular Hemoglobin 28.2 pg (27.0-33.0); Mean Corpuscular Volume 88.5 fL (80.0-98.0); Monocytes Absolute Auto 0.5 X10*3/uL (0.1-1.2); Monocytes Percent Auto 6.2 % (2-11); Neutrophils Absolute Auto 6.3 x10*3/uL (2.0-8.3); Neutrophils Percent Auto 73.2 % (45-73); Platelet Count 302 X10*3/uL (160-400); Red Blood Count 4.33 X10*6/uL (4.20-5.50); Red Cell Distribution Width 12.2 % (11.0-16.0); White Blood Count 8.6 X10*3/uL (4.8-10.8)
[2024-11-02 10:49] LABS: Anion Gap 11 (12-20); Blood Urea Nitrogen 22 mg/dL (9-16); Calcium 8.9 mg/dL (8.4-10.2); Carbon Dioxide 29 mmol/L (22-29); Chloride 107 mmol/L (96-108); Estimated Glomerular Filt Rate > 60; Glucose Random 91 mg/dL (60-115); Potassium 3.9 mmol/L (3.3-5.1); Sodium 143 mmol/L (135-145)
[2024-11-02 10:51] LABS: Alanine Aminotransferase 25 U/L (0-31); Anion Gap 11 (12-20); Aspartate Amino Transferase 21 U/L (5-31); Blood Urea Nitrogen 22 mg/dL (9-16); Carbon Dioxide 29 mmol/L (22-29); Chloride 107 mmol/L (96-108); Cholesterol 170 mg/dL (<200); Estimated Glomerular Filt Rate > 60; Glucose Fasting 90 mg/dL (60-99); HDL Cholesterol 64 mg/dL (>40); LDL Cholesterol Calculated 92 mg/dL (<100); Potassium 3.9 mmol/L (3.3-5.1); Sodium 143 mmol/L (135-145); Triglycerides 72 mg/dL (<150)
[2024-11-02 11:05] LABS: Vitamin D 25-OH Total 78.5 ng/mL (>30)
[2024-11-02 11:09] LABS: Free T4 (Free Thyroxine) 1.03 ng/dL (0.71-1.85); Thyroid Stimulating Hormone 0.97 uIU/mL (0.32-4.0)
== END 2024-11-02 08:26 | disposition home or self-care (01) ==
LOC: HO.LAB 08:25
PROVIDERS: PCP Internal Medicine; Visit Provider Internal Medicine Endocrinology, Diabetes & Metabolism
DX: M81.0 Age-related osteoporosis without current pathological fracture (principal); I10 Essential (primary) hypertension; E78.5 Hyperlipidemia, unspecified; D64.9 Anemia, unspecified; I48.0 Paroxysmal atrial fibrillation
CPT/HCPCS: 36415; 80048; 80061; 82306; 84100; 84439; 84443; 84450; 84460; 85025

== ENCOUNTER 2024-11-12 09:08 | Outpatient (AMB) | payer MEDICARE, SELFPAY ==
[2024-11-12 09:22] VITALS: BP 126/82; PULSE 66; BMI 30.8
--- NOTE | 2024-11-12 09:22 | A.OFFVIS_ITS ---
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 Allergies Sulfa (Sulfonamide Antibiotics) [SULFA(SULFONAMIDE ANTIBIOTICS)] Allergy (Intermediate, Verified 10/29/24 10:47) FACIAL SWELLING, REDNESS, rash, face edema levofloxacin [From LEVAQUIN] Allergy (Unknown, Verified 10/29/24 10:47) itchy tongue Penicillins [PENICILLINS] Allergy (Unknown, Verified 10/29/24 10:47) RASH Quinolones [QUINOLONES] Allergy (Unknown, Verified 10/29/24 10:47) MOUTH ITCHING cefuroxime Allergy (Verified 10/29/24 10:47) Unknown doxycycline Allergy (Verified 10/29/24 10:47) Unknown ketorolac Adverse Reaction (Uncoded 10/29/24 10:47) Facial Swelling latex Adverse Reaction (Uncoded 10/29/24 10:47) Facial Swelling Medication List - Last Reconciled 11/12/24 by Juan Laughlin MD acetaminophen ER 650 mg PO Q8H PRN albuterol sulfate 2.5 mg (3 mL) inhalation Q4-6H PRN ascorbic acid (vitamin C) (Vitamin C) 1,000 mg PO DAILY budesonide-formoterol 160-4.5 mcg/actuation (Symbicort) 1 inh inhalation BID calcium carbonate-vitamin D3 600 mg-20 mcg (800 unit) (Caltrate with Vitamin D3) 1 tab PO DAILY cholecalciferol (vitamin D3) (Vitamin D3) 25 mcg PO DAILY flecainide 100 mg PO BID inhalational spacing device (Aerochamber MV spacer) As directed levalbuterol tartrate 45 mcg/actuation (Xopenex HFA) 2 inhalations inhalation Q6H lisinopril 20 mg PO BID metoprolol succinate ER 50 mg PO DAILY dtjlulskywqo-gtcv-hykcp acid 18-400 mg-mcg (Centrum Women) 1 tab PO DAILY nebulizers As directed omeprazole 20 mg PO DAILY rivaroxaban (Xarelto) 20 mg PO DAILY simvastatin 20 mg PO BEDTIME HPI Comments Details: [place] comes for follow-up. She said over the last couple of months she has been dealing with COPD exacerbation symptoms. Finally she was feeling better after 2nd course of prednisone antibiotics. However during this time she says a blood pressure is quite elevated and we would increase her lisinopril to 20 mg b.i.d.. Today the blood pressure. He is more stable. She was also notice increased fluttering in his chest but no prolonged episodes of atrial fibrillation. With shortness of breath is currently better. No orthopnea, PND, leg edema. No exertional chest pain. No bleeding issues or neurologic events on current medications. [facility] Medical History Cough Bronchitis Osteoporosis Paroxysmal atrial fibrillation Chronic anticoagulation Essential hypertension Dyslipidemia COPD (chronic obstructive pulmonary disease) Mild intermittent asthma with (acute) exacerbation Personal history of nicotine dependence Anemia Hiatal hernia with gastroesophageal reflux Irritable bowel syndrome with diarrhea Pancreatitis Hepatic hemangioma Mixed urinary 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 Brother No problems noted. Brother No problems noted. Sister No problems noted. Sister Mental health disorder Sister Mental health disorder Daughter No problems noted. Daughter No problems noted. Daughter No problems noted. Social History Household Members: Spouse Housing: House Do you presently have visiting nurse or other home services: No Alcohol intake: current Alcohol intake frequency: a few times a week Patient Tobacco Use Status: Former Tobacco user Years Smoked: 40 yrs e-Cigarette/Vaping Use: Never Used service: No Current occupational status: retired Cognitive needs: No Hearing needs: No Vision needs: Yes Review of Systems Const Denies chills, Denies fatigue, Denies fever(s), Denies frequent falls, Denies weakness, Denies weight gain and Denies weight loss ENT Denies dizziness Card Denies chest pain, Denies leg edema, Denies lightheadedness, Denies palpitations, Denies dyspnea, Denies dyspnea on exertion, Denies orthopnea and Denies other (loss of consciousness) Resp Denies cough, Denies dyspnea and Denies dyspnea on exertion GI Denies hematochezia and Denies change in stool character Musc Denies abnormal gait, Denies muscle weakness, Denies numbness, Denies radiating pain into limb and Denies tingling Neuro Denies abnormal gait, Denies dizziness, Denies frequent falls, Denies numbness, Denies tingling and Denies weakness Endo Denies fatigue and Denies palpitations Physical Exam Vital Signs: Last Vital Signs Pulse 66 11/12/24 09:22 BP 126/82 11/12/24 09:22 BMI result Body Mass Index 30.8 Const General: cooperative, comfortable, no acute distress, alert and awake Nutritional Appearance: overweight Orientation/consciousness: patient oriented x3 Limitations: no limitations Neck Neck: Yes trachea midline, Yes supple and Yes no JVD Resp Effort & Inspection: normal respiratory effort Auscultation: clear to auscultation bilaterally and diminished lung sounds Cardio Jugular venous distension: no JVD Palpation: normal PMI Rate: regular rate Rhythm: regular rhythm Heart sounds: S1 normal heart sound present and S2 normal heart sound present GI Auscultation: normal bowel sounds Skin General skin exam: no rashes or lesions noted Neuro General: patient oriented x3 and no focal motor deficits Extrem General: No clubbing, No cyanosis, Yes edema and Yes other (Bilateral varicose veins) Psych Appearance: grossly normal Office Procedures EKG Details: EKG shows normal sinus rhythm with normal EKG [id number], Complete Assessment & Plan Assessment & Plan (1) Paroxysmal atrial fibrillation: Code(s): I48.0 - Paroxysmal atrial fibrillation Category: Medical Plan: Highly symptomatic paroxysmal atrial fibrillation has overall remained suppressed without any episodes of recurrent atrial fibrillation with increased fluttering in chest most likely suggest increased burden of PACs most likely due to recent stress related to her respiratory illness as well as probably increase bronchodilators. Will increase flecainide to 150 mg b.i.d. for short period time at least sudden next 6 months. Once her respiratory status improved will cut it back down to 100 mg b.i.d.. She was tolerating flecainide well. Continue concomitant metoprolol therapy. If this becomes issue can be switch to Cardizem therapy. Continue full oral anticoagulation, currently on Xarelto 20 mg daily. Semi annual renal function test should be pursued. (2) Mitral regurgitation: Code(s): I34.0 - Nonrheumatic mitral (valve) insufficiency Category: Medical Plan: Mitral regurgitation which is [id number]. No clinical worsening at this point time. Continue monitor by echocardiogram every couple of years unless here sudden change in his symptoms. Continue aggressive blood pressure control. (3) Essential hypertension: Code(s): I10 - Essential (primary) hypertension Category: Medical Plan: Recent elevated blood pressure which is not better controlled on increase lisinopril at this point time. Continue increase lisinopril at 20 mg b.i.d.. Stress mitigation strategies were discussed. Low-salt diet was discussed. Will follow up in the clinic in 6 months time, sooner p.r.n.. Thank you for allowing me to partake in her care Medications: New lisinopril 20 mg PO BID 180 tabs 3RF flecainide 150 mg PO Q12H 180 tabs 1RF Discontinued flecainide Discontinued Reason: Doctor's Order 100 mg PO BID 180 tabs 3RF Coding Level of Care Code Est Pt Level 4 (37321) Complex EM visit Add On G2211 Diagnoses Paroxysmal atrial fibrillation I48.0 Mitral regurgitation I34.0 Essential hypertension I10 CPT Codes EKG - CPT: 49236-[id number], Complete ([id number])
--- OUTSIDE RECORDS SUMMARY | 2024-11-12 09:27 | XMS_ITS | Clinical Summary ---
Author Organization [facility] Address [address] [place] [address] Care Team Providers Care Pattern Setter Name Role Phone Unavailable Primary Care Provider Unavailabl e Social History Tobacco Use Types Packs/Day Years Used Date Smoking Tobacco: Never Assessed Sex and Gender Information Value Date Recorded Sex Assigned at Not on file Gender Identity Not on file Sexual Orientation Not on file Plan of Treatment Health Maintenance Due Date Last Done Comments Hepatitis C Virus Screening 1955 DTaP/Tdap/Td Vaccines (1 - Tdap) 1972 Mammogram 1993 Colonoscopy 1998 Pneumococcal Vaccines 50+ (1 of 1 - PCV) 2003 Zoster (Shingles) Vaccine (1 of 2) 2003 DXA Bone Density (Females,Ag es 65 and older) 2018 Influenza Vaccine 05/10/2024 COVID-19 Vaccine ( - 2023-2 5 season) 2024 RSV Vaccine 60 years and old er and Patients (1 - 1-dose 75+ series) 2028 Hepatitis B Vaccines Aged Out No long er eligible based on patient's age to complete this topic [phone] (Home) [address] [facility] [place] [id number]
== END 2024-11-12 09:43 | disposition home or self-care (01) ==
PROVIDERS: PCP Internal Medicine; Visit Provider Internal Medicine Cardiovascular Disease
DX: I48.0 Paroxysmal atrial fibrillation (principal); I34.0 Nonrheumatic mitral (valve) insufficiency; I10 Essential (primary) hypertension
CPT/HCPCS: 93010; 99214; G2211

== ENCOUNTER → 2024-11-12 09:08 | Outpatient (BNVA) | payer MEDICARE, SELFPAY | PROVIDERS: PCP Internal Medicine; Visit Provider Internal Medicine Cardiovascular Disease | DX: I48.0 Paroxysmal atrial fibrillation (principal); I34.0 Nonrheumatic mitral (valve) insufficiency; I10 Essential (primary) hypertension | CPT/HCPCS: 93005; 99212 ==

== ENCOUNTER → 2024-11-15 09:15 | Outpatient (BNV) | payer MEDICARE, SELFPAY | PROVIDERS: PCP Internal Medicine; Visit Provider Internal Medicine | DX: Z12.31 Encounter for screening mammogram for malignant neoplasm of breast (principal) | CPT/HCPCS: 77063; 77067 ==

== ENCOUNTER 2024-11-19 23:31 | Emergency (ER) | payer MEDICARE, SELFPAY ==
[2024-11-19 23:40] VITALS: BP 199/98; PULSE 88; RESP 16; TEMP 36.7; O2SAT 96; BMI 34.2
--- NOTE | 2024-11-20 00:06 | ED.GENADULT ---
HPI - General Adult General Chief complaint: Epistaxis Stated complaint: noise bleed Time Seen by Provider: 11/20/24 00:06 History of Present Illness ED Provider: Preston CHAPIN narrative: The patient is a 69-year-old female who is on rivaroxaban because of atrial fibrillation. She felt fine during the day today. She went to bed this evening in her normal state of health. She woke up with a nosebleed at around 11:00. The nosebleed was quite profuse and her drove her to the emergency room. She has never had a nosebleed before. There has been no trauma. She was not feeling ill earlier in the day. Related Data Home Medications ?Medication ?Instructions ?Recorded ?Confirmed acetaminophen 650 mg 650 mg PO Q8H PRN pain 09/18/20 11/12/24 tablet,extended release omeprazole 20 mg capsule,delayed 20 mg PO DAILY 05/19/23 11/12/24 release ascorbic acid (vitamin C) 1,000 mg 1,000 mg PO DAILY 07/02/24 11/12/24 tablet (Vitamin C) calcium 600 mg (as 1 tab PO DAILY 07/02/24 11/12/24 carbonate)-vitamin D3 20 mcg (800 unit) tablet (Caltrate with Vitamin D3) cholecalciferol (vitamin D3) 25 25 mcg PO DAILY 07/02/24 11/12/24 mcg (1,000 unit) tablet (Vitamin D3) multivitamin-ferrous 1 tab PO DAILY 07/02/24 11/12/24 fumarate-folic acid 18 mg-400 mcg tablet (Centrum Women) Previous Rx's ?Medication ?Instructions ?Recorded nebulizers #1 ea 03/25/21 inhalational spacing device #1 ea 07/01/21 (Aerochamber MV spacer) albuterol sulfate 2.5 mg/3 mL 2.5 mg (3 mL) inhalation Q4-6H PRN 12/22/23 (0.083 %) solution for nebulization shortness of breath or wheezing #90 mL levalbuterol tartrate 45 2 inh inhalation Q6H #15 grams 01/19/24 mcg/actuation aerosol inhaler (Xopenex HFA) simvastatin 20 mg tablet 20 mg PO BEDTIME #90 tabs 03/11/24 metoprolol succinate 50 mg 50 mg PO DAILY #90 tabs 04/19/24 tablet,extended release 24 hr rivaroxaban 20 mg tablet (Xarelto) 20 mg PO DAILY #90 tabs 05/10/24 budesonide-formoterol HFA 160 1 inh inhalation BID #10.2 grams 07/12/24 mcg-4.5 mcg/actuation aerosol inhaler (Symbicort) flecainide 150 mg tablet 150 mg PO Q12H #180 tabs 11/12/24 lisinopril 20 mg tablet 20 mg PO BID #180 tabs 11/12/24 Allergies Allergy/AdvReac Type Severity Reaction Status Date / Time Sulfa (Sulfonamide Allergy Intermediate FACIAL Verified 11/19/24 23:42 Antibiotics) SWELLING, [SULFA(SULFONAMIDE REDNESS, ANTIBIOTICS)] rash, face edema levofloxacin [From LEVAQUIN] Allergy Unknown itchy Verified 11/19/24 23:42 tongue Penicillins [PENICILLINS] Allergy Unknown RASH Verified 11/19/24 23:42 Quinolones [QUINOLONES] Allergy Unknown MOUTH Verified 11/19/24 23:42 ITCHING cefuroxime Allergy Unknown Verified 11/19/24 23:42 doxycycline Allergy Unknown Verified 11/19/24 23:42 ketorolac AdvReac Facial Uncoded 11/19/24 23:42 Swelling latex AdvReac Facial Uncoded 11/19/24 23:42 Swelling Review of Systems Review of Systems: Yes all other systems are reviewed and are negative [facility] Past Medical History Medical History Cough Bronchitis Osteoporosis Paroxysmal atrial fibrillation Chronic anticoagulation Essential hypertension Dyslipidemia COPD (chronic obstructive pulmonary disease) Mild intermittent asthma with (acute) exacerbation Personal history of nicotine dependence Anemia Hiatal hernia with gastroesophageal reflux Irritable bowel syndrome with diarrhea Pancreatitis Hepatic hemangioma 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 Brother No problems noted. Brother No problems noted. Sister No problems noted. Sister Mental health disorder Sister Mental health disorder Daughter No problems noted. Daughter No problems noted. Daughter No problems noted. Social History Social History Household Members: Spouse Housing: House Do you presently have visiting nurse or other home services: No Alcohol intake: current Alcohol intake frequency: holidays/special occasions only Patient Tobacco Use Status: Former Tobacco user Years Smoked: 40 yrs Smoked in Last 30 Days: No e-Cigarette/Vaping Use: Never Used Use of substances other than those prescribed or required for medical reasons: No Advance Directives: No Do you have a plan to hurt others: No Plan service: No Current occupational status: retired Cognitive needs: No Hearing needs: No Vision needs: Yes Physical Exam ED Vital Signs: Vital Signs - 24 hr 11/19/24 23:40 11/20/24 00:07 Temperature 98.0 F 98.0 F Pulse Rate 88 84 Respiratory Rate 16 17 Blood Pressure 199/98 H 178/87 H Pulse Oximetry 96 96 Oxygen Delivery Method Room Air Room Air BMI result Body Mass Index 34.2 Const Other: The patient was awake and alert. She had a nasal clamp on her nose but still seemed to be bleeding. HENMT Other: Face is symmetrical. There was blood emerging from the nostrils. There was also blood in the posterior pharynx. After the patient's bleeding was controlled it was evident that the source of bleeding has been from the nasal septum of the right nostril. The site of bleeding was not from Kiesselbach's plexus but further back on the septum and fairly low down near the floor of the nostril. Eyes General: appearance normal, both eyes and all related structures Eyelids: Yes eyelids normal Conjunctivae: conjunctivae normal Sclerae: sclerae normal EOM: EOMs intact bilaterally Neck Neck: Yes full ROM and Yes no JVD Resp Effort & Inspection: normal respiratory effort Auscultation: clear to auscultation bilaterally Cardio Rate: regular rate Rhythm: regular rhythm Heart sounds: S1 normal heart sound present and S2 normal heart sound present Skin Other: Skin is dry and unremarkable Neuro Other: The patient is awake and alert with a normal mental status. Cranial nerves are intact. She moves her extremities normally and appropriately. Gait is Extrem Other: No peripheral edema Medications Administered Discontinued Medications Generic Name Dose Route Start Last Admin Trade Name Lazaro SOLIS Reason Stop Dose Admin Cocaine HCl 4 ml 11/20/24 00:08 11/20/24 00:16 Cocaine Hcl 4 % 4 Ml Solution TOPICAL 11/20/24 00:09 4 ml ONCE ONE Administration Protocol Oxymetazoline HCl 2 spray 11/20/24 00:08 11/20/24 00:16 Oxymetazoline Hcl 0.05 % Nasal 15 Ml [place] NOSTRIL-B 11/20/24 00:09 2 spray ONCE ONE Administration Medical Decision Making Medical Decision Making MDM Narrative: The patient a right-sided nosebleed. She is on rivaroxaban for atrial fibrillation. No trauma or antecedent illness. This seems to be a spontaneous epistaxis. The patient's bleeding at 1st seemed to be quite brisk. I had the patient blow out all of her clots and administered several sprays of oxymetazoline was subsequent nasal pressure. This did not seem to help control bleeding and the maneuver it was repeated. There still seemed to be a fair amount of bleeding and I then face to cotton ball soaked with 4% cocaine in the right nostril. After the cotton ball had soaked for about 10 minutes I reexamined the patient. At that point bleeding had stopped and there seemed to be a pinpoint spot on the lower portion of the right nasal septum fairly for back like it has been the site of recent bleeding. I then used silver nitrate sticks to cauterize this area. The patient was observed for awhile. I re-examined the patient and there was a small amount of blood in the nostril. I placed another cotton ball soaked in cocaine and did some repeat cautery with silver nitrate sticks. After this the bleeding seemed to stop. I felt the patient could be discharged. A CBC was done. Her hemoglobin was 10.8. Her hemoglobin on November 02 was 12.2 but looking further back it seems as though her hemoglobin tends to be between 10 and 11. The patient will be discharged with a nasal clamp and the bottle of oxymetazoline. She was instructed in how to try to manage any additional bleeding at home. She was instructed to avoid hot beverages. I think she should skip a day of rivaroxaban. She was given the contact information for the ENT office. She should return if worse. Lab Data 11/20/24 01:10 11/20/24 01:10 Labs: Lab Results 11/20/24 Range/Units 01:10 WBC 7.8 (4.8-10.8) X10*3/uL RBC 3.82 L (4.20-5.50) X10*6/uL Hgb 10.8 L (12.0-16.0) g/dl Hct 33.6 L (37.0-47.0) % MCV 88.0 (80.0-98.0) fL MCH 28.3 (27.0-33.0) pg MCHC 32.1 (31.0-35.0) g/dl RDW 12.7 (11.0-16.0) % Plt Count 211 D (160-400) X10*3/uL MPV 10.7 (9.4-12.3) fL Immature Gran % (Auto) 0.4 (0.0-0.4) % Neut % (Auto) 70.6 (45-73) % Lymph % (Auto) 16.3 L (20-40) % [place] % (Auto) 9.1 (2-11) % Eos % (Auto) 3.1 (0-4) % Baso % (Auto) 0.5 (0-2) % Lymph # (Auto) 1.3 (1.2-4.9) X10*3/uL [place] # (Auto) 0.7 (0.1-1.2) X10*3/uL Eos # (Auto) 0.2 (0.0-0.4) X10*3/uL Baso # (Auto) 0.0 (0.0-0.2) X10*3/uL Abs Immat Gran (auto) 0.03 (0.00-0.03) X10*3/uL Absolute Neuts (auto) 5.5 (2.0-8.3) x10*3/uL Absolute Nucleated RBC 0.000 (0.0-0.012) X10*3/uL Nucleated RBC % (auto) 0.0 (0.0-0.2) /100WBC Sodium 146 H (135-145) mmol/L Potassium 3.9 (3.3-5.1) mmol/L Chloride 112 H (96-108) mmol/L Carbon Dioxide 26 (22-29) mmol/L Anion Gap 12 (12-20) BUN 21 H (9-16) mg/dL Creatinine 0.81 (0.5-1.4) mg/dL Estim Creat Clear Calc 59.3 Estimated GFR > 60 Random Glucose 107 (60-115) mg/dL Calcium 8.5 (8.4-10.2) mg/dL Discharge Plan Discharge Clinical Impression: Right-sided epistaxis Patient Disposition: Home, Self-Care Instructions: Nosebleed (ED) Additional Instructions: You had bleeding from your right nostril. Please plan on not taking your rivaroxaban (Xarelto) dose later this morning. You will skip a day. If by Tuesday you are doing well you may resume your rivaroxaban (Xarelto). Hot beverages can increase the likelihood of recurrent nose bleeding. Therefore avoid hot coffee or hot tea or hot soups or any other hot beverages for the next few days. Please contact the ENT office(Dr. Ignacio) for a follow up appointment. You may also follow up with your regular doctor. If you have another episode of bleeding you may try to manage it at home. Blow your nose with tissues to get all the clots out and administer several has a line (Afrin) nasal spray in both nostrils. Hold pressure to your nose for 20 minutes either with your fingers or with a nasal clamp. If you do not have ongoing bleeding after this point you might not need to return to the emergency room. However if this technique does not seem to help than you should return to the emergency room. Prescriptions: No Action (DME) Aerochamber MV Spacer See Rx Instructions .ROUTE .MEDSUPPLY Qty: 1 0RF Rx Instructions: As directed simvastatin 20 mg tablet 20 mg PO BEDTIME Qty: 90 10RF metoprolol succinate 50 mg tablet extended release 24 hr 50 mg PO DAILY Qty: 90 10RF Xarelto 20 mg tablet 20 mg PO DAILY Qty: 90 3RF ascorbic acid (vitamin C) [Vitamin C] 1,000 mg Tablet 1,000 mg PO DAILY cholecalciferol (vitamin D3) [Vitamin D3] 25 mcg (1,000 unit) Tablet 25 mcg PO DAILY Centrum Women 18-400 mg-mcg Tablet 1 tab PO DAILY calcium carbonate-vitamin D3 [Caltrate with Vitamin D3] 600 mg-20 mcg (800 unit) Tablet 1 tab PO DAILY albuterol sulfate 2.5 mg /3 mL (0.083 %) solution for nebulization 2.5 mg inhalation Q4-6H PRN (Reason: shortness of breath or wheezing) Qty: 90 0RF acetaminophen 650 mg tablet extended release 650 mg PO Q8H PRN (Reason: pain) (DME) nebulizers Misc See Rx Instructions .ROUTE .MEDSUPPLY Qty: 1 0RF Rx Instructions: As directed omeprazole 20 mg capsule,delayed release(DR/EC) 20 mg PO DAILY levalbuterol tartrate [Xopenex HFA] 45 mcg/actuation HFA aerosol inhaler 2 inh inhalation Q6H Qty: 15 0RF lisinopril 20 mg tablet 20 mg PO BID Qty: 180 3RF flecainide 150 mg tablet 150 mg PO Q12H Qty: 180 1RF budesonide-formoterol [Symbicort] 160-4.5 mcg/actuation HFA aerosol inhaler 1 inh inhalation BID Qty: 10.2 3RF Referrals: Delta Ignacio [Physician] - (Epistaxis) Print Language: German
[2024-11-20 00:07] VITALS: BP 178/87; PULSE 84; RESP 17; TEMP 36.7; O2SAT 96
[2024-11-20] MEDS: Cocaine HCl 4 % 4 ML SOLUTION TOPICAL (00:16)
[2024-11-20] MEDS: Oxymetazoline HCl 0.05 % Nasal 15 ML SPRAY 2 SPRAY NOSTRIL-B (00:16)
[2024-11-20 01:15] LABS: MANUAL DIFF FLAG NO
[2024-11-20 01:16] LABS: Basophils Percent Auto 0.5 % (0-2); Eosinophils Absolute Auto 0.2 X10*3/uL (0.0-0.4); Eosinophils Percent Auto 3.1 % (0-4); Hematocrit 33.6 % (37.0-47.0); Hemoglobin 10.8 g/dl (12.0-16.0); Imm Gran Abs Auto 0.03 X10*3/uL (0.00-0.03); Imm Gran Pct Auto 0.4 % (0.0-0.4); Lymphocytes Absolute Auto 1.3 X10*3/uL (1.2-4.9); Lymphocytes Percent Auto 16.3 % (20-40); Mean Corpuscular HGB Conc 32.1 g/dl (31.0-35.0); Mean Corpuscular Hemoglobin 28.3 pg (27.0-33.0); Mean Platelet Volume 10.7 fL (9.4-12.3); Monocytes Absolute Auto 0.7 X10*3/uL (0.1-1.2); Monocytes Percent Auto 9.1 % (2-11); Neutrophils Absolute Auto 5.5 x10*3/uL (2.0-8.3); Neutrophils Percent Auto 70.6 % (45-73); Platelet Count 211 X10*3/uL (160-400); Red Blood Count 3.82 X10*6/uL (4.20-5.50); Red Cell Distribution Width 12.7 % (11.0-16.0); White Blood Count 7.8 X10*3/uL (4.8-10.8)
[2024-11-20 01:29] LABS: Anion Gap 12 (12-20); Blood Urea Nitrogen 21 mg/dL (9-16); Calcium 8.5 mg/dL (8.4-10.2); Carbon Dioxide 26 mmol/L (22-29); Chloride 112 mmol/L (96-108); Creatinine Clr Calc Pharmacy 59.3; Estimated Glomerular Filt Rate > 60; Glucose Random 107 mg/dL (60-115); Potassium 3.9 mmol/L (3.3-5.1); Sodium 146 mmol/L (135-145)
[2024-11-20 02:26] VITALS: BP 129/52; PULSE 82; RESP 16; TEMP 36.8; O2SAT 98
== END 2024-11-20 02:27 | disposition home or self-care (01) ==
PROVIDERS: Emergency Provider Emergency Medicine; PCP Internal Medicine
DX: R04.0 Epistaxis (principal); I48.91 Unspecified atrial fibrillation; Z79.01 Long term (current) use of anticoagulants; Z79.899 Other long term (current) drug therapy
CPT/HCPCS: 30901; 36415; 80048; 85025; 99283; 99284; C9143

== ENCOUNTER 2024-11-22 14:11 | Outpatient (AMB) | payer MEDICARE, SELFPAY ==
--- OUTSIDE RECORDS SUMMARY | 2024-11-22 14:15 | XMS_ITS | Clinical Summary ---
Author Organization [facility] Address [address] [place] [address] Care Team Providers Care Farm Planner Name Role Phone Unavailable Primary Care Provider [...] on patient's age to complete this topic [phone] (Home) [address] [facility] RACHEAL CARCAMO [id number]
--- OUTSIDE RECORDS SUMMARY | 2024-11-22 14:15 | XMS_ITS ---
Author Organization [facility] Address [address] [place] [address] Care Team Providers Care Fruit Or Nut Farmworker Name Role Phone Abran AGUAYO, Flores Primary Care Provider UnaMariano Parnell Unavailable [phone] REASON FOR VISIT screening PROBLEMS Problem Type ICD Code Onset Dates Problem Status W/U Status Risk SNOMED Code Notes Problem Diverticulosis of large intestine without perforation or abscess without bleeding (K57.30) Active confirmed Diverticul ar disease of colon (115042210) Encounters Encounter Location Date Provider Diagnosis [facility] [place] [address] [place] [address] [phone] 07/13/2023 Mariano Landaverde Encounter for scre ening colonoscopy Z12.11 ; Diverticulosis of large intestine without perforation or abscess without bleeding K57.30 and Other hemorrhoids K64.8 ASSESSMENTS Encounter Date Diagnosis Assessment Notes Treatment Notes Treatment Clinical Notes 07/13/2023 Encounter for screening colonoscopy (ICD-10 - Z12.11) 07/13/2023 Diverticulosis of large intestine without perforation or abscess without bleeding (ICD-10 - K57.30) 07/13/2023 Other hemorrhoids (ICD-10 - K64.8) PLAN OF TREATMENT No Information
--- OUTSIDE RECORDS SUMMARY | 2024-11-22 14:15 | XMS_ITS | Patient Health Record ---
Author Organization [facility] Address [address] [place] [address] Care Team Providers Care Sizing End Bander Name Role Phone Abran AGUAYO, Flores Primary Care Provider Mariano Card Unavailable [phone] ALLERGIES Allergen (clinical drug ingredient) Drug/Non Drug [...] 20 MG TAKE 1 CAPSULE BY MO UTH EVERY DAY IN THE MORNING for 90 Active Flecainide Acetate 100 [...] Problem Colon cancer screening (Z12.11) Active confirmed 542894524 Problem Diverticulosis of large intestine without perforation or abscess without bleeding (K57.30) Active confirmed Diverticul ar disease of colon (605560826) Problem Dysphagia (R13.10) Active confirmed Dys phagia (76240582) Problem Gastroesophageal reflux disease (K21.9) Active confirmed Gastroesophagea l reflux disease (463336240) Problem Gastroesophageal reflux disease without esophagitis (K21.9) Active confirmed 456047791 Problem Pharyngoesophageal dysphagia (R13.14) Active confirmed 83193834 Problem 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) Active confirmed 947685662 Problem Gastroesophageal reflux disease, unspecified whether esophagitis present (K21.9) Active confirmed 608668652 PLAN OF TREATMENT Future Test Test Name Order Date COLONOSCOPY 07/19/2013 UPPER GI ENDOSCOPY [place] DILATION OF ESOPH 03/23/2023 COLONOSCOPY 04/12/2023 Insurance Providers Payer Name Payer Address Payer Phone Subscriber Number Group Number Insured Name Patient Relationship to Insured Coverage Start Date Coverage End Date [employer] [address] [place], [place] [id number] [place] Self - patient is the insured MEDICAL (GENERAL) HISTORY Medical History History ICD Code Gastroesophageal reflux dise ase (GERD)-EGD in 2002-[facility], no esophagitis, no Castellano's esophagus Hypertension Osteopenia Arthritis Denies NH,DM,CVA,renal disease Hemochromatosis gene carrier -06/2006--she describes that her sister has hemochromatosis and undergoes phlebotomy therapy--[place] genetic testing in 2005 revealed negative testing for C282Y and only a carrier state for H63D Colonoscopy 11/2004-hyperplastic polyp an d internal hemorrhoids Hepatic hemangioma on U/S in 2009 and Nu c med Blood pool scan in 2005 Hyperlipidemia Pancreatitis in June of 2013 based on her laboratories at [facility]--? Etiology; [place] pancreatitis in 2014 [place] [facility] [place] w/u, probably EtOH related Atrial fibrillation Hospitalized in 07/2014 for chest pain--neg ETT and R/O for NH---? esophageal spasm Negative colonoscopy in 09/10 013 except for diverticulosis and internal hemorrhoids Surgical History Surgery Date(Month/Year) Lumpectomy- left breast-benign Cholecystectomy 2004
[2024-11-22 14:51] VITALS: BP 138/72; PULSE 73; O2SAT 95; BMI 32.9
--- NOTE | 2024-11-22 14:51 | A.OFFVIS_ITS ---
Vital Signs 11/22/24 14:51 Height 5 ft Weight 168 lb 10.458 oz BMI 32.9 BP 138/72 Blood Pressure Location Lt brachial Position Sitting Pulse 73 Pulse Source Pulse Oximeter Pulse Oximetry (%) 95 Oxygen Delivery Method Room Air Intake Visit Reasons: COPD Intake Note: pt is here for follow up and doing a lot better. 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 Allergies Sulfa (Sulfonamide Antibiotics) [SULFA(SULFONAMIDE ANTIBIOTICS)] Allergy (Intermediate, Verified 11/22/24 15:29) FACIAL SWELLING, REDNESS, rash, face edema levofloxacin [From LEVAQUIN] Allergy (Unknown, Verified 11/22/24 15:29) itchy tongue Penicillins [PENICILLINS] Allergy (Unknown, Verified 11/22/24 15:29) RASH Quinolones [QUINOLONES] Allergy (Unknown, Verified 11/22/24 15:29) MOUTH ITCHING cefuroxime Allergy (Verified 11/22/24 15:29) Unknown doxycycline Allergy (Verified 11/22/24 15:29) Unknown ketorolac Adverse Reaction (Uncoded 11/22/24 15:29) Facial Swelling latex Adverse Reaction (Uncoded 11/22/24 15:29) Facial Swelling Medication List - Last Reconciled 11/22/24 by Marilia Cardenas MD acetaminophen ER 650 mg PO Q8H PRN albuterol sulfate 2.5 mg (3 mL) inhalation Q4-6H PRN ascorbic acid (vitamin C) (Vitamin C) 1,000 mg PO DAILY budesonide-formoterol 160-4.5 mcg/actuation (Symbicort) 1 inh inhalation BID calcium carbonate-vitamin D3 600 mg-20 mcg (800 unit) (Caltrate with Vitamin D3) 1 tab PO DAILY cholecalciferol (vitamin D3) (Vitamin D3) 25 mcg PO DAILY flecainide 150 mg PO Q12H inhalational spacing device (Aerochamber MV spacer) As directed levalbuterol tartrate 45 mcg/actuation (Xopenex HFA) 2 inhalations inhalation Q6H lisinopril 20 mg PO BID metoprolol succinate ER 50 mg PO DAILY txvanogkpvbv-uksl-tvbge acid 18-400 mg-mcg (Centrum Women) 1 tab PO DAILY nebulizers As directed omeprazole 20 mg PO DAILY rivaroxaban (Xarelto) 20 mg PO DAILY simvastatin 20 mg PO BEDTIME Do you need a note to return to daycare/school/sports/work: No HPI HPI COPD: Details: THIS 69 YEARS OLD VERY PLEASANT FEMALE IS HERE FOR FOLLOW-UP AFTER. 2 WEEKS SHE WAS SEEN FOR AN URGENT VISIT BECAUSE SHE WAS HAVING PERSISTENT COUGH. THE COUGH WAS SECONDARY TO AN ACUTE EXACERBATION OF COPD DUE TO ACUTE RESPIRATORY INFECTION. SHE WAS TREATED WITH A COURSE OF DOXYCYCLINE AND PREDNISONE, AND AFTERWARDS SHE IS FEELING MUCH BETTER. SHE HAS NO RESIDUAL COUGH. SHE IS DEALING WITH HER USUAL CHRONIC OBSTRUCTIVE PULMONARY DISEASE AND GETS SOME SHORTNESS OF BREATH ON WALKING AROUND. DOING WELL WITH USE OF SYMBICORT ,TWICE A DAY AND USES THE ALBUTEROL INHALER ONLY ONCE IN A WHILE. ON LICENSE OF [facility] Medical History Cough Bronchitis Osteoporosis Paroxysmal atrial fibrillation Chronic anticoagulation Essential hypertension Dyslipidemia COPD (chronic obstructive pulmonary disease) Mild intermittent asthma with (acute) exacerbation Personal history of nicotine dependence Anemia Hiatal hernia with gastroesophageal reflux Irritable bowel syndrome with diarrhea Pancreatitis Hepatic hemangioma Mixed urinary 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 Brother No problems noted. Brother No problems noted. Sister No problems noted. Sister Mental health disorder Sister Mental health disorder Daughter No problems noted. Daughter No problems noted. Daughter No problems noted. Social History Household Members: Spouse Housing: House Do you presently have visiting nurse or other home services: No Alcohol intake: current Alcohol intake frequency: holidays/special occasions only Patient Tobacco Use Status: Former Tobacco user Years Smoked: 40 yrs e-Cigarette/Vaping Use: Never Used service: No Current occupational status: retired Cognitive needs: No Hearing needs: No Vision needs: Yes Review of Systems Const All systems reviewed & are unremarkable except as noted in HPI and below Eyes Reports no additional complaints ENT Reports nasal congestion (Mild off and on) Card Reports no additional complaints, Denies chest pain and Reports irregular heart rhythm (Atrial fibrillation) Resp Reports as per HPI GI Reports heartburn (GERD symptoms being treated with omeprazole) Reports no additional complaints Musc Reports no additional complaints Skin/Breast Reports system reviewed and no additional complaints, except as documented Neuro Reports no additional complaints Psych Reports no additional complaints Endo Reports no additional complaints Physical Exam Vital Signs: Last Vital Signs Pulse 73 11/22/24 14:51 BP 138/72 11/22/24 14:51 Pulse Ox 95 11/22/24 14:51 Oxygen Delivery Method Room Air 11/22/24 14:51 BMI result Body Mass Index 32.9 Const General: cooperative, comfortable, no acute distress, alert and awake Nutritional Appearance: overweight Orientation/consciousness: patient oriented x3 Limitations: no limitations HEENT Head: Yes normal to inspection General nose exam: No nasal polyps present and No nasal discharge present Face and sinus: Yes sinuses nontender Mouth: oropharynx normal Throat: Yes posterior oropharynx normal Eyes General: appearance normal, both eyes and all related structures Neck Neck: Yes trachea midline, Yes supple and Yes no JVD Thyroid: Thyroid normal Chest Chest palpation & inspection: normal inspection of the chest, normal palpation of entire chest wall and no tenderness Resp Other: Percussion note resonant, breath sounds are equal on both sides slightly distant with prolonged expiratory phase. No audible wheezes rhonchi or crepitations are heard today Effort & Inspection: normal respiratory effort Auscultation: clear to auscultation bilaterally and diminished lung sounds Cardio Jugular venous distension: no JVD Palpation: normal PMI Rate: regular rate Rhythm: regular rhythm Heart sounds: S1 normal heart sound present and S2 normal heart sound present Peripheral pulses: Peripheral pulses 2+ throughout GI Palpation (GI): Soft to palpation, nontender, No hepatosplenomegaly present and no masses Auscultation: normal bowel sounds Back/Spine/Pelvis Thoracic/Lumbar Spine: thoracic and lumbar spine normal to inspection Skin General skin exam: no rashes or lesions noted Neuro General: patient oriented x3 and no focal motor deficits Cranial nerves: Yes CN's II-XII intact bilaterally Extrem General: No clubbing, No cyanosis, Yes edema and Yes other (Bilateral varicose veins) Psych Appearance: grossly normal Speech and movement: Normal speech and movement present Assessment & Plan Assessment & Plan (1) Cough: Comment: LINGERING COUGH IS PROBABLY POSTINFECTIOUS AFTER AN ACUTE VIRAL UPPER RESPIRATORY INFECTION. WAS TREATED WITH A SHORT COURSE OF PREDNISONE AND DOXYCYCLINE 100 B.I.D. FOR 10 DAYS. SHE IS MUCH IMPROVED AND DOES NOT HAVE ANY SIGNIFICANT. RESIDUAL COUGH SHE HAS HER USUAL SHORTNESS OF BREATH. ON EXERTION DUE TO HER COPD Code(s): R05.9 - Cough, unspecified Category: Medical Plan: NO NEED OF ANY COUGH MEDICINE AND ANYMORE STEROIDS. (2) COPD (chronic obstructive pulmonary disease): Comment: SHE DOES HAVE MODERATELY SEVERE OBSTRUCTIVE AIRWAY DISORDER DUE TO HER PAST SMOKING. CURRENTLY WELL CONTROLLED AND STABLE . Code(s): J44.9 - Chronic obstructive pulmonary disease, unspecified Category: Medical Plan: CONTINUE SYMBICORT 160-4.52 PUFFS B.I.D.. LAB ALBUTEROL HFA 2 PUFFS Q 4-6 HOURS ONLY P.R.N. ALTERNATIVELY MAY USE ALBUTEROL SOLUTION IN THE NEBULIZER Q 4-6 HOURS P.R.N. Coding Level of Care Code Est Pt Level 3 (81387) Diagnoses Cough R05.9 COPD (chronic obstructive pulmonary disease) J44.9
== END 2024-11-22 15:23 | disposition home or self-care (01) ==
PROVIDERS: PCP Internal Medicine; Visit Provider Internal Medicine
DX: R05.9 Cough, unspecified (principal); J44.9 Chronic obstructive pulmonary disease, unspecified
CPT/HCPCS: 99213

== ENCOUNTER → 2024-11-22 14:11 | Outpatient (BNVA) | payer MEDICARE, SELFPAY | PROVIDERS: PCP Internal Medicine; Visit Provider Internal Medicine | DX: J44.9 Chronic obstructive pulmonary disease, unspecified (principal); R05.9 Cough, unspecified | CPT/HCPCS: 99212 ==

== ENCOUNTER 2024-11-29 13:34 | Outpatient (AMB) | payer MEDICARE, SELFPAY ==
--- NOTE | 2024-11-29 13:45 | MHC.PC.OV ---
Vital Signs 11/29/24 13:46 Height 5 ft Weight 168 lb BMI 32.8 BP 136/80 Blood Pressure Location Lt brachial Position Sitting Respiration 16 Pulse 73 Pulse Source Pulse Oximeter Temp 98 F Temp Source Oral Pulse Oximetry (%) 96 Oxygen Delivery Method Room Air Intake Visit Reasons: 3 months f/up Intake Note: Pt is here today for her 3mo. f/u Allergies Sulfa (Sulfonamide Antibiotics) [SULFA(SULFONAMIDE ANTIBIOTICS)] Allergy (Intermediate, Verified 11/29/24 14:01) FACIAL SWELLING, REDNESS, rash, face edema levofloxacin [From LEVAQUIN] Allergy (Unknown, Verified 11/29/24 14:01) itchy tongue Penicillins [PENICILLINS] Allergy (Unknown, Verified 11/29/24 14:01) RASH Quinolones [QUINOLONES] Allergy (Unknown, Verified 11/29/24 14:01) MOUTH ITCHING cefuroxime Allergy (Verified 11/29/24 14:01) Unknown doxycycline Allergy (Verified 11/29/24 14:01) Unknown ketorolac Adverse Reaction (Uncoded 11/29/24 14:01) Facial Swelling latex Adverse Reaction (Uncoded 11/29/24 14:01) Facial Swelling Medication List - Last Reconciled 11/29/24 by Flores Osullivan MD acetaminophen ER 650 mg PO Q8H PRN albuterol sulfate 2.5 mg (3 mL) inhalation Q4-6H PRN ascorbic acid (vitamin C) (Vitamin C) 1,000 mg PO DAILY budesonide-formoterol 160-4.5 mcg/actuation (Symbicort) 1 inh inhalation BID calcium carbonate-vitamin D3 600 mg-20 mcg (800 unit) (Caltrate with Vitamin D3) 1 tab PO DAILY cholecalciferol (vitamin D3) (Vitamin D3) 25 mcg PO DAILY flecainide 150 mg PO Q12H inhalational spacing device (Aerochamber MV spacer) As directed levalbuterol tartrate 45 mcg/actuation (Xopenex HFA) 2 inhalations inhalation Q6H lisinopril 20 mg PO BID metoprolol succinate ER 50 mg PO DAILY enqobhcaoxih-yply-aafkc acid 18-400 mg-mcg (Centrum Women) 1 tab PO DAILY nebulizers As directed omeprazole 20 mg PO DAILY rivaroxaban (Xarelto) 20 mg PO DAILY simvastatin 20 mg PO BEDTIME Tobacco use date assessed: 11/29/24 Fall risk assessment: No Falls in past year Last assessed Fall Risk: 11/29/24 Dental Screening Dental Screen Date: 11/29/24 Did you have a dental visit in the last 12 months?: No Did you have a dental problem in the last 6 months where you did not have access to dental care?: No Was dental information given to patient?: Patient has dentist HPI 3 months f/up HPI Details 69-year-old lady with past medical history significant for COPD not on home oxygen followed by Dr. Cardenas, , has atrial fibrillation on anticoagulation, gastroesophageal reflux disease, here for a follow uo of her hypertension and mixed hyperlipidemia. She has been feeling well, with no complaints at present time, compliant with taking her medications and following recommended diet. Recent fasting labs done 10/2024 showed fasting lipids, electrolytes renal function and fasting glucose within normal limits. It was noted on in ER visit this month that she was anemic with a hemoglobin at 10.8 and hematocrit 33.6. Patient denies any unusual bleeding, no blood in stool, no black stools. Denies chest pain, shortness of breath lightheadedness, or palpitations. Last colonoscopy done by Dr. Landaverde in 2022 showed normal findings, no further testing needed per GI. 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 Brother No problems noted. Brother No problems noted. Sister No problems noted. Sister Mental health disorder Sister Mental health disorder Daughter No problems noted. Daughter No problems noted. Daughter No problems noted. Social History Household Members: Spouse Housing: House Do you presently have visiting nurse or other home services: No Alcohol intake: current Alcohol intake frequency: holidays/special occasions only Patient Tobacco Use Status: Former Tobacco user Years Smoked: 40 yrs e-Cigarette/Vaping Use: Never Used service: No Current occupational status: retired Cognitive needs: No Hearing needs: No Vision needs: Yes Questionnaire PHQ-9 Over the last 2 weeks, how often have you been bothered by any of the following problems? 1. Little interest or pleasure in doing things: not at all 2. Feeling down, depressed, or hopeless: not at all 3. Trouble falling or staying asleep, or sleeping too much: not at all 4. Feeling tired or having little energy: not at all 5. Poor appetite or overeating: not at all 6. Feeling bad about yourself - or that you are a failure or have let yourself or your family down: not at all 7. Trouble concentrating on things, such as reading the newspaper or watching television: not at all 8. Moving or speaking so slowly that other people could have noticed. Or the opposite - being so fidgety or restless that you have been moving around a lot more than usual: not at all 9. Thoughts that you would be better off or of hurting yourself in some way: not at all Total score: 0 Depression Screening Interpretation: Negative Depression Screening Done: Yes 23872 - PHQ-9 Billing: Yes Source: Developed by Drs. Mariano Wheeler, Emilee Avila, Serafin Rothman and colleagues, with an educational marco from [employer]. Thrive Questionnaire Date Thrive assessed: 11/29/24 I am a: Patient What is your living situation today?: I have a steady place to live Within the past 12 months, did the food you bought not last and you didn't have the money to get more?: Never true Within the past 12 months, did you worry whether your food would run out before you got money to buy more?: Never true Do you have trouble paying for medicines?: Yes Do you have trouble getting transportation to medical appointments?: No Do you have trouble paying your heating and electricity bill?: No Do you have trouble taking care of your child, family member or friend?: No Do you have trouble with day-to-day activities such as bathing, preparing meals, shopping, managing finances, etc.?: No Are you currently unemployed and looking for a job?: No Are you interested in more education?: No Please select the resources that you would like help with: Paying for medicine Currently or been in a relationship where the following occur: No concerns reported THRIVE Score: 0 AUDIT C Alcohol Use Questionnaire (AUDIT-C) 1. How often do you have a drink containing alcohol?: Monthly or less 2. How many drinks containing alcohol do you have on a typical day when you are drinking?: 1 or 2 3. How often do you have six or more drinks on one occasion?: Never Total Score: 1 RODY-7 AMB Questionnaire RODY-7 Date RODY - 7 assessed: 11/29/24 Feeling nervous, anxious, or on edge: 0 = Not at all Not being able to stop or control worryin = Not at all Worrying too much about different things: 0 = Not at all Trouble relaxin = Not at all Being so restless that it is hard to sit still: 0 = Not at all Becoming easily annoyed or irritable: 0 = Not at all Feeling afraid as if something awful might happen: 0 = Not at all Total RODY-7 score (0-4 normal; 5-9 mild; 10-14 moderate; 15-21 severe): 0 Source: Developed by Drs. Mariano Wheeler, Emilee Avila, Serafin Rothman and colleagues, with an educational marco from [employer]. RODY-7 Assessment Billing RODY-7 Assessment Tool: RODY-7 Assessment 01150 Review of Systems Const Denies fatigue, Denies fever(s) and Denies weakness ENT Denies dizziness Card Denies chest pain, Denies leg edema, Denies lightheadedness, Denies palpitations, Denies dyspnea and Denies dyspnea on exertion Resp Denies cough, Denies dyspnea and Denies dyspnea on exertion GI Denies hematochezia and Denies change in stool character Reports no additional complaints Musc Denies abnormal gait, Denies muscle weakness and Denies numbness Neuro Denies abnormal gait, Denies dizziness, Denies numbness and Denies weakness Endo Denies fatigue and Denies palpitations Michael/Lymph Reports no additional complaints Aller/Immun Reports no additional complaints Physical exam (Primary Care) Vital Signs: Last Vital Signs Temp 98 F 11/29/24 13:46 Pulse 73 11/29/24 13:46 Resp 16 11/29/24 13:46 BP 136/80 11/29/24 13:46 Pulse Ox 96 11/29/24 13:46 Oxygen Delivery Method Room Air 11/29/24 13:46 BMI result Body Mass Index 32.8 Tobacco/Smoking Status: Tobacco use Status Tobacco use date assessed 11/29/24 11/29/24 13:51 Patient Tobacco Use Status Former Tobacco user 11/29/24 13:51 e-Cigarette/Vaping Use Never Used 11/29/24 13:51 PHQ-9: PHQ-9 Score PHQ-9: Total score 0 11/29/24 14:22 Depression Screening Interpretation: Negative Thrive Assessment: Date of Thrive Assessment Date Thrive assessed 11/28/24 11/29/24 13:51 Currently or been in a relationship where the following occur: No concerns reported Const Other: Alert oriented x3, no acute cardiorespiratory distress noted ambulatory normal HENMT Mouth: Normal oral and palatal mucosa present, oropharynx normal and moist mucous membranes Eyes General: appearance normal, both eyes and all related structures Neck Neck: Yes full ROM, Yes no lymphadenopathy and Yes supple Resp Auscultation: clear to auscultation bilaterally Cardio Other: S1-S2 present regular rate and rhythm GI Palpation (GI): Soft to palpation, nontender, no guarding and no masses Neuro General: gait normal, tone normal, moves all extremities, no focal motor deficits and CN's II-XI intact bilaterally Extrem General: Yes full ROM, Yes no joint enlargement, Yes no pedal edema and Yes normal gait Results Reviewed Results Reviewed: Name: Brooklyn Hawkins Age/Sex: 69/F : 1955 Unit#: [id number] Attend Dr: Carlos Johnston MD Re11/20/24 Status: DEP ER Location: HO.ED Disch: SPEC : [id number] MIGUEL ANGEL: 11/20/24 STATUS: COMP REQ : [id number] RECD: 11/20/[address]: Carlos Johnston MD COMP: 11/20/24 ENTERED: 11/20/[address]: Physician,Unknown ORDERED: CBC Auto Diff Test Result Flag Reference WBC 7.8 4.8-10.8 X10*3/uL RBC 3.82 L 4.20-5.50 X10*6/uL HGB 10.8 L 12.0-16.0 g/dl HCT 33.6 L 37.0-47.0 % MCV 88.0 80.0-98.0 fL MCH 28.3 27.0-33.0 pg MCHC 32.1 31.0-35.0 g/dl RDW 12.7 11.0-16.0 % PLT 211 # 160-400 X10*3/uL MPV 10.7 9.4-12.3 fL Neut Pct Auto 70.6 45-73 % ImGran Pct Auto 0.4 0.0-0.4 % Lymp Pct Auto 16.3 L 20-40 % [place] Pct Auto Name: Brooklyn Hawkins Age/Sex: 68/F : 1955 Unit#: [id number] Attend Dr: Mariano Morillo MD Re11/02/24 Status: DEP REF Location: .LAB Disch: SPEC : [id number] MIGUEL ANGEL: 11/02/24 STATUS: COMP REQ : [id number] RECD: 11/02/[address]: Mariano Morillo MD COMP: 11/02/24 ENTERED: 11/02/[address]: Flores Osullivan MD ORDERED: Met Prof Fast, Phos, AST, ALT, Lipid Panel, Free T4, TSH Test Result Flag Reference Sodium 143 135-145 mmol/L Potassium 3.9 3.3-5.1 mmol/L CL 107 96-108 mmol/L CO2 29 22-29 mmol/L Gap 11 L 12-20 BUN 22 H 9-16 mg/dL Creat 0.75 0.5-1.4 mg/dL eGFR > 60 Chronic Kidney Disease: Estimated GFR < 60 mL/min/1.73m2 Severe Kidney Disease: Estimated GFR < 15 mL/min/1.73m2 FBS 90 60-99 mg/dL CA 9.0 8.4-10.2 mg/dL Phosphorus 4.0 2.7-4.5 mg/dL AST (GOT) 21 5-31 U/L ALT (GPT) 25 0-31 U/L Triglyceride 72 <150 mg/dL Desirable Triglyceride: less than 150 mg/dL Borderline High Triglyceride 150-199 mg/dL High Triglyceride: 200-499 mg/dL Very High Triglyceride: greater than or equal to 5OO mg/dL Cholesterol 170 <200 mg/dL Desirable Cholesterol: less than 200 mg/dL Borderline High Cholesterol: 200-239 mg/dL High Cholesterol: greater than 239 mg/dL LDL Calculated 92 <100 mg/dL Desirable LDL: less than 100 mg/dL Near Optimal/Above Optimal LDL: 110-129 mg/dL Borderline High LDL: 130-159 mg/dL High LDL: 160-189 mg/dL Very High LDL: greater than or equal to 190 mg/dL HDL 64 >40 mg/dL Desirable HDL: greater than 40 mg/dL Note: This HDL assay may give artificially low results in patients with liver disease. Free T4 1.03 0.71-1.85 ng/dL TSH 3rd Gen. 0.97 0.32-4.0 uIU/mL TSH 3rd Generation ([facility]) 9.1 2-11 % Eos Pct Auto 3.1 0-4 % Baso Pct Auto 0.5 0-2 % NRBC Pct Auto 0.0 0.0-0.2 /100WBC ANC Neut Abs # 5.5 2.0-8.3 x10*3/uL ImGran Abs Auto 0.03 0.00-0.03 X10*3/uL Lymph Abs Auto 1.3 1.2-4.9 X10*3/uL [place] Abs Auto 0.7 0.1-1.2 X10*3/uL Eos Abs Auto 0.2 0.0-0.4 X10*3/uL Baso Abs Auto 0.0 0.0-0.2 X10*3/uL NRBC Abs Auto 0.000 0.0-0.012 X10*3/uL Coding Level of Care Code Est Pt Level 4 (36828) Complex EM visit Add On G2211 Diagnoses Dense breast tissue on mammogram, unspecified type R92.30 Mammographic dense breast tissue type: unspecified type Anemia, unspecified type D64.9 Anemia type: unspecified type Essential hypertension I10 Dyslipidemia E78.5 Additional Codes PHQ-9 - 52352 - PHQ-9 Billing: Yes ([id number]) RODY-7 Assessment Billing - RODY-7 Assessment Tool: RODY-7 Assessment 98075 ([id number]) Assessment & Plan Assessment & Plan (1) Dense breast tissue on mammogram: Code(s): R92.30 - Dense breasts, unspecified Category: Medical Qualifiers: Mammographic dense breast tissue type: unspecified type Qualified Code(s): R92.30 - Dense breasts, unspecified Plan: Breast ultrasound bilateral ordered (2) Anemia: Code(s): D64.9 - Anemia, unspecified Category: Medical Qualifiers: Anemia type: unspecified type Qualified Code(s): D64.9 - Anemia, unspecified Plan: Started on ferrous sulfate 325 mg tablets to take once a day better to be taken with orange juice or vitamin-C for better absorption. Repeat CBC and iron profile in 01/2025 prior to next appointment. (3) Essential hypertension: Code(s): I10 - Essential (primary) hypertension Category: Medical Plan: Blood pressure goal is less than 130/80. Continued on lisinopril 20 mg 1 tablet twice a day and metoprolol 50 mg once a day . Continue blood pressure monitoring. Reinforced importance of following a low sodium diet, getting regular exercise, and lowering stress levels. (4) Dyslipidemia: Code(s): E78.5 - Hyperlipidemia, unspecified Category: Medical Plan: Reviewed recent fasting lipid profile with patient with levels within normal limits . Continue simvastatin 20 mg at bedtime , in addition to adherence to low-cholesterol diet and regular exercise, at least 30 minutes 3 to 4 times a week. Advised patient to make healthy food choices, eat more fruits, vegetables, whole grains, wild caught fish and low-fat dairy. Limit amount of meat and fried or fatty food products, as well as processed foods and fast foods. Follow-up scheduled with repeat fasting lipid panel ordered for 01/2025 before next follow-up visit Orders: Orders US breast RT complete 11/29/24 R92.30 - Dense breasts, unspecified Complete Blood Count Auto Diff 01/08/25 D64.9 - Anemia, unspecified Aspartate Amino Transferase 01/08/25 E78.5 - Hyperlipidemia, unspecified, I10 - Essential (primary) hypertension Alanine Aminotransferase 01/08/25 E78.5 - Hyperlipidemia, unspecified, I10 - Essential (primary) hypertension US breast LT complete 11/29/24 R92.30 - Dense breasts, unspecified IRON PROFILE 01/08/25 D64.9 - Anemia, unspecified Lipid Panel 01/08/25 E78.5 - Hyperlipidemia, unspecified, I10 - Essential (primary) hypertension Basic Metabolic Panel Fasting 01/08/25 E78.5 - Hyperlipidemia, unspecified, I10 - Essential (primary) hypertension Medications: New ferrous fumarate 325 mg PO DAILY 90 tabs 1RF
[2024-11-29 13:46] VITALS: BP 136/80; PULSE 73; RESP 16; TEMP 36.6; O2SAT 96; BMI 32.8
--- OUTSIDE RECORDS SUMMARY | 2024-11-29 14:33 | XMS_ITS | Patient Health Record ---
Author Organization [facility] Address [address] [place] [address] Care Team Providers Care Out Of Town Collection Clerk Name Role Phone Abran AGUAYO, Flores Primary Care Provider Mariano Card Unavailable [phone] ALLERGIES Allergen (clinical drug ingredient) Drug/Non Drug [...] Problem Colon cancer screening (Z12.11) Active confirmed 196060792 Problem Diverticulosis of large intestine without perforation or abscess without bleeding (K57.30) Active confirmed Diverticul ar disease of colon (896327438) Problem Dysphagia (R13.10) Active confirmed Dys phagia (68811791) Problem Gastroesophageal reflux disease (K21.9) Active confirmed Gastroesophagea l reflux disease (135447435) Problem Gastroesophageal reflux disease without esophagitis (K21.9) Active confirmed 021409884 Problem Pharyngoesophageal dysphagia (R13.14) Active confirmed 31131865 Problem 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) Active confirmed 373358335 Problem Gastroesophageal reflux disease, unspecified whether esophagitis present (K21.9) Active confirmed [id number] PLAN OF TREATMENT Future Test Test Name Order Date COLONOSCOPY 07/19/2013 UPPER GI ENDOSCOPY BALLOOON DILATION OF ESOPH 03/23/2023 COLONOSCOPY 04/12/2023 Insurance Providers Payer Name Payer Address Payer Phone Subscriber Number Group Number Insured Name Patient Relationship to Insured Coverage Start Date Coverage End Date [employer] [address] [place], [place] [id number] [place] Self - patient is the insured MEDICAL (GENERAL) HISTORY Medical History History ICD Code Gastroesophageal reflux dise ase (GERD)-EGD in 2002-[facility], no esophagitis, no Castellano's esophagus Hypertension Osteopenia Arthritis Denies CO,DM,CVA,renal disease Hemochromatosis gene carrier -06/2006--she describes that [...] of 2013 based on her laboratories at [facility] ER--? Etiology; hospitalized for pancreatitis in 2014 and 07/2018 at [facility] for pancreatitis--neg w/u, probably EtOH related Atrial fibrillation Hospitalized in 07/2014 for chest pain--neg ETT and R/O for CO---? esophageal spasm Negative colonoscopy in 09/10 013 except for diverticulosis and internal hemorrhoids Surgical History Surgery Date(Month/Year) Lumpectomy- left breast-benign Cholecystectomy 2004
--- OUTSIDE RECORDS SUMMARY | 2024-11-29 14:33 | XMS_ITS | Clinical Summary ---
Author Organization [facility] Address [address] [place] [address] Care Team Providers Care Insurance Sales Producer Name Role Phone Unavailable Primary Care Provider [...] on patient's age to complete this topic [phone] (Home) 6 [facility] [place] CAR[place] [id number]
--- OUTSIDE RECORDS SUMMARY | 2024-11-29 14:33 | XMS_ITS ---
Author Organization [facility] Address [address] [place] [address] Care Team Providers Care Urban Anthropologist Name Role Phone Abran AGUAYO, Flores Primary Care Provider UnaMariano Parnell Unavailable [phone] REASON FOR VISIT screening PROBLEMS Problem Type ICD Code Onset Dates Problem Status W/U Status Risk SNOMED Code Notes Problem Diverticulosis of large intestine without perforation or abscess without bleeding (K57.30) Active confirmed Diverticul ar disease of colon (987794033) Encounters Encounter Location Date Provider Diagnosis [facility] Outpatient [address] [place] [phone] 07/13/2023 Mariano Landaverde Encounter for scre ening [...]
== END 2024-11-29 14:32 | disposition home or self-care (01) ==
PROVIDERS: PCP Internal Medicine; Visit Provider Internal Medicine
DX: R92.30 Dense breasts, unspecified (principal); D64.9 Anemia, unspecified; I10 Essential (primary) hypertension; E78.5 Hyperlipidemia, unspecified

== ENCOUNTER → 2024-11-29 13:34 | Outpatient (BNVA) | payer MEDICARE, SELFPAY | PROVIDERS: PCP Internal Medicine; Visit Provider Internal Medicine | DX: R92.30 Dense breasts, unspecified (principal); D64.9 Anemia, unspecified; E78.5 Hyperlipidemia, unspecified; I10 Essential (primary) hypertension | CPT/HCPCS: 96127; 99212 ==

== ENCOUNTER 2025-01-16 16:36 | Emergency (ER) | payer MEDICARE, SELFPAY ==
--- NOTE | ~2025-01-16 | CT_ITS ---
CLINICAL HISTORY: KHAN, dizziness, high BP, on anticoagulation CT BRAIN WITHOUT CONTRAST COMPARISON: 12/21/2023. FINDINGS: There is mild parenchymal atrophy. There is no evidence of an acute infarct or intraparenchymal hemorrhage. Calcifications are again noted within the lentiform nuclei. Patchy areas of low attenuation are noted in the subcortical and periventricular regions of the supratentorial brain which are nonspecific but most likely represent chronic small vessel ischemic disease. There is no mass effect, midline shift, or extra-axial blood. The ventricles are normal in size without evidence of hydrocephalus. The bone windows are unremarkable. IMPRESSION: 1. No acute disease in the brain. This document has been electronically signed by: Rayo Doe M.D. on 01/16/2025 22:30:33
[2025-01-16 16:45] VITALS: BP 198/95; PULSE 73; RESP 18; TEMP 36.7; O2SAT 96; BMI 32.5
--- NOTE | 2025-01-16 16:49 | ECG_ITS ---
Test Reason : CHEST PAIN Blood Pressure : */* mmHG Vent. Rate : 67 BPM Atrial Rate : 67 BPM P-R Int : 228 ms QRS Dur : 98 ms QT Int : 440 ms P-R-T Axes : 65 1 45 degrees QTcB Int : 464 ms Sinus rhythm with 1st degree A-V block Possible Anterior infarct (cited on or before 02-Jul-2024) Abnormal ECG When compared with ECG of 02-Jul-2024 19:24, OR interval has increased Vent. rate has decreased by 61 bpm Nonspecific T wave abnormality now evident in Anterior leads Nonspecific T wave abnormality no longer evident in Lateral leads Referred By: Generic ED Physician Electronically Signed By: Epifanio Oconnor
[2025-01-16 17:05] LABS: MANUAL DIFF FLAG NO
[2025-01-16 17:13] LABS: Basophils Percent Auto 0.4 % (0-2); Eosinophils Absolute Auto 0.2 X10*3/uL (0.0-0.4); Eosinophils Percent Auto 2.9 % (0-4); Hematocrit 35.3 % (37.0-47.0); Hemoglobin 11.9 g/dl (12.0-16.0); Imm Gran Abs Auto 0.03 X10*3/uL (0.00-0.03); Imm Gran Pct Auto 0.4 % (0.0-0.4); Lymphocytes Absolute Auto 1.5 X10*3/uL (1.2-4.9); Lymphocytes Percent Auto 20.7 % (20-40); Mean Corpuscular HGB Conc 33.7 g/dl (31.0-35.0); Mean Corpuscular Hemoglobin 28.5 pg (27.0-33.0); Mean Corpuscular Volume 84.4 fL (80.0-98.0); Mean Platelet Volume 10.5 fL (9.4-12.3); Monocytes Absolute Auto 0.6 X10*3/uL (0.1-1.2); Monocytes Percent Auto 8.7 % (2-11); Neutrophils Absolute Auto 4.9 x10*3/uL (2.0-8.3); Neutrophils Percent Auto 66.9 % (45-73); Platelet Count 254 X10*3/uL (160-400); Red Blood Count 4.18 X10*6/uL (4.20-5.50); Red Cell Distribution Width 12.5 % (11.0-16.0); White Blood Count 7.3 X10*3/uL (4.8-10.8)
[2025-01-16 17:25] LABS: Alanine Aminotransferase 16 U/L (0-31); Alkaline Phosphatase 75 U/L (39-117); Anion Gap 10 (12-20); Aspartate Amino Transferase 19 U/L (5-31); Bilirubin Total 0.7 mg/dL (0.0-1.0); Blood Urea Nitrogen 16 mg/dL (9-16); Carbon Dioxide 25 mmol/L (22-29); Chloride 110 mmol/L (96-108); Creatinine Clr Calc Pharmacy 68.9; Estimated Glomerular Filt Rate > 60; Glucose Random 94 mg/dL (60-115); Magnesium 1.9 mg/dL (1.6-2.6); Potassium 3.4 mmol/L (3.3-5.1); Sodium 142 mmol/L (135-145); Total Protein 6.8 g/dL (6.5-8.0)
[2025-01-16 17:33] LABS: Troponin-I High Sensitivity < 2.7 ng/L (<3.5-17.0)
--- OUTSIDE RECORDS SUMMARY | 2025-01-16 18:21 | XMS_ITS | Clinical Summary ---
Author Organization [facility] Address [address] [place] [address] Care Team Providers Care Auto Mechanic Supervisor Name Role Phone Unavailable Primary Care Provider [...] on patient's age to complete this topic [phone] (Home) 6 [facility] R[place] [id number]
[2025-01-16 20:11] VITALS: BP 187/78; PULSE 58; RESP 16; O2SAT 98
--- NOTE | 2025-01-16 20:12 | PC.NURSE ---
pt reports KHAN improved, states dizziness when sitting up/walking, denies cp/sob. took AM doses of lisinopril 20mg and metoprolol 50mg and BP remains elevated. currently awaiting eval by ed provider. carmelita. call calabrese within reach.
--- NOTE | 2025-01-16 20:14 | ED_ITS ---
HPI - General Adult General Chief complaint: General Medical Stated complaint: High BP, dizzieness, head ache Time Seen by Provider: 01/16/25 20:14 History of Present Illness ED Provider: Preston CHAPIN narrative: The patient is a 69-year-old female who has a history of hypertension. She takes lisinopril and metoprolol. She also has a history of paroxysmal atrial fibrillation and is on anticoagulation. The patient says that this morning she developed a headache. It was gradual in onset. She also developed dizziness that seemed to be very related to movement and position changes. She took Tylenol a couple of times during the day for her headache. She rested much of the day hoping her symptoms would improve. Ultimately she contacted her real estate legal secretary's office and she was advised to come to the emergency room for evaluation. She says that she drove herself to the emergency room despite her dizziness. She lives about 10 minutes away by car. While waiting to be seen her headache is resolved but she still feels that if she changes of the position of her head she feels dizzy. She has also been concerned because her blood pressures has been much higher than usual today at home and here in the emergency room as well. The patient says that she had symptoms of a similar headache and a similar experience of dizziness about a year ago when she came to the emergency room 1 year ago in December of 2023. at that time she had a negative head CT. Her headache and her dizziness symptoms resolved without any particular diagnosis. She says that today's symptoms are quite similar to that previous episode. Related Data Home Medications ?Medication ?Instructions ?Recorded ?Confirmed acetaminophen 650 mg 650 mg PO Q8H PRN pain 09/18/20 11/22/24 tablet,extended release omeprazole 20 mg capsule,delayed 20 mg PO DAILY 05/19/23 11/22/24 release ascorbic acid (vitamin C) 1,000 mg 1,000 mg PO DAILY 07/02/24 11/22/24 tablet (Vitamin C) calcium 600 mg (as 1 tab PO DAILY 07/02/24 11/22/24 carbonate)-vitamin D3 20 mcg (800 unit) tablet (Caltrate with Vitamin D3) cholecalciferol (vitamin D3) 25 25 mcg PO DAILY 07/02/24 11/22/24 mcg (1,000 unit) tablet (Vitamin D3) multivitamin-ferrous 1 tab PO DAILY 07/02/24 11/22/24 fumarate-folic acid 18 mg-400 mcg tablet (Centrum Women) Previous Rx's ?Medication ?Instructions ?Recorded nebulizers #1 ea 03/25/21 inhalational spacing device #1 ea 07/01/21 (Aerochamber MV spacer) albuterol sulfate 2.5 mg/3 mL 2.5 mg (3 mL) inhalation Q4-6H PRN 12/22/23 (0.083 %) solution for nebulization shortness of breath or wheezing #90 mL levalbuterol tartrate 45 2 inh inhalation Q6H #15 grams 01/19/24 mcg/actuation aerosol inhaler (Xopenex HFA) simvastatin 20 mg tablet 20 mg PO BEDTIME #90 tabs 03/11/24 metoprolol succinate 50 mg 50 mg PO DAILY #90 tabs 04/19/24 tablet,extended release 24 hr rivaroxaban 20 mg tablet (Xarelto) 20 mg PO DAILY #90 tabs 05/10/24 budesonide-formoterol HFA 160 1 inh inhalation BID #10.2 grams 07/12/24 mcg-4.5 mcg/actuation aerosol inhaler (Symbicort) ferrous fumarate 324 mg (106 mg 324 mg PO DAILY #90 tabs 12/18/24 iron) tablet flecainide 150 mg tablet 150 mg PO Q12H #180 tabs 12/27/24 lisinopril 20 mg tablet 20 mg PO BID #180 tabs 12/27/24 Allergies Allergy/AdvReac Type Severity Reaction Status Date / Time Sulfa (Sulfonamide Allergy Intermediate FACIAL Verified 01/16/25 16:46 Antibiotics) SWELLING, [SULFA(SULFONAMIDE REDNESS, ANTIBIOTICS)] rash, face edema levofloxacin [From LEVAQUIN] Allergy Unknown itchy Verified 01/16/25 16:46 tongue Penicillins [PENICILLINS] Allergy Unknown RASH Verified 01/16/25 16:46 Quinolones [QUINOLONES] Allergy Unknown MOUTH Verified 01/16/25 16:46 ITCHING cefuroxime Allergy Unknown Verified 01/16/25 16:46 doxycycline Allergy Unknown Verified 01/16/25 16:46 ketorolac AdvReac Facial Uncoded 11/29/24 14:01 Swelling latex AdvReac Facial Uncoded 11/29/24 14:01 Swelling Review of Systems 2 Review of Systems: Yes all other systems are reviewed and are negative [facility] Past Medical History Medical History (Updated 01/16/25 @ 23:40 by Carlos Johnston MD) Dense breast tissue on mammogram Cough Bronchitis Osteoporosis Paroxysmal atrial fibrillation Chronic anticoagulation Essential hypertension Dyslipidemia COPD (chronic obstructive pulmonary disease) Mild intermittent asthma with (acute) exacerbation Personal history of nicotine dependence Anemia Hiatal hernia with gastroesophageal reflux Irritable bowel syndrome with diarrhea Pancreatitis Hepatic hemangioma 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 Brother No problems noted. Brother No problems noted. Sister No problems noted. Sister Mental health disorder Sister Mental health disorder Daughter No problems noted. Daughter No problems noted. Daughter No problems noted. Social History Social History Household Members: Spouse Housing: House Do you presently have visiting nurse or other home services: No Unable to assess alcohol history related to: Unknown Alcohol intake: current Alcohol intake frequency: holidays/special occasions only Patient Tobacco Use Status: Former Tobacco user Years Smoked: 40 yrs e-Cigarette/Vaping Use: Never Used service: No Current occupational status: retired Cognitive needs: No Hearing needs: No Vision needs: Yes Physical Exam ED Vital Signs: Vital Signs - 24 hr 01/16/25 16:45 01/16/25 20:11 01/16/25 20:50 Temperature 98.1 F Pulse Rate 73 58 Respiratory Rate 18 16 Blood Pressure 198/95 H 187/78 H 176/77 H Pulse Oximetry 96 98 Oxygen Delivery Method Room Air Room Air 01/16/25 20:50 01/16/25 22:07 01/16/25 23:47 Temperature 98.1 F 98.1 F Pulse Rate 56 64 Respiratory Rate 18 18 Blood Pressure 176/77 H 179/83 H 179/87 H Pulse Oximetry 97 97 Oxygen Delivery Method Room Air Room Air BMI result Body Mass Index 32.5 Const Other: patient is a 69-year-old female who was awake, alert, pleasant, cooperative. She does not appear in distress and she has no obvious signs of illness or neurological deficits. HENMT Other: Face is symmetrical. Tongue is midline. Mucous membranes moist. Eyes Other: Pupils are round equal, conjunctivae are clear, extraocular movements are intact including lateral gaze bilaterally. Visual maria are intact to confrontation bilaterally. No visualized nystagmus. Neck Other: The neck is supple. No bruits. Resp Effort & Inspection: normal respiratory effort Auscultation: clear to auscultation bilaterally Cardio Rate: regular rate Rhythm: regular rhythm Heart sounds: S1 normal heart sound present and S2 normal heart sound present GI Other: The abdomen is soft and nontender. Skin Other: Skin is dry and unremarkable Neuro Other: the patient is awake and alert with normal mental status and normal orientation. She follows all commands appropriately. She answers questions appropriately. Eye movements including lateral gaze bilaterally are intact. visual maria are intact to confrontation. The face is symmetrical. All facial movements are normal. Speech is normal. No aphasia or dysarthria. Strength is 5/5 in all extremities. No pronator drift. Finger-nose is normal. Here strain is normal. The patient's gait is slow but steady. A Buck-Hallpike maneuver evoked symptoms of dizziness with the head turned to the left. With the head turned to the right there was no dizziness. However I did not appreciate any evoked nystagmus in either direction.. Medications Administered Discontinued Medications Generic Name Dose Route Start Last Admin Trade Name Freq PRN Reason Stop Dose Admin Lisinopril 20 mg 01/16/25 20:36 01/16/25 20:50 Lisinopril 20 Mg Tablet PO 01/16/25 20:37 20 mg ONCE ONE Administration Protocol Meclizine HCl 25 mg 01/16/25 20:36 01/16/25 20:51 Meclizine Hcl 25 Mg Tablet PO 01/16/25 20:37 25 mg ONCE ONE Administration Medical Decision Making Medical Decision Making MDM Narrative: The patient is a 69-year-old woman with a history of paroxysmal atrial fibrillation on anticoagulation who presents with gradual-onset headache earlier today that was associated with a sense of room spinning dizziness that she reports is exacerbated by movements of her head. She has a normal neurological exam. NIH stroke scale is 0. Her blood pressures are somewhat high but not profoundly so. She has a negative head CT. She did not get any significant relief with meclizine. Her headache resolved however without significant treatment. To further address her complaint of dizziness with position changes I performed a Mobeetie-Hallpike maneuver. When the patient's head was turned to the left she had exacerbation of her dizziness. This was not the case when her head was turned to the right. I therefore performed an Stephanie maneuver on the left side. This seemed to help her dizziness. She felt better and was eager for discharge. I think she is safe to drive herself home (she had driven herself to the emergency room). I suspect that she is having a peripheral vertigo syndrome. She should follow up with her regular doctor if symptoms are not improving and possibly be referred to physical therapy. With regard to her blood pressure she should contact her real estate legal secretary if her blood pressures seem to remain higher than usual. She should return to the emergency room if her symptoms worsen. Lab Data 01/16/25 16:58 01/16/25 16:58 Labs: Lab Results 01/16/25 Range/Units 16:58 WBC 7.3 (4.8-10.8) X10*3/uL RBC 4.18 L (4.20-5.50) X10*6/uL Hgb 11.9 L (12.0-16.0) g/dl Hct 35.3 L (37.0-47.0) % MCV 84.4 (80.0-98.0) fL MCH 28.5 (27.0-33.0) pg MCHC 33.7 (31.0-35.0) g/dl RDW 12.5 (11.0-16.0) % Plt Count 254 (160-400) X10*3/uL MPV 10.5 (9.4-12.3) fL Immature Gran % (Auto) 0.4 (0.0-0.4) % Neut % (Auto) 66.9 (45-73) % Lymph % (Auto) 20.7 (20-40) % [place] % (Auto) 8.7 (2-11) % Eos % (Auto) 2.9 (0-4) % Baso % (Auto) 0.4 (0-2) % Lymph # (Auto) 1.5 (1.2-4.9) X10*3/uL [place] # (Auto) 0.6 (0.1-1.2) X10*3/uL Eos # (Auto) 0.2 (0.0-0.4) X10*3/uL Baso # (Auto) 0.0 (0.0-0.2) X10*3/uL Abs Immat Gran (auto) 0.03 (0.00-0.03) X10*3/uL Absolute Neuts (auto) 4.9 (2.0-8.3) x10*3/uL Absolute Nucleated RBC 0.000 (0.0-0.012) X10*3/uL Nucleated RBC % (auto) 0.0 (0.0-0.2) /100WBC Sodium 142 (135-145) mmol/L Potassium 3.4 (3.3-5.1) mmol/L Chloride 110 H (96-108) mmol/L Carbon Dioxide 25 (22-29) mmol/L Anion Gap 10 L (12-20) BUN 16 (9-16) mg/dL Creatinine 0.68 (0.5-1.4) mg/dL Estim Creat Clear Calc 68.9 Estimated GFR > 60 Random Glucose 94 (60-115) mg/dL Calcium 9.0 (8.4-10.2) mg/dL Magnesium 1.9 (1.6-2.6) mg/dL Total Bilirubin 0.7 (0.0-1.0) mg/dL AST 19 (5-31) U/L ALT 16 (0-31) U/L Alkaline Phosphatase 75 (39-117) U/L Troponin I High Sens < 2.7 (<3.5-17.0) ng/L Total Protein 6.8 (6.5-8.0) g/dL Albumin 4.0 (3.5-5.0) g/dL Discharge Plan Discharge Clinical Impression: Vertigo, Headache, Hypertension, Chronic anticoagulation Patient Disposition: Home, Self-Care Instructions: Benign Paroxysmal Positional Vertigo (ED) Additional Instructions: I believe that your dizziness is a kind of vertigo that is coming from a dysfunction of the inner ear. We call this benign positional vertigo. You were subjected to a ?Stephanie maneuver.? This maneuver is intended to try to reset the inner ear which I think is causing the problem. My hope is that the maneuver we performed tonight provided some relief from your dizziness. The CAT scan of your head shows no bleeding. I do not think her dizziness is coming from a stroke. My hope is that you will feel significantly better after a good night's sleep. If tomorrow you are still having dizziness which is very much related to position changes please call your doctor and see if they can refer you to a physical therapist for additional maneuvers. If tomorrow your blood pressure is still higher than usual please contact your real estate legal secretary to discuss your blood pressure medication. However if you feel significantly worse instead of better, especially if you are having significant trouble walking, please return to the emergency room for further evaluation. Prescriptions: No Action (DME) Aerochamber MV Spacer See Rx Instructions .ROUTE .MEDSUPPLY Qty: 1 0RF Rx Instructions: As directed simvastatin 20 mg tablet 20 mg PO BEDTIME Qty: 90 10RF metoprolol succinate 50 mg tablet extended release 24 hr 50 mg PO DAILY Qty: 90 10RF Xarelto 20 mg tablet 20 mg PO DAILY Qty: 90 3RF ferrous fumarate 324 mg (106 mg iron) tablet 324 mg PO DAILY Qty: 90 1RF flecainide 150 mg tablet 150 mg PO Q12H Qty: 180 3RF lisinopril 20 mg tablet 20 mg PO BID Qty: 180 3RF ascorbic acid (vitamin C) [Vitamin C] 1,000 mg Tablet 1,000 mg PO DAILY cholecalciferol (vitamin D3) [Vitamin D3] 25 mcg (1,000 unit) Tablet 25 mcg PO DAILY Centrum Women 18-400 mg-mcg Tablet 1 tab PO DAILY calcium carbonate-vitamin D3 [Caltrate with Vitamin D3] 600 mg-20 mcg (800 unit) Tablet 1 tab PO DAILY albuterol sulfate 2.5 mg /3 mL (0.083 %) solution for nebulization 2.5 mg inhalation Q4-6H PRN (Reason: shortness of breath or wheezing) Qty: 90 0RF acetaminophen 650 mg tablet extended release 650 mg PO Q8H PRN (Reason: pain) (DME) nebulizers Misc See Rx Instructions .ROUTE .MEDSUPPLY Qty: 1 0RF Rx Instructions: As directed omeprazole 20 mg capsule,delayed release(DR/EC) 20 mg PO DAILY levalbuterol tartrate [Xopenex HFA] 45 mcg/actuation HFA aerosol inhaler 2 inh inhalation Q6H Qty: 15 0RF budesonide-formoterol [Symbicort] 160-4.5 mcg/actuation HFA aerosol inhaler 1 inh inhalation BID Qty: 10.2 3RF Referrals: Flores Osullivan MD [Primary Care Provider] - (positional vertigo) Juan Laughlin MD [Physician] - (High blood pressure) Interventions: ED Discharge Assessment Last Done: 01/16/25 23:47 Discharge Date/Time: 01/16/25 23:47 Print Language: Macanese
[2025-01-16 20:50] VITALS: BP 176/77
[2025-01-16] MEDS: lisinopriL 20 MG TABLET PO (20:50)
[2025-01-16] MEDS: Meclizine HCl 25 MG TABLET PO (20:51)
[2025-01-16 22:07] VITALS: BP 179/83; PULSE 56; RESP 18; TEMP 36.7; O2SAT 97
--- NOTE | 2025-01-16 22:20 | PC.NURSE ---
MD Johnston aware of BP.
[2025-01-16 23:47] VITALS: BP 179/87; PULSE 64; RESP 18; TEMP 36.7; O2SAT 97
== END 2025-01-16 23:47 | disposition home or self-care (01) ==
PROVIDERS: Emergency Provider Emergency Medicine; PCP Internal Medicine
DX: R07.89 Other chest pain (principal); I44.0 Atrioventricular block, first degree; R42 Dizziness and giddiness; R51.9 Headache, unspecified; I10 Essential (primary) hypertension; Z79.899 Other long term (current) drug therapy; Z79.01 Long term (current) use of anticoagulants
CPT/HCPCS: 36415; 70450; 80053; 83735; 84484; 85025; 93005; 99284

== ENCOUNTER → 2025-01-16 16:49 | Outpatient (BNV) | payer MEDICARE, SELFPAY | PROVIDERS: Emergency Provider Emergency Medicine; PCP Internal Medicine; Visit Provider Internal Medicine Cardiovascular Disease | DX: I44.0 Atrioventricular block, first degree (principal) | CPT/HCPCS: 93010 ==

== ENCOUNTER → 2025-01-16 20:36 | Outpatient (BNV) | payer MEDICARE, SELFPAY | PROVIDERS: Emergency Provider Emergency Medicine; PCP Internal Medicine; Visit Provider Radiology Diagnostic Radiology | DX: R42 Dizziness and giddiness (principal); R51.9 Headache, unspecified | CPT/HCPCS: 70450 ==

== ENCOUNTER 2025-01-22 08:18 | Outpatient (REF) | payer MEDICARE, SELFPAY ==
--- OUTSIDE RECORDS SUMMARY | 2025-01-22 08:22 | XMS_ITS | Clinical Summary ---
Author Organization [facility] Address [address] [place] [address] Care Team Providers Care Hourly Shift Name Role Phone Unavailable Primary Care Provider [...] on patient's age to complete this topic [phone] (Home) 6 [facility] [place] [id number]
[2025-01-22 10:03] LABS: MANUAL DIFF FLAG NO
[2025-01-22 10:06] LABS: Basophils Percent Auto 0.7 % (0-2); Eosinophils Absolute Auto 0.2 X10*3/uL (0.0-0.4); Eosinophils Percent Auto 3.6 % (0-4); Hematocrit 39.4 % (37.0-47.0); Hemoglobin 12.9 g/dl (12.0-16.0); Imm Gran Abs Auto 0.02 X10*3/uL (0.00-0.03); Imm Gran Pct Auto 0.3 % (0.0-0.4); Lymphocytes Absolute Auto 1.2 X10*3/uL (1.2-4.9); Lymphocytes Percent Auto 20.7 % (20-40); Mean Corpuscular HGB Conc 32.7 g/dl (31.0-35.0); Mean Corpuscular Hemoglobin 28.5 pg (27.0-33.0); Mean Corpuscular Volume 87.2 fL (80.0-98.0); Mean Platelet Volume 10.9 fL (9.4-12.3); Monocytes Absolute Auto 0.4 X10*3/uL (0.1-1.2); Monocytes Percent Auto 6.4 % (2-11); Neutrophils Percent Auto 68.3 % (45-73); Platelet Count 264 X10*3/uL (160-400); Red Blood Count 4.52 X10*6/uL (4.20-5.50); Red Cell Distribution Width 12.4 % (11.0-16.0); White Blood Count 5.9 X10*3/uL (4.8-10.8)
[2025-01-22 10:47] LABS: Alanine Aminotransferase 17 U/L (0-31); Anion Gap 10 (12-20); Aspartate Amino Transferase 21 U/L (5-31); Blood Urea Nitrogen 16 mg/dL (9-16); Carbon Dioxide 29 mmol/L (22-29); Chloride 106 mmol/L (96-108); Cholesterol 188 mg/dL (<200); Estimated Glomerular Filt Rate > 60; Glucose Fasting 97 mg/dL (60-99); HDL Cholesterol 58 mg/dL (>40); Iron 60 mcg/dL (30-160); LDL Cholesterol Calculated 103 mg/dL (<100); Percent Iron Saturation 21 % (15-50); Sodium 141 mmol/L (135-145); Total Iron Binding Capacity 281 mcg/dL (228-428); Triglycerides 136 mg/dL (<150); Unsaturated Iron Binding 221 ug/dL
== END 2025-01-22 08:19 | disposition home or self-care (01) ==
LOC: HO.HMGCLDS 08:18
PROVIDERS: PCP Internal Medicine; Visit Provider Internal Medicine
DX: D64.9 Anemia, unspecified (principal); I10 Essential (primary) hypertension; E78.5 Hyperlipidemia, unspecified
CPT/HCPCS: 36415; 80048; 80061; 83540; 84450; 84460; 85025

== ENCOUNTER 2025-01-30 08:51 | Outpatient (AMB) | payer MEDICARE, SELFPAY ==
--- NOTE | 2025-01-30 08:56 | A.OFFVIS_ITS ---
Vital Signs 01/30/25 08:58 Height 5 ft 1.22 in Weight 169 lb 1.513 oz BMI 31.7 BP 144/84 H Blood Pressure Location Rt brachial Position Sitting Pulse 72 Pulse Source Pulse Oximeter Pulse Oximetry (%) 95 Oxygen Delivery Method Room Air Intake Visit Reasons: Osteoporosis Intake Note: Patient present today for Osteoporosis follow up. Process Architect Required: No Accompanied by: Self / Same As Patient Allergies Sulfa (Sulfonamide Antibiotics) [SULFA(SULFONAMIDE ANTIBIOTICS)] Allergy (Intermediate, Verified 01/30/25 08:59) FACIAL SWELLING, REDNESS, rash, face edema levofloxacin [From LEVAQUIN] Allergy (Unknown, Verified 01/30/25 08:59) itchy tongue Penicillins [PENICILLINS] Allergy (Unknown, Verified 01/30/25 08:59) RASH Quinolones [QUINOLONES] Allergy (Unknown, Verified 01/30/25 08:59) MOUTH ITCHING cefuroxime Allergy (Verified 01/30/25 08:59) Unknown doxycycline Allergy (Verified 01/30/25 08:59) Unknown ketorolac Adverse Reaction (Uncoded 01/30/25 08:59) Facial Swelling latex Adverse Reaction (Uncoded 01/30/25 08:59) Facial Swelling HPI Comments Details: 69 YO F is seen in consultation at the request of PCP for Osteoporosis. First diagnosed in 5 yrs ago.Never saw another specialist Received treatment in the past with Reloxivine , for 3 yrs . Tolerated treatment well without complication.Has hot flashes No history of pathologic fracture or ONJ. Has few servings of dietary calcium per day in the form of cheese . Took Calcium supplement citrate ? mg daily in divided doses. Stopped calcium a yr ago Takes 1000 IU of Vitamin D daily. Takes PPI, anticoagulant, no antiepileptic no glucocorticoid medication. 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 Aunt has breast cancer Denies history of Kidney stones: Sister - family history of Osteoporosis vertebral but no hip fracture. UTD on dental cleanings and sees dentist every 6 months. No planned upcoming d ental work or extractions.Planned root canal DXA dated :04/04/24 FINDINGS: LEFT FEMUR, NECK: Current: BMD 0.621 g/cm2, Z-score -1.5, T-score -3.0, osteoporosis. Prior: BMD 0.739 g/cm2. Baseline: BMD 0.819 g/cm2. LEFT FEMUR, TOTAL: Current: BMD 0.764 g/cm2, Z-score -0.6, T-score -1.9, osteopenia, 18.0% decrease from previous, 19.2% decrease from baseline (<5% change is not significant). Prior: BMD 0.932 g/cm2. Baseline: BMD 0.946 g/cm2. AP SPINE L1-L4: Current: BMD 0.915 g/cm2, Z-score -0.8, T-score -2.2, osteopenia, 1.2% increase from previous, 3.0% increase from baseline (<5% change is not significant). Prior: BMD 0.904 g/cm2. Baseline: BMD 0.888 g/cm2. Labs: Secondary workup was negative The patient is a 69-year-old female presenting with osteoporosis management and treatment discussion. Notable medical history includes osteoporosis characterized by a significant reduction in bone density, specifically noted with a T-score of negative 3 in the hip. This places the patient at a very high risk for fractures, although she has not yet experienced any events of fracture. Despite discussions last visit, the patient discovered that her current insuranc e coverage does not extend to the osteoporosis treatments suggested. She has gastroesophageal reflux disease, which presents additional challenges in selecting treatment plans due to the potential aggravation of her esophagus and existing hiatal hernia. The patient is concerned also about the affordability of medications that may incur high costs due to her senior care status. [facility] Medical History (Updated 01/18/25 @ 00:01 by Joey Moore) Dense breast tissue on mammogram Cough Bronchitis Osteoporosis Paroxysmal atrial fibrillation Chronic anticoagulation Essential hypertension Dyslipidemia COPD (chronic obstructive pulmonary disease) Mild intermittent asthma with (acute) exacerbation Personal history of nicotine dependence Anemia Hiatal hernia with gastroesophageal reflux Irritable bowel syndrome with diarrhea Pancreatitis Hepatic hemangioma Mixed urinary 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 Brother No problems noted. Brother No problems noted. Sister No problems noted. Sister Mental health disorder Sister Mental health disorder Daughter No problems noted. Daughter No problems noted. Daughter No problems noted. Social History Household Members: Spouse Housing: House Do you presently have visiting nurse or other home services: No Unable to assess alcohol history related to: Unknown Alcohol intake: current Alcohol intake frequency: holidays/special occasions only Patient Tobacco Use Status: Former Tobacco user Years Smoked: 40 yrs e-Cigarette/Vaping Use: Never Used service: No Current occupational status: retired Cognitive needs: No Hearing needs: No Vision needs: Yes Assessment & Plan Assessment & Plan (1) Osteoporosis: Code(s): M81.0 - Age-related osteoporosis without current pathological fracture Category: Medical Plan: This 68-year-old white female with a history of osteoporosis with negative negative secondary workup. Plan is favor the use of anabolic therapy like Tymlos, Forteo or Evenity followed by anti resorptive therapy like Prolia or bisphosphonate. 1. Osteoporosis with high fracture risk The patient's osteoporosis is managed with consideration of insurance coverage for treatments. We aim to pursue options like Evenity or Forteo, contingent on authorization, focusing on improving bone density and reducing fracture risks without incurring prohibitive costs. I discussed with the patient her osteoporosis management options considering her high fracture risk and T-score of negative 3 in the hip. I explained the role of therapies like Evenity and Forteo, along with the potential for insurance limitations. Risks and benefits of the treatments were detailed, addressing concerns about cancer risks associated with Forteo, and providing assurance regarding human study outcomes. We deliberated alternatives if primary treatments are not covered. Potential affordability of treatments like Fosamax was discussed but was contraindicated due to GERD and hiatal hernia. We planned to address coverage and costs strategically, involving the [facility], and encouraged timely follow-up if insurance communication doesn't occur within a week. - Check with your insurance within a week for treatment authorization. - If no response from the pharmacy after one week, contact their office. - Consider potential treatment options with Evenity or Forteo, depending on insurance approval. - Due to GERD, avoid medications that can irritate the esophagus. - Schedule a follow-up appointment in approximately four months to review treatment efficacy and further plan adjustments if necessary. The patient had an opportunity to ask questions regarding treatment plan. The patient expressed understanding and agreement with the above treatment plan. Patient was informed and verbally consented to the use of an ambient scribe for clinic note documentation during this visit. Medications: New romosozumab-aqqg (Evenity) 210 mg (2.34 mL) subcut .q month 2.34 mL 11RF Coding Level of Care Code Est Pt Level 3 (53608) Diagnoses Osteoporosis M81.0
[2025-01-30 08:58] VITALS: BP 144/84; PULSE 72; O2SAT 95; BMI 31.7
--- OUTSIDE RECORDS SUMMARY | 2025-01-30 09:28 | XMS_ITS | Clinical Summary ---
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
== END 2025-01-30 09:20 | disposition home or self-care (01) ==
LOC: HO.ENCR 08:52
PROVIDERS: PCP Internal Medicine; Visit Provider Internal Medicine Endocrinology, Diabetes & Metabolism
DX: M81.0 Age-related osteoporosis without current pathological fracture (principal)
CPT/HCPCS: 99213

== ENCOUNTER → 2025-01-30 08:51 | Outpatient (BNVA) | payer MEDICARE, SELFPAY | PROVIDERS: PCP Internal Medicine; Visit Provider Internal Medicine Endocrinology, Diabetes & Metabolism | DX: M81.0 Age-related osteoporosis without current pathological fracture (principal) | CPT/HCPCS: 99212 ==

== ENCOUNTER → 2025-02-01 08:46 | Outpatient (BNVA) | payer MEDICARE, SELFPAY | PROVIDERS: PCP Internal Medicine; Visit Provider Internal Medicine ==

== ENCOUNTER → 2025-02-01 08:46 | Outpatient (AMB) | payer MEDICARE, SELFPAY ==
--- NOTE | 2025-02-01 08:47 | A.OFFPC_ITS ---
Intake Visit Reasons: 2m f/u Allergies Sulfa (Sulfonamide Antibiotics) [SULFA(SULFONAMIDE ANTIBIOTICS)] Allergy (Intermediate, Verified 02/01/25 08:52) FACIAL SWELLING, REDNESS, rash, face edema levofloxacin [From LEVAQUIN] Allergy (Unknown, Verified 02/01/25 08:52) itchy tongue Penicillins [PENICILLINS] Allergy (Unknown, Verified 02/01/25 08:52) RASH Quinolones [QUINOLONES] Allergy (Unknown, Verified 02/01/25 08:52) MOUTH ITCHING cefuroxime Allergy (Verified 02/01/25 08:52) Unknown doxycycline Allergy (Verified 02/01/25 08:52) Unknown ketorolac Adverse Reaction (Uncoded 02/01/25 08:52) Facial Swelling latex Adverse Reaction (Uncoded 02/01/25 08:52) Facial Swelling Medication List - Last Reconciled 02/01/25 by Flores Osullivan MD acetaminophen ER 650 mg PO Q8H PRN albuterol sulfate 2.5 mg (3 mL) inhalation Q4-6H PRN ascorbic acid (vitamin C) (Vitamin C) 1,000 mg PO DAILY budesonide-formoterol 160-4.5 mcg/actuation (Symbicort) 1 inh inhalation BID calcium carbonate-vitamin D3 600 mg-20 mcg (800 unit) (Caltrate with Vitamin D3) 1 tab PO DAILY cholecalciferol (vitamin D3) (Vitamin D3) 25 mcg PO DAILY ferrous fumarate 324 mg PO DAILY flecainide 150 mg PO Q12H inhalational spacing device (Aerochamber MV spacer) As directed levalbuterol tartrate 45 mcg/actuation (Xopenex HFA) 2 inhalations inhalation Q6H lisinopril 20 mg PO BID metoprolol succinate ER 50 mg PO DAILY yzbueklvfmfx-vjbw-hvhqw acid 18-400 mg-mcg (Centrum Women) 1 tab PO DAILY nebulizers As directed omeprazole 20 mg PO DAILY rivaroxaban (Xarelto) 20 mg PO DAILY romosozumab-aqqg (Evenity) 210 mg (2.34 mL) subcut .q month simvastatin 20 mg PO BEDTIME Tobacco use date assessed: 02/01/25 Fall risk assessment: 1 Fall in past year Last assessed Fall Risk: 02/01/25 Dental Screening Dental Screen Date: 02/01/25 Did you have a dental visit in the last 12 months?: No Did you have a dental problem in the last 6 months where you did not have access to dental care?: No Was dental information given to patient?: Patient has dentist HPI 2m f/u HPI Details 69-year-old lady with history of iron-de ficiency anemia currently taking iron supplements, has dyslipidemia on simvastatin 20 mg daily, here today for her follow-up. She has been feeling well, with no complaints of headache, no lightheadedness or chest pain or shortness of breath. Has been compliant with taking her medications and has been following recommended diet. Latest labs now showed normal hemoglobin hematocrit, and lipids are within normal limits. She however has been complaining of frequent nasal congestion and runny nose, accompanied by watery and itchy eyes. Symptoms started just a couple of days ago. Denies any cough or shortness of breath. [facility] History History of acute pancreatitis Environmental and seasonal allergies Dense breast tissue on mammogram Osteoporosis Paroxysmal atrial fibrillation Chronic anticoagulation Essential hypertension Dyslipidemia COPD (chronic obstructive pulmonary disease) Mild intermittent asthma with (acute) exacerbation Personal history of nicotine dependence Hiatal hernia with gastroesophageal reflux Irritable bowel syndrome with diarrhea Hepatic hemangioma Mixed urinary incontinence due to female genital prolapse Arthritis Multiple lipomas COVID-19 virus infection Hemochromatosis carrier Surgical History History of cardioversion History of laparoscopic cholecystectomy History of colonoscopy History of esophagogastroduodenoscopy (EGD) History of lumpectomy of left breast History of hysteroscopy Family History Father Emphysema, unspecified Mother Heart disease CVD (cardiovascular disease) Stroke Maternal Aunt Breast cancer Ovarian cancer Brother No problems noted. Brother No problems noted. Brother No problems noted. Sister Derek's disease Sister Mental health disorder Sister Mental health disorder Daughter No problems noted. Daughter No problems noted. Daughter No problems noted. Social History Household Members: Spouse Housing: House Do you presently have visiting nurse or other home services: No Unable to assess alcohol history related to: Unknown Alcohol intake: current Alcohol intake frequency: holidays/special occasions only Patient Tobacco Use Status: Former Tobacco user Years Smoked: 40 yrs e-Cigarette/Vaping Use: Never Used service: No Current occupational status: retired Cognitive needs: No Hearing needs: No Vision needs: Yes Questionnaire Thrive Questionnaire Date Thrive assessed: 11/28/24 RODY-7 AMB Questionnaire RODY-7 Date RODY - 7 assessed: 11/29/24 Source: Developed by Drs. Mariano Wheeler, Emilee Avila, Serafin Rothman and colleagues, with an educational marco from [employer]. Review of Systems Const Denies fatigue, Denies fever(s) and Denies weakness Eyes Reports as per HPI ENT Reports as per HPI, Denies dizziness, Denies sinus pain, Denies sore throat and Denies throat swelling Card Denies chest pain, Denies leg edema, Denies lightheadedness, Denies palpitations and Denies dyspnea Resp Denies cough and Denies dyspnea GI Denies hematochezia and Denies change in stool character Reports no additional complaints Musc Denies abnormal gait, Denies muscle weakness and Denies numbness Neuro Denies abnormal gait, Denies dizziness, Denies numbness and Denies weakness Endo Denies fatigue and Denies palpitations Michael/Lymph Reports no additional complaints Aller/Immun Reports no additional complaints and Denies throat swelling Physical exam (Primary Care) Tobacco/Smoking Status: Tobacco use Status Tobacco use date assessed 02/01/25 02/01/25 08:48 Patient Tobacco Use Status Former Tobacco user 02/01/25 08:48 e-Cigarette/Vaping Use Never Used 02/01/25 08:48 Thrive Assessment: Date of Thrive Assessment Date Thrive assessed 11/28/24 02/01/25 08:48 Telehealth Telehealth Telehealth Platform: [facility] Location of provider rendering services: practice address Location of patient: address on file Patient Identification confirmed using: Name, : Yes Telehealth method: video Patient verbally consented to treatment: Yes Patient verbally consented to billing insurance company: Yes Patient informed of any privacy concerns related to visit: Yes Minutes spent on Phone/Video with Pt.: 15 Results Reviewed Results Reviewed: RUN: 02/01/25 0850 PAGE 1 [facility] [address] [place] [id number] Inside Sales Coordinator: Karan Hart M.D. Specimen Inquiry Name: Brooklyn Hawkins Age/Sex: 69/F : 1955 Unit#: [id number] Attend Dr: Flores Osullivan MD Re01/22/25 Status: DEP [facility]F [facility] Disch: SPEC : [id number] MIGUEL ANGEL: 01/22/25 STATUS: COMP REQ : [id number] RECD: 01/22/[address]: Flores Osullivan MD COMP: 01/22/25 ENTERED: 01/22/[address] [facility] [address]: ORDERED: Met Prof Fast, IRON PROF, AST, ALT, Lipid Panel Test Result Flag Reference Sodium 141 135-145 mmol/L Potassium 4.0 3.3-5.1 mmol/L CL 106 96-108 mmol/L CO2 29 22-29 mmol/L Gap 10 L 12-20 BUN 16 9-16 mg/dL Creat 0.74 0.5-1.4 mg/dL eGFR > 60 Chronic Kidney Disease: Estimated GFR < 60 mL/min/1.73m2 Severe Kidney Disease: Estimated GFR < 15 mL/min/1.73m2 FBS 97 60-99 mg/dL CA 9.0 8.4-10.2 mg/dL Iron 60 30-160 mcg/dL TIBC 281 228-428 mcg/dL Saturation 21 15-50 % UIBC 221 ug/dL AST (GOT) 21 5-31 U/L ALT (GPT) 17 0-31 U/L Triglyceride 136 <150 mg/dL Desirable Triglyceride: less than 150 mg/dL Borderline High Triglyceride 150-199 mg/dL High Triglyceride: 200-499 mg/dL Very High Triglyceride: greater than or equal to 5OO mg/dL Cholesterol 188 <200 mg/dL Desirable Cholesterol: less than 200 mg/dL Borderline High Cholesterol: 200-239 mg/dL High Cholesterol: greater than 239 mg/dL LDL Calculated 103 H <100 mg/dL Desirable LDL: less than 100 mg/dL Near Optimal/Above Optimal LDL: 110-129 mg/dL Borderline High LDL: 130-159 mg/dL High LDL: 160-189 mg/dL Very High LDL: greater than or equal to 190 mg/dL HDL 58 >40 mg/dL Desirable HDL: greater than 40 mg/dL Note: This HDL assay may give artificially low results in patients with liver disease. carina: Brooklyn Hawkins Age/Sex: 69/F : 1955 Unit#: [id number] Attend Dr: Flores Osullivan MD Re01/22/25 Status: DEP REF Location: [facility] Disch: SPEC : [id number] MIGUEL ANGEL: 01/22/25 STATUS: COMP REQ : [id number] RECD: 01/22/25-[address]: Flores Osullivan MD COMP: 01/22/25 ENTERED: 01/22/[address]: ORDERED: CBC Auto Diff Test Result Flag Reference WBC 5.9 4.8-10.8 X10*3/uL RBC 4.52 4.20-5.50 X10*6/uL HGB 12.9 12.0-16.0 g/dl HCT 39.4 37.0-47.0 % MCV 87.2 80.0-98.0 fL MCH 28.5 27.0-33.0 pg MCHC 32.7 31.0-35.0 g/dl RDW 12.4 11.0-16.0 % PLT 264 160-400 X10*3/uL MPV 10.9 9.4-12.3 fL Neut Pct Auto 68.3 45-73 % ImGran Pct Auto 0.3 0.0-0.4 % Lymp Pct Auto 20.7 20-40 % [place] Pct Auto 6.4 2-11 % Eos Pct Auto 3.6 0-4 % Baso Pct Auto 0.7 0-2 % NRBC Pct Auto 0.0 0.0-0.2 /100WBC ANC Neut Abs # 4.0 2.0-8.3 x10*3/uL ImGran Abs Auto 0.02 0.00-0.03 X10*3/uL Lymph Abs Auto 1.2 1.2-4.9 X10*3/uL [place] Abs Auto 0.4 0.1-1.2 X10*3/uL Eos Abs Auto 0.2 0.0-0.4 X10*3/uL Baso Abs Auto 0.0 0.0-0.2 X10*3/uL NRBC Abs Auto 0.000 0.0-0.012 X10*3/uL Coding Level of Care Code Tele Est Pt Level 4 (81789) Diagnoses Environmental and seasonal allergies J30.89 Dyslipidemia E78.5 Hx of iron deficiency anemia Z86.2 Assessment & Plan Assessment & Plan (1) Environmental and seasonal allergies: Code(s): J30.89 - Other allergic rhinitis Category: Medical Plan: Advised to try taking lzpu-tjk-dneiopt cetirizine or Zyrtec 10 mg at bedtime and dry using fluticasone nasal spray 1 spray per nostril as needed for nasal co ngestion. (2) Dyslipidemia: Code(s): E78.5 - Hyperlipidemia, unspecified Category: Medical Plan: Latest fasting lipids are within normal limits, will continue on simvastatin 20 mg at bedtime in addition to adherence to healthy eating habits and getting regular exercise. (3) Hx of iron deficiency anemia: Code(s): Z86.2 - Personal history of diseases of the blood and blood-forming organs and certain disorders involving the immune mechanism Plan: Anemia has resolved, advised to just finish taking her prescription for ferrous fumarate.
--- OUTSIDE RECORDS SUMMARY | 2025-02-01 08:52 | XMS_ITS | Clinical Summary ---
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
== END ==
LOC: HO.HMCC 08:46
PROVIDERS: PCP Internal Medicine; Visit Provider Internal Medicine
DX: J30.89 Other allergic rhinitis (principal); E78.5 Hyperlipidemia, unspecified; Z86.2 Personal history of diseases of the blood and blood-forming organs and certain disorders involving the immune mechanism

== ENCOUNTER 2025-02-18 15:22 | Outpatient (AMB) | payer MEDICARE, SELFPAY ==
--- OUTSIDE RECORDS SUMMARY | 2025-02-18 15:24 | XMS_ITS | Clinical Summary ---
Author Organization [facility] Address [address] [place] [address] Care Team Providers Care Crm Architect Name Role Phone Unavailable Primary Care Provider [...] Density (Females,Ag es 65 and older) 2018 COVID-19 Vaccine ( - 2023-2 5 season) 2024 Influenza Vaccine 05/10/2025 RSV Vaccine 60 years and old er and Patients (1 - 1-dose 75+ series) 2028 Hepatitis B Vaccines Aged Out No long er eligible based on patient's age to complete this topic Insurance [phone] (Home) 6 [facility] R[place]HEAL [place]CAM[place] [id number] [facility]
--- NOTE | 2025-02-18 15:27 | AM.OFFWIN_ITS ---
Intake Vital Signs 02/18/25 15:30 Weight 167 lb BP 138/100 H Blood Pressure Location Rt brachial Position Sitting Pulse 78 Pulse Source Pulse Oximeter Temp 99 F Temp Source Oral Pulse Oximetry (%) 97 Oxygen Delivery Method Room Air Intake Visit Reasons: EP Cough, sob/inhalers not working Intake Note: Patient here for cough and SOB that has been present for 2 weeks. Patient Tobacco Use Status: Former Tobacco user Allergies Sulfa (Sulfonamide Antibiotics) [SULFA(SULFONAMIDE ANTIBIOTICS)] Allergy (Intermediate, Verified 02/18/25 15:30) FACIAL SWELLING, REDNESS, rash, face edema levofloxacin [From LEVAQUIN] Allergy (Unknown, Verified 02/18/25 15:30) itchy tongue Penicillins [PENICILLINS] Allergy (Unknown, Verified 02/18/25 15:30) RASH Quinolones [QUINOLONES] Allergy (Unknown, Verified 02/18/25 15:30) MOUTH ITCHING ketorolac Adverse Reaction (Uncoded 02/18/25 15:30) Facial Swelling latex Adverse Reaction (Uncoded 02/18/25 15:30) Facial Swelling Do you need a note to return to daycare/school/sports/work: No HPI HPI Comments History of Present Illness Details 69 y/o Female patient who [facility] with c/o Cough, wheezing and SOB for 2 weeks. She does have h/o COPD and sees Pulmonology Dr. Cardenas. She has been doing Neb Tx at home and using her rescue inhaler with no much relief. [facility] Medical History History of acute pancreatitis Environmental and seasonal allergies Dense breast tissue on mammogram Osteoporosis Paroxysmal atrial fibrillation Chronic anticoagulation Essential hypertension Dyslipidemia COPD (chronic obstructive pulmonary disease) Mild intermittent asthma with (acute) exacerbation Personal history of nicotine dependence Hiatal hernia with gastroesophageal reflux Irritable bowel syndrome with diarrhea Hepatic hemangioma Mixed urinary incontinence due to female genital prolapse Arthritis Multiple lipomas COVID-19 virus infection Hemochromatosis carrier Surgical History History of cardioversion History of laparoscopic cholecystectomy History of colonoscopy History of esophagogastroduodenoscopy (EGD) History of lumpectomy of left breast History of hysteroscopy Family History Father Emphysema, unspecified Mother Heart disease CVD (cardiovascular disease) Stroke Maternal Aunt Breast cancer Ovarian cancer Brother No problems noted. Brother No problems noted. Brother No problems noted. Sister Derek's disease Sister Mental health disorder Sister Mental health disorder Daughter No problems noted. Daughter No problems noted. Daughter No problems noted. Social History Household Members: Spouse Housing: House Do you presently have visiting nurse or other home services: No Unable to assess alcohol history related to: Unknown Alcohol intake: current Alcohol intake frequency: holidays/special occasions only Patient Tobacco Use Status: Former Tobacco user Years Smoked: 40 yrs e-Cigarette/Vaping Use: Never Used service: No Current occupational status: retired Cognitive needs: No Hearing needs: No Vision needs: Yes Review of Systems Const All systems reviewed & are unremarkable except as noted in HPI and below Physical Exam Vital Signs: Last Vital Signs Temp 99 F 02/18/25 15:30 Pulse 78 02/18/25 15:30 BP 138/100 H 02/18/25 15:30 Pulse Ox 97 02/18/25 15:30 Oxygen Delivery Method Room Air 02/18/25 15:30 Const General: no acute distress; No comfortable Nutritional Appearance: overweight Orientation/consciousness: patient oriented x3 Resp Effort & Inspection: normal respiratory effort, able to speak in complete sentences, audible wheezes and Actively coughing Auscultation: no crackles, no rales, no rhonchi and wheezes inspiratory wheezes Cardio Rhythm: regular rhythm Heart sounds: S1 normal heart sound present and S2 normal heart sound present Neuro General: patient oriented x3 Assessment & Plan Assessment & Plan (1) COPD with acute exacerbation: Code(s): J44.1 - Chronic obstructive pulmonary disease with (acute) exacerbation Plan: Ordered Doxy BID for 10 days (Not allergic to Med). Ordered DuoNeb - continue with Neb Tx's at Q4-6 hours. Pt declined Oral Prednisone. F/U with Pulmonology. Medications: New doxycycline hyclate 100 mg PO BID 10 days 20 caps 0RF J44.1 - Chronic obstructive pulmonary disease with (acute) exacerbation dextromethorphan polistirex ER (Delsym 12 hour) 10 mL PO Q12H 89 mL 0RF cough J44.1 - Chronic obstructive pulmonary disease with (acute) exacerbation, R05.9 - Cough, unspecified ipratropium-albuterol 0.5 mg-3 mg(2.5 mg base)/3 mL 3 mL inhalation Q4-6H PRN 90 mL 0RF wheezing and SOB J44.1 - Chronic obstructive pulmonary disease with (acute) exacerbation benzonatate 200 mg (2 x 100 mg) PO BID 60 caps 0RF J44.1 - Chronic obstructive pulmonary disease with (acute) exacerbation, R05.9 - Cough, unspecified Coding Level of Care Code Est Pt Level 4 (31032) Diagnoses COPD with acute exacerbation J44.1 Time Spent (min) 20
[2025-02-18 15:30] VITALS: BP 138/100; PULSE 78; TEMP 37.2; O2SAT 97
== END 2025-02-18 15:52 | disposition home or self-care (01) ==
PROVIDERS: PCP Internal Medicine; Visit Provider Nurse Practitioner Family
DX: J44.1 Chronic obstructive pulmonary disease with (acute) exacerbation (principal)

== ENCOUNTER → 2025-02-18 15:22 | Outpatient (BNVA) | payer MEDICARE, SELFPAY | PROVIDERS: PCP Internal Medicine; Visit Provider Nurse Practitioner Family | DX: J44.1 Chronic obstructive pulmonary disease with (acute) exacerbation (principal) | CPT/HCPCS: 99212 ==

== ENCOUNTER 2025-05-13 09:29 | Outpatient (AMB) | payer MEDICARE, SELFPAY ==
--- NOTE | 2025-05-13 09:44 | MHC.OFFVIS ---
Vital Signs 05/13/25 09:45 Height 5 ft 1.22 in Weight 167 lb 8.821 oz BMI 31.4 BP 132/90 H Blood Pressure Location Lt brachial Position Sitting Pulse 65 Pulse Source Pulse Oximeter Pulse Oximetry (%) 95 Oxygen Delivery Method Room Air Intake Visit Reasons: COPD Intake Note: pt is here for follow up and states her breathing is okay,stairs are an issue, incline, or fast pace, she takes her time and is fine. 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 Operator Required: No Allergies Sulfa (Sulfonamide Antibiotics) (SULFA(SULFONAMIDE ANTIBIOTICS)) Allergy (Intermediate, Verified 05/13/25 10:29) FACIAL SWELLING, REDNESS, rash, face edema levofloxacin (From LEVAQUIN) Allergy (Unknown, Verified 05/13/25 10:29) itchy tongue Penicillins (PENICILLINS) Allergy (Unknown, Verified 05/13/25 10:29) RASH Quinolones (QUINOLONES) Allergy (Unknown, Verified 05/13/25 10:29) MOUTH ITCHING ketorolac Adverse Reaction (Uncoded 05/13/25 10:29) Facial Swelling latex Adverse Reaction (Uncoded 05/13/25 10:29) Facial Swelling Medication List - Last Reconciled 05/13/25 by Marilia Cardenas MD acetaminophen ER 650 mg PO Q8H PRN albuterol sulfate 2.5 mg (3 mL) inhalation Q4-6H PRN ascorbic acid (vitamin C) (Vitamin C) 1,000 mg PO DAILY benzonatate 200 mg PO BID PRN budesonide-formoterol 160-4.5 mcg/actuation (Symbicort) 1 inh inhalation BID calcium carbonate-vitamin D3 600 mg-20 mcg (800 unit) (Caltrate with Vitamin D3) 1 tab PO DAILY cholecalciferol (vitamin D3) (Vitamin D3) 25 mcg PO DAILY flecainide 150 mg PO Q12H inhalational spacing device (Aerochamber MV spacer) As directed ipratropium-albuterol 0.5 mg-3 mg(2.5 mg base)/3 mL 3 mL inhalation Q4-6H PRN levalbuterol tartrate 45 mcg/actuation (Xopenex HFA) 2 inhalations inhalation Q6H lisinopril 20 mg PO BID metoprolol succinate ER 50 mg PO DAILY aoymscjnlhzl-wbwr-mllzd acid 18-400 mg-mcg (Centrum Women) 1 tab PO DAILY nebulizers As directed omeprazole 20 mg PO DAILY rivaroxaban (Xarelto) 20 mg PO DAILY romosozumab-aqqg (Evenity) 210 mg (2.34 mL) subcut .q month simvastatin 20 mg PO BEDTIME Do you need a note to return to daycare/school/sports/work: No HPI HPI COPD: Details: THIS 69 YEARS OLD FEMALE IS HERE FOR HER 6 MONTHS FOLLOW-UP FOR COPD. SINCE HER LAST VISIT SHE HAS REMAINED VERY STABLE. SHE HAS HAD NO ACUTE EXACERBATION. SHE DOES NOT SMOKE SHE WALKS AROUND WITH ONLY MINIMAL SHORTNESS OF BREATH ON EXERTION SUCH CLIMBING MORE THAN 1 FLIGHT OF STAIRS. SHE IS USING SYMBICORT BUT USUALLY ONLY ONCE A DAY. HARDLY NEEDS TO USE THE RESCUE INHALER. [facility] Medical History COPD with acute exacerbation History of acute pancreatitis Environmental and seasonal allergies Dense breast tissue on mammogram Osteoporosis Paroxysmal atrial fibrillation Chronic anticoagulation Essential hypertension Dyslipidemia COPD (chronic obstructive pulmonary disease) Mild intermittent asthma with (acute) exacerbation Personal history of nicotine dependence Hiatal hernia with gastroesophageal reflux Irritable bowel syndrome with diarrhea Hepatic hemangioma Mixed urinary incontinence due to female genital prolapse Arthritis Multiple lipomas COVID-19 virus infection Hemochromatosis carrier Surgical History History of cardioversion History of laparoscopic cholecystectomy History of colonoscopy History of esophagogastroduodenoscopy (EGD) History of lumpectomy of left breast History of hysteroscopy Family History Father Emphysema, unspecified Mother Heart disease CVD (cardiovascular disease) Stroke Maternal Aunt Breast cancer Ovarian cancer Brother No problems noted. Brother No problems noted. Brother No problems noted. Sister Derek's disease Sister Mental health disorder Sister Mental health disorder Daughter No problems noted. Daughter No problems noted. Daughter No problems noted. Social History Household Members: Spouse Housing: House Do you presently have visiting nurse or other home services: No Unable to assess alcohol history related to: Unknown Alcohol intake: current Alcohol intake frequency: holidays/special occasions only Patient Tobacco Use Status: Former Tobacco user Years Smoked: 40 yrs e-Cigarette/Vaping Use: Never Used service: No Current occupational status: retired Cognitive needs: No Hearing needs: No Vision needs: Yes Review of Systems Const All systems reviewed & are unremarkable except as noted in HPI and below Eyes Reports no additional complaints ENT Reports nasal congestion (Mild off and on) Card Reports no additional complaints, Denies chest pain and Reports irregular heart rhythm (Atrial fibrillation) Resp Reports as per HPI GI Reports heartburn (GERD symptoms being treated with omeprazole) Reports no additional complaints Musc Reports no additional complaints Skin/Breast Reports system reviewed and no additional complaints, except as documented Neuro Reports no additional complaints Psych Reports no additional complaints Endo Reports no additional complaints Physical Exam Vital Signs: Last Vital Signs Pulse 65 05/13/25 09:45 BP 132/90 H 05/13/25 09:45 Pulse Ox 95 05/13/25 09:45 Oxygen Delivery Method Room Air 05/13/25 09:45 BMI result Body Mass Index 31.4 Const General: cooperative, comfortable, no acute distress, alert and awake Nutritional Appearance: overweight Orientation/consciousness: patient oriented x3 Limitations: no limitations HEENT Head: Yes normal to inspection General nose exam: No nasal polyps present and No nasal discharge present Face and sinus: Yes sinuses nontender Mouth: oropharynx normal Throat: Yes posterior oropharynx normal Eyes General: appearance normal, both eyes and all related structures Neck Neck: Yes trachea midline, Yes supple and Yes no JVD Thyroid: Thyroid normal Chest Chest palpation & inspection: normal inspection of the chest, normal palpation of entire chest wall and no tenderness Resp Other: Percussion note resonant, breath sounds are equal on both sides slightly distant with prolonged expiratory phase. No audible wheezes rhonchi or crepitations are heard today Effort & Inspection: normal respiratory effort Auscultation: clear to auscultation bilaterally and diminished lung sounds Cardio Jugular venous distension: no JVD Palpation: normal PMI Rate: regular rate Rhythm: regular rhythm Heart sounds: S1 normal heart sound present and S2 normal heart sound present Peripheral pulses: Peripheral pulses 2+ throughout GI Palpation (GI): Soft to palpation, nontender, No hepatosplenomegaly present and no masses Auscultation: normal bowel sounds Back/Spine/Pelvis Thoracic/Lumbar Spine: thoracic and lumbar spine normal to inspection Skin General skin exam: no rashes or lesions noted Neuro General: patient oriented x3 and no focal motor deficits Cranial nerves: Yes CN's II-XII intact bilaterally Extrem General: No clubbing, No cyanosis, Yes edema and Yes other (Bilateral varicose veins) Psych Appearance: grossly normal Speech and movement: Normal speech and movement present Assessment & Plan Assessment & Plan (1) COPD (chronic obstructive pulmonary disease): Comment: SHE DOES HAVE MODERATELY SEVERE OBSTRUCTIVE AIRWAY DISORDER DUE TO HER PAST SMOKING. CURRENTLY WELL CONTROLLED AND STABLE . Code(s): J44.9 - Chronic obstructive pulmonary disease, unspecified Category: Medical Plan: ADVISED TO CONTINUE USING SYMBICORT 160-4.52 PUFFS B.I.D.. HOWEVER IN HER SYMPTOMS ARE WELL CONTROLLED SHE CAN CUT IT DOWN TO ONLY ONCE A DAY. USE ALBUTEROL SOLUTION IN THE NEBULIZER OR ALBUTEROL HFA ONLY P.R.N. (2) Personal history of nicotine dependence: Comment: (former smoker, onset 16yo, 2-2.5ppd x 38yrs, 80pyh, quit 04/2010) Code(s): Z87.891 - Personal history of nicotine dependence Category: Medical Plan: COMMENDED FOR NOT SMOKING Medications: Changed From benzonatate 200 mg (2 x 100 mg) PO BID 60 caps 0RF J44.1 - Chronic obstructive pulmonary disease with (acute) exacerbation, R05.9 - Cough, unspecified To benzonatate 200 mg PO BID PRN J44.1 - Chronic obstructive pulmonary disease with (acute) exacerbation, R05.9 - Cough, unspecified Coding Level of Care Code Est Pt Level 3 (85992) Diagnoses COPD (chronic obstructive pulmonary disease) J44.9 Personal history of nicotine dependence Z87.891
[2025-05-13 09:45] VITALS: BP 132/90; PULSE 65; O2SAT 95; BMI 31.4
--- OUTSIDE RECORDS SUMMARY | 2025-05-13 10:00 | XMS_ITS | Clinical Summary ---
Author Organization [facility] Address [address] [place] [address] Care Team Providers Care Potato Chip Fryer Name Role Phone Unavailable Primary Care Provider [...] patient's age to complete this topic Insurance [phone] (Home) 6 [facility] RACHEAL CARCAMO [id number] [facility]
== END 2025-05-13 10:29 | disposition home or self-care (01) ==
LOC: HO.HPS 09:30
PROVIDERS: PCP Internal Medicine; Visit Provider Internal Medicine
DX: J44.9 Chronic obstructive pulmonary disease, unspecified (principal); Z87.891 Personal history of nicotine dependence
CPT/HCPCS: 99213

== ENCOUNTER → 2025-05-13 09:29 | Outpatient (BNVA) | payer MEDICARE, SELFPAY | PROVIDERS: PCP Internal Medicine; Visit Provider Internal Medicine | DX: J44.1 Chronic obstructive pulmonary disease with (acute) exacerbation (principal); Z87.891 Personal history of nicotine dependence | CPT/HCPCS: 99212 ==

== ENCOUNTER 2025-05-23 10:26 | Outpatient (AMB) | payer MEDICARE, SELFPAY ==
[2025-05-23 10:44] VITALS: BP 120/80; PULSE 67; BMI 31.7
--- NOTE | 2025-05-23 10:44 | MHC.OFFVIS ---
Vital Signs 05/23/25 10:44 05/23/25 11:00 05/23/25 11:05 05/23/25 11:06 Height 5 ft 1 in Weight 167 lb 8.821 oz BMI 31.7 BP 120/80 175/88 H 169/82 H 182/85 H Blood Pressure Location Lt brachial Lt brachial Lt brachial Lt brachial Position Sitting Supine Sitting Standing Pulse 67 64 64 72 Intake Visit Reasons: 6m follow up Intake Note: 6 month follow-up with ekg c/o dizziness all the time Supervisor Parking Lot Required: No Allergies Sulfa (Sulfonamide Antibiotics) (SULFA(SULFONAMIDE ANTIBIOTICS)) Allergy (Intermediate, Verified 05/13/25 10:29) FACIAL SWELLING, REDNESS, rash, face edema levofloxacin (From LEVAQUIN) Allergy (Unknown, Verified 05/13/25 10:29) itchy tongue Penicillins (PENICILLINS) Allergy (Unknown, Verified 05/13/25 10:29) RASH Quinolones (QUINOLONES) Allergy (Unknown, Verified 05/13/25 10:29) MOUTH ITCHING ketorolac Adverse Reaction (Uncoded 05/13/25 10:29) Facial Swelling latex Adverse Reaction (Uncoded 05/13/25 10:29) Facial Swelling Medication List - Last Reconciled 05/23/25 by Juan Laughlin MD acetaminophen ER 650 mg PO Q8H PRN albuterol sulfate 2.5 mg (3 mL) inhalation Q4-6H PRN ascorbic acid (vitamin C) (Vitamin C) 1,000 mg PO DAILY benzonatate 200 mg PO BID PRN budesonide-formoterol 160-4.5 mcg/actuation (Symbicort) 1 inh inhalation BID calcium carbonate-vitamin D3 600 mg-20 mcg (800 unit) (Caltrate with Vitamin D3) 1 tab PO DAILY cholecalciferol (vitamin D3) (Vitamin D3) 25 mcg PO DAILY flecainide 150 mg PO Q12H inhalational spacing device (Aerochamber MV spacer) As directed ipratropium-albuterol 0.5 mg-3 mg(2.5 mg base)/3 mL 3 mL inhalation Q4-6H PRN levalbuterol tartrate 45 mcg/actuation (Xopenex HFA) 2 inhalations inhalation Q6H lisinopril 20 mg PO BID metoprolol succinate ER 50 mg PO DAILY ateocqffsmlw-lmpk-gngoj acid 18-400 mg-mcg (Centrum Women) 1 tab PO DAILY nebulizers As directed omeprazole 20 mg PO DAILY rivaroxaban (Xarelto) 20 mg PO DAILY simvastatin 20 mg PO BEDTIME HPI Comments Details: [place] comes for follow-up, she is accompanied by her daughter. She says she has been very dizzy recently. He is not clearly orthostatic in nature. He says when she looks over her shoulder she sees double vision. But she is constantly dizzy. She had also noticed significantly elevated blood pressures. She has no headaches. No focal neurologic deficits. No blurry visions. She has been watching his diet and taking all medications. She has no imbalance. No hearing loss. [facility] Medical History COPD with acute exacerbation History of acute pancreatitis Environmental and seasonal allergies Dense breast tissue on mammogram Osteoporosis Paroxysmal atrial fibrillation Chronic anticoagulation Essential hypertension Dyslipidemia COPD (chronic obstructive pulmonary disease) Mild intermittent asthma with (acute) exacerbation Personal history of nicotine dependence Hiatal hernia with gastroesophageal reflux Irritable bowel syndrome with diarrhea Hepatic hemangioma Mixed urinary incontinence due to female genital prolapse Arthritis Multiple lipomas COVID-19 virus infection Hemochromatosis carrier Surgical History History of cardioversion History of laparoscopic cholecystectomy History of colonoscopy History of esophagogastroduodenoscopy (EGD) History of lumpectomy of left breast History of hysteroscopy Family History Father Emphysema, unspecified Mother Heart disease CVD (cardiovascular disease) Stroke Maternal Aunt Breast cancer Ovarian cancer Brother No problems noted. Brother No problems noted. Brother No problems noted. Sister Derek's disease Sister Mental health disorder Sister Mental health disorder Daughter No problems noted. Daughter No problems noted. Daughter No problems noted. Social History Household Members: Spouse Housing: House Do you presently have visiting nurse or other home services: No Unable to assess alcohol history related to: Unknown Alcohol intake: current Alcohol intake frequency: holidays/special occasions only Patient Tobacco Use Status: Former Tobacco user Years Smoked: 40 yrs e-Cigarette/Vaping Use: Never Used service: No Current occupational status: retired Cognitive needs: No Hearing needs: No Vision needs: Yes Review of Systems Const Denies chills, Denies fatigue, Denies fever(s), Denies frequent falls, Denies weakness, Denies weight gain and Denies weight loss ENT Reports dizziness Card Denies chest pain, Denies leg edema, Reports lightheadedness, Denies palpitations, Denies dyspnea, Denies dyspnea on exertion, Denies orthopnea and Denies other (loss of consciousness) Resp Denies cough, Denies dyspnea and Denies dyspnea on exertion GI Denies hematochezia and Denies change in stool character Musc Denies abnormal gait, Denies muscle weakness, Denies numbness, Denies radiating pain into limb and Denies tingling Neuro Denies abnormal gait, Reports dizziness, Denies frequent falls, Denies numbness, Denies tingling and Denies weakness Endo Denies fatigue and Denies palpitations Physical Exam Vital Signs: Last Vital Signs Pulse 72 05/23/25 11:06 BP 182/85 H 05/23/25 11:06 BMI result Body Mass Index 31.7 Const General: cooperative, comfortable, no acute distress, alert and awake Nutritional Appearance: overweight Orientation/consciousness: patient oriented x3 Limitations: no limitations Neck Neck: Yes trachea midline, Yes supple and Yes no JVD Resp Effort & Inspection: normal respiratory effort Auscultation: clear to auscultation bilaterally and diminished lung sounds Cardio Jugular venous distension: no JVD Palpation: normal PMI Rate: regular rate Rhythm: regular rhythm Heart sounds: S1 normal heart sound present and S2 normal heart sound present GI Auscultation: normal bowel sounds Skin General skin exam: no rashes or lesions noted Neuro General: patient oriented x3 and no focal motor deficits Extrem General: No clubbing, No cyanosis, Yes edema and Yes other (Bilateral varicose veins) Psych Appearance: grossly normal Assessment & Plan Assessment & Plan (1) Dizziness: Code(s): R42 - Dizziness and giddiness Plan: Symptoms of dizziness which are unexplained. She has significantly elevated blood pressure which could be potentially causing it. Also could be related to flecainide dosing. Will obtain flecainide levels today. Will treat her blood pressure. Will add hydrochlorothiazide 25 mg to regimen because of her swelling in the legs. Will also reduce flecainide to 100 mg b.i.d.. It is also could be related to ophthalmic issues advised to seek of 10 mg consultation. Follow-up EKG and blood pressure check in a week's time. If she consistently has dizziness, consider evaluation from Physical therapy perspective for vertigo training and also will taper and discontinue flecainide therapy and this was discussed with her. Continue aggressive blood pressure control. (2) Paroxysmal atrial fibrillation: Code(s): I48.0 - Paroxysmal atrial fibrillation Category: Medical Plan: Highly symptomatic paroxysmal atrial fibrillation which is currently controlled with flecainide therapy although she is having what appears to be dizziness which could be related to flecainide therapy. Will gradually lower the dose. Risk of recurrent atrial fibrillation was discussed. If she has recurrent atrial fibrillation alternative therapy Mibi consider such as Multaq and/or ablation. Continue full oral anticoagulation, currently on Xarelto 20 mg daily. Recent blood work did not show any significant anemia. (3) Essential hypertension: Code(s): I10 - Essential (primary) hypertension Category: Medical Plan: Hypertension which is uncontrolled. There was no evidence of orthostatic hypotension with elevated blood pressure. Needs better control. She has leg swelling and therefore would avoid amlodipine for now. Start on hydrochlorothiazide therapy in addition to lisinopril therapy. Advised to monitor blood pressure at home. Stress mitigation strategies was discussed. Low-salt diet was discussed. Follow up in the clinic in 3 months time, sooner p.r.n.. Thank you for allowing me to partake in her care Orders: Orders Flecainide Today I48.0 - Paroxysmal atrial fibrillation Basic Metabolic Panel Today I48.0 - Paroxysmal atrial fibrillation B Type Natriuretic Peptide Today I48.0 - Paroxysmal atrial fibrillation Coding Level of Care Code Est Pt Level 4 (72079) Complex EM visit Add On G2211 Diagnoses Dizziness R42 Paroxysmal atrial fibrillation I48.0 Essential hypertension I10
[2025-05-23 11:00] VITALS: BP 175/88; PULSE 64
[2025-05-23 11:05] VITALS: BP 169/82; PULSE 64
[2025-05-23 11:06] VITALS: BP 182/85; PULSE 72
--- OUTSIDE RECORDS SUMMARY | 2025-05-23 11:35 | XMS_ITS | Clinical Summary ---
Author Organization [facility] Address [address] [place] [address] Care Team Providers Care Blog Writer Name Role Phone Unavailable Primary Care Provider [...] patient's age to complete this topic Insurance [phone] (Home) 6 [facility] RACHEAL CARCAMO [id number] [facility]
== END 2025-05-23 11:20 | disposition home or self-care (01) ==
LOC: HO.HCS 10:33
PROVIDERS: PCP Internal Medicine; Visit Provider Internal Medicine Cardiovascular Disease
DX: R42 Dizziness and giddiness (principal); I48.0 Paroxysmal atrial fibrillation; I10 Essential (primary) hypertension
CPT/HCPCS: 99214; G2211

== ENCOUNTER 2025-05-23 11:31 | Outpatient (REF) | payer MEDICARE, SELFPAY ==
--- NOTE | ~2025-05-23 | CT_ITS ---
CLINICAL HISTORY: Z87.891 - Personal history of nicotine dependence CT lung cancer screening (LDCT) Comparison: None provided Technique: Axial CT images of the chest using low-dose technique. Referring provider counseled the patient on shared decision-making for LDCT screening. Additional counseling was provided on smoking cessation. Effective radiation dose total: DLP 33.9 mGycm, CTDIvol 1.2 mGy. Findings: Pulmonary nodules: A few micro nodules are present within the posterior left upper lobe, for example axial image 28. Several scattered calcified granuloma are present. Incidental pulmonary findings: Minimal centrilobular emphysema. Mild airway thickening. C non pulmonary findings: oronary artery calcifications: Moderate Limited upper abdomen: Unremarkable Other: None Impression: LungRADS 2 - Benign Appearance: Continue annual screening with low dose Chest CT in 12 months. ##L2## Category 1: Normal; continue annual screening Category 2: Benign appearance or behavior, continue annual screening Category 3: Probably benign, [address] recommended Category 4A: Suspicious, [address] recommended; may consider PET/CT Category 4B: Suspicious, Additional diagnostics and/or tissue sampling recommended Category 4X: Suspicious, Additional diagnostics and/or tissue sampling recommended Category 0: Recalls (incomplete screen due to Incomplete coverage, Noise, Respiratory motion, Expiration, Obscured by acute abnormality) This document has been electronically signed by: Felton Davis MD on 05/24/2025 12:57:58
[2025-05-23 12:34] LABS: Albumin Level 4.3 g/dL (3.5-5.0); Anion Gap 9 (12-20); Blood Urea Nitrogen 20 mg/dL (9-16); Calcium 9.1 mg/dL (8.4-10.2); Carbon Dioxide 32 mmol/L (22-29); Chloride 106 mmol/L (96-108); Estimated Glomerular Filt Rate > 60; Potassium 4.3 mmol/L (3.3-5.1); Sodium 143 mmol/L (135-145)
[2025-05-23 12:35] LABS: B Type Natriuretic Peptide 48 pg/mL (<100)
== END 2025-05-23 11:32 | disposition home or self-care (01) ==
LOC: HO.CT 11:31
PROVIDERS: Internal Medicine Endocrinology, Diabetes & Metabolism; Absent Provider Internal Medicine Cardiovascular Disease; PCP Internal Medicine; Visit Provider Physician Assistant Medical
DX: Z12.2 Encounter for screening for malignant neoplasm of respiratory organs (principal); Z87.891 Personal history of nicotine dependence; M81.0 Age-related osteoporosis without current pathological fracture; I48.0 Paroxysmal atrial fibrillation; R42 Dizziness and giddiness; I10 Essential (primary) hypertension; Z79.899 Other long term (current) drug therapy
CPT/HCPCS: 36415; 71271; 80048; 80181; 82040; 83880; 99212

== ENCOUNTER → 2025-05-23 16:04 | Outpatient (BNV) | payer MEDICARE, SELFPAY | PROVIDERS: Absent Provider Internal Medicine Cardiovascular Disease; PCP Internal Medicine; Visit Provider Radiology Vascular & Interventional Radiology | DX: Z87.891 Personal history of nicotine dependence (principal) | CPT/HCPCS: 71271 ==

== ENCOUNTER 2025-06-04 08:17 | Outpatient (REF) | payer MEDICARE, SELFPAY ==
--- OUTSIDE RECORDS SUMMARY | 2025-06-04 08:28 | XMS_ITS | Clinical Summary ---
Author Organization [facility]ly [facility] Address [address] [place] [address] Care Team Providers Care Commercial Credit Portfolio Manager Name Role Phone Unavailable Primary Care Provider [...] patient's age to complete this topic Insurance [phone] (Home) 6 [facility] RACHEAL CARCAMO [id number] [facility]
[2025-06-04 08:50] LABS: Hematocrit 39.0 % (37.0-47.0); Hemoglobin 12.8 g/dl (12.0-16.0); Mean Corpuscular HGB Conc 32.8 g/dl (31.0-35.0); Mean Corpuscular Hemoglobin 28.5 pg (27.0-33.0); Mean Corpuscular Volume 86.9 fL (80.0-98.0); NRBC Abs Auto 0.000 X10*3/uL (0.0-0.012); NRBC Pct Auto 0.0 /100WBC (0.0-0.2); Platelet Count 279 X10*3/uL (160-400); Red Blood Count 4.49 X10*6/uL (4.20-5.50); White Blood Count 5.8 X10*3/uL (4.8-10.8)
[2025-06-04 09:25] LABS: Anion Gap 13 (12-20); Blood Urea Nitrogen 24 mg/dL (9-16); Calcium 9.2 mg/dL (8.4-10.2); Carbon Dioxide 32 mmol/L (22-29); Chloride 100 mmol/L (96-108); Estimated Glomerular Filt Rate > 60; Potassium 3.7 mmol/L (3.3-5.1); Sodium 141 mmol/L (135-145)
== END 2025-06-04 08:18 | disposition home or self-care (01) ==
LOC: HO.LAB 08:17
PROVIDERS: Internal Medicine Endocrinology, Diabetes & Metabolism; PCP Nurse Practitioner; Visit Provider Internal Medicine Cardiovascular Disease
DX: M81.0 Age-related osteoporosis without current pathological fracture (principal); K21.9 Gastro-esophageal reflux disease without esophagitis; K44.9 Diaphragmatic hernia without obstruction or gangrene; I48.0 Paroxysmal atrial fibrillation; I10 Essential (primary) hypertension; Z87.891 Personal history of nicotine dependence
CPT/HCPCS: 36415; 80048; 80181; 85027; 99212

== ENCOUNTER 2025-06-04 09:25 | Outpatient (AMB) | payer MEDICARE, SELFPAY ==
[2025-06-04 09:28] VITALS: BP 104/68; PULSE 69; O2SAT 94; BMI 30.7
--- NOTE | 2025-06-04 09:28 | MHC.OFFVIS ---
Vital Signs 06/04/25 09:28 Height 5 ft 1.68 in Weight 166 lb 0.129 oz BMI 30.7 BP 104/68 Blood Pressure Location Rt brachial Position Sitting Pulse 69 Pulse Source Pulse Oximeter Pulse Oximetry (%) 94 Oxygen Delivery Method Room Air Intake Visit Reasons: Osteoporosis Intake Note: Patient present today for Osteoporosis follow up. 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 Accompanied by: Self / Same As Patient Allergies Sulfa (Sulfonamide Antibiotics) (SULFA(SULFONAMIDE ANTIBIOTICS)) Allergy (Intermediate, Verified 06/04/25 09:28) FACIAL SWELLING, REDNESS, rash, face edema levofloxacin (From LEVAQUIN) Allergy (Unknown, Verified 06/04/25 09:28) itchy tongue Penicillins (PENICILLINS) Allergy (Unknown, Verified 06/04/25 09:28) RASH Quinolones (QUINOLONES) Allergy (Unknown, Verified 06/04/25 09:28) MOUTH ITCHING ketorolac Adverse Reaction (Uncoded 06/04/25 09:28) Facial Swelling latex Adverse Reaction (Uncoded 06/04/25 09:28) Facial Swelling Medication List - Last Reconciled 06/04/25 by Mariano Morillo MD acetaminophen ER 650 mg PO Q8H PRN albuterol sulfate 2.5 mg (3 mL) inhalation Q4-6H PRN ascorbic acid (vitamin C) (Vitamin C) 1,000 mg PO DAILY benzonatate 200 mg PO BID PRN blood pressure monitor As directed budesonide-formoterol 160-4.5 mcg/actuation (Symbicort) 1 inh inhalation BID calcium carbonate-vitamin D3 600 mg-20 mcg (800 unit) (Caltrate with Vitamin D3) 1 tab PO DAILY cholecalciferol (vitamin D3) (Vitamin D3) 25 mcg PO DAILY flecainide 50 mg PO Q12H hydrochlorothiazide 50 mg PO DAILY 30 days inhalational spacing device (Aerochamber MV spacer) As directed ipratropium-albuterol 0.5 mg-3 mg(2.5 mg base)/3 mL 3 mL inhalation Q4-6H PRN levalbuterol tartrate 45 mcg/actuation (Xopenex HFA) 2 inhalations inhalation Q6H lisinopril 20 mg PO BID metoprolol succinate ER 50 mg PO DAILY yduybamzsvbl-uiya-ijxti acid 18-400 mg-mcg (Centrum Women) 1 tab PO DAILY nebulizers As directed omeprazole 20 mg PO DAILY rivaroxaban (Xarelto) 20 mg PO DAILY simvastatin 20 mg PO BEDTIME HPI Comments Details: 69 YO F is seen in consultation at the request of PCP for Osteoporosis. First diagnosed in 5 yrs ago.Never saw another specialist Received treatment in the past with Reloxivine , for 3 yrs . Tolerated treatment well without complication.Has hot flashes No history of pathologic fracture or ONJ. Has few servings of dietary calcium per day in the form of cheese . Took Calcium supplement citrate ? mg daily in divided doses. Stopped calcium a yr ago Takes 1000 IU of Vitamin D daily. Takes PPI, anticoagulant, no antiepileptic no glucocorticoid medication. 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 Aunt has breast cancer Denies history of Kidney stones: Sister - family history of Osteoporosis vertebral but no hip fracture. UTD on dental cleanings and sees dentist every 6 months. No planned upcoming dental work or extractions.Planned root canal DXA dated :04/04/24 FINDINGS: LEFT FEMUR, NECK: Current: BMD 0.621 g/cm2, Z-score -1.5, T-score -3.0, osteoporosis. Prior: BMD 0.739 g/cm2. Baseline: BMD 0.819 g/cm2. LEFT FEMUR, TOTAL: Current: BMD 0.764 g/cm2, Z-score -0.6, T-score -1.9, osteopenia, 18.0% decrease from previous, 19.2% decrease from baseline (<5% change is not significant). Prior: BMD 0.932 g/cm2. Baseline: BMD 0.946 g/cm2. AP SPINE L1-L4: Current: BMD 0.915 g/cm2, Z-score -0.8, T-score -2.2, osteopenia, 1.2% increase from previous, 3.0% increase from baseline (<5% change is not significant). Prior: BMD 0.904 g/cm2. Baseline: BMD 0.888 g/cm2. Labs: Secondary workup was negative The patient is a 69-year-old female presenting with osteoporosis management and treatment discussion. Notable medical history includes osteoporosis characterized by a significant reduction in bone density, specifically noted with a T-score of negative 3 in the hip. This places the patient at a very high risk for fractures, although she has not yet experienced any events of fracture. - Tymlos: Not affordable - Forteo: Not affordable - Evenity: Not affordable The patient is advised to engage in weight-bearing exercises to help manage osteoporosis. [facility] Medical History COPD with acute exacerbation History of acute pancreatitis Environmental and seasonal allergies Dense breast tissue on mammogram Osteoporosis Paroxysmal atrial fibrillation Chronic anticoagulation Essential hypertension Dyslipidemia COPD (chronic obstructive pulmonary disease) Mild intermittent asthma with (acute) exacerbation Personal history of nicotine dependence Hiatal hernia with gastroesophageal reflux Irritable bowel syndrome with diarrhea Hepatic hemangioma Mixed urinary incontinence due to female genital prolapse Arthritis Multiple lipomas COVID-19 virus infection Hemochromatosis carrier Surgical History History of cardioversion History of laparoscopic cholecystectomy History of colonoscopy History of esophagogastroduodenoscopy (EGD) History of lumpectomy of left breast History of hysteroscopy Family History Father Emphysema, unspecified Mother Heart disease CVD (cardiovascular disease) Stroke Maternal Aunt Breast cancer Ovarian cancer Brother No problems noted. Brother No problems noted. Brother No problems noted. Sister Derek's disease Sister Mental health disorder Sister Mental health disorder Daughter No problems noted. Daughter No problems noted. Daughter No problems noted. Social History Household Members: Spouse Housing: House Do you presently have visiting nurse or other home services: No Unable to assess alcohol history related to: Unknown Alcohol intake: current Alcohol intake frequency: holidays/special occasions only Patient Tobacco Use Status: Former Tobacco user Years Smoked: 40 yrs e-Cigarette/Vaping Use: Never Used service: No Current occupational status: retired Cognitive needs: No Hearing needs: No Vision needs: Yes Physical Exam Vital Signs: Last Vital Signs Pulse 69 06/04/25 09:28 BP 104/68 06/04/25 09:28 Pulse Ox 94 06/04/25 09:28 Oxygen Delivery Method Room Air 08/26/25 09:28 BMI result Body Mass Index 30.7 Assessment & Plan Assessment & Plan (1) Osteoporosis: Code(s): M81.0 - Age-related osteoporosis without current pathological fracture Category: Medical Plan: This 68-year-old white female with a history of osteoporosis with negative negative secondary workup. Although f anabolic therapy like Tymlos, Forteo or Evenity is favored followed by anti resorptive therapy like Prolia or bisphosphonate. However, patient is having difficulty affording the anabolic. Therefore, we will go with Prolia 60 mg q.6 months. Went over side effects of Prolia with patient including rebound effect inability to be compliant with taking the Prolia every 6 months. We will try to get coverage from insurance company for Prolia injection. 1. Osteoporosis The patient is unable to afford bone-building medications such as Tymlos, Forteo, and Evenity. Prolia is considered as an alternative due to its affordability and administration every six months. It does not build bone but protects against fractures. The patient is advised to engage in weight-bearing exercises and ensure adequate intake of calcium and vitamin D. A bone density screening is scheduled for March 2026. 2. Gastroesophageal reflux disease GERD) and Hiatal hernia The patient's GERD and hiatal hernia complicate oral medication intake. Management includes considering non-oral options and monitoring symptoms. During the consultation, we discussed the patient's osteoporosis management options, focusing on affordability and efficacy. Prolia was recommended as a viable option due to its protective benefits against fractures and its administration schedule. We also addressed the patient's concerns about GERD and hiatal hernia, emphasizing the need for non-oral medication options. The importance of weight-bearing exercises and adequate calcium and vitamin D intake was highlighted. We scheduled a follow-up for bone density screening in March 2026 and discussed the potential need for Reclast if Prolia is not feasible. The patient had an opportunity to ask questions regarding treatment plan. The patient expressed understanding and agreement with the above treatment plan. Patient was informed and verbally consented to the use of an ambient scribe for clinic note documentation during this visit. The patient had an opportunity to ask questions regarding treatment plan. The patient expressed understanding and agreement with the above treatment plan. Patient was informed and verbally consented to the use of an ambient scribe for clinic note documentation during this visit. Coding Level of Care Code Est Pt Level 3 (44464) Diagnoses Osteoporosis M81.0
== END 2025-06-04 10:51 | disposition home or self-care (01) ==
LOC: HO.ENCR 09:26
PROVIDERS: PCP Internal Medicine; Visit Provider Internal Medicine Endocrinology, Diabetes & Metabolism
DX: M81.0 Age-related osteoporosis without current pathological fracture (principal)
CPT/HCPCS: 99213

== ENCOUNTER 2025-06-17 14:58 | Outpatient (AMB) | payer MEDICARE, SELFPAY ==
--- NOTE | 2025-06-17 15:45 | AM.OFFVISNUR ---
Intake Visit Reasons: Prolia #1 Allergies Sulfa (Sulfonamide Antibiotics) (SULFA(SULFONAMIDE ANTIBIOTICS)) Allergy (Intermediate, Verified 06/04/25 09:28) FACIAL SWELLING, REDNESS, rash, face edema levofloxacin (From LEVAQUIN) Allergy (Unknown, Verified 06/04/25 09:28) itchy tongue Penicillins (PENICILLINS) Allergy (Unknown, Verified 06/04/25 09:28) RASH Quinolones (QUINOLONES) Allergy (Unknown, Verified 06/04/25 09:28) MOUTH ITCHING ketorolac Adverse Reaction (Uncoded 06/04/25 09:28) Facial Swelling latex Adverse Reaction (Uncoded 06/04/25 09:28) Facial Swelling Office Meds Prolia 60 mg/mL subcutaneous syringe Performing Provider: Mariano Morillo MD Performing Location: [facility] [place] Endocrinology Administered by: Jenny Tavarez RN on 06/17/25 15:45 Dose Route Admin Location Dispensed Lot Number Expiration Date NDC Android Developer 60 mg subcut left upper arm 1 mL [id number] 12/08/27 84396-502-18 [employer] Total Dispensed Waste 1 mL 0 % Comments: Patient in for first evenity injection. Advised that two weeks prior labs will be required but we will call to remind her. Advised to watch site of injection for any redness, warmth or tenderness. Patient tolerated injection well and observed x15 minutes following injection without any signs or symptoms of adverse reactions. Assessment & Plan Assessment & Plan Orders: Orders AMB Denosumab Injection Practice Supplied Today M81.0 - Age-related osteoporosis without current pathological fracture Coding
--- OUTSIDE RECORDS SUMMARY | 2025-06-17 18:16 | XMS_ITS | Clinical Summary ---
Author Organization [facility] Address [address] [place] [address] Care Team Providers Care Sodium Methylate Operator Name Role Phone Unavailable Primary Care Provider Unavailabl e Social History Tobacco Use Types Packs/Day Years Used Date Smoking Tobacco: Never Assessed Comments Unknown Sex and Gender Information Value Date Recorded Sex Assigned at Not on file Legal Sex Female 12:17 AM EDT Gender Identity Not on file Sexual Orientation Not on file Plan of Treatment Health Maintenance Due Date Last Done Comments Advance Care Planning 1955 Hepatitis C Virus Screening 1955 DTaP/Tdap/Td Vaccines (1 - Tdap) 1972 Mammogram 1993 Colonoscopy 1998 Pneumococcal Vaccines 50+ (1 of 1 - PCV) 2003 Zoster (Shingles) Vaccine (1 of 2) 2003 DXA Bone Density (Females,Ag es 65 and older) 2018 Influenza Vaccine 05/10/2025 COVID-19 Vaccine ( - 2023-2 5 season) 2025 RSV Vaccine 60 years and old er and Patients (1 - 1-dose 75+ series) 2028 Hepatitis B Vaccines Aged Out No long er eligible based on patient's age to complete this topic Insurance RACHEAL CARCAMO [id number] [facility]
== END 2025-06-18 11:26 | disposition home or self-care (01) ==
LOC: HO.ENCR 14:59
PROVIDERS: PCP Nurse Practitioner; Visit Provider Internal Medicine Endocrinology, Diabetes & Metabolism
DX: M81.0 Age-related osteoporosis without current pathological fracture (principal)

== ENCOUNTER → 2025-06-17 14:58 | Outpatient (BNVA) | payer MEDICARE, SELFPAY | PROVIDERS: PCP Nurse Practitioner; Visit Provider Internal Medicine Endocrinology, Diabetes & Metabolism | DX: M81.0 Age-related osteoporosis without current pathological fracture (principal) | CPT/HCPCS: 96372; J0897 ==

== ENCOUNTER 2025-07-02 20:55 | Emergency (ER) | payer MEDICARE, SELFPAY ==
--- NOTE | 2025-07-02 | ECG_ITS ---
Test Reason : DIZZINESS Blood Pressure : */* mmHG Vent. Rate : 66 BPM Atrial Rate : 66 BPM P-R Int : 202 ms QRS Dur : 90 ms QT Int : 444 ms P-R-T Axes : 22 13 24 degrees QTcB Int : 465 ms Normal sinus rhythm Low voltage QRS Borderline ECG When compared with ECG of 16-Jan-2025 16:51, Borderline criteria for Anterior infarct are no longer Present Referred By: Generic ED Physician Electronically Signed By: Epifanio Oconnor
[2025-07-02 21:05] VITALS: BP 120/55; BP 120/56; PULSE 72; PULSE 73; RESP 16; TEMP 36.5; O2SAT 98; BMI 34.3
[2025-07-02 21:08] VITALS: BP 120/56; PULSE 72; RESP 16; TEMP 36.5; O2SAT 98
[2025-07-02 21:34] LABS: MANUAL DIFF FLAG NO
[2025-07-02 21:35] LABS: Hematocrit 33.4 % (37.0-47.0); Hemoglobin 11.1 g/dl (12.0-16.0); Imm Gran Abs Auto 0.03 X10*3/uL (0.00-0.03); Imm Gran Pct Auto 0.4 % (0.0-0.4); Lymphocytes Absolute Auto 1.6 X10*3/uL (1.2-4.9); Mean Corpuscular HGB Conc 33.2 g/dl (31.0-35.0); Mean Corpuscular Hemoglobin 28.7 pg (27.0-33.0); Mean Corpuscular Volume 86.3 fL (80.0-98.0); NRBC Abs Auto 0.000 X10*3/uL (0.0-0.012); NRBC Pct Auto 0.0 /100WBC (0.0-0.2); Platelet Count 256 X10*3/uL (160-400); Red Blood Count 3.87 X10*6/uL (4.20-5.50); White Blood Count 8.1 X10*3/uL (4.8-10.8)
--- OUTSIDE RECORDS SUMMARY | 2025-07-02 21:40 | XMS_ITS | Clinical Summary ---
Author Organization [facility] Address [address] [place] [address] Care Team Providers Care Semiconductor Processing Technician Name Role Phone Unavailable Primary Care Provider [...] to complete this topic Insurance RACHEAL CARCAMO [id number] [facility]
[2025-07-02 21:41] LABS: INTERNATIONAL NORM RATIO 1.5 (0.9-1.1); Prothrombin Time 16.7 SEC (10.9-12.4)
[2025-07-02 21:52] LABS: Anion Gap 12 (12-20); Blood Urea Nitrogen 43 mg/dL (9-16); Calcium 8.4 mg/dL (8.4-10.2); Carbon Dioxide 31 mmol/L (22-29); Chloride 102 mmol/L (96-108); Creatinine Clr Calc Pharmacy 38.8; Estimated Glomerular Filt Rate 41; Magnesium 2.2 mg/dL (1.6-2.6); Potassium 3.4 mmol/L (3.3-5.1); Sodium 142 mmol/L (135-145)
[2025-07-02 22:00] LABS: Troponin-I High Sensitivity < 2.7 ng/L (<3.5-17.0)
[2025-07-02 23:37] VITALS: BP 100/60; PULSE 71; RESP 18; TEMP 36.6; O2SAT 97
--- NOTE | 2025-07-03 00:30 | ED.DIZZY ---
HPI - Dizziness General Chief Complaint: Dizziness Stated Complaint: dizzy, blurred vision, near sycope, hx COPD aFib Time Seen by Provider: 07/03/25 00:29 Source: patient Mode of arrival: EMS Limitations: no limitations History of Present Illness ED Provider: Dr. Jn Munson HPI Narrative: 69-year-old female with a history of hypertension, coronary artery disease, paroxysmal atrial fibrillation, COPD who presents emergency department for evaluation of dizziness, lightheadedness, blurred vision and near-syncope. The patient states she works at the [employer] in [employer]. She worked a full shift and only had several glasses of water to drink throughout her shift. She then went to the [employer]. She states that she was there for proximally 2 hours, she had 1 beer to drink but no other fluid. She was hungry and then went to get some food. She states that prior to getting the food, she felt lightheaded and dizzy as if she was going to pass out. She states that her vision became blurred and she almost lost consciousness. EMS reported that she was clammy and had a low blood pressure. At the time my evaluation, she states that the dizziness had resolved but she has a headache. She has no other complaints. She denied fever, chills, chest pain, shortness of breath, nausea, vomiting, diarrhea, frequency, urgency, dysuria, dark stools or bloody stools. Related Data Home Medications ?Medication ?Instructions ?Recorded ?Confirmed acetaminophen 650 mg 650 mg PO Q8H PRN pain 09/18/20 06/04/25 tablet,extended release omeprazole 20 mg capsule,delayed 20 mg PO DAILY 05/19/23 06/04/25 release ascorbic acid (vitamin C) 1,000 mg 1,000 mg PO DAILY 07/02/24 06/04/25 tablet (Vitamin C) calcium 600 mg (as 1 tab PO DAILY 07/02/24 06/04/25 carbonate)-vitamin D3 20 mcg (800 unit) tablet (Caltrate with Vitamin D3) cholecalciferol (vitamin D3) 25 25 mcg PO DAILY 07/02/24 06/04/25 mcg (1,000 unit) tablet (Vitamin D3) multivitamin-ferrous 1 tab PO DAILY 07/02/24 06/04/25 fumarate-folic acid 18 mg-400 mcg tablet (Centrum Women) benzonatate 100 mg capsule 200 mg PO BID PRN 05/13/25 06/04/25 Previous Rx's ?Medication ?Instructions ?Recorded nebulizers #1 ea 03/25/21 inhalational spacing device #1 ea 07/01/21 (Aerochamber MV spacer) albuterol sulfate 2.5 mg/3 mL 2.5 mg (3 mL) inhalation Q4-6H PRN 12/22/23 (0.083 %) solution for nebulization shortness of breath or wheezing #90 mL levalbuterol tartrate 45 2 inh inhalation Q6H #15 grams 01/19/24 mcg/actuation aerosol inhaler (Xopenex HFA) lisinopril 20 mg tablet 20 mg PO BID #180 tabs 12/27/24 ipratropium 0.5 mg-albuterol 3 mg 3 ml inhalation Q4-6H PRN wheezing 02/18/25 (2.5 mg base)/3 mL nebulization and SOB #90 mL soln metoprolol succinate 50 mg 50 mg PO DAILY #90 tabs 04/05/25 tablet,extended release 24 hr rivaroxaban 20 mg tablet (Xarelto) 20 mg PO DAILY #90 tabs 05/07/25 blood pressure monitor #1 ea 05/29/25 flecainide 50 mg tablet 50 mg PO Q12H #60 tabs 05/29/25 hydrochlorothiazide 50 mg tablet 50 mg PO DAILY 30 days #30 tabs 05/29/25 simvastatin 20 mg tablet 20 mg PO BEDTIME #90 tabs 06/08/25 budesonide-formoterol HFA 160 1 inh inhalation BID #10.2 grams 06/09/25 mcg-4.5 mcg/actuation aerosol inhaler (Symbicort) Allergies Allergy/AdvReac Type Severity Reaction Status Date / Time Sulfa (Sulfonamide Allergy Intermediate FACIAL Verified 07/02/25 21:07 Antibiotics) SWELLING, (SULFA(SULFONAMIDE REDNESS, ANTIBIOTICS)) rash, face edema levofloxacin (From LEVAQUIN) Allergy Unknown itchy Verified 07/02/25 21:07 tongue Penicillins (PENICILLINS) Allergy Unknown RASH Verified 07/02/25 21:07 Quinolones (QUINOLONES) Allergy Unknown MOUTH Verified 07/02/25 21:07 ITCHING ketorolac AdvReac Facial Uncoded 06/04/25 09:28 Swelling latex AdvReac Facial Uncoded 06/04/25 09:28 Swelling Review of Systems Review of Systems: Yes all other systems are reviewed and are negative [facility] Past Medical History [facility] Narrative: Social history: Patient denies tobacco use, she stopped smoking 15 years prior and has a greater than 40 pack-year history of smoking. She occasionally drinks beer and had 1 beer to drink today. She denied drug use. Medical History COPD with acute exacerbation History of acute pancreatitis Environmental and seasonal allergies Dense breast tissue on mammogram Osteoporosis Paroxysmal atrial fibrillation Chronic anticoagulation Essential hypertension Dyslipidemia COPD (chronic obstructive pulmonary disease) Mild intermittent asthma with (acute) exacerbation Personal history of nicotine dependence Hiatal hernia with gastroesophageal reflux Irritable bowel syndrome with diarrhea Hepatic hemangioma Mixed urinary incontinence due to female genital prolapse Arthritis Multiple lipomas COVID-19 virus infection Hemochromatosis carrier Surgical History History of cardioversion History of laparoscopic cholecystectomy History of colonoscopy History of esophagogastroduodenoscopy (EGD) History of lumpectomy of left breast History of hysteroscopy Family History Family History Father Emphysema, unspecified Mother Heart disease CVD (cardiovascular disease) Stroke Maternal Aunt Breast cancer Ovarian cancer Brother No problems noted. Brother No problems noted. Brother No problems noted. Sister Derek's disease Sister Mental health disorder Sister Mental health disorder Daughter No problems noted. Daughter No problems noted. Daughter No problems noted. Social History Social History Household Members: Spouse Housing: House Do you presently have visiting nurse or other home services: No Alcohol intake: current Alcohol intake frequency: holidays/special occasions only Patient Tobacco Use Status: Former Tobacco user Years Smoked: 40 yrs Smoked in Last 30 Days: No e-Cigarette/Vaping Use: Never Used Use of substances other than those prescribed or required for medical reasons: No Advance Directives: No Advance Directives Information Provided: Yes service: No Current occupational status: retired Cognitive needs: No Hearing needs: No Vision needs: Yes Physical Exam Vital Signs: Vital Signs: Last Vital Signs Temp 97.9 F 07/03/25 01:44 Pulse 63 07/03/25 01:44 Resp 17 07/03/25 01:44 BP 111/63 07/03/25 01:44 Pulse Ox 97 07/03/25 01:44 O2 Del Method Room Air 07/03/25 01:44 BMI result Body Mass Index 34.3 Vital signs were normal Exam: General: Awake, alert in no distress Head: Normocephalic, atraumatic EENT: PERRL, sclera and conjunctiva are normal, mouth with no erythema or exudates Neck: Supple, no adenopathy Lung: breath sounds symmetric, no wheezing, no rales and no rhonchi Chest: symmetric movement, nontender Heart: regular rate and rhythm, normal S1, S2 no murmurs or rubs Abdomen: soft, non-tender, nondistended, normal bowel sounds Back: no vertebral tenderness, no CVAT Extremities: no deformities, moves all extremities symmetrically, no edema Neuro: Awake, alert, oriented, normal speech, cranial nerves 2-12 intact, moves all extremities symmetrically Psych: Pleasant, cooperative Medications Administered Discontinued Medications Generic Name Dose Route Start Last Admin Trade Name Freq PRN Reason Stop Dose Admin Acetaminophen 975 mg 07/03/25 00:45 07/03/25 01:03 Acetaminophen 325 Mg Tablet PO 07/03/25 00:46 975 mg ONCE STA Administration Sodium Chloride 1,000 mls @ 999 mls/hr 07/03/25 00:45 07/03/25 01:00 Ns IV 07/03/25 01:45 999 mls/hr .Q1H1M STA Administration Medical Decision Making Medical Decision Making [facility] Narrative: 69-year-old female with a history of hypertension, coronary artery disease, paroxysmal atrial fibrillation, COPD who presents emergency department for evaluation of dizziness, lightheadedness, blurred vision and near-syncope. 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 She worked a full shift and only had several glasses of water to drink throughout her shift. She then went to the [employer]. She states that she was there for proximally 2 hours, she had 1 beer to drink but no other fluid. She was hungry and then went to get some food. She states that prior to getting the food, she felt lightheaded and dizzy as if she was going to pass out. She states that her vision became blurred and she almost lost consciousness. EMS reported that she was clammy and had a low blood pressure. At the time my evaluation, she states that the dizziness had resolved but she has a headache. She has no other complaints. She denied fever, chills, chest pain, shortness of breath, nausea, vomiting, diarrhea, frequency, urgency, dysuria, dark stools or bloody stools. Vital signs were normal. Physical examination was unremarkable Differential diagnosis: ?Includes but is not limited to myocardial infarction, myocardial ischemia, arrhythmia, dehydration, volume depletion, anemia, electrolyte abnormalities Course: 00:56 My independent interpretation patient's laboratory evaluation is as follows: Normocytic anemia with an H&H of 11.1 and 33.4-chronic. BUN elevated 43 with a normal creatinine of 1.29 and a low GFR of 41 compared to BUN and creatinine of 24 and 0.9 with a GFR of greater than 60 on 06/04/2025. Liver tests were normal. Troponin was below detectable limits. Alcohol was detectable but not elevated at 24. Twelve EKG did not reveal any acute abnormalities. Given her elevated BUN I suspect that the patient was volume depleted and dehydration and this caused her to have a near syncopal episode. Patient was treated with normal saline IV x1 L and Tylenol 975 mg orally for headache. 01:59 Patient is feeling significantly better after the above treatment. The patient will be discharged home. She was given printed and verbal instructions. Differential Diagnosis Differential Diagnoses: The differential diagnosis associated with the presentation includes (See above) Admission/Observation Consideration of admission/observation: Escalation of care including admission/observation considered (Yes) Lab Data MDM Lab Attestation statement: I reviewed the patient's lab results. 07/02/25 21:30 07/02/25 21:30 Labs: Lab Results 07/02/25 Range/Units 21:30 WBC 8.1 (4.8-10.8) X10*3/uL RBC 3.87 L (4.20-5.50) X10*6/uL Hgb 11.1 L (12.0-16.0) g/dl Hct 33.4 L (37.0-47.0) % MCV 86.3 (80.0-98.0) fL MCH 28.7 (27.0-33.0) pg MCHC 33.2 (31.0-35.0) g/dl RDW 12.2 (11.0-16.0) % Plt Count 256 (160-400) X10*3/uL MPV 10.2 (9.4-12.3) fL Immature Gran % (Auto) 0.4 (0.0-0.4) % Neut % (Auto) 68.5 (45-73) % Lymph % (Auto) 19.5 L (20-40) % Motley % (Auto) 8.3 (2-11) % Eos % (Auto) 2.7 (0-4) % Baso % (Auto) 0.6 (0-2) % Lymph # (Auto) 1.6 (1.2-4.9) X10*3/uL [place]ley # (Auto) 0.7 (0.1-1.2) X10*3/uL Eos # (Auto) 0.2 (0.0-0.4) X10*3/uL Baso # (Auto) 0.1 (0.0-0.2) X10*3/uL Abs Immat Gran (auto) 0.03 (0.00-0.03) X10*3/uL Absolute Neuts (auto) 5.5 (2.0-8.3) x10*3/uL Absolute Nucleated RBC 0.000 (0.0-0.012) X10*3/uL Nucleated RBC % (auto) 0.0 (0.0-0.2) /100WBC PT 16.7 H (10.9-12.4) SEC INR 1.5 H (0.9-1.1) Sodium 142 (135-145) mmol/L Potassium 3.4 (3.3-5.1) mmol/L Chloride 102 (96-108) mmol/L Carbon Dioxide 31 H (22-29) mmol/L Anion Gap 12 (12-20) BUN 43 H (9-16) mg/dL Creatinine 1.29 (0.5-1.4) mg/dL Estim Creat Clear Calc 38.8 Estimated GFR 41 Random Glucose 96 (60-115) mg/dL Calcium 8.4 D (8.4-10.2) mg/dL Magnesium 2.2 (1.6-2.6) mg/dL Troponin I High Sens < 2.7 (<3.5-17.0) ng/L Ethyl Alcohol 24 mg/dL Independent Interpretation I performed an independent interpretation of an: EKG Interpretation: My independent interpretation patient's 12 EKG done on 07/02/2025 at 21:16 hours is as follows: Sinus rhythm with a rate of 66, first-degree AV block with a prolonged NV interval of 202 millisecond normal QRS duration, normal QTC your, no ST segment elevation, no ST segment depression, poor R-wave progression V1 to V2 but normal in V3, nonspecific intraventricular conduction delay. Compared to an EKG dated 01/16/2025, first-degree AV block is old. Chronic Conditions Patient?s care impacted by: Hypertension and Other (Coronary artery disease, paroxysmal atrial fibrillation) Discharge Plan Discharge Clinical Impression: Near syncope, Volume depletion Patient Disposition: Home, Self-Care Additional Instructions: Your blood work revealed slight elevation in your kidney numbers suggesting that you are dehydrated, this caused you to almost pass out (almost faint). Your EKG was unchanged from your previous EKG and you had mild anemia which is unchanged from your labs as well. You were treated here in the emergency department with 1 L of normal saline IV and Tylenol orally. Throughout the day tomorrow make sure that you increase the amount of food and fluid that you eat to prevent further dehydration Follow-up with your doctor in 2 days. Please return to the emergency department if your symptoms get worse or if you develop any symptoms that are concerning to you. Prescriptions: No Action (DME) Aerochamber MV Spacer See Rx Instructions .ROUTE .MEDSUPPLY Qty: 1 0RF Rx Instructions: As directed lisinopril 20 mg tablet 20 mg PO BID Qty: 180 3RF metoprolol succinate 50 mg tablet extended release 24 hr 50 mg PO DAILY Qty: 90 3RF Xarelto 20 mg tablet 20 mg PO DAILY Qty: 90 3RF simvastatin 20 mg tablet 20 mg PO BEDTIME Qty: 90 0RF budesonide-formoterol [Symbicort] 160-4.5 mcg/actuation HFA aerosol inhaler 1 inh inhalation BID Qty: 10.2 3RF ascorbic acid (vitamin C) [Vitamin C] 1,000 mg Tablet 1,000 mg PO DAILY cholecalciferol (vitamin D3) [Vitamin D3] 25 mcg (1,000 unit) Tablet 25 mcg PO DAILY Centrum Women 18-400 mg-mcg Tablet 1 tab PO DAILY calcium carbonate-vitamin D3 [Caltrate with Vitamin D3] 600 mg-20 mcg (800 unit) Tablet 1 tab PO DAILY albuterol sulfate 2.5 mg /3 mL (0.083 %) solution for nebulization 2.5 mg inhalation Q4-6H PRN (Reason: shortness of breath or wheezing) Qty: 90 0RF acetaminophen 650 mg tablet extended release 650 mg PO Q8H PRN (Reason: pain) (DME) nebulizers Misc See Rx Instructions .ROUTE .MEDSUPPLY Qty: 1 0RF Rx Instructions: As directed omeprazole 20 mg capsule,delayed release(DR/EC) 20 mg PO DAILY levalbuterol tartrate [Xopenex HFA] 45 mcg/actuation HFA aerosol inhaler 2 inh inhalation Q6H Qty: 15 0RF benzonatate 100 mg capsule 200 mg PO BID PRN ipratropium-albuterol 0.5 mg-3 mg(2.5 mg base)/3 mL solution for nebulization 3 ml inhalation Q4-6H PRN (Reason: wheezing and SOB) Qty: 90 0RF (DME) blood pressure monitor Kit See Rx Instructions .Route Qty: 1 0RF Rx Instructions: As directed hydrochlorothiazide 50 mg tablet 50 mg PO DAILY 30 Days Qty: 30 3RF flecainide 50 mg tablet 50 mg PO Q12H Qty: 60 3RF Print Language: Spanish
[2025-07-03 01:44] VITALS: BP 111/63; PULSE 63; RESP 17; TEMP 36.6; O2SAT 97
[2025-07-03 02:15] VITALS: BP 111/63; PULSE 63; RESP 17; TEMP 36.6; O2SAT 97
== END 2025-07-03 02:15 | disposition home or self-care (01) ==
PROVIDERS: Emergency Provider Emergency Medicine Emergency Medical Services; PCP Nurse Practitioner
DX: R55 Syncope and collapse (principal); E86.9 Volume depletion, unspecified; R42 Dizziness and giddiness; R94.31 Abnormal electrocardiogram [ECG] [EKG]; H53.8 Other visual disturbances; J44.9 Chronic obstructive pulmonary disease, unspecified; R11.0 Nausea; Z51.81 Encounter for therapeutic drug level monitoring
CPT/HCPCS: 36415; 80048; 80307; 83735; 84484; 85025; 85610; 93005; 96360; 99284; 99285

== ENCOUNTER → 2025-07-02 21:16 | Outpatient (BNV) | payer MEDICARE, SELFPAY | PROVIDERS: Emergency Provider Emergency Medicine Emergency Medical Services; PCP Nurse Practitioner; Visit Provider Internal Medicine Cardiovascular Disease | DX: R42 Dizziness and giddiness (principal) | CPT/HCPCS: 93010 ==

== ENCOUNTER 2025-08-14 10:23 | Outpatient (REF) | payer MEDICARE, SELFPAY ==
[2025-08-14 12:36] LABS: Calcium 8.7 mg/dL (8.4-10.2)
== END 2025-08-14 10:24 | disposition home or self-care (01) ==
LOC: HO.LAB 10:23
PROVIDERS: Absent Provider Internal Medicine Endocrinology, Diabetes & Metabolism; PCP Nurse Practitioner; Visit Provider Internal Medicine Cardiovascular Disease
DX: I48.0 Paroxysmal atrial fibrillation (principal); I10 Essential (primary) hypertension; I25.10 Atherosclerotic heart disease of native coronary artery without angina pectoris; M81.0 Age-related osteoporosis without current pathological fracture; Z87.891 Personal history of nicotine dependence
CPT/HCPCS: 36415; 82310; 93005; 99212

== ENCOUNTER 2025-08-14 10:23 | Outpatient (AMB) | payer MEDICARE, SELFPAY ==
--- NOTE | 2025-08-14 10:25 | MHC.OFFVIS ---
Vital Signs 08/14/25 10:26 Height 5 ft 1 in Weight 163 lb 2.273 oz BMI 30.8 BP 120/80 Blood Pressure Location Lt brachial Position Sitting Pulse 68 Intake Visit Reasons: 3M Follow up Intake Note: 3 month follow-up feeling better was in the ED in Sept Director Cardiac Required: No Allergies Sulfa (Sulfonamide Antibiotics) (SULFA(SULFONAMIDE ANTIBIOTICS)) Allergy (Intermediate, Verified 07/02/25 21:07) FACIAL SWELLING, REDNESS, rash, face edema levofloxacin (From LEVAQUIN) Allergy (Unknown, Verified 07/02/25 21:07) itchy tongue Penicillins (PENICILLINS) Allergy (Unknown, Verified 07/02/25 21:07) RASH Quinolones (QUINOLONES) Allergy (Unknown, Verified 07/02/25 21:07) MOUTH ITCHING ketorolac Adverse Reaction (Uncoded 06/04/25 09:28) Facial Swelling latex Adverse Reaction (Uncoded 06/04/25 09:28) Facial Swelling Medication List - Last Reconciled 08/14/25 by Juan Laughlin MD acetaminophen ER 650 mg PO Q8H PRN albuterol sulfate 2.5 mg (3 mL) inhalation Q4-6H PRN ascorbic acid (vitamin C) (Vitamin C) 1,000 mg PO DAILY benzonatate 200 mg PO BID PRN blood pressure monitor As directed budesonide-formoterol 160-4.5 mcg/actuation (Symbicort) 1 inh inhalation BID calcium carbonate-vitamin D3 600 mg-20 mcg (800 unit) (Caltrate with Vitamin D3) 1 tab PO DAILY cholecalciferol (vitamin D3) (Vitamin D3) 25 mcg PO DAILY flecainide 50 mg PO Q12H hydrochlorothiazide 50 mg PO DAILY 30 days inhalational spacing device (Aerochamber MV spacer) As directed ipratropium-albuterol 0.5 mg-3 mg(2.5 mg base)/3 mL 3 mL inhalation Q4-6H PRN levalbuterol tartrate 45 mcg/actuation (Xopenex HFA) 2 inhalations inhalation Q6H lisinopril 20 mg PO BID metoprolol succinate ER 50 mg PO DAILY mcqothoghrkx-kfdq-wjekv acid 18-400 mg-mcg (Centrum Women) 1 tab PO DAILY nebulizers As directed omeprazole 20 mg PO DAILY rivaroxaban (Xarelto) 20 mg PO DAILY simvastatin 20 mg PO BEDTIME HPI Comments Details: [place] comes for follow-up. Recently she had episode of near-syncope and had come to the emergency room and was noted to have dehydration and was adequately hydrated. This corresponds with her hold they scenario that day. Patient since then has been maintaining adequate hydration. She has been taking all her medications and doing well. She says a blood pressure has been much better controlled on current hydrochlorothiazide dose. She has not recurrent episodes of atrial fibrillation. She denies any heart failure symptoms. Denies any exertional chest pain. [facility] Medical History COPD with acute exacerbation History of acute pancreatitis Environmental and seasonal allergies Dense breast tissue on mammogram Osteoporosis Paroxysmal atrial fibrillation Chronic anticoagulation Essential hypertension Dyslipidemia COPD (chronic obstructive pulmonary disease) Mild intermittent asthma with (acute) exacerbation Personal history of nicotine dependence Hiatal hernia with gastroesophageal reflux Irritable bowel syndrome with diarrhea Hepatic hemangioma Mixed urinary incontinence due to female genital prolapse Arthritis Multiple lipomas COVID-19 virus infection Hemochromatosis carrier Surgical History History of cardioversion History of laparoscopic cholecystectomy History of colonoscopy History of esophagogastroduodenoscopy (EGD) History of lumpectomy of left breast History of hysteroscopy Family History Father Emphysema, unspecified Mother Heart disease CVD (cardiovascular disease) Stroke Maternal Aunt Breast cancer Ovarian cancer Brother No problems noted. Brother No problems noted. Brother No problems noted. Sister Derek's disease Sister Mental health disorder Sister Mental health disorder Daughter No problems noted. Daughter No problems noted. Daughter No problems noted. Social History Household Members: Spouse Housing: House Do you presently have visiting nurse or other home services: No Alcohol intake: current Alcohol intake frequency: holidays/special occasions only Patient Tobacco Use Status: Former Tobacco user Years Smoked: 40 yrs e-Cigarette/Vaping Use: Never Used service: No Current occupational status: retired Cognitive needs: No Hearing needs: No Vision needs: Yes Review of Systems Const Denies chills, Denies fatigue, Denies fever(s), Denies frequent falls, Denies weakness, Denies weight gain and Denies weight loss ENT Denies dizziness Card Denies chest pain, Denies leg edema, Denies lightheadedness, Denies palpitations, Denies dyspnea, Denies dyspnea on exertion, Denies orthopnea and Denies other (loss of consciousness) Resp Denies cough, Denies dyspnea and Denies dyspnea on exertion GI Denies hematochezia and Denies change in stool character Musc Denies abnormal gait, Denies muscle weakness, Denies numbness, Denies radiating pain into limb and Denies tingling Neuro Denies abnormal gait, Denies dizziness, Denies frequent falls, Denies numbness, Denies tingling and Denies weakness Endo Denies fatigue and Denies palpitations Physical Exam Vital Signs: Last Vital Signs Pulse 68 08/14/25 10:26 BP 120/80 08/14/25 10:26 BMI result Body Mass Index 30.8 Const General: cooperative, comfortable, no acute distress, alert and awake Nutritional Appearance: overweight Orientation/consciousness: patient oriented x3 Limitations: no limitations Neck Neck: Yes trachea midline, Yes supple and Yes no JVD Resp Effort & Inspection: normal respiratory effort Auscultation: clear to auscultation bilaterally and diminished lung sounds Cardio Jugular venous distension: no JVD Palpation: normal PMI Rate: regular rate Rhythm: regular rhythm Heart sounds: S1 normal heart sound present and S2 normal heart sound present GI Auscultation: normal bowel sounds Skin General skin exam: no rashes or lesions noted Neuro General: patient oriented x3 and no focal motor deficits Extrem General: No clubbing, No cyanosis, Yes edema and Yes other (Bilateral varicose veins) Psych Appearance: grossly normal Office Procedures EKG Details: EKG shows normal sinus rhythm with first-degree AV block with low-voltage QRS as well as poor R-wave progression most likely due to body habitus. [id number], Complete Assessment & Plan Assessment & Plan (1) Paroxysmal atrial fibrillation: Code(s): I48.0 - Paroxysmal atrial fibrillation Category: Medical Plan: Highly symptomatic paroxysmal atrial fibrillation which has done well with rhythm control approach. Continue pursue current rhythm control approach. Continue current rhythm control therapy with flecainide as well as concomitant metoprolol therapy. Importance of continuing therapy and rhythm approach was discussed. She understands and agrees. Avoidance of stimulants was discussed. Stress mitigation strategies was discussed. Continue aggressive control blood pressure. Currently on full oral anticoagulation Xarelto. Advised to monitor renal function every 6 months. (2) Essential hypertension: Code(s): I10 - Essential (primary) hypertension Category: Medical Plan: Hypertension which is now well optimized on current therapy with hydrochlorothiazide as well as lisinopril and metoprolol therapy. Continue the same. Importance of good blood pressure control was discussed. Low-salt diet was discussed. Stress mitigation strategies were discussed. Discussed with her about maintaining adequate hydration while on hydrochlorothiazide therapy. (3) Coronary artery calcification seen on CAT scan: Comment: (moderate calcification on 05/2025 LDCT) Code(s): I25.10 - Atherosclerotic heart disease of [place] coronary artery without angina pectoris Category: Medical Plan: Nonobstructive CAD with noted coronary calcium on CT imaging of chest. Continue full oral anticoagulation Xarelto. Continue risk factor modification. Target goal LDL less than 70 mg/dL. Blood pressure is well optimized. She is currently not having any symptoms suggestive of angina. Advised to call me with any new symptoms. Follow up in the clinic in 6 months time, sooner PRN. Thank you for allowing me to partake in her care Orders: Orders CA echo transthoracic complete 6 Months I48.0 - Paroxysmal atrial fibrillation Basic Metabolic Panel Today I48.0 - Paroxysmal atrial fibrillation Medications: Refilled hydrochlorothiazide 50 mg PO DAILY 90 tabs 3RF 30 days Coding Level of Care Code Est Pt Level 4 (86432) Complex EM visit Add On G2211 Diagnoses Paroxysmal atrial fibrillation I48.0 Essential hypertension I10 Coronary artery calcification seen on CAT scan I25.10 CPT Codes EKG - CPT: 47601-[id number], Complete ([id number])
[2025-08-14 10:26] VITALS: BP 120/80; PULSE 68; BMI 30.8
--- OUTSIDE RECORDS SUMMARY | 2025-08-14 12:07 | XMS_ITS | Clinical Summary ---
Author Organization [facility] Address [address] [place] [address] Care Team Providers Care Dish Stacker Name Role Phone Unavailable Primary Care Provider [...] - 2023-2 5 season) 2025 RSV Vaccine 50 years and old er and Patients (1 - 1-dose 75+ series) 2028 Hepatitis B Vaccines Aged Out No long er eligible based on patient's age to complete this topic Insurance RACHEAL CARCAMO [id number] [facility]
== END 2025-08-14 10:53 | disposition home or self-care (01) ==
PROVIDERS: PCP Nurse Practitioner; Visit Provider Internal Medicine Cardiovascular Disease
DX: I48.0 Paroxysmal atrial fibrillation (principal); I10 Essential (primary) hypertension; I25.10 Atherosclerotic heart disease of native coronary artery without angina pectoris
CPT/HCPCS: 93010; 99214; G2211

== ENCOUNTER 2025-08-15 08:41 | Outpatient (REF) | payer MEDICARE, SELFPAY ==
--- OUTSIDE RECORDS SUMMARY | 2025-08-15 09:10 | XMS_ITS | Clinical Summary ---
Author Organization [facility] Address [address] [place] [address] Care Team Providers Care Financial Project Manager Name Role Phone Unavailable Primary Care [...] to complete this topic Insurance RACHEAL CARCAMO [id number] [facility]
[2025-08-15 10:23] LABS: Anion Gap 10 (12-20); Blood Urea Nitrogen 28 mg/dL (9-16); Calcium 9.0 mg/dL (8.4-10.2); Carbon Dioxide 32 mmol/L (22-29); Chloride 107 mmol/L (96-108); Estimated Glomerular Filt Rate > 60; Potassium 4.2 mmol/L (3.3-5.1); Sodium 145 mmol/L (135-145)
== END 2025-08-15 08:42 | disposition home or self-care (01) ==
LOC: HO.LAB 08:41
PROVIDERS: PCP Nurse Practitioner; Visit Provider Internal Medicine Cardiovascular Disease
DX: I48.0 Paroxysmal atrial fibrillation (principal)
CPT/HCPCS: 36415; 80048